=== PATIENT | female | born 1960 | race African-American/Black ===

== ENCOUNTER 2017-08-10 11:57 | Emergency (ER) | payer OTHER ==
[~2017-08-10] VITALS: Ht 154.9 cm; Wt 59.0 kg
[~2017-08-10 11:57] MED LIST: ADVAIR; ADVAIR 250-501 EACH INH; ADVAIR 500/501 EA INH; ALBUTEROL0.63 MG/3; AMBIEN10 MG PO; BACTRIM DS TAB1 EACH PO; DEXILANT60 MG PO; DOXYCYCLINE HY100 MG PO; Hydrocodone/Chlorpheniramine PO; LEVAQUIN500 MG PO; LORATADINE10 MG PO; NEXIUM40 MG PO; PREDNISONE10 MG PO; PREDNISONE20 MG PO; PROAIR HFA INH8.5 GM; PROTONIX40 MG/ML PO; TESSALON PERLE100 MG PO; TUSSIONEX PENN480 ML PO
[2017-08-10] MEDS ORDERED: IPRATROPIUM BROMIDE 0.02% 2.5 ML NEB NEB STA (12:06)
[2017-08-10 12:36] LABS: BASOPHILS # (AUTO) 0.1 (0.0-0.1); BASOPHILS % 1.6 % (0.0-1.0); EOSINOPHILS # (AUTO) 0.9 (0.0-0.4); EOSINOPHILS % 10.5 % (0.0-6.0); HEMATOCRIT 35.4 % (34.2-44.1); HEMOGLOBIN 11.5 g/dL (12.0-16.0); LYMPHOCYTES # (AUTO) 1.6 (1.0-3.2); LYMPHOCYTES % 19.1 % (18.0-39.1); MEAN CORPUSCULAR HGB CONC 32.5 g/dL (31-35); MEAN CORPUSCULAR VOLUME 86.3 fL (81-99); MONOCYTES # (AUTO) 0.7 (0.2-0.8); MONOCYTES % 8.4 % (4.4-11.3); NEUTROPHILS % 60.2 % (38.7-80.0); PLATELET COUNT 339 x10e3/uL (140-360); RED CELL DISTRIBUTION WIDTH 14.6 % (11.7-14.4)
--- NOTE | 2017-08-10 12:36 | Diagnostic Imaging Report ---
EXAMINATION: Chest, CHEST SINGLE (PORTABLE) INDICATION: Asthma. COMPARISON: Chest 2 views 07/03/2017 FINDINGS: LINES: None. Heart: Normal cardiac silhouette. Vascular: The pulmonary vasculature is within normal limits. Atherosclerotic calcifications of the aortic arch. Mediastinum: No mediastinal, hilar, or axillary mass or lymphadenopathy. Lungs: No parenchymal mass. No focal consolidation. Bibasilar atelectasis. Pleura: No pleural effusion. No pneumothorax. Bones: No acute osseous abnormality. Degenerative changes of the thoracic spine. Soft tissues: Gastric lap band. Impression: No acute radiographic abnormality. Signed by: Dr. Amor Sterling M.D. on 08/10/2017 12:33 PM
[2017-08-10] MEDS ORDERED: ALBUTEROL SULF 0.083% NEB SOLN 3 ML NEB NEB ONE (12:45)
[2017-08-10 12:56] LABS: ALANINE AMINOTRANSFERASE 21 IU/L (0-55); ALBUMIN 3.3 g/dL (3.5-5.0); ALKALINE PHOSPHATASE 89 IU/L (40-150); ANION GAP 12.5 mmol/L (8-16); BLOOD UREA NITROGEN 7 mg/dL (7-26); BUN/CREATININE RATIO 10 (6-25); CALCIUM 8.2 mg/dL (8.4-10.2); CARBON DIOXIDE 25 mmol/L (22-29); CHLORIDE 105 mmol/L (98-107); EST GLOMERULAR FILTRATION RATE > 60 ML/MIN (60-); GLUCOSE 85 mg/dL (74-118); POTASSIUM 3.5 mmol/L (3.5-5.1); SODIUM 139 mmol/L (136-145)
[2017-08-10 13:26] VITALS: BP 145/78
== END 2017-08-10 13:30 | disposition home or self-care (01) ==
LOC: ER 11:57
DX: R05 Cough (principal); J45.30 Mild persistent asthma, uncomplicated
CPT/HCPCS: 36415; 71010; 80053; 85025; 94640; 99284

== ENCOUNTER 2018-01-15 13:28 | Emergency (ER) | payer OTHER ==
[~2018-01-15] VITALS: Ht 154.9 cm; Wt 60.8 kg
--- OUTSIDE RECORDS SUMMARY | 2018-01-15 13:31 | XMS REPORT ---
Author Author [facility] [place] Address Unknown Phone Unavailable Care Team Providers Care Typing Bookkeeper Name Role Phone MILLICENT MORRISON Unavailable Unavailable MARE BAILEY Unavailable Unavailable Problems This patient has no known problems. Allergies, Adverse Reactions, Alerts This patient has no known allergies or adverse reactions. Medications This patient has no known medications. Results Test Description Test Time Test Comments Text Results Atomic Results Result Comments CHEST SINGLE (PORTABLE) [place] [address] Patient Name: MAVERICK ANN MR #: [id number] : 1960 Age/Sex: 57/F Req #: [id number] Adm Physician: Ordered by: MILLICENT MORRISON MD Report #: [id number] Location: ER Room/Bed: Procedure: [id number] DX/CHEST SINGLE (PORTABLE) Exam Date: 08/10/17 Exam Time: 1225 REPORT STATUS: Signed EXAMINATION: Chest, CHEST SINGLE (PORTABLE) INDICATION: Asthma. COMPARISON: Chest 2 views 07/03/2017 FINDINGS: LINES: None. Heart: Normal cardiac silhouette. Vascular: The pulmonary vasculature is within normal limits. Atherosclerotic calcifications of the aortic arch. Mediastinum: No mediastinal, hilar, or axillary mass or lymphadenopathy. Lungs: No parenchymal mass. No focal consolidation. Bibasilar atelectasis. Pleura: No pleural effusion. No pneumothorax. Bones: No acute osseous abnormality. Degenerative changes of the thoracic spine. Soft tissues: Gastric lap band. Impression: No acute radiographic abnormality. Signed by: Dr. Abdias Ross M.D. on 08/10/2017 12:33 PM Dictated By: ABDIAS ROSS MD 1233 Transcribed By: AMANDA on 08/10/17 1233 COPY TO: MILLICENT MORRISON MD CHEST 2 VIEWS [place] [address] Patient Name: MAVERICK ANN MR #: [id number] : 1960 Age/Sex: 57/F Req #: [id number] Adm Physician: Ordered by: MARE BAILEY MD Report #: [id number] Location: ER Room/Bed: Procedure: [id number] DX/CHEST 2 VIEWS Exam Date: 07/03/17 Exam Time: 1150 REPORT STATUS: Signed PROCEDURE: Frontal and lateral views of the chest. COMPARISON: Chest x-rays 01/06/17 and 11/18/15. INDICATIONS : PRODUCTIVE COUGH, CHEST PAIN WHEN COUGHING FINDINGS: Lines/tubes : A laparoscopic gastric band is in appropriate orientation. Lungs: There is increasing airspace opacity in the right middle lobe. Left lung is clear. No evidence of mass. Pleura: There is no pleural effusion or pneumothorax. Heart and mediastinum: The heart is mildly enlarged. The aorta is normal. No hilar lymphadenopathy. Bones: Unremarkable for age. IMPRESSION: 1. Right middle lobe airspace opacity is suggestive of atelectasis or infiltrate. Recommend followup x-ray in 10-12 weeks to assess interval change/resolution. 2. No new cardiopulmonary findings. Dictated by: Abdirahman Crews M.D. on 07/03/2017 at 12:35 Electronically approved by: Abdirahman Crews M.D. on 07/03/2017 at 12: 35 Dictated By: ABDIRAHMAN CREWS MD 1235 Transcribed By: KRISTA on 07/03/17 1235 COPY TO: MARE BAILEY MD
[2018-01-15] MEDS ORDERED: ALBUTEROL/IPRATROPIUM 3 ML NEB NEB ONE (14:00)
[2018-01-15] MEDS ORDERED: PREDNISONE 20 MG TAB PO ONE (14:00)
--- NOTE | 2018-01-15 14:41 | Diagnostic Imaging Report ---
PROCEDURE: Frontal and lateral views of the chest. COMPARISON: Patients [facility], DX, CHEST SINGLE (PORTABLE), 08/10/2017, 12:09. INDICATIONS: SHORTNESS OF BREATH, COUGH, ASTHMA FINDINGS: Lines/tubes: None. Lungs: The lungs are well inflated and grossly clear. There is no evidence of pneumonia or pulmonary edema. Pleura: There is no pleural effusion or pneumothorax. Heart and mediastinum: Cardiac silhouette is upper limit of normal to borderline enlarged. Pulmonary vasculature is normal. Bones: No acute bony abnormality. IMPRESSION: 1. cardiac silhouette and the upper limit of normal to borderline in size. No acute cardiopulmonary disease. Jared Hogan M.D. Dictated by: Jared Hogan M.D. on 01/15/2018 at 14:43 Electronically approved by: Jared Hogan M.D. on 01/15/2018 at 14:43
== END 2018-01-15 19:09 | disposition home or self-care (01) ==
LOC: ER 13:32
DX: R06.00 Dyspnea, unspecified (principal); J98.01 Acute bronchospasm; J45.909 Unspecified asthma, uncomplicated
CPT/HCPCS: 71046; 94640; 99283

== ENCOUNTER 2018-07-31 11:50 | Emergency (ER) | payer OTHER ==
[~2018-07-31] VITALS: Ht 157.5 cm; Wt 65.3 kg
[~2018-07-31 11:50] MED LIST changes: +Albuterol/Ipratropium Nebulize NEB; +MUCINEX DM ER1 EACH PO
--- OUTSIDE RECORDS SUMMARY | 2018-07-31 11:53 | XMS REPORT | Clinical Summary ---
Author Author [facility] Address Unknown Phone Unavailable Care Team Providers Care Dairy Products Maker Name Role Phone PCP Unavailable Allergies Not on File Medications Not on file Active Problems Not on file Social History Date Tobacco Use Types Packs/Day Years Used Never Assessed Sex Assigned at Date Recorded Not on file Industry Job Start Date Occupation Not on file Not on file Not on file Travel End Travel History Travel Start No recent travel history available. Last Filed Vital Signs Not on file Plan of Treatment Not on file Results Not on fileafter 07/30/2017
[2018-07-31] MEDS ORDERED: KETOROLAC TROMETHAMINE 60 MG/2 ML VIAL IM ONE (12:30)
[2018-07-31] MEDS ORDERED: DEXAMETHASONE SOD PHOS 10 MG/1 ML VIAL IV ONE (12:30)
[2018-07-31 12:59] LABS: BILIRUBIN,URINE NEGATIVE (NEGATIVE); CLARITY,URINE SL CLOUDY (CLEAR); COLOR,URINE YELLOW (YELLOW); KETONES,URINE NEGATIVE (NEGATIVE); LEUKOCYTE ESTERASE ,URINE NEGATIVE (NEGATIVE); NITRITE,URINE NEGATIVE (NEGATIVE); PROTEIN,URINE DIPSTICK NEGATIVE (NEGATIVE); URINE UROBILINOGEN 1 mg/dL (0.2 - 1)
[2018-07-31 13:21] LABS: BACTERIA,URINE RARE /HPF; EPITHELIAL CELLS,URINE MODERATE /LPF
[2018-07-31 13:49] VITALS: BP 125/73
== END 2018-07-31 13:52 | disposition home or self-care (01) ==
LOC: ER 11:50
DX: M54.42 Lumbago with sciatica, left side (principal); K21.9 Gastro-esophageal reflux disease without esophagitis
CPT/HCPCS: 81001; 99283; J1100; J1885

== ENCOUNTER 2019-01-01 21:08 | Emergency (ER) | payer OTHER ==
[~2019-01-01] VITALS: Ht 157.5 cm; Wt 56.7 kg
[2019-01-01] MEDS ORDERED: ALBUTEROL SULF 0.083% NEB SOLN 3 ML NEB NEB ONE (21:33)
--- OUTSIDE RECORDS SUMMARY | 2019-01-01 21:33 | XMS REPORT | Continuity of Care Document ---
Author Author [facility] Address Unknown Phone Unavailable Problems Problem Status Onset Date Classification Date Reported Comments Source Asthma exacerbation Active 11/18/2015 Problem 07/31/2018 [facility] Bronchitis Active 11/18/2015 Problem 07/31/2018 [facility] Chest pain Active Problem 07/31/2018 [facility] Pneumonia Active Problem 07/31/2018 [facility] Medications Medication Details Route Status Patient Instructions Ordering Provider Order Date Source Albuterol/Ipratropium Nebulize 3 Ml Inha Rt Q4h Active [place] 03/10/2018 [facility] Guaifenesin/Dextromethorphan (Mucinex Dm Er 600-30 Mg Tablet) 1 Each Tab.er.12h Every 12 Hours Active [facility] 03/10/2018 [facility] Levofloxacin (Levaquin) 500 Mg Tablet Daily Active [facility] 03/10/2018 [facility] Prednisone 10 Mg Tab Use As Directed Active TAKE 40MG PO BID X2 DAYS THEN TAKE 30MG PO BID X4 DAYS THEN TAKE 40MG PO DAILY X4 DAYS THEN TAKE 30MG PO DAILY X4 DAYS THEN TAKE 20MG PO DAILY X4 DAYS THEN TAKE 10MG PO DAILY X4 DAYS THEN STOP [place] 03/10/2018 [facility] Pantoprazole Sod (Protonix) 40 Mg/Ml Susp Daily Active [facility] 07/06/2017 [facility] Benzonatate (Tessalon Perle) 100 Mg Capsule, 100 Mg Oral Three Times A Day Active [facility] 07/06/2017 [facility] Hydrocodone/Chlorpheniramine 10 Ml Susp, 5 Ml Oral Every 12 Hours as needed for Cough Active [facility] 07/06/2017 [facility] Levofloxacin (Levaquin) 500 Mg Tablet, 750 Mg Oral Daily Active [facility] 07/06/2017 [facility] Loratadine 10 Mg Tablet, 10 Mg Oral Daily Active [facility] 07/06/2017 [facility] Prednisone 20 Mg Tab, 20 Mg Oral Daily Active [facility] 07/06/2017 [facility] Fluticasone/Salmeterol (Advair 250-50 Diskus) 1 Each Disk.w.dev, 1 Inh Inhalation Twice A Day Active 01/06/2017 [facility] Albuterol Sulfate (Proair Hfa Inhaler*) 8.5 Gm Inh, As Needed Active 09/04/2016 [facility] Dexlansoprazole (Dexilant) 60 Mg Cap., 60 Mg Oral Daily Active 09/04/2016 [facility] Doxycycline Hyclate 100 Mg Capsule, 100 Mg Oral Twice A Day Active 09/04/2016 [facility] Hydrocodone/Chlorphen Polis (Tussionex Pennkinetic Susp) 480 Ml Jolie.er.12h, 5 Ml Oral Every 12 Hours as needed for Cough Active 09/04/2016 [facility] Prednisone 10 Mg Tab, 10 Mg Oral Use As Directed Active 09/04/2016 [facility] Zolpidem Tartrate (Ambien) 10 Mg Tablet, 10 Mg Oral Bedtime as needed for Insomnia Active 09/04/2016 [facility] Esomeprazole Magnesium (Nexium) 40 Mg Capsule., 40 Mg Oral Daily Active 11/18/2015 [facility] Salmeterol Xinafoate/Fluticasone (Advair 500/50*) 1 Ea Aerp Every 12 Hours Active [facility] Allergies, Adverse Reactions, Alerts Substance Category Reaction Severity Reaction type Status Date Reported Comments Source Immunizations Immunization Date Given Site Status Last Updated Comments Source Results Order Name Results Value Reference Range Date Interpretation Comments Source Urine color determination YELLOW YELLOW 07/31/2018 [facility] Urine clarity SL CLOUDY CLEAR 07/31/2018 [facility] Specific gravity of Urine by Test strip 1.025 1.010 - 1.025 07/31/2018 [facility] Urine pH measurement by automated test strip 6 5 - 7 07/31/2018 [facility] Urine leukocyte esterase detection by dipstick NEGATIVE NEGATIVE 07/31/2018 [facility] Urine nitrite detection NEGATIVE NEGATIVE 07/31/2018 [facility] Urine protein measurement by test strip (mass/volume) NEGATIVE NEGATIVE 07/31/2018 [facility] Urine glucose detection NEGATIVE NEGATIVE 07/31/2018 [facility] Urine ketones detection by automated test strip NEGATIVE NEGATIVE 07/31/2018 [facility] Urine urobilinogen measurement by test strip (mass/volume) 1 0.2 - 1 07/31/2018 [facility] Urine total bilirubin measurement (mass/volume) NEGATIVE NEGATIVE 07/31/2018 [facility] Urine erythrocytes detection NEGATIVE NEGATIVE 07/31/2018 [facility] Automated urine sediment leukocyte count by microscopy (number/high power field) NONE 0 - 5 07/31/2018 [facility] Erythrocytes detection in urine sediment by light microscopy NONE 0 - 5 07/31/2018 [facility] Bacteria detection in urine sediment by light microscopy RARE NONE 07/31/2018 [facility] Epithelial cells detection in urine sediment by light microscopy MODERATE NONE 07/31/2018 [facility] Capillary blood glucose measurement by glucometer (mass/volume) 123 70 - 120 03/10/2018 [facility] Blood leukocytes automated count (number/volume) 10.05 4.8 - 10.8 03/10/2018 [facility] Blood erythrocytes automated count (number/volume) 4.54 3.6 - 5.1 03/10/2018 [facility] Blood hemoglobin measurement (moles/volume) 12.5 12.0 - 16.0 03/10/2018 [facility] Automated blood hematocrit (volume fraction) 38.0 34.2 - 44.1 03/10/2018 [facility] Automated erythrocyte mean corpuscular volume 83.7 81 - 99 03/10/2018 [facility] Automated erythrocyte mean corpuscular hemoglobin (mass per erythrocyte) 27.5 28 - 32 03/10/2018 [facility] Automated erythrocyte mean corpuscular hemoglobin concentration measurement (mass/volume) 32.9 31 - 35 03/10/2018 [facility] RDW BldCo-Rto 14.7 11.7 - 14.4 03/10/2018 [facility] Automated blood platelet count (count/volume) 361 140 - 360 03/10/2018 [facility] Automated blood segmented neutrophil count as percentage of total leukocytes 88.0 38.7 - 80.0 03/10/2018 [facility] Automated blood lymphocyte count as percentage ot total leukocytes 7.5 18.0 - 39.1 03/10/2018 [facility] Automated blood monocyte count as percentage of total leukocytes 3.8 4.4 - 11.3 03/10/2018 [facility] Automated blood eosinophil count as percentage of total leukocytes 0.0 0.0 - 6.0 03/10/2018 [facility] Automated blood basophil count as percentage of total leukocytes 0.1 0.0 - 1.0 03/10/2018 [facility] IM GRANULOCYTES % 0.6 0.0 - 1.0 03/10/2018 [facility] Automated blood neutrophil count 8.9 2.1 - 6.9 03/10/2018 [facility] Blood lymphocytes count (number/volume) 0.8 1.0 - 3.2 03/10/2018 [facility] Blood monocytes automated count (number/volume) 0.4 0.2 - 0.8 03/10/2018 [facility] Automated blood eosinophil count 0.0 0.0 - 0.4 03/10/2018 [facility] Automated blood basophil count (count/volume) 0.0 0.0 - 0.1 03/10/2018 [facility] Absolute Immature Granulocyte (auto 0.06 0 - 0.1 03/10/2018 [facility] Serum or plasma sodium measurement (moles/volume) 139 136 - 145 03/10/2018 [facility] Serum or plasma potassium measurement (moles/volume) 4.3 3.5 - 5.1 03/10/2018 [facility] Serum or plasma chloride measurement (moles/volume) 103 98 - 107 03/10/2018 [facility] Serum or plasma carbon dioxide, total measurement (moles/volume) 27 22 - 29 03/10/2018 [facility] Serum or plasma anion gap 13.3 8 - 16 03/10/2018 [facility] Serum or plasma urea nitrogen measurement (mass/volume) 11 7 - 26 03/10/2018 [facility] Serum or plasma creatinine measurement (mass/volume) 0.77 0.57 - 1.11 03/10/2018 [facility] Serum or plasma urea nitrogen/creatinine mass ratio 14 6 - 25 03/10/2018 [facility] Estimated glomerular filtration rate (GFR) determination > 60 60 03/10/2018 [facility] Glucose measurement 126 74 - 118 03/10/2018 [facility] Serum or plasma calcium measurement (mass/volume) 9.2 8.4 - 10.2 03/10/2018 [facility] Serum or plasma magnesium measurement (mass/volume) 2.0 1.3 - 2.1 03/10/2018 [facility] Serum or plasma thyroxine (T4) free measurement (mass/volume) 0.81 0.9 - 1.8 03/09/2018 [facility] Hemoglobin A1c Percent 5.3 4.0 - 7.0 03/08/2018 [facility] Serum or plasma total bilirubin measurement (mass/volume) 0.3 0.2 - 1.2 03/08/2018 [facility] Serum or plasma conjugated bilirubin measurement (mass/volume) 0.1 0.0 - 0.5 03/08/2018 [facility] Aspartate Amino Transf (AST/SGOT) 14 5 - 34 03/08/2018 [facility] Serum or plasma alanine aminotransferase measurement (enzymatic activity/volume) 10 0 - 55 03/08/2018 [facility] Serum or plasma protein measurement (mass/volume) 7.0 6.5 - 8.1 03/08/2018 [facility] Serum or plasma albumin measurement (mass/volume) 3.3 3.5 - 5.0 03/08/2018 [facility] Serum or plasma alkaline phosphatase measurement (enzymatic activity/volume) 74 40 - 150 03/08/2018 [facility] Serum or plasma thyrotropin measurement by detection limit <=0.005 miu/l (units/volume) 0.136 0.350 - 4.940 03/08/2018 [facility] Serum hepatitis C virus antibody detection 0.2 03/08/2018 [facility] Mucus detection in urine sediment by light microscopy MANY RARE 03/06/2018 [facility] Vital Signs Vital Sign Value Date Comments Source Encounters Location Location Details Encounter Type Encounter Number Reason For Visit Attending Provider ADM Date DC Date Status Source Departed Emergency Room [id number] ABDIAS LALA DO 01/15/2018 01/15/2018 [facility] Discharged Inpatient [id number] MAZIN TELLO MD 03/07/2018 03/10/2018 [facility] Departed Emergency Room [id number] LINDEN SANCHEZ MD 07/31/2018 07/31/2018 [facility] Procedures Procedure Code Date Perfomer Comments Source X-ray of chest, two views [id number] 03/06/2018 [facility] EMERGENCY DEPT VISIT [id number] 01/15/2018 [facility] X-ray of chest, two views [id number] 01/15/[address] [facility] [place], [place]
--- OUTSIDE RECORDS SUMMARY | 2019-01-01 21:33 | XMS REPORT | Clinical Summary ---
Author Author [facility] Address Unknown Phone Unavailable Care Team Providers Care Condenser Setter Name Role Phone PCP Unavailable Allergies Not [...] Not on file Results Not on fileafter 12/31/2017
[2019-01-01] MEDS ORDERED: ALBUTEROL/IPRATROPIUM 3 ML NEB ONE (21:36)
[2019-01-01] MEDS ORDERED: METHYLPREDNISOLONE SOD SUCC 125 MG/2ML VIAL IM ONE (21:45)
[2019-01-01] MEDS ORDERED: IPRATROPIUM BROMIDE 0.02% 2.5 ML NEB NEB ONE (21:45)
--- NOTE | 2019-01-01 22:22 | Diagnostic Imaging Report ---
EXAMINATION: PA and lateral views of the chest. COMPARISON: None CLINICAL HISTORY: Cough, shortness of breath DISCUSSION: Lines/tubes: None. Lungs: The lungs are well inflated and clear. No pneumonia or pulmonary edema. Pleura: No pleural effusion or pneumothorax. Heart and mediastinum: The cardiomediastinal silhouette is normal. Bones and soft tissues: No acute bony abnormalities. IMPRESSION: No acute cardiopulmonary abnormalities. Signed by: Dr. Avinash Moreno M.D. on 01/01/2019 10:19 PM
[2019-01-01 22:31] VITALS: BP 108/68
== END 2019-01-01 22:42 | disposition home or self-care (01) ==
LOC: ER 21:08
DX: R06.00 Dyspnea, unspecified (principal); R05 Cough; J45.31 Mild persistent asthma with (acute) exacerbation; K21.9 Gastro-esophageal reflux disease without esophagitis; Z87.891 Personal history of nicotine dependence
CPT/HCPCS: 71046; 96372; 99284; J2930

== ENCOUNTER 2019-11-05 03:30 | Inpatient (IN) | payer SELFPAY ==
[~2019-11-05] VITALS: Ht 157.5 cm; Wt 56.7 kg
[2019-11-05 03:59] LABS: BASOPHILS # (AUTO) 0.1 (0.0-0.1); BASOPHILS % 1.5 % (0.0-1.0); EOSINOPHILS # (AUTO) 1.4 (0.0-0.4); EOSINOPHILS % 15.4 % (0.0-6.0); HEMATOCRIT 37.9 % (34.2-44.1); HEMOGLOBIN 12.1 g/dL (12.0-16.0); LYMPHOCYTES # (AUTO) 2.4 (1.0-3.2); LYMPHOCYTES % 26.1 % (18.0-39.1); MEAN CORPUSCULAR HGB CONC 31.9 g/dL (31-35); MEAN CORPUSCULAR VOLUME 84.6 fL (81-99); MONOCYTES # (AUTO) 0.9 (0.2-0.8); MONOCYTES % 10.1 % (4.4-11.3); NEUTROPHILS # (AUTO) 4.3 (2.1-6.9); NEUTROPHILS % 46.7 % (38.7-80.0); PLATELET COUNT 519 x10e3/uL (140-360); RED BLOOD COUNT 4.48 x10e6/uL (3.6-5.1); RED CELL DISTRIBUTION WIDTH 14.7 % (11.7-14.4)
[2019-11-05] MEDS ORDERED: ALBUTEROL/IPRATROPIUM 3 ML NEB NEB ONE (04:00)
[2019-11-05] MEDS ORDERED: METHYLPREDNISOLONE SOD SUCC 125 MG/2ML VIAL IV ONE (04:00)
[2019-11-05 04:12] LABS: ALANINE AMINOTRANSFERASE 14 IU/L (0-55); ALBUMIN 3.6 g/dL (3.5-5.0); ALBUMIN/GLOBULIN RATIO 0.9 (0.8-2.0); ALKALINE PHOSPHATASE 95 IU/L (40-150); ANION GAP 14.5 mmol/L (8-16); BLOOD UREA NITROGEN 7 mg/dL (7-26); BUN/CREATININE RATIO 8 (6-25); CARBON DIOXIDE 26 mmol/L (22-29); CHLORIDE 108 mmol/L (98-107); CREATINE KINASE 365 IU/L (29-168); CREATININE, SERUM 0.84 mg/dL (0.57-1.11); EST GLOMERULAR FILTRATION RATE > 60 ML/MIN (60-); GLUCOSE 101 mg/dL (74-118); POTASSIUM 4.5 mmol/L (3.5-5.1); SODIUM 144 mmol/L (136-145)
--- NOTE | 2019-11-05 04:39 | NUR ---
PATIENT REFUSED MD ZAK NOTIFIED
[2019-11-05 04:43] LABS: INFLUENZAE A&B ANTIGEN (RAPID) NEGATIVE (NEGATIVE); STREPTOCOCCUS GRP A ANTIGEN NEGATIVE (NEGATIVE)
--- NOTE | 2019-11-05 04:51 | Diagnostic Imaging Report ---
EXAMINATION: CHEST SINGLE (PORTABLE) INDICATION: SOB. COMPARISON: Chest radiograph 01/01/2019. FINDINGS: TUBES and LINES: Overlying structures in the right upper hemithorax. LUNGS: Lungs are well inflated. There is no evidence of pneumonia or pulmonary edema. Mild bronchial wall thickening. PLEURA: No pleural effusion or pneumothorax. HEART AND MEDIASTINUM: The cardiomediastinal silhouette is unremarkable. There are atherosclerotic calcifications within the aorta. BONES AND SOFT TISSUES: No acute osseous lesion. Soft tissues are unremarkable. UPPER ABDOMEN: No free air under the diaphragm. There are cholecystectomy clips. IMPRESSION: No evidence of pneumonia. Mild bronchial wall thickening, which may represent bronchitis. Signed by: Dr. Shayna Tapia MD on 11/05/2019 4:47 AM
--- NOTE | 2019-11-05 05:52 | NUR ---
Pt states she would like to "take a break" from BIPAP at this time, Pt made aware of risks and benefits, ED MD informed, will continue to monitor Pt, call light in reach.
[2019-11-05] MEDS ORDERED: IOPAMIDOL 370 MG/ML 200 ML INFUS..BTL INJ ONE (05:56)
[2019-11-05] MEDS ORDERED: SODIUM CHLORIDE 0.9% 50ML 50 ML ONE (05:56)
--- NOTE | 2019-11-05 06:28 | Diagnostic Imaging Report ---
EXAM: CT Chest WITH contrast INDICATION: Asthma, shortness of breath. COMPARISON: None TECHNIQUE: Chest was scanned utilizing a multidetector helical scanner from the lung apex through the level of the adrenal glands without administration of IV contrast. Coronal and sagittal reformations were obtained. Routine protocol was performed. IV CONTRAST: 100 mL of Isovue-370 RADIATION DOSE: Total DLP: 458.6 mGy*cm Estimated effective dose: (DLP x 0.014 x size factor) mSv COMPLICATIONS: None FINDINGS: LINES/ TUBES: None. LUNGS AND AIRWAYS: Mild adherent mucous within the trachea. Mild biapical pleural-parenchymal opacity with cystic changes. Diffuse mild bronchial wall thickening. Scattered mucoid impaction within the bronchi, for example in the left upper lobe on series 5, image 35. There is a 3 mm subpleural solid nodule in the right upper lobe on series 5, image 27. Mild patchy groundglass opacity in the right upper and lower lobes and lingula. Clustered groundglass/tree-in-bud nodular opacities in the left upper and lower lobes. Linear subsegmental atelectasis in the right middle lobe. PLEURA: The pleural spaces are clear. HEART AND MEDIASTINUM: The thyroid gland is normal. No evidence of lymphadenopathy. Subcentimeter mediastinal lymph nodes, likely reactive. Mildly dilated main pulmonary artery, measuring up to 3 cm. No cardiomegaly or pericardial effusion. UPPER ABDOMEN: Limited contrast-enhanced views of the upper abdomen. Status post cholecystectomy. Status post gastric band. There is a small hiatal hernia with a dilated esophagus filled with fluid and debris. There is mild thickening within the esophagus and stomach as well as proximal small bowel. BONES: The visualized bony thorax is within normal limits. SOFT TISSUES: Unremarkable. IMPRESSION: Findings compatible with mild multifocal aspiration and bronchitis. Status post gastric band with small hiatal hernia and dilated esophagus filled with debris and fluid. Mucus is present within the trachea with scattered mucoid impaction, suggest clinical correlation given high aspiration risk. Mild wall thickening within the esophagus, stomach, and proximal small bowel, suggestive of gastroesophageal reflux and esophagitis/gastritis/enteritis. EGD may be considered if clinically indicated. An 8 mm indeterminant left lower lobe pulmonary nodule. This may be infectious/inflammatory or malignant. Recommend follow-up CT in 3 months. Borderline mildly dilated main pulmonary artery, suggest clinical correlation for possible arterial hypertension. Signed by: Dr. Shayna Tapia MD on 11/05/2019 6:26 AM
--- NOTE | 2019-11-05 06:58 | NUR ---
patient is on 2lpm nc. no resp distress noted. report given in full to joana cantrell
[2019-11-05] MEDS ORDERED: CEFTRIAXONE SOD 1 GM VIAL IV SCH (08:45)
[2019-11-05] MEDS: CEFTRIAXONE SOD 1 GM/NS 50 ML 50 ML IV SCH (09:16)
[2019-11-05] MEDS ORDERED: AZITHROMYCIN 500MG/NS 250 ML 250 ML IV ONE (09:30)
[2019-11-05 15:41] VITALS: BP 133/91
--- NOTE | 2019-11-05 16:20 | NUR ---
Recvd patient from ER, aaoX3, not in any distress, denies any pain, on droplet precaution, talked to Infectious disease nurse and ekg manager regarding flu test are negative, per them still keep it on droplet
[2019-11-05] MEDS ORDERED: PANTOPRAZOLE SOD 40 MG TABEC PO ONE (17:00)
[2019-11-05] MEDS: HYDROCODONE/CHLORPHENIRAMINE 5 ML LIQCR PO PRN (17:02)
[2019-11-05] MEDS: ALBUTEROL/IPRATROPIUM 3 ML NEB INH SCH ×3 (17:15→23:20)
[2019-11-05 17:22] VITALS: BP 133/91
[2019-11-05] MEDS: SALMETEROL/FLUTICASONE 500/50 INH SCH (17:40)
[2019-11-05] MEDS ORDERED: NON-FORMULARY MEDICATION ([Albuterol/Ipratropium Nebulize] 3 ML) NEB SCH (19:00)
--- NOTE | 2019-11-05 19:24 | Consultation ---
DATE OF CONSULTATION: 11/05/2019 Pulmonary Critical Care Consultation CHIEF COMPLAINT: Wheezing, cough with asthma exacerbation, history of asthma. HISTORY OF PRESENT ILLNESS: The patient is a 59-year-old woman. She has a history of gastroesophageal reflux that was not well controlled with Protonix. She recently switched to Nexium. She also has a history of asthma. She has Advair at home as well as a rescue inhaler and her nebulizer. The patient reports that her nebulizer broke. She has been unable to use the nebulizer at home. She started having more coughing and wheezing over the past several days. She also notes worsening acid reflux. She denies any fever. She is not having any chest pain. PAST MEDICAL HISTORY: 1. Asthma. 2. Gastroesophageal reflux. 3. No prior cardiac history. PAST SURGICAL HISTORY: Noncontributory. ALLERGIES: NO KNOWN DRUG ALLERGIES. SOCIAL HISTORY: The patient is a nonsmoker. She has no recent travel. REVIEW OF SYSTEMS: She denies any fever. She has no headache. She is not complaining of sore throat. She reports cough and congestion. She has wheezing and dyspnea. She has no chest pain. She does have gastroesophageal reflux, but no nausea or vomiting. She has no leg edema. PHYSICAL EXAMINATION: VITAL SIGNS: The patient is afebrile. The blood pressure is 133/91. The saturation is 93% to 100%. HEENT: Shows no facial swelling or erythema. Oropharynx is normal. LYMPHATIC: Shows no submandibular, cervical, or supraclavicular adenopathy. CARDIAC: Reveals regular rate and rhythm with normal S1 and S2. LUNGS: Auscultation of lungs reveals rhonchorous breath sounds bilaterally. There is some wheezing. There is a prolonged expiratory phase. ABDOMEN: Soft, nontender. There is no rebound or guarding. EXTREMITIES: Show no leg edema or calf tenderness. There is no cyanosis or clubbing. SKIN: Shows no rashes. NEUROLOGIC: Shows no focal abnormalities. RADIOGRAPHIC DATA: Chest CT shows diffuse mild bronchial wall thickening with scattered mucoid impaction within the bronchi. There is a mild ground glass opacity in the right upper lobe, right lower lobe and lingula. There is some thickening of the esophagus and stomach suggestive of gastroesophageal reflux. LABORATORY DATA: White blood cell count is 9.2 and hemoglobin is 12.1. The platelet count is 519. The BUN to creatinine ratio is normal. The other electrolytes are within normal limits. IMPRESSION: 1. Asthma with acute exacerbation. 2. Gastroesophageal reflux with active esophagitis. 3. Aspiration pneumonitis, possibly related to gastroesophageal reflux. RECOMMENDATIONS: 1. Solu-Medrol, Advair and bronchodilators to treat for asthma exacerbation. 2. Restart proton pump inhibitors as well as famotidine for acid reflux. 3. Continue current antibiotics. 4. Nebulizer medications. 5. Consider speech therapy evaluation for possible aspiration. 6. GI evaluation for reflux esophagitis. Gigi Dash MD [facility] /[id number]
[2019-11-05 20:00] VITALS: BP 114/55
[2019-11-05 21:30] VITALS: BP 114/55
[2019-11-05] MEDS: FAMOTIDINE 20 MG TAB PO SCH (22:13)
[2019-11-05] MEDS: GUAIFENESIN 600MG/DEXTROMETHORPHAN 30MG TABSR PO SCH (22:13)
[2019-11-05] MEDS: METHYLPREDNISOLONE SOD SUCC 125 MG/2ML VIAL IV SCH (22:13)
[2019-11-06] VITALS (7 sets, daily range): BP systolic 121–159; BP diastolic 58–71
[2019-11-06] MEDS: ALBUTEROL/IPRATROPIUM 3 ML NEB INH SCH ×6 (00:05→19:25)
[2019-11-06] MEDS: HYDROCODONE/CHLORPHENIRAMINE 5 ML LIQCR PO PRN ×3 (02:26→19:23)
[2019-11-06 05:39] LABS: BASOPHILS % 0.1 % (0.0-1.0); HEMATOCRIT 33.2 % (34.2-44.1); HEMOGLOBIN 10.3 g/dL (12.0-16.0); LYMPHOCYTES # (AUTO) 0.5 (1.0-3.2); LYMPHOCYTES % 4.6 % (18.0-39.1); MEAN CORPUSCULAR HEMOGLOBIN 26.5 pg (28-32); MEAN CORPUSCULAR VOLUME 85.3 fL (81-99); MONOCYTES # (AUTO) 0.1 (0.2-0.8); NEUTROPHILS # (AUTO) 10.5 (2.1-6.9); NEUTROPHILS % 93.6 % (38.7-80.0); PLATELET COUNT 463 x10e3/uL (140-360); RED BLOOD COUNT 3.89 x10e6/uL (3.6-5.1); RED CELL DISTRIBUTION WIDTH 14.3 % (11.7-14.4)
[2019-11-06 05:57] LABS: BLOOD UREA NITROGEN 13 mg/dL (7-26); BUN/CREATININE RATIO 18 (6-25); CALCIUM 8.9 mg/dL (8.4-10.2); CARBON DIOXIDE 28 mmol/L (22-29); CHLORIDE 107 mmol/L (98-107); CREATININE, SERUM 0.71 mg/dL (0.57-1.11); EST GLOMERULAR FILTRATION RATE > 60 ML/MIN (60-); GLUCOSE 172 mg/dL (74-118); MAGNESIUM 1.9 MG/DL (1.3-2.1); PHOSPHORUS 3.4 MG/DL (2.3-4.7); SODIUM 139 mmol/L (136-145)
[2019-11-06] MEDS: SALMETEROL/FLUTICASONE 500/50 INH SCH ×2 (06:48→19:25)
--- NOTE | 2019-11-06 07:19 | NUR ---
report given to day nurse. patient is resting comfortably in bed. bed is in lowest position and call light is within reach.
[2019-11-06] MEDS: GUAIFENESIN 600MG/DEXTROMETHORPHAN 30MG TABSR PO SCH ×2 (09:00→21:11)
[2019-11-06] MEDS ORDERED: SODIUM CHLORIDE 0.9% 250ML 250 ML ONE (09:12)
[2019-11-06] MEDS: CEFTRIAXONE SOD 1 GM/NS 50 ML 50 ML IV SCH (09:21)
[2019-11-06] MEDS: METHYLPREDNISOLONE SOD SUCC 125 MG/2ML VIAL IV SCH ×2 (09:21→21:11)
--- NOTE | 2019-11-06 13:15 | NUR ---
Dr. Dash is here making rounds, he said patient is OK/clear for patient to go for EGD today
--- NOTE | 2019-11-06 13:15 | NUR ---
Endo nurse notified that Dr. Dash cleared patient for EGD
--- NOTE | 2019-11-06 13:48 | NUR ---
PROVIDED SELF PAY PACKET TO FOLLOW UP ON [facility]
--- NOTE | 2019-11-06 19:30 | NUR ---
RECEIVED REPORT FROM DAY NURSE. PATIENT IS RESTING COMFORTABLY IN THE BED. BED IS IN THE LOWEST POSITION AND CALL LIGHT IS WITHIN REACH. WILL CONTINUE TO MONITOR PATIENT.
[2019-11-06] MEDS: FAMOTIDINE 20 MG TAB PO SCH (21:11)
[2019-11-07] VITALS (8 sets, daily range): BP systolic 93–173; BP diastolic 55–87
--- NOTE | 2019-11-07 01:38 | Consultation ---
DATE OF CONSULTATION: 11/06/2019 REASON FOR CONSULTATION: Acute exacerbation of asthma. HISTORY OF PRESENT ILLNESS: This patient is a 59-year-old female with history of asthma, comes in with cough and shortness of breath. The patient has been sick for a few days. She also has gastroesophageal reflux disease. The patient came here because she was not able to breathe. The patient was admitted. When she first came, white count 9.2, hemoglobin 12. Sodium 139, potassium 4. The patient was sent for influenza A and B, came back negative. Strep was negative. The patient was started on Rocephin and inhaler. She says she is feeling better. The patient was seen by Pulmonary. PHYSICAL EXAMINATION: GENERAL: Currently alert, oriented, does not seem to be in acute distress. VITAL SIGNS: Stable, currently afebrile. HEENT: She is not icteric. NECK: Supple. CHEST: Few wheezing bilaterally. HEART: S1 and S2. No murmurs. ABDOMEN: Soft. IMPRESSION: Asthma exacerbation, probably superimposed bacterial infection. Currently, doing better. We would recommend to give Rocephin and azithromycin for 5 days. Inhalers, perhaps a steroid per pulmonary to see if it is stable from Infectious Disease point of view. She is slowly improving. Possible discharge tomorrow with Augmentin and azithromycin. MD ALBERTO [facility] /[id number]
[2019-11-07] MEDS: ALBUTEROL/IPRATROPIUM 3 ML NEB INH SCH ×6 (04:15→23:07)
--- NOTE | 2019-11-07 06:59 | NUR ---
REPORT GIVEN TO DAY NURSE. PATIENT IS RESTING COMFORTABLY IN BED. BED IS IN LOWEST POSITION AND CALL LIGHT IS WITHIN REACH.
[2019-11-07] MEDS: SALMETEROL/FLUTICASONE 500/50 INH SCH ×2 (07:14→19:28)
--- NOTE | 2019-11-07 07:39 | Diagnostic Imaging Report ---
EXAMINATION: CHEST 2 VIEWS INDICATION: Shortness of breath, cough ^f/u on multifocal aspiration bronchitis ^[id number] ^[id number] ^Y COMPARISON: CT chest 11/05/2019, chest x-ray 11/05/2019 FINDINGS: PA and lateral views TUBES and LINES: Laparoscopic gastric band is redemonstrated. LUNGS: Lungs are well inflated. A patchy airspace opacity in the right middle lobe may be due to developing infiltrate. A nodule in the lingula identified on CT is not visible by x-ray. PLEURA: No pleural effusion or pneumothorax. HEART AND MEDIASTINUM: The cardiomediastinal silhouette is unremarkable. The esophagus remains dilated. BONES AND SOFT TISSUES: No focal osseous lesions. Soft tissues are unremarkable. UPPER ABDOMEN: Unremarkable. IMPRESSION: 1. Right middle lobe airspace opacity suggestive of developing infiltrate or atelectasis. 2. Stable dilatation of the esophagus. Gastric band readjustment is recommended. Signed by: Dr. Maddie Crews MD on 11/07/2019 7:36 AM
[2019-11-07] MEDS: GUAIFENESIN 600MG/DEXTROMETHORPHAN 30MG TABSR PO SCH ×2 (08:55→20:50)
[2019-11-07] MEDS: CEFTRIAXONE SOD 1 GM/NS 50 ML 50 ML IV SCH (08:55)
[2019-11-07] MEDS: METHYLPREDNISOLONE SOD SUCC 125 MG/2ML VIAL IV SCH (08:55)
[2019-11-07] MEDS: HYDROCODONE/CHLORPHENIRAMINE 5 ML LIQCR PO PRN ×2 (08:55→20:50)
[2019-11-07 11:39] LABS: BASOPHILS % 0.2 % (0.0-1.0); HEMATOCRIT 33.5 % (34.2-44.1); HEMOGLOBIN 10.7 g/dL (12.0-16.0); LYMPHOCYTES # (AUTO) 0.6 (1.0-3.2); LYMPHOCYTES % 5.5 % (18.0-39.1); MEAN CORPUSCULAR HEMOGLOBIN 26.8 pg (28-32); MEAN CORPUSCULAR HGB CONC 31.9 g/dL (31-35); MEAN CORPUSCULAR VOLUME 83.8 fL (81-99); MONOCYTES # (AUTO) 0.2 (0.2-0.8); MONOCYTES % 2.2 % (4.4-11.3); NEUTROPHILS # (AUTO) 9.6 (2.1-6.9); NEUTROPHILS % 91.5 % (38.7-80.0); PLATELET COUNT 483 x10e3/uL (140-360); RED CELL DISTRIBUTION WIDTH 14.3 % (11.7-14.4)
[2019-11-07 11:55] LABS: ANION GAP 11.1 mmol/L (8-16); BLOOD UREA NITROGEN 10 mg/dL (7-26); BUN/CREATININE RATIO 15 (6-25); CALCIUM 9.2 mg/dL (8.4-10.2); CARBON DIOXIDE 27 mmol/L (22-29); CHLORIDE 106 mmol/L (98-107); CREATININE, SERUM 0.67 mg/dL (0.57-1.11); EST GLOMERULAR FILTRATION RATE > 60 ML/MIN (60-); GLUCOSE 119 mg/dL (74-118); POTASSIUM 4.1 mmol/L (3.5-5.1); SODIUM 140 mmol/L (136-145)
--- NOTE | 2019-11-07 13:13 | NUR ---
Manual BP 150/78
[2019-11-07] MEDS ORDERED: AZITHROMYCIN 500MG/NS 250 ML 250 ML IV SCH (13:30)
[2019-11-07] MEDS ORDERED: ACETAMINOPHEN/CODEINE 300MG - 30MG TAB PO PRN (18:00)
[2019-11-07] MEDS ORDERED: ACETAMINOPHEN 325 MG TAB PO PRN (18:00)
[2019-11-07] MEDS ORDERED: ONDANSETRON HCL INJ 2MG/ML 2ML 2 MG/ML VIAL IV PRN (18:00)
[2019-11-07] MEDS ORDERED: FLUCONAZOLE 100 MG TAB PO ONE (18:00)
[2019-11-07] MEDS ORDERED: HYDRALAZINE HCL 20 MG/ML VIAL IV PRN (18:00)
[2019-11-07] MEDS: METHYLPREDNISOLONE SOD SUCC 40 MG/ML VIAL 1ML IV SCH (20:50)
[2019-11-07] MEDS: FAMOTIDINE 20 MG TAB PO SCH (20:50)
[2019-11-08] VITALS: BP 134/71
[2019-11-08] MEDS ORDERED: PANTOPRAZOLE 40 MG 10ML VIAL IV STA (03:11)
[2019-11-08] MEDS: ALBUTEROL/IPRATROPIUM 3 ML NEB INH SCH ×2 (03:12→07:30)
[2019-11-08] MEDS ORDERED: PANTOPRAZOLE 40 MG 10ML VIAL IV SCH (03:15)
[2019-11-08 04:00] VITALS: BP 143/69
[2019-11-08 04:04] LABS: BASOPHILS % 0.1 % (0.0-1.0); HEMATOCRIT 33.7 % (34.2-44.1); HEMOGLOBIN 10.8 g/dL (12.0-16.0); LYMPHOCYTES # (AUTO) 0.5 (1.0-3.2); LYMPHOCYTES % 5.3 % (18.0-39.1); MEAN CORPUSCULAR HEMOGLOBIN 26.9 pg (28-32); MEAN CORPUSCULAR VOLUME 83.8 fL (81-99); MONOCYTES # (AUTO) 0.3 (0.2-0.8); MONOCYTES % 2.9 % (4.4-11.3); NEUTROPHILS # (AUTO) 8.8 (2.1-6.9); PLATELET COUNT 497 x10e3/uL (140-360); RED BLOOD COUNT 4.02 x10e6/uL (3.6-5.1); RED CELL DISTRIBUTION WIDTH 14.3 % (11.7-14.4)
[2019-11-08 04:21] LABS: ANION GAP 10.1 mmol/L (8-16); BLOOD UREA NITROGEN 11 mg/dL (7-26); BUN/CREATININE RATIO 17 (6-25); CALCIUM 8.9 mg/dL (8.4-10.2); CARBON DIOXIDE 27 mmol/L (22-29); CHLORIDE 105 mmol/L (98-107); CREATININE, SERUM 0.66 mg/dL (0.57-1.11); EST GLOMERULAR FILTRATION RATE > 60 ML/MIN (60-); GLUCOSE 144 mg/dL (74-118); POTASSIUM 4.1 mmol/L (3.5-5.1); SODIUM 138 mmol/L (136-145)
[2019-11-08 05:27] LABS: FERRITIN 14.34 ng/mL (4.63-204.00)
[2019-11-08] MEDS ORDERED: METOCLOPRAMIDE HCL 10 MG/2ML VIAL IV SCH (06:00)
--- NOTE | 2019-11-08 06:26 | NUR ---
spoke with covering surgeon regarding consult for adjusting lap band. Consulted surgeon is currently out of town and will return tomorrow. Surgeon will see patient tomorrow when he returns.
--- NOTE | 2019-11-08 07:00 | NUR ---
RCD PT AT BED PT IS ALERT AND ORIENTED PT RESTING ON BED IV PATENT BY SALINE FLUSH BED LOW AND LOCKED CALL LIGHT IN REACH
--- NOTE | 2019-11-08 07:06 | NUR ---
report given to day nurse. patient is resting comfortably in bed. bed is in lowest position and call light is within reach.
[2019-11-08] MEDS: SALMETEROL/FLUTICASONE 500/50 INH SCH (07:30)
[2019-11-08 08:00] VITALS: BP 158/73
[2019-11-08] MEDS: HYDROCODONE/CHLORPHENIRAMINE 5 ML LIQCR PO PRN (08:37)
[2019-11-08 08:47] VITALS: BP 158/73
[2019-11-08] MEDS: GUAIFENESIN 600MG/DEXTROMETHORPHAN 30MG TABSR PO SCH (09:00)
[2019-11-08] MEDS: CEFTRIAXONE SOD 1 GM/NS 50 ML 50 ML IV SCH (09:00)
[2019-11-08] MEDS: METHYLPREDNISOLONE SOD SUCC 40 MG/ML VIAL 1ML IV SCH (09:00)
[2019-11-08 09:04] LABS: LYMPHOCYTES % (MANUAL) 4 % (19-48); MONOCYTES % (MANUAL) 2 % (3.4-9.0); NEUTROPHILS % (MANUAL) 94 % (40-74)
[2019-11-08] MEDS ORDERED: CEFTIN PO (09:48)
[2019-11-08] MEDS ORDERED: ZITHROMAX500 MG PO (09:48)
[2019-11-08] MEDS ORDERED: ADVAIR 500/501 EA INH (09:48)
[2019-11-08] MEDS ORDERED: PREDNISONE10 MG PO (09:48)
[2019-11-08] MEDS ORDERED: PROTONIX40 MG/ML PO (09:48)
--- NOTE | 2019-11-08 11:26 | NUR ---
PT WENT HOME IN SAFE CONDITION WITH TAXI
--- NOTE | 2019-11-08 22:52 | Discharge Summary ---
ADMISSION DIAGNOSES: Acute exacerbation of asthma with hypoxia requiring BiPAP, gastroesophageal reflux disease with esophagitis. DISCHARGE DIAGNOSES: Acute exacerbation of asthma with hypoxia requiring BiPAP, gastroesophageal reflux disease with esophagitis, dilated esophagus with gastric band. HISTORY: GERD, asthma. SURGICAL HISTORY: Cholecystectomy, lap-band, left hand surgery. FAMILY HISTORY: The patient's mother had sarcoidosis. The patient's father had cirrhosis of the liver. SOCIAL HISTORY: Occasional alcohol use. HOSPITAL COURSE: A 59-year-old female, who began having shortness of breath, cough with phlegm and sore throat about 1 week ago. She uses nebulizers at home. She did not see her PCP or go to the Urgent Care. As she became increasingly shortness of breath, she went to the ER. On admission, she was requiring BiPAP. She was started on IV antibiotics and steroids and Pulmonology was consulted. The patient's respiratory status improved. She was taken off BiPAP and was on room air at the time of discharge. Her steroids were weaned and she was given a prescription for Zithromax, Ceftin, prednisone taper dose, and Advair. Prior to discharge, an EGD was attempted with possible lap-band procedure per Surgery, but Anesthesiology did not clear the patient for the procedure. As the patient is tolerating diet and has had this problem for over 20 years, she will discharge home and follow up outpatient for an EGD and lap-band procedure. Respiratory completed a home O2 eval. The patient's oxygen dropped to 95% on room air with ambulation, so she does not qualify for home O2. She will discharge home with new prescriptions and follow up with primary care in 1 to 2 weeks. She was advised to follow up with repeat CAT scan of the chest due to the left lower lobe pulmonary nodule that was seen. The patient understands discharge instructions and agrees to plan. Vital signs stable, the patient afebrile. Dictated by Suzie Benavidez NP Noman Scott MD [facility] /[id number]
== END 2019-11-08 11:35 | disposition home or self-care (01) | DRG 202 ==
LOC: ER 08:11 → ERHOLD 08:42 → MED/SURG2 14:52
PROVIDERS: ADMIT Internal Medicine; ATTEND Internal Medicine
DX: J45.901 Unspecified asthma with (acute) exacerbation (principal); J69.0 Pneumonitis due to inhalation of food and vomit; J96.01 Acute respiratory failure with hypoxia; K21.9 Gastro-esophageal reflux disease without esophagitis; K20.9 Esophagitis, unspecified
CPT/HCPCS: 36415; 71045; 71046; 71260; 80048; 80053; 82550; 82553; 82607; 82728; 82746; 83518; 83540; 83605; 83735; 84100; 84466; 84484; 85025; 85045; 87040; 87070; 87400; 87633; 93005; 94640; 94660; 99284; J0456; J0696; J2765; J2920; J2930; J7050; Q9967

== ENCOUNTER 2020-01-15 08:08 | Emergency (ER) | payer SELFPAY ==
[~2020-01-15] VITALS: Ht 157.5 cm; Wt 56.7 kg
[~2020-01-15 08:08] MED LIST changes: +CEFTIN PO; +ZITHROMAX500 MG PO
[2020-01-15] MEDS ORDERED: SODIUM CHLORIDE 0.9% 1000ML 1,000 ML IV STA (08:10)
[2020-01-15] MEDS ORDERED: METHYLPREDNISOLONE SOD SUCC 125 MG/2ML VIAL IV STA (08:10)
--- OUTSIDE RECORDS SUMMARY | 2020-01-15 08:11 | XMS REPORT ---
Author Author [facility] t Organization [facility] t Address [address] [place] [address] Phone Unavailable Care Team Providers Care Boarder Machine Name Role Phone Bong DOMINGO III PCP MAZIN TELLO Attphys Unavailable ALEXIS BADILLO Attphys Unavailable Ayana MILLER Attphys Unavailable Abdulaziz LALA Attphys Unavailable Katarzyna MORRISON Attphys Unavailable MARE BAILEY Attphys Unavailable MAZIN TELLO Admphys Unavailable ALEXIS BADILLO Admphyjuani Unavailable Payers Payer Name Policy Type Policy Number Effective Date Expiration Date [facility] [id number] [facility] [id number] [facility] [id number] 2017 00:00: 00 [facility] [id number] 2017 00:00: 00 [facility] [id number] [facility] Problems Condition Name Condition Details Condition Category Status Onset Date Resolution Date Last Treatment Date Treating Clinician Comments Source Exacerbation of asthma Asthma exacerbation Problem Active 2015-10 00:00:00 [facility] Bronchitis Bronchitis Problem Active 2015-11-18 00:00:00 [facility] Chest pain Chest pain Problem Active [facility] Pneumonia Pneumonia Problem Active [facility] Acute respiratory failure Acute respiratory failure Problem Active [facility] Allergies, Adverse Reactions, Alerts Allergy Name Allergy Type Status Severity Reaction(s) Onset Date Inacti ve Date Treating Clinician Comments Source No Known Allergies DA Active U 2019-09-15 00:00:00 [facility] No Known Intolerances DA Active U 2010-05-15 00:00:00 [facility] Medications Ordered Medication Name Filled Medication Name Start Date Stop Da te Current Medication? Ordering Clinician Indication Dosage Frequency Signature (SIG) Comments Components Source Azithromycin (Zithromax) 500 Mg Tablet Azithromycin (Zithrom ax) 500 Mg Tablet 2019-11-08 00:00:00 Yes Suzie M Pramod Fish Processing Supervisor 500 Daily [facility] Ceftin Ceftin 2019-11-08 00:00:00 Yes Suzie M Pramod Fish Processing Supervisor 500 Every 12 Hours [facility] Pantoprazole Sod (Protonix) 40 Mg/Ml Susp Pantoprazole Sod (Protonix) 40 Mg/Ml Susp 2019-11-08 00:00:00 Yes Suzie M Pramod Fish Processing Supervisor 40 Before Breakfast [facility] Prednisone 10 Mg Tab Prednisone 10 Mg Tab 2019-11-08 00:00:00 Yes Suzie M Pramod Fish Processing Supervisor 10 Use As Directed [facility] Salmeterol Xinafoate/Fluticasone (Advair 500/50*) 1 Ea Aer Salmeterol Xinafoate/Fluticasone (Advair 500/50*) 1 Ea Aerp 2019-11-08 00:00:00 Yes Suzie Benavidez Fish Processing Supervisor 1 Every 12 Hours I [facility] Albuterol/Ipratropium Nebulize 3 Ml Inha Albuterol/Ipr atropium Nebulize 3 Ml Inha 2018-03-10 00:00:00 Yes Suzie Benavidez Fish Processing Supervisor 3 Rt Q4h [facility] Guaifenesin/Dextromethorphan (Mucinex Dm Er 600-30 Mg Tablet) 1 Each Tab.er.12h, 1 Each Oral Guaifenesin/Dextromethorphan (Mucinex Dm Er 600-30 Mg Tablet) 1 Each Tab.er.12h, 1 Each Oral 2018-03-10 00:00:00 2019-11-08 00:00:00 No Suzie Benavidez Fish Processing Supervisor 1 Every 12 Hours [facility] Levofloxacin (Levaquin) 500 Mg Tablet, 500 Mg Oral Lev ofloxacin (Levaquin) 500 Mg Tablet, 500 Mg Oral 2018-03-10 00:00:00 2019-11-08 00:00:00 No Jd Benavidez Fish Processing Supervisor 500 Daily [facility] Prednisone 10 Mg Tab, 10 Mg Oral Prednisone 10 Mg Tab, 10 Mg Oral 2018-03-10 00:00:00 2019-11-08 00:00:00 No Suzie Benavidez Np 10 Use A s Directed [facility] Pantoprazole Sod (Protonix) 40 Mg/Ml Susp, 40 Mg Oral Pantoprazole Sod (Protonix) 40 Mg/Ml Susp, 40 Mg Oral 2017-07-06 00:00:00 2019-11-08 00:00:00 No Vahe Chinchilla Md 40 Daily [facility] Benzonatate (Tessalon Perle) 100 Mg Capsule, 100 Mg Or al Benzonatate (Tessalon Perle) 100 Mg Capsule, 100 Mg Oral 2017-07-06 00:00:00 2018-01-15 00:00:00 No Vahe Chinchilla Md 100 Three Times A Day [facility] Hydrocodone/Chlorpheniramine 10 Ml Susp, 5 Ml Oral Hyd rocodone/Chlorpheniramine 10 Ml Susp, 5 Ml Oral 2017-07-06 00:00:00 2018-01-15 00:00:00 Angelica Chinchilla Md 5 Every 12 Hours as needed for Cough [facility] Levofloxacin (Levaquin) 500 Mg Tablet, 750 Mg Oral Lev ofloxacin (Levaquin) 500 Mg Tablet, 750 Mg Oral 2017-07-06 00:00:00 2018-01-15 00:00:00 Angelica Chinchilla Md 750 Daily [facility] Loratadine 10 Mg Tablet, 10 Mg Oral Loratadine 10 Mg Tablet, 10 Mg Oral 2017-07-06 00:00:00 2018-01-15 00:00:00 Angelica Chinchilla Md 10 Daily [facility] Prednisone 20 Mg Tab, 20 Mg Oral Prednisone 20 Mg Tab, 20 Mg Oral 2017-07-06 00:00:00 2018-01-15 00:00:00 Angelica Chinchilla Md 20 Daily [facility] Salmeterol Xinafoate/Fluticasone (Advair 500/50*) 1 Ea Aerp, 1 Inh Inhalation Salmeterol Xinafoate/Fluticasone (Advair 500/50*) 1 Ea Aerp, 1 Inh Inhalation 2019-11-08 00:00:00 No 1 Every 12 Hours [facility] Fluticasone/Salmeterol (Advair 250-50 Di skus) 1 Each Disk.w.dev, 1 Inh Inhalation Fluticasone/Salmeterol (Advair 250-50 Di skus) 1 Each Disk.w.dev, 1 Inh Inhalation 2017-01-06 00:00:00 No 1 Twice A D ay [facility] Albuterol Sulfate (Proair Hfa Inhaler*) 8.5 Gm Inh, Al buterol Sulfate (Proair Hfa Inhaler*) 8.5 Gm Inh, 2016-09-04 00:00:00 No As Needed [facility] Dexlansoprazole (Dexilant) 60 Mg Cap., 60 Mg Oral Dexlansoprazole (Dexilant) 60 Mg Cap., 60 Mg Oral 2016-09-04 00:00:00 No 60 Daily [facility] Doxycycline Hyclate 100 Mg Capsule, 100 Mg Oral Doxycy boyce Hyclate 100 Mg Capsule, 100 Mg Oral 2016-09-04 00:00:00 No 100 Twi ce A Day [facility] Hydrocodone/Chlorphen Polis (Tussionex P ennkinetic Susp) 480 Ml Jolie.er.12h, 5 Ml Oral Hydrocodone/Chlorphen Polis (Tussionex P ennkinetic Susp) 480 Ml Jolie.er.12h, 5 Ml Oral 2016-09-04 00:00:00 No 5 Every 12 Hours as needed for Cough [facility] Prednisone 10 Mg Tab, 10 Mg Oral Prednisone 10 Mg Tab, 10 Mg Ora l 2016-09-04 00:00:00 No 10 Use As Directed [facility] Zolpidem Tartrate (Ambien) 10 Mg Tablet, 10 Mg Oral Zo lpidem Tartrate (Ambien) 10 Mg Tablet, 10 Mg Oral 2016-09-04 00:00:00 No 10 Bedtime as needed for Insomnia [facility] Esomeprazole Magnesium (Nexium) 40 Mg Capsule., 40 M g Oral Esomeprazole Magnesium (Nexium) 40 Mg Capsule., 40 Mg Oral 2015-11-18 00:00:00 No 40 Daily [facility] Procedures Procedure Date / Time Performed Performing Clinician [facility] e X-ray of chest, two views 2019-11-07 00:00:00 LEO WEAVER CH I [facility] Computed tomography of chest with contrast 2019-11-05 00:00:00 NELIDA ASHLEY [facility] Encounters Start Date/Time End Date/Time Encounter Type Admission Type Attendi [facility] Care Department Encounter ID Source 2019-11-05 08:42:00 2019-11-08 11:35:00 Discharged Inpatient 1 MAZIN TELLO [facility] [id number] [facility] 2019-07-13 07:03:00 2019-07-13 09:30:00 Outpatient C ZAHRAA BADILLO [facility] [id number] [facility] 2019-01-01 21:08:00 2019-01-01 22:42:00 Departed Emergency Room 1 ISAAC MILLER [facility] [id number] [facility] 2018-07-31 11:50:00 2018-07-31 13:52:00 Departed Emergency Room [facility] [id number] [facility] 2018-03-07 11:45:00 2018-03-10 20:20:00 Discharged Inpatient 1 MAZIN TELLO [facility] [id number] [facility] 2018-01-15 13:32:00 2018-01-15 19:09:00 Departed Emergency Room 1 ABDIAS LALA [facility] [id number] [facility] 2017-08-10 11:57:00 2017-08-10 13:30:00 Departed Emergency Room ER MILLICENT MORRISON [facility] [id number] [facility] 2017-07-03 13:44:00 2017-07-07 14:36:00 Discharged Inpatient (obs) ER LYNNMARE [facility] [id number] [facility] Results Test Description Test Time Test Comments Results Result Comments Source Blood Culture 2019-11-08 09:20:00 Test Item Blood Culture (test code = 27421556) NO GROWTH AFTER 72 HOURS [facility]ial Total Cells Counted 2019-11-08 09:04:00* Test Item Value Reference Range Interpretation Comments Differential Total Cells Counted (test code = Differen tial Total Cells Counted) 100 [facility] TempleNeutrophils % (Manual)2019-11-08 09:04:00 * Test Item Value Reference Range Interpretation Comments Neutrophils % (Manual) (test code = 32244-2) 94 40-74 [facility] TempleLymphocytes % (Manual)2019-11-08 09:04:00 * Test Item Value Reference Range Interpretation Comments Lymphocytes % (Manual) (test code = 737-7) 4 19-48 [facility] Temple[facility]ocytes % (Manual)2019-11-08 09:04:00* Test Item Value Reference Range Interpretation Comments Monocytes % (Manual) (test code = 744-3) 2 3.4-9.0 [facility] TemplePercent Reticulocyte [id number] 06:14:00* Test Item Value Reference Range Interpretation Comments Percent Reticulocyte Count (test code = 22612-0) 1.1 0.8-2 .2 [facility] TempleVitamin B12 Zwcdc0763-60-62 05:41:00* Test Item Value Reference Range Interpretation Comments Vitamin B12 Level (test code = 78384-9) 583 213-816 [facility] TempleFerritin2020-03-16 05:29:00* Test Item Value Reference Range Interpretation Comments Ferritin (test code = 2276-4) 14.34 4.63-204.00 [facility] TempleIron Ffxdh5549-22-61 05:13:00* Test Item Value Reference Range Interpretation Comments Iron Level (test code = 2498-4) 14 50-170 [facility] TempleTotal Iron Binding Wfrzbuxy5775-45-67 05:13:00* Test Item Value Reference Range Interpretation Comments Total Iron Binding Capacity (test code = 2500-7) 423 261-4 78 [facility] TemplePercent Iron Fhdmotmglz6002-66-33 05:13:00* Test Item Value Reference Range Interpretation Comments Percent Iron Saturation (test code = 2502-3) 3 15-50 [facility] TempleTransferrin2020-03-16 05:13:00* Test Item Value Reference Range Interpretation Comments Transferrin (test code = 3034-6) 302 180-382 [facility] TempleWhite Blood Wfdds4372-24-65 04:27:00* Test Item Value Reference Range Interpretation Comments White Blood Count (test code = 6690-2) 9.71 4.8-10.8 [facility] TempleRed Blood Qxplq3885-82-21 04:27:00* Test Item Value Reference Range Interpretation Comments Red Blood Count (test code = 789-8) 4.02 3.6-5.1 [facility] TempleHemoglobin2020-03-16 04:27:00* Test Item Value Reference Range Interpretation Comments Hemoglobin (test code = 32521-0) 10.8 12.0-16.0 [facility] TempleHematocrit2020-03-16 04:27:00* Test Item Value Reference Range Interpretation Comments Hematocrit (test code = 4544-3) 33.7 34.2-44.1 [facility] TempleMean Corpuscular Cynxrr1326-54-93 04:27:00* Test Item Value Reference Range Interpretation Comments Mean Corpuscular Volume (test code = 787-2) 83.8 81-99 [facility] TempleMean Corpuscular Phvebpdjsl2153-28-08 04:27:00* Test Item Value Reference Range Interpretation Comments Mean Corpuscular Hemoglobin (test code = 785-6) 26.9 28-32 [facility] TempleMean Corpuscular Hemoglobin Concent 2019-11-08 04:27:00* Test Item Value Reference Range Interpretation Comments Mean Corpuscular Hemoglobin Concent (test code = 786-4) 32.0 31-35 [facility] TempleRed Cell Distribution Kcgkq5481-04-48 04:27:00* Test Item Value Reference Range Interpretation Comments Red Cell Distribution Width (test code = 39640-3) 14.3 11.7 -14.4 [facility] TemplePlatelet Cejdw4237-17-73 04:27:00* Test Item Value Reference Range Interpretation Comments Platelet Count (test code = 777-3) 497 140-360 [facility] TempleNeutrophils (%) (Auto)2019-11-08 04:27:00 * Test Item Value Reference Range Interpretation Comments Neutrophils (%) (Auto) (test code = 82717-3) 91.0 38.7-80.0 [facility] TempleLymphocytes (%) (Auto)2019-11-08 04:27:00 * Test Item Value Reference Range Interpretation Comments Lymphocytes (%) (Auto) (test code = 736-9) 5.3 18.0-39.1 [facility] TempleMonocytes (%) (Auto)2019-11-08 04:27:00* Test Item Value Reference Range Interpretation Comments Monocytes (%) (Auto) (test code = 5905-5) 2.9 4.4-11.3 [facility] TempleEosinophils (%) (Auto)2019-11-08 04:27:00 * Test Item Value Reference Range Interpretation Comments Eosinophils (%) (Auto) (test code = 713-8) 0.0 0.0-6.0 [facility] TempleBasophils (%) (Auto)2019-11-08 04:27:00* Test Item Value Reference Range Interpretation Comments Basophils (%) (Auto) (test code = 706-2) 0.1 0.0-1.0 [facility] TempleIM GRANULOCYTES %2019-11-08 04:27:00* Test Item Value Reference Range Interpretation Comments IM GRANULOCYTES % (test code = IM GRANULOCYTES %) 0.7 0.0- 1.0 [facility] TempleNeutrophils # (Auto)2019-11-08 04:27:00* Test Item Value Reference Range Interpretation Comments Neutrophils # (Auto) (test code = 751-8) 8.8 2.1-6.9 [facility] TempleLymphocytes # (Auto)2019-11-08 04:27:00* Test Item Value Reference Range Interpretation Comments Lymphocytes # (Auto) (test code = 05325-9) 0.5 1.0-3.2 [facility] TempleMonocytes # (Auto)2019-11-08 04:27:00* Test Item Value Reference Range Interpretation Comments Monocytes # (Auto) (test code = 742-7) 0.3 0.2-0.8 [facility] TempleEosinophils # (Auto)2019-11-08 04:27:00* Test Item Value Reference Range Interpretation Comments Eosinophils # (Auto) (test code = 711-2) 0.0 0.0-0.4 [facility] TempleBasophils # (Auto)2019-11-08 04:27:00* Test Item Value Reference Range Interpretation Comments Basophils # (Auto) (test code = 704-7) 0.0 0.0-0.1 [facility] TempleAbsolute Immature Granulocyte (auto 2019-11-08 04:27:00* Test Item Value Reference Range Interpretation Comments Absolute Immature Granulocyte (auto (laura t code = Absolute Immature Granulocyte (auto) 0.07 0-0.1 [facility] Omnmd6837-05-14 04:25:00* Test Item Value Reference Range Interpretation Comments Sodium Level (test code = 2951-2) 138 136-145 [facility] TemplePotassium Gxrsz9853-58-93 04:25:00* Test Item Value Reference Range Interpretation Comments Potassium Level (test code = 2823-3) 4.1 3.5-5.1 [facility] TempleChloride Bofkd4683-62-65 04:25:00* Test Item Value Reference Range Interpretation Comments Chloride Level (test code = 2075-0) 105 98-107 [facility] TempleCarbon Dioxide Sbhwx7470-47-54 04:25:00* Test Item Value Reference Range Interpretation Comments Carbon Dioxide Level (test code = 2028-9) 27 22-29 [facility] TempleAnion Wqw3992-36-55 04:25:00* Test Item Value Reference Range Interpretation Comments Anion Gap (test code = 50437-8) 10.1 8-16 [facility] TempleBlood Urea Pwkqajuw8182-84-73 04:25:00* Test Item Value Reference Range Interpretation Comments Blood Urea Nitrogen (test code = 3094-0) 11 7-26 [facility] TempleCreatinine2020-03-16 04:25:00* Test Item Value Reference Range Interpretation Comments Creatinine (test code = 2160-0) 0.66 0.57-1.11 [facility] TempleBUN/Creatinine Tahhe5786-98-47 04:25:00* Test Item Value Reference Range Interpretation Comments BUN/Creatinine Ratio (test code = 3097-3) 17 6-25 [facility] TempleEstimat Glomerular Filtration Rate 2019-11-08 04:25:00* Test Item Value Reference Range Interpretation Comments Estimat Glomerular Filtration Rate (test code = 417176351) > 60 >60 Ranges were taken from the National Kidney Disease Education Program and the [facility] [employer] literature.Reference ranges:60 or greater: Jcngra48-28 ( for 3 consecutive months): Chronic kidney disease 15 or less: Kidney failureCHI [facility] Medical CenterGlucose Vxleu7867-83-85 04:25:00* Test Item Value Reference Range Interpretation Comments Glucose Level (test code = HFZ1534) 144 74-118 [facility] TempleCalcium Gbwsq4650-51-40 04:25:00* Test Item Value Reference Range Interpretation Comments Calcium Level (test code = 91073-7) 8.9 8.4-10.2 [facility] TempleCHEST 2 DEBEL4158-03-57 07:30:00 [place] [address] Patient Name: MAVERICK ANN MR #: [id number] : 1960 Age/Sex: 59/F Req #: [id number] Adm Physician: MAZIN TELLO MD Ordered by: LEO WEAVER TECHNICAL ASSISTANT Report #: [id number] [facility] Room/Bed: [facility] Procedure: [id number] DX/CH EST 2 VIEWS Exam Date: 11/07/19 Exam Time: 0640 REPORT STATUS: Signed EXAMINATION: CHEST 2 VIEWS INDICATION: Shortness of breath, cough f/u on multifo kareen aspiration bronchitis [id number] Y COMPARISON: CT chest 11/05/2019, chest x-ray 11/05/2019 FINDINGS: PA and lateral views TUBES and LINES: Laparoscopic gastric band is redemonstrated. LUNGS: Antoine gs are well inflated. A patchy airspace opacity in the right middle lobe may b e due to developing infiltrate. A nodule in the lingula identified on CT is no t visible by x-ray. PLEURA: No pleural effusion or pneumothorax. HEAR T AND MEDIASTINUM: The cardiomediastinal silhouette is unremarkable. The esop hagus remains dilated. BONES AND SOFT TISSUES: No focal osseous lesions. Soft tissues are unremarkable. UPPER ABDOMEN: Unremarkable. IMPRES PAULINO: 1. Right middle lobe airspace opacity suggestive of developing infiltr ate or atelectasis. 2. Stable dilatation of the esophagus. Gastric band readjustment is recommended. Signed by: Dr. Maddie Anderson MD on 7:36 AM Dictated By: MADDIE ANDERSON MD 5 Transcribed By: AMANDA on 11/07/19735 COPY TO: LEO WEAVER TECHNICAL ASSISTANT Phosphorus [id number] 06:00:00* Test Item Value Reference Range Interpretation Comments Phosphorus Level (test code = GJF8615) 3.4 2.3-4.7 [facility] TempleMagnesium Suveb6341-65-31 06:00:00* Test Item Value Reference Range Interpretation Comments Magnesium Level (test code = 88587-2) 1.9 1.3-2.1 [facility] TempleLactic Acid Ttatc7991-47-31 09:49:00* Test Item Value Reference Range Interpretation Comments Lactic Acid Level (test code = Lactic Acid Level) 0.8 0.5- 2.0 [facility] TempleCT CHEST [id number] 06:06:00 [facility] [address] [place] [address] Patient Name: MAVERICK ANN MR #: [id number] : 1960 Age/Sex: 59/F Req #: [id number] Adm Physician: Ordered by: NELIDA FRANCOIS DO Report #: [id number] Location: ER Room/Bed: Procedure: [id number] CT/ CT CHEST W Exam Date: Exam Time: REPORT STATUS: Signed EXAM: CT Chest WITH contrast INDICATION: Asthma, shortness of breath. COMPARISON: None JESSICA HNIQUE: Chest was scanned utilizing a multidetector helical scanner from the l tirso apex through the level of the adrenal glands without administration of IV contrast. Coronal and sagittal reformations were obtained. Routine protocol wa s performed. IV CONTRAST: 100 mL of Isovue-370 RADIA TION DOSE: Total DLP: 458.6 mGy*cm Estimated effective dose: (DLP x 0.014 x size factor) mSv COMPLICATIONS: None FINDINGS: LINES/ TUBES: None. LUNGS AND AIRWAYS: Mild adherent mucous within the trac hea. Mild biapical pleural-parenchymal opacity with cystic changes. Diffuse mi ld bronchial wall thickening. Scattered mucoid impaction within the bronchi, f or example in the left upper lobe on series 5, image 35. There is a 3 mm subpl eural solid nodule in the right upper lobe on series 5, image 27. Mild patchy groundglass opacity in the right upper and lower lobes and lingula. Clustered groundglass/tree-in-bud nodular opacities in the left upper and lower lobes. Linear subsegmental atelectasis in the right middle lobe. PLEURA: The pleu ral spaces are clear. HEART AND MEDIASTINUM: The thyroid gland is normal. No evidence of lymphadenopathy. Subcentimeter mediastinal lymph nodes, likely reactive. Mildly dilated main pulmonary artery, measuring up to 3 cm. No cardi omegaly or pericardial effusion. UPPER ABDOMEN: Limited contrast-enhanced views of the upper abdomen. Status post cholecystectomy. Status post gastric band. There is a small hiatal hernia with a dilated esophagus filled with flui d and debris. There is mild thickening within the esophagus and stomach as wel l as proximal small bowel. BONES: The visualized bony thorax is within norm al limits. SOFT TISSUES: Unremarkable. IMPRESSION: Findings compati ble with mild multifocal aspiration and bronchitis. Status post gastric band w ith small hiatal hernia and dilated esophagus filled with debris and fluid. Mu cus is present within the trachea with scattered mucoid impaction, suggest cli nical correlation given high aspiration risk. Mild wall thickening within t he esophagus, stomach, and proximal small bowel, suggestive of gastroesophagea l reflux and esophagitis/gastritis/enteritis. EGD may be considered if clinica lly indicated. An 8 mm indeterminant left lower lobe pulmonary nodule. This may be infectious/inflammatory or malignant. Recommend follow-up CT in 3 kerri hs. Borderline mildly dilated main pulmonary artery, suggest clinical corre lation for possible arterial hypertension. Signed by: Dr. Sb No MD on 11/05/2019 6:26 AM Dictated By: SB NO MD 5 Transcribed By: AMANDA on 11/05/19625 COPY TO: NELIDA FRANCOIS DO Creatine Kinase [id number] 04:48:00* Test Item Value Reference Range Interpretation Comments Creatine Kinase MB (test code = 45256-5) 1.60 0-5.0 [facility] TempleTroponin [id number] 04:48:00* Test Item Value Reference Range Interpretation Comments Troponin I (test code = KXI3083) < 0.001 0-0.300 [facility] TempleCHEST SINGLE (PORTABLE)2019-11-05 04:45:00 [place] [address] Patient Name: MAVERICK ANN MR #: [id number] : 1960 Age/Sex: 59/F Req #: [id number] Adm Physician: Ordered by: NELIDA FRANCOIS DO Report #: [id number] Location: ER Room/Bed: Procedure: [id number] DX/ CHEST SINGLE (PORTABLE) Exam Date: 11/05/19 Exam Sanya e: 0410 REPORT STATUS: Signed EX AMINATION: CHEST SINGLE (PORTABLE) INDICATION: SOB. COMPARISON: Chest radiograph 01/01/2019. FINDINGS: TUBES and LINES: Overlying st ructures in the right upper hemithorax. LUNGS: Lungs are well inflated. T here is no evidence of pneumonia or pulmonary edema. Mild bronchial wall thick ening. PLEURA: No pleural effusion or pneumothorax. HEART AND MEDIAS TINUM: The cardiomediastinal silhouette is unremarkable. There are atheroscle rotic calcifications within the aorta. BONES AND SOFT TISSUES: No acute os seous lesion. Soft tissues are unremarkable. UPPER ABDOMEN: No free air under the diaphragm. There are cholecystectomy clips. IMPRESSION: No e vidence of pneumonia. Mild bronchial wall thickening, which may represent bron chitis. Signed by: Dr. Sb No MD on 11/05/2019 4:47 AM Dictated By: SB NO MD 6 Tra nscribed By: AMANDA on 11/05/19446 COPY TO: NELIDA FRANCOIS DO Influenza Virus Types A,B [id number] 04:43:00* Test Item Value Reference Range Interpretation Comments Influenza Virus Types A,B Antigen (test code = 35914-6) NEGATIVE [facility]GATIVE [facility] Streptococcus [id number] 04:43:00* Test Item Value Reference Range Interpretation Comments Group A Streptococcus Screen (test code = 23091-9) NEGATIVE NEG ATIVE [facility] [id number] 04:16:00* Test Item Value Reference Range Interpretation Comments Total Bilirubin (test code = 1975-2) 0.3 0.2-1.2 [facility] Amino Transf (AST/SGOT) 2019-11-05 04:16:00* Test Item Value Reference Range Interpretation Comments Aspartate Amino Transf (AST/SGOT) (test code = Aspartate Amino Transf (AST/SGOT)) 24 5-34 [facility] Aminotransferase (ALT/SGPT) 2019-11-05 04:16:00* Test Item Value Reference Range Interpretation Comments Alanine Aminotransferase (ALT/SGPT) (test code = 1742-6) 14 0-55 [facility] [id number] 04:16:00* Test Item Value Reference Range Interpretation Comments Total Protein (test code = 2885-2) 7.8 6.5-8.1 [facility]in2020-03-13 04:16:00* Test Item Value Reference Range Interpretation Comments Albumin (test code = 1751-7) 3.6 3.5-5.0 [facility]obulin2020-03-13 04:16:00* Test Item Value Reference Range Interpretation Comments Globulin (test code = 83921-2) 4.2 2.3-3.5 [facility]/Globulin [id number] 04:16:00 * Test Item Value Reference Range Interpretation Comments Albumin/Globulin Ratio (test code = 1759-0) 0.9 0.8-2.0 [facility] Temple[facility]kaline [id number] 04:16:00* Test Item Value Reference Range Interpretation Comments Alkaline Phosphatase (test code = 6768-6) 95 40-150 [facility] [id number] 04:16:00* Test Item Value Reference Range Interpretation Comments Creatine Kinase (test code = 2157-6) 365 29-168 [facility] Temple[facility] RFLX MICR CULT IF [id number] 14:46:00* Test Item Value Reference Range Interpretation Comments UA COLOR (test code = COLU) YELLOW YELLOW UA APPEARANCE (test code = APPU) CLOUDY CLEAR A UA GLUCOSE DIPSTICK (test code = DGLUU) NEGATIVE NEG UA BILIRUBIN DIPSTICK (test code = BILU) NEGATIVE NEG UA KETONE DIPSTICK (test code = KETU) NEGATIVE NEG UA SPECIFIC GRAVITY (test code = SGU) 1.018 1.001-1.035 N UA BLOOD DIPSTICK (test code = JESUS) 1+ NEG A UA PH DIPSTICK (test code = GLENDY) 6.0 5-9 UA PROTEIN DIPSTICK (test code = PROU) 1+ NEG A UA UROBILINIOGEN DIPSTICK (test code = URO) 4.0 mg/dL NEG A UA NITRITE DIPSTICK (test code = KRYS) POSITIVE NEG A UA LEUKOCYTE ESTERASE DIPSTICK (test code = LEUU) 3+ NEG A UA WBC (test code = WBCU) TOO NUMEROUS TO CNT #/hpf NONE SEEN A UA RBC (test code = RBCU) TOO NUMEROUS TO CNT #/hpf NONE SEEN A UA EPITHELIAL CELLS (test code = EPIU) RARE #/HPF RARE-FEW UA BACTERIA (test code = BACU) MODERATE /HPF RARE-FEW A UA MUCUS (test code = MUCU) RARE NONE SEEN Indication for culture: Dysuria/FrequencyUR HCG [id number] 14:46:00* Test Item Value Reference Range Interpretation Comments UR HCG QUAL (test code = HCGQLU) NEGATIVE 1. Very dilute urine specimens, as indicated by a lowspecific gravity, may not contain community engagement representative levels ofhCG. 2. False negative results may occur when the levels of hCGare below the sensitivity level of the test. If is still suspected, a first morningurine specimen should be collected 48 hours later andtested. Indication for culture: Dysuria/FrequencyUA RFLX MICR CULT IF INDICATED 2019-09-15 14:38:00* Test Item Value Reference Range Interpretation Comments UA COLOR (test code = COLU) YELLOW UA APPEARANCE (test code = APPU) CLEAR UA GLUCOSE DIPSTICK (test code = DGLUU) NEGATIVE UA BILIRUBIN DIPSTICK (test code = BILU) NEGATIVE UA KETONE DIPSTICK (test code = KETU) NEGATIVE UA SPECIFIC GRAVITY (test code = SGU) 1.001-1.035 UA BLOOD DIPSTICK (test code = JESUS) NEGATIVE UA PH DIPSTICK (test code = GLENDY) 5-9 UA PROTEIN DIPSTICK (test code = PROU) NEGATIVE UA UROBILINIOGEN DIPSTICK (test code = URO) mg/dL NEG UA NITRITE DIPSTICK (test code = KRYS) NEGATIVE UA LEUKOCYTE ESTERASE DIPSTICK (test code = LEUU) NEG UA WBC (test code = WBCU) #/hpf NONE SEEN UA EPITHELIAL CELLS (test code = EPIU) #/HPF RARE-FEW Indication for culture: Dysuria/FrequencyUR HCG [id number] 14:38:00* Test Item Value Reference Range Interpretation Comments UR HCG QUAL (test code = HCGQLU) NEGATIVE 1. Very dilute urine specimens, as indicated by a lowspecific gravity, may not contain community engagement representative levels ofhCG. 2. False negative results may occur when the levels of hCGare below the sensitivity level of the test. If is still suspected, a first morningurine specimen should be collected 48 hours later andtested. Indication for culture: Dysuria/FrequencyCHEST 2 [id number] 22:18:00 [place] [address] Patient Name: MAVERICK ANN MR #: [id number] : 1960 Age/Sex: 58/F Req #: [id number] Adm Physician: Ordered by: ISAAC MILLER MD Report #: [id number] Location: ER Room/Bed: Procedure: [id number] DX/CHEST 2 VIEWS Exam Date: 01/01/19 Exam Sanya e: 1292 REPORT STATUS: Signed EXAMINATION: PA and lateral views of the chest. COMPARISON: None CLIN ICAL HISTORY: Cough, shortness of breath DISCUSSION: Lines/tubes : None. Lungs: The lungs are well inflated and clear. No pneumonia or pul monary edema. Pleura: No pleural effusion or pneumothorax. Heart and mediastinum: The cardiomediastinal silhouette is normal. Bones and soft ti ssues: No acute bony abnormalities. IMPRESSION: No acute cardio pulmonary abnormalities. Signed by: Dr. Shefali Lagunas M.D. on 01/01/2019 10:19 PM Dictated By: SHEFALI LAGUNAS MD Electronically Sign ed By: SHEFALI LAGUNAS MD on 01/01/192218 Transcribed By: AMANDA on 01/01/192218 COPY TO: ISAAC MILLER MD CHEST SINGLE (PORTABLE) 2018-03-07 06:27:00 [place] [address] Patient Name: MAVERICK ANN MR #: [id number] : 1960 Age/Sex: 57/F Req #: [id number] Adm Physician: MAZIN TELLO MD Ordered by: ES RICHTER NP Report #: [id number] Location: [facility] Room/Bed: [place] [address] Procedure: [id number] DX/CH EST SINGLE (PORTABLE) Exam Date: Exam Time: REPORT STATUS: Signed CHEST SINGLE (PORTABLE), 03/07/2018 7:00 AM [employer]: CHEST SINGLE (PORTABLE) Comparison: Previous day Clinical history: Short ness of breath Findings: See Impression Impression: 1. Stable card iomediastinal silhouette. 2. Persistent mild perihilar/bibasilar opacity which may reflect atelectasis or infection. Signed by: Dr Latisha Zelaya MD on 03/07/2018 6:29 AM Dictated By: LATISHA ZELAYA MD 8 Transcribed By: AMANDA on 03/07/1802 20 COPY TO: ES RICHTER NP CHEST 2 [id number] 19:16:00 [facility] [address] [place] [address] Patient Name: MAVERICK ANN MR #: [id number] : Age/Sex: 57/F Req #: [id number] Adm Physician: Ordered by: ES RICHTER NP Report #: [id number] Location: ER Room/Bed: Procedure: [id number] DX/CHEST 2 VIEWS Exam Date: 02/22 11/09 Exam Time: 1856 REPORT STATUS: Signed E XAMINATION: CHEST 2 VIEWS INDICATION: Asthma COMPARISON: est x-ray 01/15/2018 FINDINGS: PA and lateral views TUBES and JOSHUA ES: Partially visualized lap band. LUNGS: Lungs are well inflated. Bilat eral peribronchial cuffing. There is no evidence of pneumonia or pulmonary ed urbano. PLEURA: No pleural effusion or pneumothorax. HEART AND MEDIASTIN UM: The cardiomediastinal silhouette is unremarkable. There are atherosclerot ic calcifications within the aorta. BONES AND SOFT TISSUES: No acute osseo us lesion. Soft tissues are unremarkable. UPPER ABDOMEN: No free air und er the diaphragm. IMPRESSION: Bilateral peribronchial cuffing, which could represent viral etiology or reactive airway disease. Signed by: Dr. Juan Lewis M.D. on 03/06/2018 7:17 PM Dictated By: JUAN Lopez [facility] Signed By: JUAN LEWIS MD on 03/06/181916 Transcribed By: AMANDA on 1916 COPY TO: ES RICHTER NP CHEST 2 VIEWS [place] [address] Patient Name: MAVERICK ANN MR #: [id number] : 1960 Age/Sex: 57/F Req #: [id number] [facility] Physician: Ordered by: ABDIAS LALA DO Report #: [id number] Location: ER Room/Bed: Procedure: [id number] DX/CHEST 2 VIEWS Exam Date: Exam Time: 1355 REPORT STATUS: Signed PROCEDURE: Frontal and lateral views of the chest. COMPARISON: [facility], DX, CHEST SINGLE (PORTABLE), 08/10/2017, 12:09. INDICAT IONS: SHORTNESS OF BREATH, COUGH, ASTHMA FINDINGS: Lines/tubes: N one. Lungs: The lungs are well inflated and grossly clear. There is no evidence of pneumonia or pulmonary edema. Pleura: There is no pleural ef fusion or pneumothorax. Heart and mediastinum: Cardiac silhouette is upper limit of normal to borderline enlarged. Pulmonary vasculature is normal. Bones: No acute bony abnormality. IMPRESSION: 1. cardiac silhou ette and the upper limit of normal to borderline in size. No acute cardiopulm onary disease. Jared Rios M.D. Dictated by: Jared holder M.D. on 01/15/2018 at 14:43 Electronically approved by: Jared frausto M.D. on 01/15/2018 at 14:43 Dictated By: JARED RIOS MD 144 Transcribed B y: INFCE on 01/15/181442 COPY TO: ABDIAS LALA DO CHEST SINGLE (PORTABLE) [place] [address] Patient Name: MAVERICK ANN MR #: [id number] : 1960 Age/Sex: 57/F Req #: [id number] Adm Physician: Ordered by: MILLICENT MORRISON MD Report #: [id number] Location: ER Room/Bed: Procedure: [id number] DX/CHEST SINGLE (PORTABLE) Exam D ate: 08/10/17 Exam Time: 1225 REPORT STATUS: Si gned EXAMINATION: Chest, CHEST SINGLE (PORTABLE) INDICATION: Asthma . COMPARISON: Chest 2 views 07/03/2017 FINDINGS: LINES: None. Heart: Normal cardiac silhouette. Vascular: The pulmonary vasc ulature is within normal limits. Atherosclerotic calcifications of the aortic arch. Mediastinum: No mediastinal, hilar, or axillary mass or lymphadenopa thy. Lungs: No parenchymal mass. No focal consolidation. Bibasilar atelect asis. Pleura: No pleural effusion. No pneumothorax. Bones: No acute osseous abnormality. Degenerative changes of the thoracic spine. Soft ti ssues: Gastric lap band. Impression: No acute radiographic abnormality. Signed by: Dr. Abdias Ross M.D. on 08/10/2017 12:33 PM Dictated By: ABDIAS ROSS MD 1233 Tra nscribed By: AMANDA on 08/10/17 1233 COPY TO: MILLICENT MORRISON MD CHEST 2 VIEWS [place] [address] Patient Name: MAVERICK ANN MR #: [id number] : 1960 Age/Sex: 57/F Req #: [id number] Adm Physician: Ordered by: MARE BAILEY MD Report #: [id number] Location: Room/Bed: Procedure: [id number] DX/CHEST 2 VIEWS Exam Date: Exam Time: 1150 REPORT STATUS: Signed PROCEDURE: Frontal and lateral views of the chest. COMPARISON: Chest x- rays 01/06/17 and 11/18/15. INDICATIONS: PRODUCTIVE COUGH, CHEST PAIN WHEN COUGHING FINDINGS: Lines/tubes: A laparoscopic gastric band is in a ppropriate orientation. Lungs: There is increasing airspace opacity in the right middle lobe. Left lung is clear. No evidence of mass. Pleura: T here is no pleural effusion or pneumothorax. Heart and mediastinum: The he art is mildly enlarged. The aorta is normal. No hilar lymphadenopathy. Bones: Unremarkable for age. IMPRESSION: 1. Right middle lobe airsp himanshu opacity is suggestive of atelectasis or infiltrate. Recommend followup x- ray in 10-12 weeks to assess interval change/resolution. 2. No new card iopulmonary findings. Dictated by: Maddie Anderson M.D. on 07/03/2017 a t 12:35 Electronically approved by: Maddie Anderson M.D. on 07/03/2017 at 12:35 Dictated By: MADDIE ANDERSON MD Electronically Sig zahra By: MADDIE ANDERSON MD on 07/03/17 1235 Transcribed By: KRISTA on 07/03/17 1235 COPY TO: MARE BAILEY MD
--- OUTSIDE RECORDS SUMMARY | 2020-01-15 08:11 | XMS REPORT | Clinical Summary ---
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
[2020-01-15] MEDS ORDERED: ALBUTEROL/IPRATROPIUM 3 ML NEB NEB ONE ×2 (08:15→09:45)
[2020-01-15 08:45] LABS: BASOPHILS # (AUTO) 0.1 (0.0-0.1); BASOPHILS % 1.3 % (0.0-1.0); EOSINOPHILS # (AUTO) 0.6 (0.0-0.4); EOSINOPHILS % 6.1 % (0.0-6.0); HEMATOCRIT 34.6 % (34.2-44.1); HEMOGLOBIN 10.9 g/dL (12.0-16.0); LYMPHOCYTES # (AUTO) 1.5 (1.0-3.2); LYMPHOCYTES % 16.7 % (18.0-39.1); MEAN CORPUSCULAR HEMOGLOBIN 26.1 pg (28-32); MEAN CORPUSCULAR HGB CONC 31.5 g/dL (31-35); MEAN CORPUSCULAR VOLUME 82.8 fL (81-99); MONOCYTES # (AUTO) 0.7 (0.2-0.8); MONOCYTES % 7.9 % (4.4-11.3); NEUTROPHILS # (AUTO) 6.2 (2.1-6.9); NEUTROPHILS % 67.3 % (38.7-80.0); PLATELET COUNT 422 x10e3/uL (140-360); RED BLOOD COUNT 4.18 x10e6/uL (3.6-5.1); RED CELL DISTRIBUTION WIDTH 16.6 % (11.7-14.4)
--- NOTE | 2020-01-15 09:08 | Emergency Department Note ---
History of Present Illnes History of Present Illness Chief Complaint: Respiratory History of Present Illness This is a 59 year old female c/o sob with cough and audible wheezing x 3 days progressively getting worse former smoker no drugs drinks wine denies cp states hx of asthma. 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 Any updates have been documented here. Past Medical History Recent Fever: No Clinical Suspicion of Infectio: No New/Unexplained Change in Ment: No Past Medical History: Asthma, GERD Other Medical History: Sciatic nerve pain Past Surgical History: Cholecysctectomy, Appendectomy Other Surgery: LEFT HAND FX/SX DECEMBER 2013 LAP BAND Social History Smoking Cessation: Former smoker Alcohol Use: Social Any Illegal Drug Use: No TB Exposure/Symptoms: No Physically hurt or threatened: No Other Last Tetanus: 2014 Any Pre-Existing Lines (PICC,: No Is patient up to date on immun: No Last Flu: unk Last Pneumovax: ood Review of Systems Review of Systems Constitutional: no symptoms EENTM: no symptoms Cardiovascular: no symptoms; chest pain Respiratory: cough, dyspnea, wheezing Gastrointestinal: no symptoms Genitourinary: no symptoms Musculoskeletal: no symptoms Neurological: no symptoms Psychological: no symptoms Endocrine: no symptoms Hematological/Lymphatic: no symptoms Review of other systems All other systems reviewed and negative. Physical Exam Related Data Allergies: Coded Allergies: No Known Allergies (Unverified , 03/06/18) Triage Vital Signs Vital Signs Date Time Temp Pulse Resp B/P (MAP) Pulse Ox O2 Delivery O2 Flow Rate FiO2 01/15/20 08:11 99.2 95 28 170/115 97 Vital signs reviewed: Yes Physical Exam CONSTITUTIONAL Constitutional: well-developed, well-nourished HENT HENT: normocephalic, atraumatic, oropharynx clear/moist, nose normal HENT L/R: left ext ear normal, right ext ear normal EYES Eyes: PERRL, conjunctivae normal NECK Neck: ROM normal PULMONARY Pulmonary: respiratory distress (mild distress with tachypnea), other (diffuse mod wheezes and decreased breath sounds throughout); chest tenderness CARDIOVASCULAR Cardiovascular: regular rhythm, heart sounds normal, capillary refill normal, normal rate GASTROINTESTINAL Abdominal: soft, nontender, bowel sounds normal GENITOURINARY Genitourinary: exam deferred SKIN Skin: warm, dry MUSCULOSKELETAL Musculoskeletal: ROM normal NEUROLOGICAL Neurological: alert, oriented x 3, no gross motor or sensory deficits PSYCHOLOGICAL Psychological: mood/affect normal, judgement normal Results Laboratory Result Diagram: 01/15/20 0819 Laboratory Laboratory Tests Test 01/15/20 08:19 White Blood Count 9.17 x10e3/uL (4.8-10.8) Red Blood Count 4.18 x10e6/uL (3.6-5.1) Hemoglobin 10.9 g/dL (12.0-16.0) Hematocrit 34.6 % (34.2-44.1) Mean Corpuscular Volume 82.8 fL (81-99) Mean Corpuscular Hemoglobin 26.1 pg (28-32) Mean Corpuscular Hemoglobin Concent 31.5 g/dL (31-35) Red Cell Distribution Width 16.6 % (11.7-14.4) Platelet Count 422 x10e3/uL (140-360) Neutrophils (%) (Auto) 67.3 % (38.7-80.0) Lymphocytes (%) (Auto) 16.7 % (18.0-39.1) Monocytes (%) (Auto) 7.9 % (4.4-11.3) Eosinophils (%) (Auto) 6.1 % (0.0-6.0) Basophils (%) (Auto) 1.3 % (0.0-1.0) Neutrophils # (Auto) 6.2 (2.1-6.9) Lymphocytes # (Auto) 1.5 (1.0-3.2) Monocytes # (Auto) 0.7 (0.2-0.8) Eosinophils # (Auto) 0.6 (0.0-0.4) Basophils # (Auto) 0.1 (0.0-0.1) Absolute Immature Granulocyte (auto 0.06 x10e3/uL (0-0.1) Prothrombin Time 13.0 seconds (11.9-14.5) Prothromb Time International Ratio 0.93 Activated Partial Thromboplast Time 29.1 seconds (23.8-35.5) Sodium Level 144 mmol/L (136-145) Potassium Level 3.8 mmol/L (3.5-5.1) Chloride Level 108 mmol/L (98-107) Carbon Dioxide Level 25 mmol/L (22-29) Anion Gap 14.8 mmol/L (8-16) Blood Urea Nitrogen 8 mg/dL (7-26) Creatinine 0.75 mg/dL (0.57-1.11) Estimat Glomerular Filtration Rate > 60 ML/MIN (60-) BUN/Creatinine Ratio 11 (6-25) Glucose Level 88 mg/dL (74-118) Calcium Level 9.2 mg/dL (8.4-10.2) Magnesium Level 1.8 MG/DL (1.3-2.1) Total Bilirubin 0.8 mg/dL (0.2-1.2) Aspartate Amino Transf (AST/SGOT) 16 IU/L (5-34) Alanine Aminotransferase (ALT/SGPT) 11 IU/L (0-55) Alkaline Phosphatase 75 IU/L (40-150) Creatine Kinase 192 IU/L (29-168) Creatine Kinase MB 0.90 ng/mL (0-5.0) Troponin I 0.004 ng/mL (0-0.300) Total Protein 7.3 g/dL (6.5-8.1) Albumin 3.5 g/dL (3.5-5.0) Globulin 3.8 g/dL (2.3-3.5) Albumin/Globulin Ratio 0.9 (0.8-2.0) Laboratory Tests Test 01/15/20 08:19 White Blood Count 9.17 x10e3/uL (4.8-10.8) Red Blood Count 4.18 x10e6/uL (3.6-5.1) Hemoglobin 10.9 g/dL (12.0-16.0) Hematocrit 34.6 % (34.2-44.1) Mean Corpuscular Volume 82.8 fL (81-99) Mean Corpuscular Hemoglobin 26.1 pg (28-32) Mean Corpuscular Hemoglobin Concent 31.5 g/dL (31-35) Red Cell Distribution Width 16.6 % (11.7-14.4) Platelet Count 422 x10e3/uL (140-360) Neutrophils (%) (Auto) 67.3 % (38.7-80.0) Lymphocytes (%) (Auto) 16.7 % (18.0-39.1) Monocytes (%) (Auto) 7.9 % (4.4-11.3) Eosinophils (%) (Auto) 6.1 % (0.0-6.0) Basophils (%) (Auto) 1.3 % (0.0-1.0) Neutrophils # (Auto) 6.2 (2.1-6.9) Lymphocytes # (Auto) 1.5 (1.0-3.2) Monocytes # (Auto) 0.7 (0.2-0.8) Eosinophils # (Auto) 0.6 (0.0-0.4) Basophils # (Auto) 0.1 (0.0-0.1) Absolute Immature Granulocyte (auto 0.06 x10e3/uL (0-0.1) Lab results reviewed: Yes Imaging Imaging results reviewed: Yes Impressions Examination: Single AP view of the chest. COMPARISON: Chest two views 11/07/2019, chest CT 11/05/2019 INDICATION: Aspect, shortness of breath IMPRESSION: 1. Lines and Tubes: None 2. Lungs are well-inflated. Bilateral perihilar peribronchial cuffing and mild perihilar interstitial opacities, which may reflect reactive airway disease versus viral infection. Stable 4-5 mm pulmonary nodule in the right upper lobe, projecting over the posterior aspect of the right fourth rib and 7 mm nodular density in the lingula. 3. Stable enlargement of the cardiac silhouette. Pulmonary vasculature is normal. 4. No acute bony abnormalities. Signed by: Dr. Jared Hogan M.D. on 01/15/2020 9:10 AM Diagnostics Tests Diagnostic test(s) reviewed: Yes Procedures 12 Lead ECG Interpretation Cable Mock Up Assembler: Interpreted by ED physician Date: January 15, 2020 Time: 08:23 Prior PROCESS IMPROVEMENT CONSULTANT tracings: not available for review Rhythm: sinus rhythm Rate: normal (90) QRS axis: normal ST segments normal: No (non-specific ST-TW changes) ST segment flattening: III, aVF, V1, V2, V3, V4, V5 T waves normal: No Clinical Impression: abnormal ECG Assessment & Plan Reassessment Reassessment time: 09:45 Reassessment On Arrival -pt had outpt Covd19 test about 1.5 wks ago which was negative. Check cbc, chem's, cardiac enzymes, ecg, cxr - r/o STEMI/NSTEMI, bronchitis, asthma exac, pneumonia. Low suspicion for Covid - afebrile, normal O2 sats. I ordered Solumedrol and Duonebs, IVF's - will re-evaluate Pt much improved, wants to go home, Lungs with much improved air movement and now only minimal end-exp wheezes at bases bilat. Will give 1 more Duoneb and DC home Assessment & Plan Final Impression: (1) Bronchitis (2) Asthma exacerbation Assessment & Plan DC with Z-pack, Medrol dose kaleb, pt has Albuterol MDI and nebs - she says the Duoneb worked much better here - will give Belén hooper for neb to combine with Alb Depart Disposition: HOME, SELF-CARE Last Vital Signs Date Time Temp Pulse Resp B/P (MAP) Pulse Ox O2 Delivery O2 Flow Rate FiO2 01/15/20 08:48 89 22 98 01/15/20 08:11 99.2 170/115 Home Meds Active Scripts Azithromycin (ZITHROMAX) 500 Mg Tablet, 500 MG PO DAILY for 5 Days Prov:KYLE PATTERSON DUAL HOSE CEMENTER 11/08/19 [Ceftin] No Conflict Check, 500 MG PO Q12H for 5 Days Prov:KYLE PATTERSON DUAL HOSE CEMENTER 11/08/19 Prednisone (PREDNISONE) 10 Mg Tab, 10 MG PO UD for 11 Days, TAB TAKE 40MG PO BID X2 DAYS THEN TAKE 40MG PO DAILY X3 DAYS THEN TAKE 20MG PO DAILY X3 DAYS THEN TAKE 10MG PO DAILY X3 DAYS THEN STOP Prov:KYLE PATTERSON DUAL HOSE CEMENTER 11/08/19 Pantoprazole Sod (PROTONIX) 40 Mg/Ml Susp, 40 MG PO ACB for 30 Days Prov:KYLE PATTERSON DUAL HOSE CEMENTER 11/08/19 Salmeterol Xinaf/Fluticasone* (ADVAIR 500/50*) 1 Ea Aerp, 1 INH INH Q12H, #1 INH Prov:KYLE PATTERSON DUAL HOSE CEMENTER 11/08/19 [Albuterol/Ipratropium Nebulize] 3 ML INHA No Conflict Check, 3 ML NEB RQ4H for 30 Days Prov:KYLE PATTERSON DUAL HOSE CEMENTER 03/10/18 Medications in the ED Methylprednisolone Sodium Succinate 125 mg ONCE STAT IV ; Start 01/15/20 at 08:10; Stop 01/15/20 at 08:19; Status DC Sodium Chloride 1,000 ml @ 0 mls/hr Q0M STAT IV ; Start 01/15/20 at 08:10; Stop 01/15/20 at 08:15; Status DC Albuterol/ Ipratropium 6 ml ONCE ONCE NEB Last administered on 01/15/20at 08:30; Admin Dose 6 ML; Start 01/15/20 at 08:15; Stop 01/15/20 at 08:19; Status DC CESAR RUIZ MD January 15, 2020 09:08
[2020-01-15 09:11] LABS: ALANINE AMINOTRANSFERASE 11 IU/L (0-55); ALBUMIN 3.5 g/dL (3.5-5.0); ALBUMIN/GLOBULIN RATIO 0.9 (0.8-2.0); ALKALINE PHOSPHATASE 75 IU/L (40-150); ANION GAP 14.8 mmol/L (8-16); BLOOD UREA NITROGEN 8 mg/dL (7-26); BUN/CREATININE RATIO 11 (6-25); CALCIUM 9.2 mg/dL (8.4-10.2); CARBON DIOXIDE 25 mmol/L (22-29); CHLORIDE 108 mmol/L (98-107); CREATINE KINASE 192 IU/L (29-168); CREATININE, SERUM 0.75 mg/dL (0.57-1.11); EST GLOMERULAR FILTRATION RATE > 60 ML/MIN (60-); GLUCOSE 88 mg/dL (74-118); MAGNESIUM 1.8 MG/DL (1.3-2.1); POTASSIUM 3.8 mmol/L (3.5-5.1); SODIUM 144 mmol/L (136-145)
--- NOTE | 2020-01-15 09:14 | Diagnostic Imaging Report ---
Examination: Single AP view of the chest. COMPARISON: Chest two views 11/07/2019, chest CT 11/05/2019 INDICATION: Aspect, shortness of breath IMPRESSION: 1. Lines and Tubes: None 2. Lungs are well-inflated. Bilateral perihilar peribronchial cuffing and mild perihilar interstitial opacities, which may reflect reactive airway disease versus viral infection. Stable 4-5 mm pulmonary nodule in the right upper lobe, projecting over the posterior aspect of the right fourth rib and 7 mm nodular density in the lingula. 3. Stable enlargement of the cardiac silhouette. Pulmonary vasculature is normal. 4. No acute bony abnormalities. Signed by: Dr. Jared Hogan M.D. on 01/15/2020 9:10 AM
[2020-01-15 09:18] LABS: INR 0.93; PARTIAL THROMBOPLASTIN TIME 29.1 seconds (23.8-35.5)
--- NOTE | 2020-01-15 09:47 | NUR ---
DR. RUIZ AT BEDSIDE RE EVALUATING PATIENT. HE IS ORDERING ADDITIONAL DUONEB. R.T. CALLED FOR BREATHING [place]
== END 2020-01-15 10:11 | disposition home or self-care (01) ==
LOC: ER 08:08
DX: R06.02 Shortness of breath (principal); R05 Cough; J45.901 Unspecified asthma with (acute) exacerbation
CPT/HCPCS: 36415; 71045; 80053; 82550; 82553; 83735; 84484; 85025; 85610; 85730; 99284; J2930; J7030; 93005

== ENCOUNTER 2020-03-25 11:41 | Emergency (ER) | payer SELFPAY ==
[~2020-03-25] VITALS: Ht 157.5 cm; Wt 56.7 kg
[2020-03-25] MEDS ORDERED: ALBUTEROL SULFATE HFA 8GM INHALATION AEROSOL INH STA (11:56)
[2020-03-25] MEDS ORDERED: DEXAMETHASONE SOD PHOS 10 MG/1 ML VIAL IM ONE (12:00)
--- OUTSIDE RECORDS SUMMARY | 2020-03-25 12:08 | XMS REPORT | Clinical Summary ---
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
--- OUTSIDE RECORDS SUMMARY | 2020-03-25 12:08 | XMS REPORT | Continuity of Care Document ---
Author Author [facility] t Organization [facility] Address 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 Name Role Phone Jin DOMINGO III PCP Tim RUIZ Attphys Unavailable MAZIN TELLO Attphys Unavailable ALEXIS BADILLO Attphys Unavailable Ayana MILLER Attphys Unavailable Abdulaziz LALA Attphys Unavailable Katarzyna MORRISON Attphys Unavailable MARE BAILEY Attphys Unavailable MAZIN TELLO Admphys Unavailable ALEXIS BADILLO Admphys Unavailable Payers Payer Name Policy Type Policy Number Effective Date Expiration Date [facility] zhang [facility] Problems Condition Name Condition Details Condition Category Status Onset Date Resolution Date Last Treatment Date Treating Clinician Comments Source Exacerbation of asthma Asthma exacerbation Problem Active 2015-10 00:00:00 [facility] Bronchitis Bronchitis Problem Active 2015-11-18 00:00:00 [facility] Chest pain Chest pain Problem Active C [facility] Pneumonia Pneumonia Problem Active [facility] Acute respiratory failure Acute respiratory failure Problem Active [facility] Allergies, Adverse Reactions, Alerts Allergy Name Allergy Type Status Severity Reaction(s) Onset Date Inacti ve Date Treating Clinician Comments Source No Known Allergies DA Active U 2019-09-15 00:00:00 [facility] No Known Intolerances DA Active U 2010-05-15 00:00:00 [facility] Social History Social Habit Start Date Stop Date Quantity Comments Source Sex Assigned At [facility] Medications Ordered Medication Name Filled Medication Name Start Date Stop Da te Current Medication? Ordering Clinician Indication Dosage Frequency Signature (SIG) Comments Components Source Azithromycin (Zithromax) 500 Mg TABLET Azithromycin (Zithrom ax) 500 Mg TABLET 2019-11-08 09:48:00 Yes 500 Daily [facility] Ceftin Ceftin 2019-11-08 09:48:00 Yes 500 Every 12 Ho urs [facility] Pantoprazole Sod (Protonix) 40 Mg/Ml SUSP Pantoprazole Sod (Protonix) 40 Mg/Ml SUSP 2019-11-08 09:48:00 Yes 40 Before Breakfast [facility] Prednisone Prednisone 2019-11-08 09:48:00 Yes 10 Use As Directed [facility] Salmeterol Xinafoate/Fluticasone (Advair 500/50*) 1 Ea AER Salmeterol Xinafoate/Fluticasone (Advair 500/50*) 1 Ea AERP 2019-11-08 09:48:00 Yes 1 Every 12 Hours [facility] Albuterol/Ipratropium Nebulize Albuterol/Ipratropium Nebuliz e 2018-03-10 08:48:00 Yes 3 Rt Q4h [facility] Guaifenesin/Dextromethorphan (Mucinex Dm Er 600-30 Mg Tablet) 1 Each TAB.ER.12H Guaifenesin/Dextromethorphan (Mucinex Dm Er 600-30 Mg Tablet) 1 Each TAB.ER.12H 2018-03-10 08:48:00 2019-11-08 00:00:00 No 1 Every 12 Hours [facility] Levofloxacin (Levaquin) 500 Mg TABLET Levofloxacin (Levaquin ) 500 Mg TABLET 2018-03-10 08:48:00 2019-11-08 00:00:00 No 500 Daily [facility] Prednisone Prednisone 2018-03-10 08:48:00 2019-11-08 00:00:00 No 10 Use As Directed [facility] Pantoprazole Sod (Protonix) 40 Mg/Ml SUSP Pantoprazole Sod (Protonix) 40 Mg/Ml SUSP 2017-07-06 05:13:00 2019-11-08 00:00:00 No 40 Crescencio y [facility] Benzonatate (Tessalon Perle) 100 Mg CAPSULE Benzonatat e (Tessalon Perle) 100 Mg CAPSULE 2017-07-06 05:13:00 2018-01-15 00:00:00 No 100 Three Times A Day [facility] Hydrocodone/Chlorpheniramine Hydrocodone/Chlorpheniramine 2016-08 05:13:00 2018-01-15 00:00:00 No 5 Every 12 Hours as ne eded for Cough [facility] Levofloxacin (Levaquin) 500 Mg TABLET Levofloxacin (Levaquin ) 500 Mg TABLET 2017-07-06 05:13:00 2018-01-15 00:00:00 No 750 Daily [facility] Loratadine Loratadine 2017-07-06 05:13:00 2018-01-15 00:00:00 No 10 Daily [facility] Prednisone Prednisone 2017-07-06 05:13:00 2018-01-15 00:00:00 No 20 Daily [facility] Salmeterol Xinafoate/Fluticasone (Advair 500/50*) 1 [facility] Salmeterol Xinafoate/Fluticasone (Advair 500/50*) 1 AER 2019-11-08 00:00:00 N o 1 Every 12 Hours [facility] Fluticasone/Salmeterol (Advair 250-50 Diskus) 1 Each D ISK.W.DEV Fluticasone/Salmeterol (Advair 250-50 Diskus) 1 Each DISK.W.DEV 2017-01-06 00:00:00 No 1 Twice A Day [facility] Albuterol Sulfate (Proair Hfa Inhaler*) 8.5 Gm INH Alb uterol Sulfate (Proair Hfa Inhaler*) 8.5 Gm INH 2016-09-04 00:00:00 No As Needed [facility] Dexlansoprazole (Dexilant) 60 Mg CAP. Dexlansopra zole (Dexilant) 60 Mg CAP. 2016-09-04 00:00:00 No 60 Daily [facility] Doxycycline Hyclate Doxycycline Hyclate 2016-09-04 00:00:00 No 100 Twice A Day [facility] Hydrocodone/Chlorphen Polis (Tussionex Pennkinetic Jolie p) 480 Ml JOLIE.ER.12H Hydrocodone/Chlorphen Polis (Tussionex Pennkinetic Susp) 480 Ml JOLIE.ER.12H 2016-09-04 00:00:00 No 5 Every 12 Hours as ne eded for Cough [facility] Prednisone Prednisone 2016-09-04 00:00:00 No 10 Use As Directed [facility] Zolpidem Tartrate (Ambien) 10 Mg TABLET Zolpidem Tartrate (A mbien) 10 Mg TABLET 2016-09-04 00:00:00 No 10 Bedtime as needed for Insomnia [facility] Esomeprazole Magnesium (Nexium) 40 Mg CAPSULE.DR Harley prazole Magnesium (Nexium) 40 Mg CAPSULE. 2015-11-18 00:00:00 No 40 Daily [facility] Vital Signs Vital Name Observation Time Observation Value Comments Source Weight 2020-01-15 08:11:00 125 [lb_av] [facility] BMI (Body Mass Index) 2020-01-15 08:11:00 22.9 kg/m2 [facility] Body Temperature 2019-11-08 08:47:00 97.2 [degF] [facility] Procedures Procedure Date / Time Performed Performing Clinician [facility] e X-ray of chest, two views 2019-11-07 00:00:00 LEO WEAVER CH I [facility] Computed tomography of chest with contrast 2019-11-05 00:00:00 NELIDA ASHLEY [facility] Plan of Care Planned Activity Planned Date Details Comments Source Instructions Asthma - Adult [facility] Instructions Bronchitis (Acute) - Adult C [facility] Encounters Start Date/Time End Date/Time En[facility] Ad[facility] ID Source 2020-01-15 08:08:00 2020-01-15 10:11:00 Departed Emergency Room 1 CESAR RUIZ [facility] [id number] [facility] 2019-11-05 08:42:00 2019-11-08 11:35:00 Discharged Inpatient 1 MAZIN TELLO [facility] [id number] [facility] 2019-07-13 07:03:00 2019-07-13 09:30:00 Outpatient C ABYZAHRAA JEFE [facility] [id number] [facility] 2019-01-01 21:08:00 2019-01-01 22:42:00 Departed Emergency Room 1 ISAAC MILLER [facility] [id number] [facility] 2018-07-31 11:50:00 2018-07-31 13:52:00 Departed Emergency Room [facility] [id number] [facility] 2018-03-07 11:45:00 2018-03-10 20:20:00 Discharged Inpatient 1 MAZIN TELLO [facility] [id number] [facility] 2018-01-15 13:32:00 2018-01-15 19:09:00 Departed Emergency Room 1 LENNIEABDIAS ALVARADO [facility] [id number] [facility] 2017-08-10 11:57:00 2017-08-10 13:30:00 Departed Emergency Room ER MILLICENT MORRISON [facility] [id number] [facility] 2017-07-03 13:44:00 2017-07-07 14:36:00 Discharged Inpatient (obs) ER MARE BAILEY [facility] [id number] [facility] Results Test Description Test Time Test Comments Results Result Comments Source CHEST SINGLE (PORTABLE) 2020-01-15 09:06:00 [facility] [address] [address] Patient Name: MAVERICK ANN MR #: [id number] : 1960 Age/Sex: 59/F Req #: [id number] Adm Physician: Ordered by: CESAR RUIZ MD Report #: [id number] Location: ER Room/Bed: Procedure: [id number] DX/CHEST SINGLE (PORTABLE) Exam Date: 01/15/20 Exam Time: 0850 REPORT STATUS: Signed Examination: Single AP view of the chest. COMPARISON: Chest two views 11/07/2019, chest CT 11/05/2019 INDICATION: Aspect, shortness of breath IMPRESSION: 1. Lines and Tubes: None 2. Lungs are well-inflated. Bilateral perihilar peribronchial cuffing and mild perihilar interstitial opacities, which may reflect reactive airway disease versus viral infection. Stable 4-5 mm pulmonary nodule in the right upper lobe, projecting over the posterior aspect of the right fourth rib and 7 mm nodular density in the lingula. 3. Stable enlargement of the cardiac silhouette. Pulmonary vasculature is normal. 4. No acute bony abnormalities. Signed by: Dr. Jared Rios M.D. on 01/15/2020 9:10 AM Dictated By: JARED RIOS MD 9 Transcribed By: AMANDA on 01/15/20909 COPY TO: CESAR RUIZ MD Blood leukocytes automated count (number/volume) 2020-01-15 08:19:00 Test Item White Blood Count (test code = 6690-2) 9.17 4.8-10.8 [facility] erythrocytes automated count (number/volume)2020-01-15 08:19:00* Test Item Value Reference Range Interpretation Comments Red Blood Count (test code = 789-8) 4.18 3.6-5.1 [facility] hemoglobin measurement (moles/volume)2020-01-15 08:19:00* Test Item Value Reference Range Interpretation Comments Hemoglobin (test code = 54920-9) 10.9 12.0-16.0 [facility] TexasAutomated blood hematocrit (volume fraction)2020-01-15 08:19:00* Test Item Value Reference Range Interpretation Comments Hematocrit (test code = 4544-3) 34.6 34.2-44.1 [facility] TexasAutomated erythrocyte mean corpuscular htlnip5853-07-95 08:19:00* Test Item Value Reference Range Interpretation Comments Mean Corpuscular Volume (test code = 787-2) 82.8 81-99 [facility] TexasAutomated erythrocyte mean corpuscular hemoglobin (mass per erythrocyte)2020-01-15 08:19:00* Test Item Value Reference Range Interpretation Comments Mean Corpuscular Hemoglobin (test code = 785-6) 26.1 28-32 [facility] TexasAutomated erythrocyte mean corpuscular hemoglobin concentration measurement (mass/volume)2020-01-15 08:19:00* Test Item Value Reference Range Interpretation Comments Mean Corpuscular Hemoglobin Concent (test code = 786-4) 31.5 31-35 [facility] TexasRDW KvaIs-Bix0711-71-23 08:19:00* Test Item Value Reference Range Interpretation Comments Red Cell Distribution Width (test code = 32022-8) 16.6 11.7 -14.4 [facility] TexasAutomated blood platelet count (count/volume)2020-01-15 08:19:00* Test Item Value Reference Range Interpretation Comments Platelet Count (test code = 777-3) 422 140-360 [facility] TexasAutomated blood segmented neutrophil count as percentage of total mbluzoauty2168-25-12 08:19:00* Test Item Value Reference Range Interpretation Comments Neutrophils (%) (Auto) (test code = 90966-4) 67.3 38.7-80.0 [facility] TexasAutomated blood lymphocyte count as percentage ot total arrismvqap3328-86-84 08:19:00* Test Item Value Reference Range Interpretation Comments Lymphocytes (%) (Auto) (test code = 736-9) 16.7 18.0-39.1 [facility] TexasAutomated blood monocyte count as percentage of total ecqfvxmmky0067-27-51 08:19:00* Test Item Value Reference Range Interpretation Comments Monocytes (%) (Auto) (test code = 5905-5) 7.9 4.4-11.3 [facility] TexasAutomated blood eosinophil count as percentage of total dljfpqurur0721-87-18 08:19:00* Test Item Value Reference Range Interpretation Comments Eosinophils (%) (Auto) (test code = 713-8) 6.1 0.0-6.0 [facility] TexasAutomated blood basophil count as percentage of total yigoqsiaqh8096-30-44 08:19:00* Test Item Value Reference Range Interpretation Comments Basophils (%) (Auto) (test code = 706-2) 1.3 0.0-1.0 [facility] TexasFluoroscopic procedure less than one hour zkkdwfvs7565-00-06 08:19:00* Test Item Value Reference Range Interpretation Comments IM GRANULOCYTES % (test code = IM GRANULOCYTES %) 0.7 0.0- 1.0 [facility] TexasAutomated blood neutrophil count 2020-01-15 08:19:00* Test Item Value Reference Range Interpretation Comments Neutrophils # (Auto) (test code = 751-8) 6.2 2.1-6.9 [facility] TexasBlood lymphocytes count (number/volume) 2020-01-15 08:19:00* Test Item Value Reference Range Interpretation Comments Lymphocytes # (Auto) (test code = 81580-8) 1.5 1.0-3.2 [facility] TexasBlood monocytes automated count (number/volume)2020-01-15 08:19:00* Test Item Value Reference Range Interpretation Comments Monocytes # (Auto) (test code = 742-7) 0.7 0.2-0.8 [facility] TexasAutomated blood eosinophil count 2020-01-15 08:19:00* Test Item Value Reference Range Interpretation Comments Eosinophils # (Auto) (test code = 711-2) 0.6 0.0-0.4 [facility] TexasAutomated blood basophil count (count/volume)2020-01-15 08:19:00* Test Item Value Reference Range Interpretation Comments Basophils # (Auto) (test code = 704-7) 0.1 0.0-0.1 [facility] TexasFluoroscopic procedure less than one hour lbuwvwss4856-33-05 08:19:00* Test Item Value Reference Range Interpretation Comments Absolute Immature Granulocyte (auto (laura t code = Absolute Immature Granulocyte (auto) 0.06 0-0.1 [facility] TexasProthrombin time (PT) in platelet poor plasma by coagulation cagbn9447-13-61 08:19:00* Test Item Value Reference Range Interpretation Comments Prothrombin Time (test code = 5902-2) 13.0 11.9-14.5 [facility] TexasINR in Platelet poor plasma by Coagulation ygofw2583-40-26 08:19:00* Test Item Value Reference Range Interpretation Comments Prothromb Time International Ratio (test code = 6301-6) 0.93 Oral Anticoagulant Therapy INR Values:1. Low Intensity Therapy 1.5 - 2.02 . Moderate Intensity Therapy 2.0 - 3.03. High Intensity Therapy(1) 2.5 - 3. 54. High Intensity Therapy(2) 3.0 - 4.05. Panic Value INR > 5.0 [facility] TexasActivated partial thromboplastin time (aPTT) in platelet poor plasma by coagulation bxhqy3890-09-01 08:19:00* Test Item Value Reference Range Interpretation Comments Activated Partial Thromboplast Time (test code = 91748-1) 29.1 23.8-35.5 [facility] plasma sodium measurement (moles/volume)2020-01-15 08:19:00* Test Item Value Reference Range Interpretation Comments Sodium Level (test code = 2951-2) 144 136-145 [facility]um or plasma potassium measurement (moles/volume)2020-01-15 08:19:00* Test Item Value Reference Range Interpretation Comments Potassium Level (test code = 2823-3) 3.8 3.5-5.1 [facility]um or plasma chloride measurement (moles/volume)2020-01-15 08:19:00* Test Item Value Reference Range Interpretation Comments Chloride Level (test code = 2075-0) 108 98-107 [facility]um or plasma carbon dioxide, total measurement (moles/volume)2020-01-15 08:19:00* Test Item Value Reference Range Interpretation Comments Carbon Dioxide Level (test code = 2028-9) 25 22-29 [facility]um or plasma anion azl7711-55-47 08:19:00* Test Item Value Reference Range Interpretation Comments Anion Gap (test code = 54096-5) 14.8 8-16 [facility]um or plasma urea nitrogen measurement (mass/volume)2020-01-15 08:19:00* Test Item Value Reference Range Interpretation Comments Blood Urea Nitrogen (test code = 3094-0) 8 7-26 [facility]um or plasma creatinine measurement (mass/volume)2020-01-15 08:19:00* Test Item Value Reference Range Interpretation Comments Creatinine (test code = 2160-0) 0.75 0.57-1.11 [facility]um or plasma urea nitrogen/creatinine mass apqzz4286-17-50 08:19:00* Test Item Value Reference Range Interpretation Comments BUN/Creatinine Ratio (test code = 3097-3) 11 6-25 [facility] TexasEstimated glomerular filtration rate (GFR) lvqacumrepqpi2037-62-73 08:19:00* Test Item Value Reference Range Interpretation Comments Estimat Glomerular Filtration Rate (test code = 589183921) > 60 >60 Ranges were taken from the National Kidney Disease Education Program and the Jocelynn ional [employer] Foundation literature.Reference ranges:60 or greater: Xgnjkq85-26 ( for 3 consecutive months): Chronic kidney disease 15 or less: Kidney failureWoman's Hospital of TexasGlucose rxnwemuldvo0686-94-09 08:19:00* Test Item Value Reference Range Interpretation Comments Glucose Level (test code = MKY0045) 88 74-118 [facility]inteerum or plasma calcium measurement (mass/volume)2020-01-15 08:19:00* Test Item Value Reference Range Interpretation Comments Calcium Level (test code = 15288-8) 9.2 8.4-10.2 [facility]inteerum or plasma magnesium measurement (mass/volume)2020-01-15 08:19:00* Test Item Value Reference Range Interpretation Comments Magnesium Level (test code = 84620-9) 1.8 1.3-2.1 [facility]erum or plasma total bilirubin measurement (mass/volume)2020-01-15 08:19:00* Test Item Value Reference Range Interpretation Comments Total Bilirubin (test code = 1975-2) 0.8 0.2-1.2 [facility] TexasFluoroscopic procedure less than one hour mtywlbqc9984-59-52 08:19:00* Test Item Value Reference Range Interpretation Comments Aspartate Amino Transf (AST/SGOT) (test code = Aspartate Amino Transf (AST/SGOT)) 16 5-34 [facility]inte[facility]um or plasma alanine aminotransferase measurement (enzymatic activity/volume)2020-01-15 08:19:00* Test Item Value Reference Range Interpretation Comments Alanine Aminotransferase (ALT/SGPT) (test code = 1742-6) 11 0-55 [facility]um or plasma protein measurement (mass/volume)2020-01-15 08:19:00* Test Item Value Reference Range Interpretation Comments Total Protein (test code = 2885-2) 7.3 6.5-8.1 [facility]um or plasma albumin measurement (mass/volume)2020-01-15 08:19:00* Test Item Value Reference Range Interpretation Comments Albumin (test code = 1751-7) 3.5 3.5-5.0 [facility] TexasPlasma globulin measurement (mass/volume) 2020-01-15 08:19:00* Test Item Value Reference Range Interpretation Comments Globulin (test code = 40538-1) 3.8 2.3-3.5 [facility]inteerum or plasma albumin/globulin mass mpvds3244-46-33 08:19:00* Test Item Value Reference Range Interpretation Comments Albumin/Globulin Ratio (test code = 1759-0) 0.9 0.8-2.0 [facility]um or plasma alkaline phosphatase measurement (enzymatic activity/volume)2020-01-15 08:19:00* Test Item Value Reference Range Interpretation Comments Alkaline Phosphatase (test code = 6768-6) 75 40-150 [facility]inteerum or plasma creatine kinase measurement (enzymatic activity/volume)2020-01-15 08:19:00* Test Item Value Reference Range Interpretation Comments Creatine Kinase (test code = 2157-6) 192 29-168 [facility]inteerum or plasma creatine kinase MB measurement (mass/volume)2020-01-15 08:19:00* Test Item Value Reference Range Interpretation Comments Creatine Kinase MB (test code = 74849-9) 0.90 0-5.0 [facility] TexasTroponin I measurement by highly sensitive enzyme ehvqiyjdogo9386-21-92 08:19:00* Test Item Value Reference Range Interpretation Comments Troponin I (test code = 96318-9) 0.004 0-0.300 [facility] TexasBlood Egieouh4694-72-20 09:20:00* Test Item Value Reference Range Interpretation Comments Blood Culture (test code = 75417577) NO GROWTH AFTER 72 HOURS [facility] TexasDifferential Total Cells Counted 2019-11-08 09:04:00* Test Item Value Reference Range Interpretation Comments Differential Total Cells Counted (test code = Differebenezer tial Total Cells Counted) 100 [facility] TexasNeutrophils % (Manual)2019-11-08 09:04:00 * Test Item Value Reference Range Interpretation Comments Neutrophils % (Manual) (test code = 65826-3) 94 40-74 H [facility] TexasLymphocytes % (Manual)2019-11-08 09:04:00 * Test Item Value Reference Range Interpretation Comments Lymphocytes % (Manual) (test code = 737-7) 4 19-48 L [facility] TexasMonocytes % (Manual)2019-11-08 09:04:00* Test Item Value Reference Range Interpretation Comments Monocytes % (Manual) (test code = 744-3) 2 3.4-9.0 L [facility] of TexasPercent Reticulocyte Vusxv4583-49-79 06:14:00* Test Item Value Reference Range Interpretation Comments Percent Reticulocyte Count (test code = 58765-1) 1.1 0.8-2 .2 [facility]um or plasma folate measurement (mass/volume)2019-11-08 06:00:00* Test Item Value Reference Range Interpretation Comments Folate (test code = 2284-8) 5.4 >3.0 A serum folate concentration of less than 3.1 ng/mL isconsidered to represent cl inical deficiency.Performed at: [facility] [id number] Director: Polo Martinez MD, Phone: [phone]'s Hospital of TexasVitamin B12 Apfqn5556-68-35 05:41:00* Test Item Value Reference Range Interpretation Comments Vitamin B12 Level (test code = 73379-5) 583 213-816 [facility] TexasFerritin2020-03-16 05:29:00* Test Item Value Reference Range Interpretation Comments Ferritin (test code = 2276-4) 14.34 4.63-204.00 [facility] TexasIron Kurqf4210-93-81 05:13:00* Test Item Value Reference Range Interpretation Comments Iron Level (test code = 2498-4) 14 50-170 L [facility] TexasTotal Iron Binding Cfykbmwe3202-34-52 05:13:00* Test Item Value Reference Range Interpretation Comments Total Iron Binding Capacity (test code = 2500-7) 423 261-4 78 [facility] TexasPercent Iron Xeqmnjujry0627-73-75 05:13:00* Test Item Value Reference Range Interpretation Comments Percent Iron Saturation (test code = 2502-3) 3 15-50 L [facility] TexasTransferrin2020-03-16 05:13:00* Test Item Value Reference Range Interpretation Comments Transferrin (test code = 3034-6) 302 180-382 [facility] TexasWhite Blood Speos7038-38-22 04:27:00* Test Item Value Reference Range Interpretation Comments White Blood Count (test code = 6690-2) 9.71 4.8-10.8 [facility] of TexasRed Blood Agqzo1852-19-96 04:27:00* Test Item Value Reference Range Interpretation Comments Red Blood Count (test code = 789-8) 4.02 3.6-5.1 [facility] TexasHemoglobin2020-03-16 04:27:00* Test Item Value Reference Range Interpretation Comments Hemoglobin (test code = 03053-0) 10.8 12.0-16.0 L [facility] TexasHematocrit2020-03-16 04:27:00* Test Item Value Reference Range Interpretation Comments Hematocrit (test code = 4544-3) 33.7 34.2-44.1 L [facility] of TexasMean Corpuscular Jvieud3701-20-21 04:27:00* Test Item Value Reference Range Interpretation Comments Mean Corpuscular Volume (test code = 787-2) 83.8 81-99 [facility] TexasMean Corpuscular Ggigsyorsm0937-42-05 04:27:00* Test Item Value Reference Range Interpretation Comments Mean Corpuscular Hemoglobin (test code = 785-6) 26.9 28-32 L [facility] of TexasMean Corpuscular Hemoglobin Concent 2019-11-08 04:27:00* Test Item Value Reference Range Interpretation Comments Mean Corpuscular Hemoglobin Concent (test code = 786-4) 32.0 31-35 [facility] TexasRed Cell Distribution Mmssl5007-76-48 04:27:00* Test Item Value Reference Range Interpretation Comments Red Cell Distribution Width (test code = 94563-9) 14.3 11.7 -14.4 [facility] of TexasPlatelet Uritu1526-10-42 04:27:00* Test Item Value Reference Range Interpretation Comments Platelet Count (test code = 777-3) 497 140-360 [facility] TexasNeutrophils (%) (Auto)2019-11-08 04:27:00 * Test Item Value Reference Range Interpretation Comments Neutrophils (%) (Auto) (test code = 10988-9) 91.0 38.7-80.0 H [facility] TexasLymphocytes (%) (Auto)2019-11-08 04:27:00 * Test Item Value Reference Range Interpretation Comments Lymphocytes (%) (Auto) (test code = 736-9) 5.3 18.0-39.1 L [facility] TexasMonocytes (%) (Auto)2019-11-08 04:27:00* Test Item Value Reference Range Interpretation Comments Monocytes (%) (Auto) (test code = 5905-5) 2.9 4.4-11.3 L [facility] TexasEosinophils (%) (Auto)2019-11-08 04:27:00 * Test Item Value Reference Range Interpretation Comments Eosinophils (%) (Auto) (test code = 713-8) 0.0 0.0-6.0 [facility] TexasBasophils (%) (Auto)2019-11-08 04:27:00* Test Item Value Reference Range Interpretation Comments Basophils (%) (Auto) (test code = 706-2) 0.1 0.0-1.0 [facility] TexasIM GRANULOCYTES %2019-11-08 04:27:00* Test Item Value Reference Range Interpretation Comments IM GRANULOCYTES % (test code = IM GRANULOCYTES %) 0.7 0.0- 1.0 [facility] TexasNeutrophils # (Auto)2019-11-08 04:27:00* Test Item Value Reference Range Interpretation Comments Neutrophils # (Auto) (test code = 751-8) 8.8 2.1-6.9 [facility] TexasLymphocytes # (Auto)2019-11-08 04:27:00* Test Item Value Reference Range Interpretation Comments Lymphocytes # (Auto) (test code = 04793-4) 0.5 1.0-3.2 L [facility] TexasMonocytes # (Auto)2019-11-08 04:27:00* Test Item Value Reference Range Interpretation Comments Monocytes # (Auto) (test code = 742-7) 0.3 0.2-0.8 [facility] TexasEosinophils # (Auto)2019-11-08 04:27:00* Test Item Value Reference Range Interpretation Comments Eosinophils # (Auto) (test code = 711-2) 0.0 0.0-0.4 [facility] TexasBasophils # (Auto)2019-11-08 04:27:00* Test Item Value Reference Range Interpretation Comments Basophils # (Auto) (test code = 704-7) 0.0 0.0-0.1 [facility] TexasAbsolute Immature Granulocyte (auto 2019-11-08 04:27:00* Test Item Value Reference Range Interpretation Comments Absolute Immature Granulocyte (auto (laura t code = Absolute Immature Granulocyte (auto) 0.07 0-0.1 [facility]inteodium Jucdu2688-73-98 04:25:00* Test Item Value Reference Range Interpretation Comments Sodium Level (test code = 2951-2) 138 136-145 [facility] TexasPotassium Nthlu9092-09-78 04:25:00* Test Item Value Reference Range Interpretation Comments Potassium Level (test code = 2823-3) 4.1 3.5-5.1 [facility] TexasChloride Bjtlg6733-41-51 04:25:00* Test Item Value Reference Range Interpretation Comments Chloride Level (test code = 2075-0) 105 98-107 [facility] TexasCarbon Dioxide Dqtzr7148-13-46 04:25:00* Test Item Value Reference Range Interpretation Comments Carbon Dioxide Level (test code = 2028-9) 27 22-29 [facility] TexasAnion Wuu1281-02-38 04:25:00* Test Item Value Reference Range Interpretation Comments Anion Gap (test code = 41948-9) 10.1 8-16 [facility] TexasBlood Urea Nlsyurzu0029-77-07 04:25:00* Test Item Value Reference Range Interpretation Comments Blood Urea Nitrogen (test code = 3094-0) 11 - [facility] TexasCreatinine2020-03-16 04:25:00* Test Item Value Reference Range Interpretation Comments Creatinine (test code = 2160-0) 0.66 0.57-1.11 [facility] TexasBUN/Creatinine Uznen2166-42-38 04:25:00* Test Item Value Reference Range Interpretation Comments BUN/Creatinine Ratio (test code = 3097-3) 17 6- [facility] of TexasEstimat Glomerular Filtration Rate 2019-11-08 04:25:00* Test Item Value Reference Range Interpretation Comments Estimat Glomerular Filtration Rate (test code = 362854571) > 60 >60 Ranges were taken from the National Kidney Disease Education Program and the [facility] Kid[facility] Foundation literature.Reference ranges:60 or greater: Ebqzcw77-26 ( for 3 consecutive months): Chronic kidney disease 15 or less: Kidney failureWoman's Hospital of TexasGlucose Okfmi7999-77-30 04:25:00* Test Item Value Reference Range Interpretation Comments Glucose Level (test code = WKE1306) 144 74-118 H [facility] TexasCalcium Ziyxi7994-89-67 04:25:00* Test Item Value Reference Range Interpretation Comments Calcium Level (test code = 55203-7) 8.9 8.4-10.2 [facility] TexasFluoroscopic procedure less than one hour kdkqrnpd7673-13-57 03:34:00* Test Item Value Reference Range Interpretation Comments Differential Total Cells Counted (test code = Differebenezer tial Total Cells Counted) 100 [facility] of TexasManual blood neutrophils/100 leukocytes 2019-11-08 03:34:00* Test Item Value Reference Range Interpretation Comments Neutrophils % (Manual) (test code = 09276-5) 94 40-74 [facility] TexasManual blood lymphocytes/100 leukocytes 2019-11-08 03:34:00* Test Item Value Reference Range Interpretation Comments Lymphocytes % (Manual) (test code = 737-7) 4 19-48 [facility] TexasManual blood monocytes/100 leukocytes 2019-11-08 03:34:00* Test Item Value Reference Range Interpretation Comments Monocytes % (Manual) (test code = 744-3) 2 3.4-9.0 [facility] of TexasAutomated reticulocyte count as percentage of total aqsvlaguawoq1756-60-06 03:34:00* Test Item Value Reference Range Interpretation Comments Percent Reticulocyte Count (test code = 05931-6) 1.1 0.8-2 .2 [facility] Pointeerum or plasma iron measurement (mass/volume)2019-11-08 03:34:00* Test Item Value Reference Range Interpretation Comments Iron Level (test code = 2498-4) 14 50-170 [facility] Pointeerum or plasma iron binding capacity measurement (mass/volume)2019-11-08 03:34:00* Test Item Value Reference Range Interpretation Comments Total Iron Binding Capacity (test code = 2500-7) 423 261-4 78 [facility] Pointeerum or plasma iron saturation measurement (mass fraction)2019-11-08 03:34:00* Test Item Value Reference Range Interpretation Comments Percent Iron Saturation (test code = 2502-3) 3 15-50 [facility] Pointeerum or plasma transferrin measurement (mass/volume)2019-11-08 03:34:00* Test Item Value Reference Range Interpretation Comments Transferrin (test code = 3034-6) 302 180-382 [facility] Pointeerum or plasma ferritin measurement (mass/volume)2019-11-08 03:34:00* Test Item Value Reference Range Interpretation Comments Ferritin (test code = 2276-4) 14.34 4.63-204.00 [facility] TexasBlood cobalamin (vitamin B12) measurement (mass/volume)2019-11-08 03:34:00* Test Item Value Reference Range Interpretation Comments Vitamin B12 Level (test code = 72060-3) 583 213-816 [facility] TexasCHEST 2 KZHXF5136-53-32 07:30:00 [place] [address] Patient Name: MAVERICK ANN MR #: [id number] : 1960 Age/Sex: 59/F Req #: [id number] Adm Physician: MAZIN TELLO MD Ordered by: LEO WEAVER NP Report #: [id number] Location: [facility] Room/Bed: [facility] Procedure: [id number] DX/CH EST 2 VIEWS Exam Date: 11/07/19 Exam Time: 40 REPORT STATUS: Signed EXAMINATION: CHEST 2 VIEWS INDICATION: Shortness of breath, cough f/u on multifo kareen aspiration bronchitis [id number] Y COMPARISON: CT chest 11/05/2019, chest x-ray [...] AMANDA on 11/07/19735 COPY TO: LEO WEAVER NP Phosphorus Srvmm1631-80-56 06:00:00* Test Item Value Reference Range Interpretation Comments Phosphorus Level (test code = QII7418) 3.4 2.3-4.7 [facility] TexasMagnesium Gpcpo5720-32-11 06:00:00* Test Item Value Reference Range Interpretation Comments Magnesium Level (test code = 86235-3) 1.9 1.3-2.1 [facility] TexasPhosphorus tmdbhjgbran7980-37-32 05:10:00 * Test Item Value Reference Range Interpretation Comments Phosphorus Level (test code = VEV6405) 3.4 2.3-4.7 [facility] TexasFluoroscopic procedure less than one hour euwshzsq3129-70-66 02:46:00* Test Item Value Reference Range Interpretation Comments Chlamydia pneumoniae DNA (PCR) (test code = Chlamydia pneumoniae DNA (PCR)) NEGATIVE NEGATIVE Test performed at [address] [address]RESULTS [facility]Respiratory virus jttcm1988-13-24 02:46:00* Test Item Value Reference Range Interpretation Comments Influenza Type A (RT-PCR) (test code = 382885076) NEGATIVE NEGA TIVE Test performed at [address] [address]RESULTS HAVE BEEN [facility]ED TO THE [facility] AzleFluoroscopic procedure less than one hour rucoleao3137-91-77 02:46:00* Test Item Value Reference Range Interpretation Comments Mycoplasma pneumoniae (PCR) (test code = Mycoplasma pneumoni ae (PCR)) NEGATIVE NEGATIVE [facility] TexasRespiratory virus zuyoz1526-95-93 02:46:00* Test Item Value Reference Range Interpretation Comments Influenza Type B (RT-PCR) (test code = 791074680) NEGATIVE NEGA TIVE Test performed at [address] [address]RESULTS HAVE BEEN [facility]leRespiratory virus nqflz4740-16-30 02:46:00* Test Item Value Reference Range Interpretation Comments Respiratory Syncytial Virus (PCR) (test code = 118988207) NEGATIVE NEGATIVE Test performed at [address] [address]RESULTS HAVE BEEN [facility]ED [facility]leRespiratory virus ohapy3718-27-55 02:46:00* Test Item Value Reference Range Interpretation Comments Bordetella pertussis DNA (PCR) (test code = 345194112) NEGATIVE NEGATIVE Test performed at [address] [address]RESULTS HAVE BEEN [facility]ED [facility] THE [facility]leRespiratory virus ozbdq6620-11-20 02:46:00* Test Item Value Reference Range Interpretation Comments Parainfluenza Type 1 (PCR) (test code = 831121376) NEGATIVE NEG ATIVE Test performed at [address] [address]RESULTS HAVE BEEN [facility]ED [facility] THE [facility]leRespiratory virus visvz3472-95-44 02:46:00* Test Item Value Reference Range Interpretation Comments Parainfluenza Type 2 (PCR) (test code = 116660415) NEGATIVE NEG ATIVE Test performed at [address] [address]RESULTS HAVE BEEN [facility]ED TO THE [facility]leRespiratory virus shdky9430-32-43 02:46:00* Test Item Value Reference Range Interpretation Comments Parainfluenza Type 3 (PCR) (test code = 437068768) NEGATIVE NEG ATIVE Test performed at [address] [address]RESULTS HAVE BEEN [facility]ED TO THE [facility] AzleFluoroscopic procedure less than one hour tppsdgxw9800-09-19 02:46:00* Test Item Value Reference Range Interpretation Comments Parainfluenza Type 4 (PCR) (test code = Parainfluenza Type 4 (PCR)) NEGATIVE NEGATIVE Test performed at [address] [address]RESULTS HAVE BEEN [facility]ED TO THE [facility]leRespiratory virus euigs4819-01-62 02:46:00* Test Item Value Reference Range Interpretation Comments Rhinovirus (PCR) (test code = 932804635) NEGATIVE NEGATIVE Test performed at [address] [address]RESULTS HAVE BEEN [facility]ED TO THE [facility]leRespiratory virus iueaj6059-08-57 02:46:00* Test Item Value Reference Range Interpretation Comments Human Metapneumovirus (PCR) (test code = 090946216) NEGATIVE NE GATIVE Test performed at [address] [address]RESULTS HAVE BEEN [facility]ED TO THE [facility]leRespiratory virus lgbdk8159-90-68 02:46:00* Test Item Value Reference Range Interpretation Comments Adenovirus (PCR) (test code = 666053855) NEGATIVE NEGATIVE Test performed at [address] [address]RESULTS HAVE BEEN [facility]ED TO THE [facility] AzleFluoroscopic procedure less than one hour oppnlycd1203-82-87 02:46:00* Test Item Value Reference Range Interpretation Comments Coronavirus Type 229E (PCR) (test code = Coronavirus Type 22 9E (PCR)) NEGATIVE NEGATIVE Test performed at [address] [address]RESULTS HAVE BEEN [facility]ED TO THE [facility] AzleFluoroscopic procedure less than one hour ugjigbpz7935-21-20 02:46:00* Test Item Value Reference Range Interpretation Comments Coronavirus Type HKU1 (PCR) (test code = Coronavirus Type HK U1 (PCR)) NEGATIVE NEGATIVE Test performed at [address] [address]RESULTS HAVE BEEN CALLED TO THE [facility] AzleFluoroscopic procedure less than one hour ahrkngdq4438-95-49 02:46:00* Test Item Value Reference Range Interpretation Comments Coronavirus Type NL63 (PCR) (test code = Coronavirus Type NL 63 (PCR)) NEGATIVE NEGATIVE Test performed at [address] [address]RESULTS HAVE BEEN CALLED TO THE [facility] AzleFluoroscopic procedure less than one hour qjicpbci1892-68-96 02:46:00* Test Item Value Reference Range Interpretation Comments Coronavirus Type OC43 (PCR) (test code = Coronavirus Type OC 43 (PCR)) NEGATIVE NEGATIVE Test performed at [facility] [place], [place] [address]RESULTS HAVE BEEN CALLED TO THE PHYSICIANWoman's Hospital of TexasLactic Acid Dxdee9548-94-65 09:49:00* Test Item Value Reference Range Interpretation Comments Lactic Acid Level (test code = Lactic Acid Level) 0.8 0.5- 2.0 [facility] TexasFluoroscopic procedure less than one hour tudlycdd6039-53-02 09:08:00* Test Item Value Reference Range Interpretation Comments Lactic Acid Level (test code = Lactic Acid Level) 0.8 0.5- 2.0 [facility] TexasBlood isroxxm9730-32-56 09:08:00* Test Item Value Reference Range Interpretation Comments Blood Culture (test code = 15818197) NO GROWTH AFTER 5 DAYS, FINAL REPORT [facility] TexasCT CHEST D6943-54-73 06:06:00 [facility] [address] [address] Patient Name: MAVERICK ANN MR #: [id number] : 1960 Age/Sex: 59/F Req #: [id number] Adm Physician: Ordered by: NELIDA FRANCOIS DO Report #: [id number] Location: ER Room/Bed: Procedure: [id number] CT/ CT CHEST W Exam Date: Exam Time: REPORT STATUS: Signed EXAM: CT Chest WITH contras t INDICATION: Asthma, shortness of breath. COMPARISON: None [...] COPY TO: NELIDA FRANCOIS DO Creatine Kinase OR3001-24-85 04:48:00* Test Item Value Reference Range Interpretation Comments Creatine Kinase MB (test code = 07479-6) 1.60 0-5.0 [facility] V0719-32-14 04:48:00* Test Item Value Reference Range Interpretation Comments Troponin I (test code = VZI2066) < 0.001 0-0.300 [facility] CenterCH[facility]INGLE ([facility])2019-11-05 04:45:00 [place] [address] Patient Name: MAVERICK ANN MR #: [id number] : 1960 Age/Sex: 59/F Req #: [id number] Adm Physician: Ordered by: NELIDA FRANCOIS DO Report #: [id number] Location: ER Room/Bed: Procedure: [id number] DX/ CHEST SINGLE (PORTABLE) Exam Date: 11/05/19 [...] NELIDA FRANCOIS DO Influenza Virus Types A,B Gvoqiwm9829-04-97 04:43:00* Test Item Value Reference Range Interpretation Comments Influenza Virus Types A,B Antigen (test code = 24189-5) NEGATIVE NEGATIVE [facility] TexasGroup A Streptococcus Alfvtu1634-93-69 04:43:00* Test Item Value Reference Range Interpretation Comments Group A Streptococcus Screen (test code = 93779-4) NEGATIVE NEG ATIVE [facility] TexasInfluenza virus A and B antigen identification by nabzvgtgifjnxndotk8541-47-19 04:25:00* Test Item Value Reference Range Interpretation Comments Influenza Virus Types A,B Antigen (test code = 43405-3) NEGATIVE NEGATIVE [facility] Pointetreptococcus pyogenes antigen detection in vnavav5510-26-00 04:25:00* Test Item Value Reference Range Interpretation Comments Group A Streptococcus Screen (test code = 31043-1) NEGATIVE NEG ATIVE [facility] TexasTotal Cuzhdhrzu8017-65-96 04:16:00* Test Item Value Reference Range Interpretation Comments Total Bilirubin (test code = 1975-2) 0.3 0.2-1.2 [facility] TexasAspartate Amino Transf (AST/SGOT) 2019-11-05 04:16:00* Test Item Value Reference Range Interpretation Comments Aspartate Amino Transf (AST/SGOT) (test code = Aspartate Amino Transf (AST/SGOT)) 24 5-34 [facility] TexasAlanine Aminotransferase (ALT/SGPT) 2019-11-05 04:16:00* Test Item Value Reference Range Interpretation Comments Alanine Aminotransferase (ALT/SGPT) (test code = 1742-6) 14 0-55 [facility] TexasTotal Ekeikxv7802-03-00 04:16:00* Test Item Value Reference Range Interpretation Comments Total Protein (test code = 2885-2) 7.8 6.5-8.1 [facility] TexasAlbumin2020-03-13 04:16:00* Test Item Value Reference Range Interpretation Comments Albumin (test code = 1751-7) 3.6 3.5-5.0 [facility] TexasGlobulin2020-03-13 04:16:00* Test Item Value Reference Range Interpretation Comments Globulin (test code = 62025-8) 4.2 2.3-3.5 H [facility] TexasAlbumin/Globulin Rgpzy4173-57-83 04:16:00 * Test Item Value Reference Range Interpretation Comments Albumin/Globulin Ratio (test code = 1759-0) 0.9 0.8-2.0 [facility] TexasAlkaline Jjsvabjoypb6682-03-14 04:16:00* Test Item Value Reference Range Interpretation Comments Alkaline Phosphatase (test code = 6768-6) 95 40-150 [facility] TexasCreatine Eaxkjv0492-31-99 04:16:00* Test Item Value Reference Range Interpretation Comments Creatine Kinase (test code = 2157-6) 365 29-168 H [facility] TexasUA RFLX MICR CULT IF BCGMRYXNJ4568-07-25 14:46:00* Test Item Value Reference Range Interpretation [...] NONE SEEN Indication for culture: Dysuria/FrequencyUR HCG ZPTO2346-49-32 14:46:00* Test Item Value Reference Range Interpretation Comments UR HCG QUAL (test code = HCGQLU) NEGATIVE 1. Very dilute urine specimens, as indicated by a lowspecific gravity, may not contain sales representative livestock levels ofhCG. 2. False negative results may [...] #/HPF RARE-FEW Indication for culture: Dysuria/FrequencyUR HCG DNAP0815-68-66 14:38:00* Test Item Value Reference Range Interpretation Comments UR HCG QUAL (test code = HCGQLU) NEGATIVE 1. Very dilute urine specimens, as indicated by a lowspecific gravity, may not contain sales representative livestock levels ofhCG. 2. False negative results may occur when the levels of hCGare below the sensitivity level of the test. If is still suspected, a first morningurine specimen should be collected 48 hours later andtested. Indication for culture: Dysuria/FrequencyCHEST 2 YXPRB4090-58-90 22:18:00 [place] [address] Patient Name: MAVERICK ANN MR #: [id number] : [birth year] Age/Sex: 58/F Req #: [id number] Adm Physician: Ordered by: ISAAC MILLER MD Report #: [id number] Location: ER Room/Bed: Procedure: [id number] DX/CHEST 2 VIEWS Exam Date: 01/01/19 Exam Sanya e: 2150 REPORT STATUS: Signed EXAMINATION: PA and lateral [...] on 01/01/192218 COPY TO: ISAAC MILLER MD Urine QQO1541-55-92 13:22:00* Test Item Value Reference Range Interpretation Comments Urine WBC (test code = 5821-4) NONE 0-5 [facility] TexasU[facility] FLP7380-58-75 13:22:00* Test Item Value Reference Range Interpretation Comments Urine RBC (test code = 08862-4) NONE 0-5 [facility] TexasUrine Bywamawj9248-60-75 13:22:00* Test Item Value Reference Range Interpretation Comments Urine Bacteria (test code = 47154-0) RARE NONE [facility] TexasU[facility] Epithelial Lsjxd1726-09-30 13:22:00 * Test Item Value Reference Range Interpretation Comments Urine Epithelial Cells (test code = 59702-4) MODERATE NONE [facility] TexasUrine ZJY6924-03-17 13:22:00* Test Item Value Reference Range Interpretation Comments Urine WBC (test code = 5821-4) NONE 0-5 [facility] TexasU[facility] NRH1258-00-73 13:22:00* Test Item Value Reference Range Interpretation Comments Urine RBC (test code = 16384-3) NONE 0-5 [facility] TexasU[facility] Xdtbtfcc3126-67-58 13:22:00* Test Item Value Reference Range Interpretation Comments Urine Bacteria (test code = 91777-5) RARE NONE [facility] TexasU[facility] Epithelial Rnubp3892-37-22 13:22:00 * Test Item Value Reference Range Interpretation Comments Urine Epithelial Cells (test code = 24913-4) MODERATE NONE [facility] TexasU[facility] Yzidj6511-34-24 12:59:00* Test Item Value Reference Range Interpretation Comments Urine Color (test code = 5778-6) YELLOW YELLOW [facility] TexasUrine Jnxwvuk4184-24-23 12:59:00* Test Item Value Reference Range Interpretation Comments Urine Clarity (test code = 80211-5) SL CLOUDY CLEAR [facility] TexasUrine Specific Jzzuvda6377-28-38 12:59:00 * Test Item Value Reference Range Interpretation Comments Urine Specific [place] (test code = 5811-5) 1.025 1.010-1.02 5 [facility] TexasUrine cT6099-69-41 12:59:00* Test Item Value Reference Range Interpretation Comments Urine pH (test code = 85490-5) 6 5-7 [facility] TexasU[facility] Leukocyte Luaggplv4936-00-39 12:59:00* Test Item Value Reference Range Interpretation Comments Urine Leukocyte Esterase (test code = 5799-2) NEGATIVE NEGATIVE [facility] TexasU[facility] Xgvwnpj0563-65-71 12:59:00* Test Item Value Reference Range Interpretation Comments Urine Nitrite (test code = 07990-1) NEGATIVE NEGATIVE [facility] TexasU[facility] Lkpsfey9725-36-31 12:59:00* Test Item Value Reference Range Interpretation Comments Urine Protein (test code = 5804-0) NEGATIVE NEGATIVE [facility] Glucose (UA)2018-07-31 12:59:00* Test Item Value Reference Range Interpretation Comments Urine Glucose (UA) (test code = 2349-9) NEGATIVE NEGATIVE [facility] Xrpwavy7067-56-11 12:59:00* Test Item Value Reference Range Interpretation Comments Urine Ketones (test code = 24700-1) NEGATIVE NEGATIVE [facility] Vbkfhcfqmwjz3807-56-55 12:59:00* Test Item Value Reference Range Interpretation Comments Urine Urobilinogen (test code = 10242-8) 1 0.2-1 [facility] Ooyqkieel9351-86-42 12:59:00* Test Item Value Reference Range Interpretation Comments Urine Bilirubin (test code = 1978-6) NEGATIVE NEGATIVE [facility] TexasU[facility] Kwqgd4735-30-07 12:59:00* Test Item Value Reference Range Interpretation Comments Urine Blood (test code = 29836-3) NEGATIVE NEGATIVE [facility] TexasU[facility] Dbbtg8934-96-13 12:59:00* Test Item Value Reference Range Interpretation Comments Urine Color (test code = 5778-6) YELLOW YELLOW [facility] TexasU[facility] Tgcvvpg5831-33-17 12:59:00* Test Item Value Reference Range Interpretation Comments Urine Clarity (test code = 93428-6) SL CLOUDY CLEAR [facility] TexasU[facility] Specific Wtplusa9693-63-42 12:59:00 * Test Item Value Reference Range Interpretation Comments Urine Specific [place] (test code = 5811-5) 1.025 1.010-1.02 5 [facility] TexasUrine pH4046-58-26 12:59:00* Test Item Value Reference Range Interpretation Comments Urine pH (test code = 61656-7) 6 5-7 [facility] TexasU[facility] Leukocyte Uvcuhqwd0800-21-62 12:59:00* Test Item Value Reference Range Interpretation Comments Urine Leukocyte Esterase (test code = 5799-2) NEGATIVE NEGATIVE [facility] Thadgxh9110-20-77 12:59:00* Test Item Value Reference Range Interpretation Comments Urine Nitrite (test code = 74756-8) NEGATIVE NEGATIVE [facility] Ekiamah7859-40-94 12:59:00* Test Item Value Reference Range Interpretation Comments Urine Protein (test code = 5804-0) NEGATIVE NEGATIVE [facility] Glucose (UA)2018-07-31 12:59:00* Test Item Value Reference Range Interpretation Comments Urine Glucose (UA) (test code = 2349-9) NEGATIVE NEGATIVE [facility] Cwxcjly7657-58-69 12:59:00* Test Item Value Reference Range Interpretation Comments Urine Ketones (test code = 01920-4) NEGATIVE NEGATIVE [facility] Sqcskhuccptu7061-52-02 12:59:00* Test Item Value Reference Range Interpretation Comments Urine Urobilinogen (test code = 87073-7) 1 0.2-1 [facility] TexasU[facility] Fzwfubsvy0685-07-43 12:59:00* Test Item Value Reference Range Interpretation Comments Urine Bilirubin (test code = 1978-6) NEGATIVE NEGATIVE [facility] Yqlog3037-41-02 12:59:00* Test Item Value Reference Range Interpretation Comments Urine Blood (test code = 00427-8) NEGATIVE NEGATIVE [facility] TexasHepatitis C Cwrjuywj1999-18-36 12:29:00* Test Item Value Reference Range Interpretation Comments Hepatitis C Antibody (test code = 31519-2) 0.2 Reference Range: 0.0 - 0.9 s/co ratioNegative: < 0.8Indeterminate: 0.8 - 0.9Positive: > 0.9The CDC recommends that a positive HCV antibody resultbe followed up with a HCV Nucleic Acid Amplificationtest (531407).[address] [address]Ahv: Polo Martinez MDFor inquiries, the physician may contact Branch: [phone] Lab: [phone] [place], [place] [address]Hepatitis C Gfdiutoq1530-56-93 12:29:00* Test Item Value Reference Range Interpretation Comments Hepatitis C Antibody (test code = 97067-3) 0.2 Reference Range: 0.0 - 0.9 s/co ratioNegative: < 0.8Indeterminate: 0.8 - 0.9Positive: > 0.9The CDC recommends that a positive HCV antibody resultbe followed up with a HCV Nucleic Acid Amplificationtest (904362).Lab[address] [address]Bkx: Polo Martinez MDFor inquiries, the physician may contact Branch: [address] [place] [address] Lab: [phone] [place] [address] Dxahtjx7767-28-46 15:57:00* Test Item Value Reference Range Interpretation Comments Bedside Glucose (test code = 88609-2) 123 70-120 H Meter ID: [id number] 2018-03-10 15:57:00* Test Item Value Reference Range Interpretation Comments Bedside Glucose (test code = 64602-6) 123 70-120 H Meter ID: [id number] [facility] Glucose 2018-03-10 15:57:00* Test Item Value Reference Range Interpretation Comments Bedside Glucose (test code = 43521-5) 123 70-120 H Meter ID: [id number] [facility] Glucose 2018-03-10 15:57:00* Test Item Value Reference Range Interpretation Comments Bedside Glucose (test code = 19054-7) 123 70-120 H Meter ID: [id number] Health [facility]odium Level 2018-03-10 04:50:00* Test Item Value Reference Range Interpretation Comments Sodium Level (test code = 2951-2) 139 136-145 [facility] TexasPotassium Ncjvm0966-17-42 04:50:00* Test Item Value Reference Range Interpretation Comments Potassium Level (test code = 2823-3) 4.3 3.5-5.1 [facility] TexasChloride Mcyxq1597-25-16 04:50:00* Test Item Value Reference Range Interpretation Comments Chloride Level (test code = 2075-0) 103 98-107 [facility] TexasCarbon Dioxide Kcctw4356-24-21 04:50:00* Test Item Value Reference Range Interpretation Comments Carbon Dioxide Level (test code = 2028-9) 27 22-29 [facility] TexasAnion Vav2482-55-65 04:50:00* Test Item Value Reference Range Interpretation Comments Anion Gap (test code = 77335-2) 13.3 8-16 [facility] TexasBlood Urea Kidtdvdi2322-81-02 04:50:00* Test Item Value Reference Range Interpretation Comments Blood Urea Nitrogen (test code = 3094-0) 11 7-26 [facility] TexasCreatinine2018-07-17 04:50:00* Test Item Value Reference Range Interpretation Comments Creatinine (test code = 2160-0) 0.77 0.57-1.11 [facility] TexasBUN/Creatinine Ecepi1079-08-86 04:50:00* Test Item Value Reference Range Interpretation Comments BUN/Creatinine Ratio (test code = 3097-3) 14 6-25 [facility] TexasEstimat Glomerular Filtration Rate 2018-03-10 04:50:00* Test Item Value Reference Range Interpretation Comments Estimat Glomerular Filtration Rate (test code = 40171-1) 60- >60 Ranges were taken from the National Kidney Disease Education Program and the [facility] literature.Reference ranges:60 or greater: Omdsbn80-84 ( for 3 consecutive months): Chronic kidney disease 15 or less: Kidney failureWoman's Hospital of TexasGlucose Jnzna0572-70-36 04:50:00* Test Item Value Reference Range Interpretation Comments Glucose Level (test code = PQL2196) 126 74-118 H [facility] TexasCalcium Zscaw0851-06-94 04:50:00* Test Item Value Reference Range Interpretation Comments Calcium Level (test code = 42411-9) 9.2 8.4-10.2 [facility] TexasMagnesium Nbdlm6436-15-11 04:50:00* Test Item Value Reference Range Interpretation Comments Magnesium Level (test code = 30233-7) 2.0 1.3-2.1 [facility] Tpszd3214-60-00 04:50:00* Test Item Value Reference Range Interpretation Comments Sodium Level (test code = 2951-2) 139 136-145 [facility] TexasPotassium Yhpxk6387-21-83 04:50:00* Test Item Value Reference Range Interpretation Comments Potassium Level (test code = 2823-3) 4.3 3.5-5.1 [facility] TexasChloride Ojrld3554-79-18 04:50:00* Test Item Value Reference Range Interpretation Comments Chloride Level (test code = 2075-0) 103 98-107 [facility] TexasCarbon Dioxide Ncqbo7561-22-10 04:50:00* Test Item Value Reference Range Interpretation Comments Carbon Dioxide Level (test code = 2028-9) 27 22-29 [facility] TexasAnion Gyv4302-33-66 04:50:00* Test Item Value Reference Range Interpretation Comments Anion Gap (test code = 17665-4) 13.3 8-16 [facility] TexasBlood Urea Fomzvjqj7030-46-93 04:50:00* Test Item Value Reference Range Interpretation Comments Blood Urea Nitrogen (test code = 3094-0) 11 7-26 [facility] TexasCreatinine2018-07-17 04:50:00* Test Item Value Reference Range Interpretation Comments Creatinine (test code = 2160-0) 0.77 0.57-1.11 [facility] TexasBUN/Creatinine Amhln5805-32-55 04:50:00* Test Item Value Reference Range Interpretation Comments BUN/Creatinine Ratio (test code = 3097-3) 14 6-25 [facility] TexasEstimat Glomerular Filtration Rate 2018-03-10 04:50:00* Test Item Value Reference Range Interpretation Comments Estimat Glomerular Filtration Rate (test code = 59518-2) 60- >60 Ranges were taken from the National Kidney Disease Education Program and the [facility] Kidney Foundation literature.Reference ranges:60 or greater: Hjnmhn21-87 ( for 3 consecutive months): Chronic kidney disease 15 or less: Kidney failureWoman's Hospital of TexasGlucose Xdkyc9672-41-80 04:50:00* Test Item Value Reference Range Interpretation Comments Glucose Level (test code = TVN4245) 126 74-118 H [facility] TexasCalcium Ntnjd5688-71-36 04:50:00* Test Item Value Reference Range Interpretation Comments Calcium Level (test code = 92594-1) 9.2 8.4-10.2 [facility] TexasMagnesium Jtyqm6074-24-45 04:50:00* Test Item Value Reference Range Interpretation Comments Magnesium Level (test code = 97314-0) 2.0 1.3-2.1 [facility]inteodium Rddqi5162-05-38 04:50:00* Test Item Value Reference Range Interpretation Comments Sodium Level (test code = 2951-2) 139 136-145 [facility] TexasPotassium Xhgog2748-67-77 04:50:00* Test Item Value Reference Range Interpretation Comments Potassium Level (test code = 2823-3) 4.3 3.5-5.1 [facility] TexasChloride Diadg5900-53-70 04:50:00* Test Item Value Reference Range Interpretation Comments Chloride Level (test code = 2075-0) 103 98-107 [facility] TexasCarbon Dioxide Gubje0819-00-11 04:50:00* Test Item Value Reference Range Interpretation Comments Carbon Dioxide Level (test code = 2028-9) 27 22-29 [facility] TexasAnion Hwr3635-81-28 04:50:00* Test Item Value Reference Range Interpretation Comments Anion Gap (test code = 20209-5) 13.3 8-16 [facility] TexasBlood Urea Bdthvaam7716-73-08 04:50:00* Test Item Value Reference Range Interpretation Comments Blood Urea Nitrogen (test code = 3094-0) 11 7-26 [facility] TexasCreatinine2018-07-17 04:50:00* Test Item Value Reference Range Interpretation Comments Creatinine (test code = 2160-0) 0.77 0.57-1.11 [facility] TexasBUN/Creatinine Gcvxy3072-06-52 04:50:00* Test Item Value Reference Range Interpretation Comments BUN/Creatinine Ratio (test code = 3097-3) 14 - [facility] TexasEstimat Glomerular Filtration Rate 2018-03-10 04:50:00* Test Item Value Reference Range Interpretation Comments Estimat Glomerular Filtration Rate (test code = 704375677) > 60 >60 Ranges were taken from the National Kidney Disease Education Program and the [facility] Kidney Foundation literature.Reference ranges:60 or greater: Baitol46-37 ( for 3 consecutive months): Chronic kidney disease 15 or less: Kidney failureWoman's Hospital of TexasGlucose Ihcga2150-50-95 04:50:00* Test Item Value Reference Range Interpretation Comments Glucose Level (test code = JTG9370) 126 74-118 H [facility] TexasCalcium Rvnme1416-46-10 04:50:00* Test Item Value Reference Range Interpretation Comments Calcium Level (test code = 55543-4) 9.2 8.4-10.2 [facility] TexasMagnesium Qodct7004-65-06 04:50:00* Test Item Value Reference Range Interpretation Comments Magnesium Level (test code = 25593-8) 2.0 1.3-2.1 [facility]inteodium Bffuy9663-85-77 04:50:00* Test Item Value Reference Range Interpretation Comments Sodium Level (test code = 2951-2) 139 136-145 [facility] TexasPotassium Jiinu5548-63-12 04:50:00* Test Item Value Reference Range Interpretation Comments Potassium Level (test code = 2823-3) 4.3 3.5-5.1 [facility] TexasChloride Ihlkt8382-79-55 04:50:00* Test Item Value Reference Range Interpretation Comments Chloride Level (test code = 2075-0) 103 98-107 [facility] TexasCarbon Dioxide Ozhnf0939-51-13 04:50:00* Test Item Value Reference Range Interpretation Comments Carbon Dioxide Level (test code = 2028-9) 27 22-29 [facility] TexasAnion Ish4116-52-98 04:50:00* Test Item Value Reference Range Interpretation Comments Anion Gap (test code = 89688-0) 13.3 8-16 [facility] TexasBlood Urea Cpxppwom2829-09-59 04:50:00* Test Item Value Reference Range Interpretation Comments Blood Urea Nitrogen (test code = 3094-0) 11 7-26 [facility] TexasCreatinine2018-07-17 04:50:00* Test Item Value Reference Range Interpretation Comments Creatinine (test code = 2160-0) 0.77 0.57-1.11 [facility] TexasBUN/Creatinine Ezrpc0528-61-40 04:50:00* Test Item Value Reference Range Interpretation Comments BUN/Creatinine Ratio (test code = 3097-3) 14 6-25 [facility] TexasEstimat Glomerular Filtration Rate 2018-03-10 04:50:00* Test Item Value Reference Range Interpretation Comments Estimat Glomerular Filtration Rate (test code = 748633612) > 60 >60 Ranges were taken from the National Kidney Disease Education Program and the [facility] Foundation literature.Reference ranges:60 or greater: Dpvirt01-10 ( for 3 consecutive months): Chronic kidney disease 15 or less: Kidney failureWoman's Hospital of TexasGlucose Moyrx0003-25-25 04:50:00* Test Item Value Reference Range Interpretation Comments Glucose Level (test code = RQT2967) 126 74-118 H [facility] TexasCalcium Zkagg4151-43-29 04:50:00* Test Item Value Reference Range Interpretation Comments Calcium Level (test code = 57625-4) 9.2 8.4-10.2 [facility] TexasMagnesium Dvdtw0416-23-08 04:50:00* Test Item Value Reference Range Interpretation Comments Magnesium Level (test code = 01971-5) 2.0 1.3-2.1 [facility] TexasWhite Blood Tuntp5617-78-68 04:39:00* Test Item Value Reference Range Interpretation Comments White Blood Count (test code = 6690-2) 10.05 4.8-10.8 [facility] TexasRed Blood Llmok1034-78-91 04:39:00* Test Item Value Reference Range Interpretation Comments Red Blood Count (test code = 789-8) 4.54 3.6-5.1 [facility] TexasHemoglobin2018-07-17 04:39:00* Test Item Value Reference Range Interpretation Comments Hemoglobin (test code = 68511-2) 12.5 12.0-16.0 [facility] TexasHematocrit2018-07-17 04:39:00* Test Item Value Reference Range Interpretation Comments Hematocrit (test code = 4544-3) 38.0 34.2-44.1 [facility] TexasMean Corpuscular Vrlrmk5918-12-13 04:39:00* Test Item Value Reference Range Interpretation Comments Mean Corpuscular Volume (test code = 787-2) 83.7 81-99 [facility] TexasMean Corpuscular Cajqaciyco4307-09-16 04:39:00* Test Item Value Reference Range Interpretation Comments Mean Corpuscular Hemoglobin (test code = 785-6) 27.5 28-32 L [facility] TexasMean Corpuscular Hemoglobin Concent 2018-03-10 04:39:00* Test Item Value Reference Range Interpretation Comments Mean Corpuscular Hemoglobin Concent (test code = 786-4) 32.9 31-35 [facility] TexasRed Cell Distribution Lmsbo4747-66-81 04:39:00* Test Item Value Reference Range Interpretation Comments Red Cell Distribution Width (test code = 18991-4) 14.7 11.7 -14.4 H [facility] TexasPlatelet Kcvvu4999-93-81 04:39:00* Test Item Value Reference Range Interpretation Comments Platelet Count (test code = 777-3) 361 140-360 H [facility] TexasNeutrophils (%) (Auto)2018-03-10 04:39:00 * Test Item Value Reference Range Interpretation Comments Neutrophils (%) (Auto) (test code = 14776-7) 88.0 38.7-80.0 H [facility] TexasLymphocytes (%) (Auto)2018-03-10 04:39:00 * Test Item Value Reference Range Interpretation Comments Lymphocytes (%) (Auto) (test code = 736-9) 7.5 18.0-39.1 L [facility] TexasMonocytes (%) (Auto)2018-03-10 04:39:00* Test Item Value Reference Range Interpretation Comments Monocytes (%) (Auto) (test code = 5905-5) 3.8 4.4-11.3 L [facility] TexasEosinophils (%) (Auto)2018-03-10 04:39:00 * Test Item Value Reference Range Interpretation Comments Eosinophils (%) (Auto) (test code = 713-8) 0.0 0.0-6.0 [facility] TexasBasophils (%) (Auto)2018-03-10 04:39:00* Test Item Value Reference Range Interpretation Comments Basophils (%) (Auto) (test code = 706-2) 0.1 0.0-1.0 [facility] TexasIM GRANULOCYTES %2018-03-10 04:39:00* Test Item Value Reference Range Interpretation Comments IM GRANULOCYTES % (test code = IM GRANULOCYTES %) 0.6 0.0- 1.0 [facility] TexasNeutrophils # (Auto)2018-03-10 04:39:00* Test Item Value Reference Range Interpretation Comments Neutrophils # (Auto) (test code = 751-8) 8.9 2.1-6.9 H [facility] TexasLymphocytes # (Auto)2018-03-10 04:39:00* Test Item Value Reference Range Interpretation Comments Lymphocytes # (Auto) (test code = 53423-5) 0.8 1.0-3.2 L [facility] TexasMonocytes # (Auto)2018-03-10 04:39:00* Test Item Value Reference Range Interpretation Comments Monocytes # (Auto) (test code = 742-7) 0.4 0.2-0.8 [facility] TexasEosinophils # (Auto)2018-03-10 04:39:00* Test Item Value Reference Range Interpretation Comments Eosinophils # (Auto) (test code = 711-2) 0.0 0.0-0.4 [facility] TexasBasophils # (Auto)2018-03-10 04:39:00* Test Item Value Reference Range Interpretation Comments Basophils # (Auto) (test code = 704-7) 0.0 0.0-0.1 [facility] TexasAbsolute Immature Granulocyte (auto 2018-03-10 04:39:00* Test Item Value Reference Range Interpretation Comments Absolute Immature Granulocyte (auto (laura t code = Absolute Immature Granulocyte (auto) 0.06 0-0.1 [facility] TexasWhite Blood Yifmo1984-33-66 04:39:00* Test Item Value Reference Range Interpretation Comments White Blood Count (test code = 6690-2) 10.05 4.8-10.8 [facility] TexasRed Blood Jbnwj3494-88-81 04:39:00* Test Item Value Reference Range Interpretation Comments Red Blood Count (test code = 789-8) 4.54 3.6-5.1 [facility] TexasHemoglobin2018-07-17 04:39:00* Test Item Value Reference Range Interpretation Comments Hemoglobin (test code = 09118-9) 12.5 12.0-16.0 [facility] TexasHematocrit2018-07-17 04:39:00* Test Item Value Reference Range Interpretation Comments Hematocrit (test code = 4544-3) 38.0 34.2-44.1 [facility] TexasMean Corpuscular Vwvtgh7950-78-85 04:39:00* Test Item Value Reference Range Interpretation Comments Mean Corpuscular Volume (test code = 787-2) 83.7 81-99 [facility] TexasMean Corpuscular Yokunxnjiq2954-75-76 04:39:00* Test Item Value Reference Range Interpretation Comments Mean Corpuscular Hemoglobin (test code = 785-6) 27.5 28-32 L [facility] TexasMean Corpuscular Hemoglobin Concent 2018-03-10 04:39:00* Test Item Value Reference Range Interpretation Comments Mean Corpuscular Hemoglobin Concent (test code = 786-4) 32.9 31-35 [facility] TexasRed Cell Distribution Jmkaz7754-87-82 04:39:00* Test Item Value Reference Range Interpretation Comments Red Cell Distribution Width (test code = 16622-9) 14.7 11.7 -14.4 H [facility] TexasPlatelet Lhslu8256-39-93 04:39:00* Test Item Value Reference Range Interpretation Comments Platelet Count (test code = 777-3) 361 140-360 H [facility] TexasNeutrophils (%) (Auto)2018-03-10 04:39:00 * Test Item Value Reference Range Interpretation Comments Neutrophils (%) (Auto) (test code = 00039-4) 88.0 38.7-80.0 H [facility] TexasLymphocytes (%) (Auto)2018-03-10 04:39:00 * Test Item Value Reference Range Interpretation Comments Lymphocytes (%) (Auto) (test code = 736-9) 7.5 18.0-39.1 L [facility] TexasMonocytes (%) (Auto)2018-03-10 04:39:00* Test Item Value Reference Range Interpretation Comments Monocytes (%) (Auto) (test code = 5905-5) 3.8 4.4-11.3 L [facility] TexasEosinophils (%) (Auto)2018-03-10 04:39:00 * Test Item Value Reference Range Interpretation Comments Eosinophils (%) (Auto) (test code = 713-8) 0.0 0.0-6.0 [facility] TexasBasophils (%) (Auto)2018-03-10 04:39:00* Test Item Value Reference Range Interpretation Comments Basophils (%) (Auto) (test code = 706-2) 0.1 0.0-1.0 [facility] TexasIM GRANULOCYTES %2018-03-10 04:39:00* Test Item Value Reference Range Interpretation Comments IM GRANULOCYTES % (test code = IM GRANULOCYTES %) 0.6 0.0- 1.0 [facility] TexasNeutrophils # (Auto)2018-03-10 04:39:00* Test Item Value Reference Range Interpretation Comments Neutrophils # (Auto) (test code = 751-8) 8.9 2.1-6.9 H [facility] TexasLymphocytes # (Auto)2018-03-10 04:39:00* Test Item Value Reference Range Interpretation Comments Lymphocytes # (Auto) (test code = 00146-0) 0.8 1.0-3.2 L [facility] TexasMonocytes # (Auto)2018-03-10 04:39:00* Test Item Value Reference Range Interpretation Comments Monocytes # (Auto) (test code = 742-7) 0.4 0.2-0.8 [facility] TexasEosinophils # (Auto)2018-03-10 04:39:00* Test Item Value Reference Range Interpretation Comments Eosinophils # (Auto) (test code = 711-2) 0.0 0.0-0.4 [facility] TexasBasophils # (Auto)2018-03-10 04:39:00* Test Item Value Reference Range Interpretation Comments Basophils # (Auto) (test code = 704-7) 0.0 0.0-0.1 [facility] TexasAbsolute Immature Granulocyte (auto 2018-03-10 04:39:00* Test Item Value Reference Range Interpretation Comments Absolute Immature Granulocyte (auto (laura t code = Absolute Immature Granulocyte (auto) 0.06 0-0.1 [facility] TexasWhite Blood Ghdzm4628-99-01 04:39:00* Test Item Value Reference Range Interpretation Comments White Blood Count (test code = 6690-2) 10.05 4.8-10.8 [facility] TexasRed Blood Fwaea1182-19-46 04:39:00* Test Item Value Reference Range Interpretation Comments Red Blood Count (test code = 789-8) 4.54 3.6-5.1 [facility] TexasHemoglobin2018-07-17 04:39:00* Test Item Value Reference Range Interpretation Comments Hemoglobin (test code = 32838-6) 12.5 12.0-16.0 [facility] TexasHematocrit2018-07-17 04:39:00* Test Item Value Reference Range Interpretation Comments Hematocrit (test code = 4544-3) 38.0 34.2-44.1 [facility] TexasMean Corpuscular Dlvezk7245-56-12 04:39:00* Test Item Value Reference Range Interpretation Comments Mean Corpuscular Volume (test code = 787-2) 83.7 81-99 [facility] TexasMean Corpuscular Akekwgpwqz1574-23-89 04:39:00* Test Item Value Reference Range Interpretation Comments Mean Corpuscular Hemoglobin (test code = 785-6) 27.5 28-32 [facility] Concent 2018-03-10 04:39:00* Test Item Value Reference Range Interpretation Comments Mean Corpuscular Hemoglobin Concent (test code = 786-4) 32.9 31-35 [facility] TexasRed Cell Distribution Gqsvs2859-17-79 04:39:00* Test Item Value Reference Range Interpretation Comments Red Cell Distribution Width (test code = 35338-5) 14.7 11.7 -14.4 H [facility] TexasPlatelet Nyjzo1601-83-86 04:39:00* Test Item Value Reference Range Interpretation Comments Platelet Count (test code = 777-3) 361 140-360 H [facility] TexasNeutrophils (%) (Auto)2018-03-10 04:39:00 * Test Item Value Reference Range Interpretation Comments Neutrophils (%) (Auto) (test code = 25384-6) 88.0 38.7-80.0 H [facility] TexasLymphocytes (%) (Auto)2018-03-10 04:39:00 * Test Item Value Reference Range Interpretation Comments Lymphocytes (%) (Auto) (test code = 736-9) 7.5 18.0-39.1 L [facility] TexasMonocytes (%) (Auto)2018-03-10 04:39:00* Test Item Value Reference Range Interpretation Comments Monocytes (%) (Auto) (test code = 5905-5) 3.8 4.4-11.3 L [facility] TexasEosinophils (%) (Auto)2018-03-10 04:39:00 * Test Item Value Reference Range Interpretation Comments Eosinophils (%) (Auto) (test code = 713-8) 0.0 0.0-6.0 [facility] TexasBasophils (%) (Auto)2018-03-10 04:39:00* Test Item Value Reference Range Interpretation Comments Basophils (%) (Auto) (test code = 706-2) 0.1 0.0-1.0 [facility] TexasIM GRANULOCYTES %2018-03-10 04:39:00* Test Item Value Reference Range Interpretation Comments IM GRANULOCYTES % (test code = IM GRANULOCYTES %) 0.6 0.0- 1.0 [facility] TexasNeutrophils # (Auto)2018-03-10 04:39:00* Test Item Value Reference Range Interpretation Comments Neutrophils # (Auto) (test code = 751-8) 8.9 2.1-6.9 H [facility] TexasLymphocytes # (Auto)2018-03-10 04:39:00* Test Item Value Reference Range Interpretation Comments Lymphocytes # (Auto) (test code = 46436-7) 0.8 1.0-3.2 L [facility] TexasMonocytes # (Auto)2018-03-10 04:39:00* Test Item Value Reference Range Interpretation Comments Monocytes # (Auto) (test code = 742-7) 0.4 0.2-0.8 [facility] TexasEosinophils # (Auto)2018-03-10 04:39:00* Test Item Value Reference Range Interpretation Comments Eosinophils # (Auto) (test code = 711-2) 0.0 0.0-0.4 [facility] TexasBasophils # (Auto)2018-03-10 04:39:00* Test Item Value Reference Range Interpretation Comments Basophils # (Auto) (test code = 704-7) 0.0 0.0-0.1 [facility] TexasAbsolute Immature Granulocyte (auto 2018-03-10 04:39:00* Test Item Value Reference Range Interpretation Comments Absolute Immature Granulocyte (auto (laura t code = Absolute Immature Granulocyte (auto) 0.06 0-0.1 [facility] TexasWhite Blood Tiffl8605-59-30 04:39:00* Test Item Value Reference Range Interpretation Comments White Blood Count (test code = 6690-2) 10.05 4.8-10.8 [facility] TexasRed Blood Zrpqv0894-35-08 04:39:00* Test Item Value Reference Range Interpretation Comments Red Blood Count (test code = 789-8) 4.54 3.6-5.1 [facility] TexasHemoglobin2018-07-17 04:39:00* Test Item Value Reference Range Interpretation Comments Hemoglobin (test code = 46117-9) 12.5 12.0-16.0 [facility] TexasHematocrit2018-07-17 04:39:00* Test Item Value Reference Range Interpretation Comments Hematocrit (test code = 4544-3) 38.0 34.2-44.1 [facility] TexasMean Corpuscular Xomfem0109-75-43 04:39:00* Test Item Value Reference Range Interpretation Comments Mean Corpuscular Volume (test code = 787-2) 83.7 81-99 [facility] TexasMean Corpuscular Njfrkbpssi9759-45-54 04:39:00* Test Item Value Reference Range Interpretation Comments Mean Corpuscular Hemoglobin (test code = 785-6) 27.5 28-32 L [facility] TexasMean Corpuscular Hemoglobin Concent 2018-03-10 04:39:00* Test Item Value Reference Range Interpretation Comments Mean Corpuscular Hemoglobin Concent (test code = 786-4) 32.9 31-35 [facility] TexasRed Cell Distribution Uojsp7247-31-07 04:39:00* Test Item Value Reference Range Interpretation Comments Red Cell Distribution Width (test code = 68323-0) 14.7 11.7 -14.4 H [facility] TexasPlatelet Krvqt8457-88-27 04:39:00* Test Item Value Reference Range Interpretation Comments Platelet Count (test code = 777-3) 361 140-360 [facility] TexasNeutrophils (%) (Auto)2018-03-10 04:39:00 * Test Item Value Reference Range Interpretation Comments Neutrophils (%) (Auto) (test code = 43103-5) 88.0 38.7-80.0 H [facility] TexasLymphocytes (%) (Auto)2018-03-10 04:39:00 * Test Item Value Reference Range Interpretation Comments Lymphocytes (%) (Auto) (test code = 736-9) 7.5 18.0-39.1 L [facility] TexasMonocytes (%) (Auto)2018-03-10 04:39:00* Test Item Value Reference Range Interpretation Comments Monocytes (%) (Auto) (test code = 5905-5) 3.8 4.4-11.3 L [facility] TexasEosinophils (%) (Auto)2018-03-10 04:39:00 * Test Item Value Reference Range Interpretation Comments Eosinophils (%) (Auto) (test code = 713-8) 0.0 0.0-6.0 [facility] TexasBasophils (%) (Auto)2018-03-10 04:39:00* Test Item Value Reference Range Interpretation Comments Basophils (%) (Auto) (test code = 706-2) 0.1 0.0-1.0 [facility] TexasIM GRANULOCYTES %2018-03-10 04:39:00* Test Item Value Reference Range Interpretation Comments IM GRANULOCYTES % (test code = IM GRANULOCYTES %) 0.6 0.0- 1.0 [facility] TexasNeutrophils # (Auto)2018-03-10 04:39:00* Test Item Value Reference Range Interpretation Comments Neutrophils # (Auto) (test code = 751-8) 8.9 2.1-6.9 H [facility] TexasLymphocytes # (Auto)2018-03-10 04:39:00* Test Item Value Reference Range Interpretation Comments Lymphocytes # (Auto) (test code = 08259-4) 0.8 1.0-3.2 L [facility] TexasMonocytes # (Auto)2018-03-10 04:39:00* Test Item Value Reference Range Interpretation Comments Monocytes # (Auto) (test code = 742-7) 0.4 0.2-0.8 [facility] TexasEosinophils # (Auto)2018-03-10 04:39:00* Test Item Value Reference Range Interpretation Comments Eosinophils # (Auto) (test code = 711-2) 0.0 0.0-0.4 [facility] TexasBasophils # (Auto)2018-03-10 04:39:00* Test Item Value Reference Range Interpretation Comments Basophils # (Auto) (test code = 704-7) 0.0 0.0-0.1 [facility] TexasAbsolute Immature Granulocyte (auto 2018-03-10 04:39:00* Test Item Value Reference Range Interpretation Comments Absolute Immature Granulocyte (auto (laura t code = Absolute Immature Granulocyte (auto) 0.06 0-0.1 [facility] Xqvduahmz4781-29-13 05:58:00* Test Item Value Reference Range Interpretation Comments Free Thyroxine (test code = 3024-7) 0.81 0.9-1.8 L [facility] Lecuvmkhc6707-60-67 05:58:00* Test Item Value Reference Range Interpretation Comments Free Thyroxine (test code = 3024-7) 0.81 0.9-1.8 L [facility] Vqsfdmdud8526-64-19 05:58:00* Test Item Value Reference Range Interpretation Comments Free Thyroxine (test code = 3024-7) 0.81 0.9-1.8 L [facility] TexasFree Blrsmmayq1277-70-97 05:58:00* Test Item Value Reference Range Interpretation Comments Free Thyroxine (test code = 3024-7) 0.81 0.9-1.8 L [facility] TexasTotal Mkbfewnwg0780-58-24 04:28:00* Test Item Value Reference Range Interpretation Comments Total Bilirubin (test code = 1975-2) 0.3 0.2-1.2 [facility] TexasDirect Egwnicjjc8986-98-17 04:28:00* Test Item Value Reference Range Interpretation Comments Direct Bilirubin (test code = 56673-8) 0.1 0.0-0.5 [facility] TexasAspartate Amino Transf (AST/SGOT) 2018-03-08 04:28:00* Test Item Value Reference Range Interpretation Comments Aspartate Amino Transf (AST/SGOT) (test code = Aspartate Amino Transf (AST/SGOT)) 14 5-34 [facility] TexasAlanine Aminotransferase (ALT/SGPT) 2018-03-08 04:28:00* Test Item Value Reference Range Interpretation Comments Alanine Aminotransferase (ALT/SGPT) (test code = 1742-6) 10 0-55 [facility] TexasTotal Vdapggh2589-71-01 04:28:00* Test Item Value Reference Range Interpretation Comments Total Protein (test code = 2885-2) 7.0 6.5-8.1 [facility] TexasAlbumin2018-07-15 04:28:00* Test Item Value Reference Range Interpretation Comments Albumin (test code = 1751-7) 3.3 3.5-5.0 L [facility] TexasAlkaline Swuusmoobou2061-68-79 04:28:00* Test Item Value Reference Range Interpretation Comments Alkaline Phosphatase (test code = 6768-6) 74 40-150 [facility] TexasThyroid Stimulating Hormone (TSH) 2018-03-08 04:28:00* Test Item Value Reference Range Interpretation Comments Thyroid Stimulating Hormone (TSH) (test code = 36230-3) 0.136 0.350-4.940 L [facility] TexasTotal Rogmvxucb7965-61-95 04:28:00* Test Item Value Reference Range Interpretation Comments Total Bilirubin (test code = 1975-2) 0.3 0.2-1.2 [facility] TexasDirect Jmootcvjn6339-09-19 04:28:00* Test Item Value Reference Range Interpretation Comments Direct Bilirubin (test code = 18370-0) 0.1 0.0-0.5 [facility] TexasAspartate Amino Transf (AST/SGOT) 2018-03-08 04:28:00* Test Item Value Reference Range Interpretation Comments Aspartate Amino Transf (AST/SGOT) (test code = Aspartate Amino Transf (AST/SGOT)) 14 5-34 [facility] TexasAlanine Aminotransferase (ALT/SGPT) 2018-03-08 04:28:00* Test Item Value Reference Range Interpretation Comments Alanine Aminotransferase (ALT/SGPT) (test code = 1742-6) 10 0-55 [facility] TexasTotal Lnozavh5478-68-72 04:28:00* Test Item Value Reference Range Interpretation Comments Total Protein (test code = 2885-2) 7.0 6.5-8.1 [facility] TexasAlbumin2018-07-15 04:28:00* Test Item Value Reference Range Interpretation Comments Albumin (test code = 1751-7) 3.3 3.5-5.0 L [facility] TexasAlkaline Tsnoyxmrrcw5876-99-69 04:28:00* Test Item Value Reference Range Interpretation Comments Alkaline Phosphatase (test code = 6768-6) 74 40-150 [facility] TexasThyroid Stimulating Hormone (TSH) 2018-03-08 04:28:00* Test Item Value Reference Range Interpretation Comments Thyroid Stimulating Hormone (TSH) (test code = 30005-4) 0.136 0.350-4.940 L [facility] Qnrzmujvy7475-66-83 04:28:00* Test Item Value Reference Range Interpretation Comments Total Bilirubin (test code = 1975-2) 0.3 0.2-1.2 [facility] Qulwmryrm2990-69-53 04:28:00* Test Item Value Reference Range Interpretation Comments Direct Bilirubin (test code = 51560-9) 0.1 0.0-0.5 [facility] TexasAspartate Amino Transf (AST/SGOT) 2018-03-08 04:28:00* Test Item Value Reference Range Interpretation Comments Aspartate Amino Transf (AST/SGOT) (test code = Aspartate Amino Transf (AST/SGOT)) 14 5-34 [facility] TexasAlanine Aminotransferase (ALT/SGPT) 2018-03-08 04:28:00* Test Item Value Reference Range Interpretation Comments Alanine Aminotransferase (ALT/SGPT) (test code = 1742-6) 10 0-55 [facility] Mdurdhp5166-88-65 04:28:00* Test Item Value Reference Range Interpretation Comments Total Protein (test code = 2885-2) 7.0 6.5-8.1 [facility] TexasAlbumin2018-07-15 04:28:00* Test Item Value Reference Range Interpretation Comments Albumin (test code = 1751-7) 3.3 3.5-5.0 L [facility] TexasAlkaline Cjcrtzlhfap7455-43-84 04:28:00* Test Item Value Reference Range Interpretation Comments Alkaline Phosphatase (test code = 6768-6) 74 40-150 [facility] TexasThyroid Stimulating Hormone (TSH) 2018-03-08 04:28:00* Test Item Value Reference Range Interpretation Comments Thyroid Stimulating Hormone (TSH) (test code = 03213-6) 0.136 0.350-4.940 L [facility] Pxmhsmdyw8980-39-26 04:28:00* Test Item Value Reference Range Interpretation Comments Total Bilirubin (test code = 1975-2) 0.3 0.2-1.2 [facility] Xlgmquakr7754-06-43 04:28:00* Test Item Value Reference Range Interpretation Comments Direct Bilirubin (test code = 48495-6) 0.1 0.0-0.5 [facility] TexasAspartate Amino Transf (AST/SGOT) 2018-03-08 04:28:00* Test Item Value Reference Range Interpretation Comments Aspartate Amino Transf (AST/SGOT) (test code = Aspartate Amino Transf (AST/SGOT)) 14 5-34 [facility] TexasAlanine Aminotransferase (ALT/SGPT) 2018-03-08 04:28:00* Test Item Value Reference Range Interpretation Comments Alanine Aminotransferase (ALT/SGPT) (test code = 1742-6) 10 0-55 [facility] TexasTotal Vpetfnw2385-56-03 04:28:00* Test Item Value Reference Range Interpretation Comments Total Protein (test code = 2885-2) 7.0 6.5-8.1 [facility] TexasAlbumin2018-07-15 04:28:00* Test Item Value Reference Range Interpretation Comments Albumin (test code = 1751-7) 3.3 3.5-5.0 L [facility] TexasAlkaline Nsigvvnqail2087-25-24 04:28:00* Test Item Value Reference Range Interpretation Comments Alkaline Phosphatase (test code = 6768-6) 74 40-150 [facility] TexasThyroid Stimulating Hormone (TSH) 2018-03-08 04:28:00* Test Item Value Reference Range Interpretation Comments Thyroid Stimulating Hormone (TSH) (test code = 02156-6) 0.136 0.350-4.940 L [facility] TexasHemoglobin A1c Pqmfzqd0583-87-18 03:46:00 * Test Item Value Reference Range Interpretation Comments Hemoglobin A1c Percent (test code = Hemoglobin A1c Percent) 5.3 4.0-7.0 [facility] TexasHemoglobin A1c Zakuziq5060-34-53 03:46:00 * Test Item Value Reference Range Interpretation Comments Hemoglobin A1c Percent (test code = Hemoglobin A1c Percent) 5.3 4.0-7.0 [facility] TexasHemoglobin A1c Mlfjcqn7854-48-68 03:46:00 * Test Item Value Reference Range Interpretation Comments Hemoglobin A1c Percent (test code = Hemoglobin A1c Percent) 5.3 4.0-7.0 [facility] TexasHemoglobin A1c Hmcqyfl6063-88-50 03:46:00 * Test Item Value Reference Range Interpretation Comments Hemoglobin A1c Percent (test code = Hemoglobin A1c Percent) 5.3 4.0-7.0 [facility] 06:27:00 [place] [address] Patient Name: MAVERICK ANN MR #: [id number] : 1960 Age/Sex: 57/F Req #: [id number] Adm Physician: MAZIN TELLO MD Ordered by: ES RICHTER NP Report #: [id number] Location: [facility] Room/Bed: [place] [address] Procedure: [id number] DX/CH EST SINGLE (PORTABLE) Exam Date: Exam [...] COPY TO: ES RICHTER NP CHEST 2 TUGBP1193-12-19 19:16:00 [place] [address] Patient Name: MAVERICK ANN MR #: [id number] : Age/Sex: 57/F Req #: [id number] Adm Physician: Ordered by: ES RICHTER NP Report #: [id number] Location: ER Room/Bed: Procedure: [id number] DX/CHEST 2 VIEWS Exam Date: 02/22 11/09 [...] on 03/06/2018 7:17 PM Dictated By: JUAN LEWIS MD Electron ically Signed By: JUAN LEWIS MD on 03/06/181916 Transcribed By: AMANDA on 1916 COPY TO: ES RICHTER GRANULAR OPERATOR Urine [id number] 18:57:00* Test Item Value Reference Range Interpretation Comments Urine WBC (test code = 5821-4) 0-5 0-5 [facility] BZG4521-33-58 18:57:00* Test Item Value Reference Range Interpretation Comments Urine RBC (test code = 63017-1) 0-5 0-5 [facility] Gngresjx9113-90-16 18:57:00* Test Item Value Reference Range Interpretation Comments Urine Bacteria (test code = 69613-3) NONE NONE [facility] Epithelial Qymli9930-09-41 18:57:00 * Test Item Value Reference Range Interpretation Comments Urine Epithelial Cells (test code = 07783-5) MODERATE NONE [facility] Lbbaj1619-85-74 18:57:00* Test Item Value Reference Range Interpretation Comments Urine Mucus (test code = 8247-9) MANY RARE H [facility] QBZ6326-03-51 18:57:00* Test Item Value Reference Range Interpretation Comments Urine WBC (test code = 5821-4) 0-5 0-5 [facility] ADY7840-81-96 18:57:00* Test Item Value Reference Range Interpretation Comments Urine RBC (test code = 79803-4) 0-5 0-5 [facility] Hxoopxja0375-27-43 18:57:00* Test Item Value Reference Range Interpretation Comments Urine Bacteria (test code = 53862-8) NONE NONE [facility] Epithelial Heaoq0068-92-92 18:57:00 * Test Item Value Reference Range Interpretation Comments Urine Epithelial Cells (test code = 38126-5) MODERATE NONE [facility] Sjipt1840-20-20 18:57:00* Test Item Value Reference Range Interpretation Comments Urine Mucus (test code = 8247-9) MANY RARE H [facility] Wkike1150-09-62 18:57:00* Test Item Value Reference Range Interpretation Comments Urine Mucus (test code = 8247-9) MANY RARE H [facility] Bvgsh2160-91-73 18:57:00* Test Item Value Reference Range Interpretation Comments Urine Mucus (test code = 8247-9) MANY RARE H [facility] Ryjiq5271-95-08 18:55:00* Test Item Value Reference Range Interpretation Comments Urine Color (test code = 5778-6) YELLOW YELLOW [facility] Trcrbdo9973-16-81 18:55:00* Test Item Value Reference Range Interpretation Comments Urine Clarity (test code = 72568-9) CLEAR CLEAR [facility] Specific Aowafyl8273-66-06 18:55:00 * Test Item Value Reference Range Interpretation Comments Urine Specific [place] (test code = 5811-5) 1.020 1.010-1.02 5 [facility] TexasU[facility] tN4017-67-63 18:55:00* Test Item Value Reference Range Interpretation Comments Urine pH (test code = 58982-8) 7 5-7 [facility] Leukocyte Cwbtegnm9408-23-49 18:55:00* Test Item Value Reference Range Interpretation Comments Urine Leukocyte Esterase (test code = 5799-2) NEGATIVE NEGATIVE [facility] Bqovpnc1930-43-80 18:55:00* Test Item Value Reference Range Interpretation Comments Urine Nitrite (test code = 03282-0) NEGATIVE NEGATIVE [facility] Wwgqlpc9426-53-81 18:55:00* Test Item Value Reference Range Interpretation Comments Urine Protein (test code = 5804-0) TRACE NEGATIVE H [facility] TexasU[facility] Glucose (UA)2018-03-06 18:55:00* Test Item Value Reference Range Interpretation Comments Urine Glucose (UA) (test code = 2349-9) NEGATIVE NEGATIVE [facility] TexasU[facility] Ourhcga1039-33-54 18:55:00* Test Item Value Reference Range Interpretation Comments Urine Ketones (test code = 98773-2) NEGATIVE NEGATIVE [facility] Jotvswgbuwje7058-69-83 18:55:00* Test Item Value Reference Range Interpretation Comments Urine Urobilinogen (test code = 68049-5) 1 0.2-1 [facility] TexasU[facility] Ifbwzhmkg0987-46-11 18:55:00* Test Item Value Reference Range Interpretation Comments Urine Bilirubin (test code = 1978-6) NEGATIVE NEGATIVE [facility] Yvafh5278-94-66 18:55:00* Test Item Value Reference Range Interpretation Comments Urine Blood (test code = 36615-2) NEGATIVE NEGATIVE [facility] Rkfry7496-44-74 18:55:00* Test Item Value Reference Range Interpretation Comments Urine Color (test code = 5778-6) YELLOW YELLOW [facility] TexasU[facility] Pclyqgw2324-01-53 18:55:00* Test Item Value Reference Range Interpretation Comments Urine Clarity (test code = 06672-1) CLEAR CLEAR [facility] Specific Xxvdohp2925-06-04 18:55:00 * Test Item Value Reference Range Interpretation Comments Urine Specific [place] (test code = 5811-5) 1.020 1.010-1.02 5 [facility] TexasU[facility] sT6728-39-03 18:55:00* Test Item Value Reference Range Interpretation Comments Urine pH (test code = 39729-0) 7 5-7 [facility] Leukocyte Bpvqecyl4842-90-49 18:55:00* Test Item Value Reference Range Interpretation Comments Urine Leukocyte Esterase (test code = 5799-2) NEGATIVE NEGATIVE [facility] TexasU[facility] Hzcirvt9084-80-46 18:55:00* Test Item Value Reference Range Interpretation Comments Urine Nitrite (test code = 57366-5) NEGATIVE NEGATIVE [facility] TexasU[facility] Ptjxhpz5373-62-05 18:55:00* Test Item Value Reference Range Interpretation Comments Urine Protein (test code = 5804-0) TRACE NEGATIVE H [facility] TexasU[facility] Glucose (UA)2018-03-06 18:55:00* Test Item Value Reference Range Interpretation Comments Urine Glucose (UA) (test code = 2349-9) NEGATIVE NEGATIVE [facility] TexasU[facility] Jfhdkfk0259-42-37 18:55:00* Test Item Value Reference Range Interpretation Comments Urine Ketones (test code = 13289-5) NEGATIVE NEGATIVE [facility] TexasU[facility] Zchbwquwbnke7527-04-56 18:55:00* Test Item Value Reference Range Interpretation Comments Urine Urobilinogen (test code = 59882-2) 1 0.2-1 [facility] TexasU[facility] Nznncisjp7738-31-58 18:55:00* Test Item Value Reference Range Interpretation Comments Urine Bilirubin (test code = 1978-6) NEGATIVE NEGATIVE [facility] TexasU[facility] Hevyp1764-54-39 18:55:00* Test Item Value Reference Range Interpretation Comments Urine Blood (test code = 40085-4) NEGATIVE NEGATIVE [facility] Hpawj7470-62-57 13:00:00* Test Item Value Reference Range Interpretation Comments Sodium Level (test code = 2951-2) 139 136-145 [facility] TexasPotassium Rvfwz1337-23-14 13:00:00* Test Item Value Reference Range Interpretation Comments Potassium Level (test code = 2823-3) 3.5 3.5-5.1 [facility] TexasChloride Onero6272-81-85 13:00:00* Test Item Value Reference Range Interpretation Comments Chloride Level (test code = 2075-0) 105 98-107 [facility] TexasCarbon Dioxide Gqupi6597-36-47 13:00:00* Test Item Value Reference Range Interpretation Comments Carbon Dioxide Level (test code = 2028-9) 25 22-29 [facility] TexasAnion Otd3302-43-03 13:00:00* Test Item Value Reference Range Interpretation Comments Anion Gap (test code = 02131-3) 12.5 8-16 [facility] TexasBlood Urea Jcghiblt4857-13-10 13:00:00* Test Item Value Reference Range Interpretation Comments Blood Urea Nitrogen (test code = 3094-0) 7 7-26 [facility] TexasCreatinine2017-12-17 13:00:00* Test Item Value Reference Range Interpretation Comments Creatinine (test code = 2160-0) 0.70 0.57-1.11 [facility] TexasBUN/Creatinine Mrtog7074-82-63 13:00:00* Test Item Value Reference Range Interpretation Comments BUN/Creatinine Ratio (test code = 3097-3) 10 6-25 [facility] TexasEstimat Glomerular Filtration Rate 2017-08-10 13:00:00* Test Item Value Reference Range Interpretation Comments Estimat Glomerular Filtration Rate (test code = 39525-3) 60- >60 Ranges were taken from the National Kidney Disease Education Program and the [facility] Foundation literature.Reference ranges:60 or greater: Vsjysv27-02 ( for 3 consecutive months): Chronic kidney disease 15 or less: Kidney failureWoman's Hospital of TexasGlucose Synbl0390-59-69 13:00:00* Test Item Value Reference Range Interpretation Comments Glucose Level (test code = NOP6427) 85 74-118 [facility] TexasCalcium Fqdek8094-29-59 13:00:00* Test Item Value Reference Range Interpretation Comments Calcium Level (test code = 84767-2) 8.2 8.4-10.2 L [facility] TexasTotal Sbyhpouew1393-23-58 13:00:00* Test Item Value Reference Range Interpretation Comments Total Bilirubin (test code = 1975-2) 0.3 0.2-1.2 [facility] TexasAspartate Amino Transf (AST/SGOT) 2017-08-10 13:00:00* Test Item Value Reference Range Interpretation Comments Aspartate Amino Transf (AST/SGOT) (test code = Aspartate Amino Transf (AST/SGOT)) 26 5-34 [facility] TexasAlanine Aminotransferase (ALT/SGPT) 2017-08-10 13:00:00* Test Item Value Reference Range Interpretation Comments Alanine Aminotransferase (ALT/SGPT) (test code = 1742-6) 21 0-55 [facility] TexasTotal Rftbfdq6708-77-19 13:00:00* Test Item Value Reference Range Interpretation Comments Total Protein (test code = 2885-2) 6.7 6.5-8.1 [facility] TexasAlbumin2017-12-17 13:00:00* Test Item Value Reference Range Interpretation Comments Albumin (test code = 1751-7) 3.3 3.5-5.0 L [facility] TexasGlobulin2017-12-17 13:00:00* Test Item Value Reference Range Interpretation Comments Globulin (test code = 40744-2) 3.4 2.3-3.5 [facility] TexasAlbumin/Globulin Vmhfv8949-05-03 13:00:00 * Test Item Value Reference Range Interpretation Comments Albumin/Globulin Ratio (test code = 1759-0) 1.0 0.8-2.0 [facility] TexasAlkaline Axsrlfkaodh0444-68-14 13:00:00* Test Item Value Reference Range Interpretation Comments Alkaline Phosphatase (test code = 6768-6) 89 40-150 [facility] TexasGlobulin2017-12-17 13:00:00* Test Item Value Reference Range Interpretation Comments Globulin (test code = 89550-1) 3.4 2.3-3.5 [facility] TexasAlbumin/Globulin Tmzaz4051-99-84 13:00:00 * Test Item Value Reference Range Interpretation Comments Albumin/Globulin Ratio (test code = 1759-0) 1.0 0.8-2.0 [facility] TexasGlobulin2017-12-17 13:00:00* Test Item Value Reference Range Interpretation Comments Globulin (test code = 34467-3) 3.4 2.3-3.5 [facility] TexasAlbumin/Globulin Reuwn5172-13-94 13:00:00 * Test Item Value Reference Range Interpretation Comments Albumin/Globulin Ratio (test code = 1759-0) 1.0 0.8-2.0 [facility] TexasWhite Blood Ncutc4852-87-14 12:37:00* Test Item Value Reference Range Interpretation Comments White Blood Count (test code = 6690-2) 8.37 4.8-10.8 [facility] TexasRed Blood Etrtr0827-27-87 12:37:00* Test Item Value Reference Range Interpretation Comments Red Blood Count (test code = 789-8) 4.10 3.6-5.1 [facility] TexasHemoglobin2017-12-17 12:37:00* Test Item Value Reference Range Interpretation Comments Hemoglobin (test code = 15529-3) 11.5 12.0-16.0 L [facility] TexasHematocrit2017-12-17 12:37:00* Test Item Value Reference Range Interpretation Comments Hematocrit (test code = 4544-3) 35.4 34.2-44.1 [facility] TexasMean Corpuscular Luygbq9505-13-57 12:37:00* Test Item Value Reference Range Interpretation Comments Mean Corpuscular Volume (test code = 787-2) 86.3 81-99 [facility] TexasMean Corpuscular Szldtbmbnx3766-97-48 12:37:00* Test Item Value Reference Range Interpretation Comments Mean Corpuscular Hemoglobin (test code = 785-6) 28.0 28-32 [facility] TexasMean Corpuscular Hemoglobin Concent 2017-08-10 12:37:00* Test Item Value Reference Range Interpretation Comments Mean Corpuscular Hemoglobin Concent (test code = 786-4) 32.5 31-35 [facility] TexasRed Cell Distribution Tbmue5554-85-18 12:37:00* Test Item Value Reference Range Interpretation Comments Red Cell Distribution Width (test code = 22135-4) 14.6 11.7 -14.4 H [facility] TexasPlatelet Dgmwk5931-06-99 12:37:00* Test Item Value Reference Range Interpretation Comments Platelet Count (test code = 777-3) 339 140-360 [facility] TexasNeutrophils (%) (Auto)2017-08-10 12:37:00 * Test Item Value Reference Range Interpretation Comments Neutrophils (%) (Auto) (test code = 86942-5) 60.2 38.7-80.0 [facility] TexasLymphocytes (%) (Auto)2017-08-10 12:37:00 * Test Item Value Reference Range Interpretation Comments Lymphocytes (%) (Auto) (test code = 736-9) 19.1 18.0-39.1 [facility] TexasMonocytes (%) (Auto)2017-08-10 12:37:00* Test Item Value Reference Range Interpretation Comments Monocytes (%) (Auto) (test code = 5905-5) 8.4 4.4-11.3 [facility] TexasEosinophils (%) (Auto)2017-08-10 12:37:00 * Test Item Value Reference Range Interpretation Comments Eosinophils (%) (Auto) (test code = 713-8) 10.5 0.0-6.0 H [facility] TexasBasophils (%) (Auto)2017-08-10 12:37:00* Test Item Value Reference Range Interpretation Comments Basophils (%) (Auto) (test code = 706-2) 1.6 0.0-1.0 H [facility] TexasIM GRANULOCYTES %2017-08-10 12:37:00* Test Item Value Reference Range Interpretation Comments IM GRANULOCYTES % (test code = IM GRANULOCYTES %) 0.2 0.0- 1.0 [facility] TexasNeutrophils # (Auto)2017-08-10 12:37:00* Test Item Value Reference Range Interpretation Comments Neutrophils # (Auto) (test code = 751-8) 5.0 2.1-6.9 [facility] TexasLymphocytes # (Auto)2017-08-10 12:37:00* Test Item Value Reference Range Interpretation Comments Lymphocytes # (Auto) (test code = 95038-2) 1.6 1.0-3.2 [facility] TexasMonocytes # (Auto)2017-08-10 12:37:00* Test Item Value Reference Range Interpretation Comments Monocytes # (Auto) (test code = 742-7) 0.7 0.2-0.8 [facility]Auto)2017-08-10 12:37:00* Test Item Value Reference Range Interpretation Comments Eosinophils # (Auto) (test code = 711-2) 0.9 0.0-0.4 H [facility]ophils # (Auto)2017-08-10 12:37:00* Test Item Value Reference Range Interpretation Comments Basophils # (Auto) (test code = 704-7) 0.1 0.0-0.1 [facility] TexasAbsolute Immature Granulocyte (auto 2017-08-10 12:37:00* Test Item Value Reference Range Interpretation Comments Absolute Immature Granulocyte (auto (laura t code = Absolute Immature Granulocyte (auto) 0.02 0-0.1 [facility] TexasBlood Ysifjvs8320-41-85 19:32:00* Test Item Value Reference Range Interpretation Comments Blood Culture (test code = 82318914) NO GROWTH AFTER 5 DAYS, FINAL REPORT [facility]2017-11-14 19:32:00* Test Item Value Reference Range Interpretation Comments Blood Culture (test code = 60543127) NO GROWTH AFTER 5 DAYS, FINAL REPORT [facility]2017-11-14 19:32:00* Test Item Value Reference Range Interpretation Comments Blood Culture (test code = 63473561) NO GROWTH AFTER 5 DAYS, FINAL REPORT [facility] Kinase [id number] 16:39:00* Test Item Value Reference Range Interpretation Comments Creatine Kinase MB (test code = 28563-8) 0.70 0.00-5.00 [place] [id number] 16:39:00* Test Item Value Reference Range Interpretation Comments Troponin I (test code = DXQ4104) -0.001 0-0.300 [facility]Creat[facility] Kinase [id number] 16:39:00* Test Item Value Reference Range Interpretation Comments Creatine Kinase MB (test code = 78498-7) 0.70 0.00-5.00 [place] [id number] 16:39:00* Test Item Value Reference Range Interpretation Comments Troponin I (test code = ZIG8299) -0.001 0-0.300 [facility]Creat[facility] Kinase [id number] 16:39:00* Test Item Value Reference Range Interpretation Comments Creatine Kinase MB (test code = 05295-9) 0.70 0.00-5.00 [place] [id number] 16:39:00* Test Item Value Reference Range Interpretation Comments Troponin I (test code = VHY9582) -0.001 0-0.300 [facility]Creat[facility] Phsgol1740-74-83 16:29:00* Test Item Value Reference Range Interpretation Comments Creatine Kinase (test code = 2157-6) 107 29-168 [facility] Dtpagv4584-02-62 16:29:00* Test Item Value Reference Range Interpretation Comments Creatine Kinase (test code = 2157-6) 107 29-168 [facility] Esynve5829-98-49 16:29:00* Test Item Value Reference Range Interpretation Comments Creatine Kinase (test code = 2157-6) 107 29-168 [facility] TexasTriglycerides Htxav2146-85-10 08:27:00* Test Item Value Reference Range Interpretation Comments Triglycerides Level (test code = 2571-8) 47 0-149 [facility] TexasCh[facility] Ukdnc5736-04-18 08:27:00* Test Item Value Reference Range Interpretation Comments Cholesterol Level (test code = 2093-3) 175 0-199 Less than 200 mg/dL Low Hbqf152 - 239 mg/dL Borderline Mlyi349 m g/dl and greater High Risk [facility] TexasLDL Yzhxfyqizri2937-90-30 08:27:00* Test Item Value Reference Range Interpretation Comments LDL Cholesterol (test code = 79644-3) 112 60-130 [facility] TexasHDL Vderzedeyjh9497-20-93 08:27:00* Test Item Value Reference Range Interpretation Comments HDL Cholesterol (test code = 2085-9) 54 40-60 [facility]Ch[facility]/HDL Lzwnq9961-99-36 08:27:00 * Test Item Value Reference Range Interpretation Comments Cholesterol/HDL Ratio (test code = 9830-1) 3.2 3.0-3.6 [facility] TexasTriglycer[facility] Akckd4517-54-28 08:27:00* Test Item Value Reference Range Interpretation Comments Triglycerides Level (test code = 2571-8) 47 0-149 [facility]Ch[facility] Yruzm0906-35-23 08:27:00* Test Item Value Reference Range Interpretation Comments Cholesterol Level (test code = 2093-3) 175 0-199 Less than 200 mg/dL Low Fmnw636 - 239 mg/dL Borderline Toyq203 m g/dl and greater High Risk [facility] TexasLDL Vesycfnjwnd5693-82-32 08:27:00* Test Item Value Reference Range Interpretation Comments LDL Cholesterol (test code = 24952-4) 112 60-130 [facility] Qbbiumxuced6739-41-40 08:27:00* Test Item Value Reference Range Interpretation Comments HDL Cholesterol (test code = 2085-9) 54 40-60 [facility]/HDL Wwgkh1396-99-10 08:27:00 * Test Item Value Reference Range Interpretation Comments Cholesterol/HDL Ratio (test code = 9830-1) 3.2 3.0-3.6 [facility] TexasTriglycer[facility] Ndjap3129-41-61 08:27:00* Test Item Value Reference Range Interpretation Comments Triglycerides Level (test code = 2571-8) 47 0-149 [facility]Ch[facility] Ohhft7603-16-58 08:27:00* Test Item Value Reference Range Interpretation Comments Cholesterol Level (test code = 2093-3) 175 0-199 Less than 200 mg/dL Low Tdal974 - 239 mg/dL Borderline Jmkl033 m g/dl and greater High Risk [facility] TexasLDL Ukouxxgqbjm9043-43-75 08:27:00* Test Item Value Reference Range Interpretation Comments LDL Cholesterol (test code = 57758-4) 112 60-130 [facility] Beiibllildf3812-66-44 08:27:00* Test Item Value Reference Range Interpretation Comments HDL Cholesterol (test code = 2085-9) 54 40-60 [facility]/HDL Wmyrq6076-08-27 08:27:00 * Test Item Value Reference Range Interpretation Comments Cholesterol/HDL Ratio (test code = 9830-1) 3.2 3.0-3.6 [facility] TexasInfluenza Virus Types A,B Antigen 2017-07-03 17:47:00* Test Item Value Reference Range Interpretation Comments Influenza Virus Types A,B Antigen (test code = 01206-5) NEGATIVE NEGATIVE [facility] TexasInfluenza Virus Types A,B Antigen 2017-07-03 17:47:00* Test Item Value Reference Range Interpretation Comments Influenza Virus Types A,B Antigen (test code = 84733-9) NEGATIVE NEGATIVE [facility] TexasInfluenza Virus Types A,B Antigen 2017-07-03 17:47:00* Test Item Value Reference Range Interpretation Comments Influenza Virus Types A,B Antigen (test code = 57977-9) NEGATIVE NEGATIVE [facility] [address] [place] [address] Patient Name: MAVERICK ANN MR #: [id number] : 1960 Age/Sex: 57/F Req #: [id number] Adm Physician: Ordered by: ABDIAS LALA DO Report #: [id number] Location: ER Room/Bed: Procedure: [id number] DX/CHEST 2 VIEWS Exam Date: Exam Time: 1355 REPORT STATUS: Signed PROCEDURE: Frontal and lateral views of the chest. COMPARISON: [facility], DX, CHEST SINGLE (PORTABLE), 08/10/2017, 12:09. INDICAT [...] disease. Jared Rios M.D. Dictated by: Jared hodler M.D. on 01/15/2018 at 14:43 Electronically approved by: Jared frausto M.D. on 01/15/2018 at 14:43 Dictated By: JARED RIOS MD 1443 Transcribed B y: INFANGEL on 01/15/18 144 COPY TO: ABDIAS LALA DO CHEST SINGLE (PORTABLE) [place] [address] Patient Name: MAVERICK ANN MR #: [id number] : 1960 Age/Sex: 57/F Req #: [id number] Adm Physician: Ordered by: MILLICENT MORRISON MD Report #: [id number] Location: ER Room/Bed: Procedure: [id number] DX/CHEST SINGLE (PORTABLE) Exam D ate: 08/10/17 [...] Ross M.D. on 08/10/2017 12:33 PM Dictated By : ABDIAS ROSS MD 1233 Tra nscribed By: AMANDA on 08/10/17 1233 COPY TO: MILLICENT MORRISON MD CHEST 2 VIEWS [facility] [address] [place] [address] Patient Name: MAVERICK ANN MR #: [id number] : 1960 Age/Sex: 57/F Req #: [id number] Adm Physician: Ordered by: MARE BAILEY MD Report #: [id number] Location: ER Room/Bed: Procedure: [id number] DX/CHEST 2 VIEWS Exam Date: Exam Time: [...]
[2020-03-25] MEDS ORDERED: DEXAMETHASONE SOD PHOS INJ 4 MG/ML VIAL ONE (12:19)
--- NOTE | 2020-03-25 12:19 | NUR ---
X-RAY COMPLETE. R.T. AT BEDSIDE ADMINISTERING BREATHING [place]
[2020-03-25] MEDS ORDERED: ALBUTEROL/IPRATROPIUM 3 ML NEB ONE (12:20)
--- NOTE | 2020-03-25 12:46 | Diagnostic Imaging Report ---
EXAMINATION: CHEST SINGLE (PORTABLE) INDICATION: Cough and shortness of breath. COMPARISON: None FINDINGS: TUBES and LINES: None. LUNGS: Normal lung volumes. There is bilateral perihilar haziness and patchy opacification of the right lung base. PLEURA: No pleural effusion or pneumothorax. HEART AND MEDIASTINUM: The cardiomediastinal silhouette is unremarkable. BONES AND SOFT TISSUES: No acute osseous lesion. Soft tissues are unremarkable. UPPER ABDOMEN: No free air under the diaphragm. IMPRESSION: Bilateral perihilar haziness and patchy opacification of the right lung base. These findings may represent developing infection or chronic inflammatory airway disease such as bronchitis. Signed by: Tiana Vitale MD on 03/25/2020 12:42 PM
[2020-03-25] MEDS ORDERED: ALBUTEROL SULFATE HFA 8GM INHALATION AEROSOL INH ONE (13:00)
--- NOTE | 2020-03-25 13:00 | Emergency Department Note ---
History of Present Illnes History of Present Illness Chief Complaint: COVID PUI History of Present Illness This is a 59 year old female 2 WKS FEVER, CHILLS, COUGH, SOB. STATES CLEAR PHLEGM WITH COUGH. PT STATES HX OF ASTHMA. NON SMOKER. STATES WKS OF COUGHING AND SOB. SATS 100% ROOM AIR. PT AAOX4. AMBULATORY. Historian: Patient Arrival Mode: Car [employer] Required: No Onset (how long ago): week(s) (2) Location: lungs Quality: cough, sob Radiation: Reports non-radiation Severity: moderate Timing of current episode: intermittent Progression: waxing and waning Chronicity: new Context: Denies recent illness Relieving factors: none Exacerbating factors: none Associated symptoms: Reports cough, Reports fever/chills, Reports shortness of breath Treatments prior to arrival: none Past Medical/Family History Physician Review I have reviewed the patient's past medical and family history. Any updates have been documented here. Past Medical History Recent Fever: Yes Clinical Suspicion of Infectio: Yes New/Unexplained Change in Ment: No Past Medical History: Asthma (has albuterol MDI and nebs, ran out of Advair diskus 250/50 mcg), GERD, Chronic Back Pain Other Medical History: Sciatic nerve pain Past Surgical History: Cholecysctectomy, Appendectomy, Bariatric Surgery Other Surgery: LEFT HAND FX/SX DECEMBER 2013 LAP BAND Social History Smoking Cessation: Never Smoker Counseling Performed: No Alcohol Use: None Any Illegal Drug Use: No TB Exposure/Symptoms: No Physically hurt or threatened: No Family History Family history of heart diseas: No Other Last Tetanus: 2014 Any Pre-Existing Lines (PICC,: No Review of Systems Review of Systems Constitutional: Reports as per HPI EENTM: Reports no symptoms Cardiovascular: Reports no symptoms Respiratory: Reports as per HPI Gastrointestinal: Reports no symptoms Genitourinary: Reports no symptoms Musculoskeletal: Reports no symptoms Integumentary: Reports no symptoms Neurological: Reports no symptoms Psychological: Reports no symptoms Endocrine: Reports no symptoms Hematological/Lymphatic: Reports no symptoms Physical Exam Related Data Allergies: Coded Allergies: No Known Allergies (Unverified , 03/06/18) Triage Vital Signs Vital Signs Date Time Temp Pulse Resp B/P (MAP) Pulse Ox O2 Delivery O2 Flow Rate FiO2 03/25/20 11:46 98.3 84 18 146/79 100 Room Air Vital signs reviewed: Yes Physical Exam CONSTITUTIONAL Constitutional: Present well-developed, Present well-nourished HENT HENT: Present normocephalic, Present atraumatic, Present oropharynx clear/moist, Present nose normal HENT L/R: Present left ext ear normal, Present right ext ear normal EYES Eyes: Reports PERRL, Reports conjunctivae normal NECK Neck: Present ROM normal PULMONARY Pulmonary: Present effort normal, Present other (mildly decreased BS's throughout, mild diffuse exp wheezes); Absent respiratory distress CARDIOVASCULAR Cardiovascular: Present regular rhythm, Present heart sounds normal, Present capillary refill normal, Present normal rate GASTROINTESTINAL Abdominal: Present soft, Present nontender, Present bowel sounds normal GENITOURINARY Genitourinary: Present exam deferred SKIN Skin: Present warm, Present dry MUSCULOSKELETAL Musculoskeletal: Present ROM normal NEUROLOGICAL Neurological: Present alert, Present oriented x 3, Present no gross motor or sensory deficits PSYCHOLOGICAL Psychological: Present mood/affect normal, Present judgement normal Results Laboratory Laboratory Laboratory Tests Test 03/25/20 11:50 Imaging Imaging results reviewed: Yes Impressions EXAMINATION: CHEST SINGLE (PORTABLE) INDICATION: Cough and shortness of breath. COMPARISON: None FINDINGS: TUBES and LINES: None. LUNGS: Normal lung volumes. There is bilateral perihilar haziness and patchy opacification of the right lung base. PLEURA: No pleural effusion or pneumothorax. HEART AND MEDIASTINUM: The cardiomediastinal silhouette is unremarkable. BONES AND SOFT TISSUES: No acute osseous lesion. Soft tissues are unremarkable. UPPER ABDOMEN: No free air under the diaphragm. IMPRESSION: Bilateral perihilar haziness and patchy opacification of the right lung base. These findings may represent developing infection or chronic inflammatory airway disease such as bronchitis. 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 [facility] pt has Albuterol MDI & nebs, refill Advair. Self-quarantine, proning, F/U PCP Assessment & Plan Final Impression: (1) Bronchitis (2) Asthma exacerbation Depart Disposition: HOME, SELF-CARE Last Vital Signs Date Time Temp Pulse Resp B/P (MAP) Pulse Ox O2 Delivery O2 Flow Rate FiO2 03/25/20 11:46 98.3 84 18 146/79 100 Room Air Home Meds Active Scripts Azithromycin (ZITHROMAX) 500 Mg Tablet, 500 MG PO DAILY for 5 Days Prov:KYLE PATTERSON STUDY ABROAD COORDINATOR 11/08/19 [Ceftin] No Conflict Check, 500 MG PO Q12H for 5 Days Prov:KYLE PATTERSON STUDY ABROAD COORDINATOR 11/08/19 Prednisone (PREDNISONE) 10 Mg Tab, 10 MG PO UD for 11 Days, TAB TAKE 40MG PO BID X2 DAYS THEN TAKE 40MG PO DAILY X3 DAYS THEN TAKE 20MG PO DAILY X3 DAYS THEN TAKE 10MG PO DAILY X3 DAYS THEN STOP Prov:KYLE PATTERSON STUDY ABROAD COORDINATOR 11/08/19 Pantoprazole Sod (PROTONIX) 40 Mg/Ml Susp, 40 MG PO ACB for 30 Days Prov:KYLE PATTERSON STUDY ABROAD COORDINATOR 11/08/19 Salmeterol Xinaf/Fluticasone* (ADVAIR 500/50*) 1 Ea Aerp, 1 INH INH Q12H, #1 INH Prov:KYLE PATTERSON STUDY ABROAD COORDINATOR 11/08/19 [Albuterol/Ipratropium Nebulize] 3 ML INHA No Conflict Check, 3 ML NEB RQ4H for 30 Days Prov:KYLE PATTERSON STUDY ABROAD COORDINATOR 03/10/18 Medications in the ED Albuterol 2 gm NOW STAT INH ; Start 03/25/20 at 11:56; Stop 03/25/20 at 11:57; Status Cancel Dexamethasone Sodium Phosphate 10 mg ONCE ONCE IM Last administered on 03/25/20at 12:19; Admin Dose 10 MG; Start 03/25/20 at 12:00; Stop 03/25/20 at 12:06; Status DC Dexamethasone Sodium Phosphate 12 mg STK-MED ONCE .ROUTE ; Start 03/25/20 at 12:19; Stop 03/25/20 at 12:13; Status DC Albuterol/ Ipratropium 3 ml STK-MED ONCE .ROUTE ; Start 03/25/20 at 12:20; Stop 03/25/20 at 12:15; Status DC Albuterol 2 gm NOW ONCE INH ; Start 03/25/20 at 13:00; Stop 03/25/20 at 13:01 CESAR RUIZ MD Mar 25, 2020 13:00
[2020-03-25 14:09] VITALS: BP 128/74
== END 2020-03-25 14:41 | disposition home or self-care (01) ==
LOC: ER 11:57
DX: J45.901 Unspecified asthma with (acute) exacerbation (principal); R05 Cough; R06.02 Shortness of breath
CPT/HCPCS: 71045; 93005; 99284; J1100; U0002

== ENCOUNTER 2020-05-27 20:34 | Emergency (ER) | payer SELFPAY ==
[~2020-05-27] VITALS: Ht 157.5 cm; Wt 56.7 kg
[2020-05-27] MEDS ORDERED: ALBUTEROL/IPRATROPIUM 3 ML NEB NEB STA (20:36)
[2020-05-27] MEDS ORDERED: SODIUM CHLORIDE 0.9% 1000ML 1,000 ML IV STA (20:36)
[2020-05-27] MEDS ORDERED: METHYLPREDNISOLONE SOD SUCC 125 MG/2ML VIAL IV STA (20:36)
[2020-05-27] MEDS ORDERED: MAGNESIUM SULF 1GRAM/DEXTROSE 100 ML IV STA (20:41)
[2020-05-27] MEDS: EPINEPHRINE HCL 1:1000 1ML 1 MG/ML AMP INJ STA ×2 (20:42→20:58)
[2020-05-27 20:46] LABS: BASOPHILS # (AUTO) 0.2 (0.0-0.1); BASOPHILS % 0.8 % (0.0-1.0); EOSINOPHILS # (AUTO) 0.5 (0.0-0.4); EOSINOPHILS % 2.8 % (0.0-6.0); HEMATOCRIT 38.4 % (34.2-44.1); HEMOGLOBIN 12.1 g/dL (12.0-16.0); LYMPHOCYTES # (AUTO) 2.2 (1.0-3.2); LYMPHOCYTES % 12.4 % (18.0-39.1); MEAN CORPUSCULAR HEMOGLOBIN 26.2 pg (28-32); MEAN CORPUSCULAR HGB CONC 31.5 g/dL (31-35); MEAN CORPUSCULAR VOLUME 83.3 fL (81-99); MONOCYTES # (AUTO) 1.5 (0.2-0.8); MONOCYTES % 8.2 % (4.4-11.3); NEUTROPHILS # (AUTO) 13.6 (2.1-6.9); NEUTROPHILS % 75.5 % (38.7-80.0); PLATELET COUNT 387 x10e3/uL (140-360); RED BLOOD COUNT 4.61 x10e6/uL (3.6-5.1); RED CELL DISTRIBUTION WIDTH 15.4 % (11.7-14.4)
[2020-05-27 21:06] LABS: ALANINE AMINOTRANSFERASE 13 IU/L (0-55); ALBUMIN 3.9 g/dL (3.5-5.0); ALBUMIN/GLOBULIN RATIO 1.1 (0.8-2.0); ALKALINE PHOSPHATASE 74 IU/L (40-150); ANION GAP 15.7 mmol/L (8-16); BLOOD UREA NITROGEN 5 mg/dL (7-26); BUN/CREATININE RATIO 6 (6-25); CARBON DIOXIDE 23 mmol/L (22-29); CHLORIDE 108 mmol/L (98-107); CREATININE, SERUM 0.77 mg/dL (0.57-1.11); EST GLOMERULAR FILTRATION RATE > 60 ML/MIN (60-); GLUCOSE 96 mg/dL (74-118); POTASSIUM 3.7 mmol/L (3.5-5.1); SODIUM 143 mmol/L (136-145)
[2020-05-27 21:44] LABS: CREATINE KINASE MB 1.7 ng/mL (0-5.0)
[2020-05-27 23:53] VITALS: BP 128/67
== END 2020-05-27 23:54 | disposition home or self-care (01) ==
LOC: ER 20:38
DX: J45.901 Unspecified asthma with (acute) exacerbation (principal); R06.02 Shortness of breath; K21.9 Gastro-esophageal reflux disease without esophagitis; M54.9 Dorsalgia, unspecified; G89.29 Other chronic pain; Z98.84 Bariatric surgery status; Z11.59 Encounter for screening for other viral diseases
CPT/HCPCS: 36415; 71045; 80053; 82550; 82553; 83880; 84484; 85025; 93005; 94640; 99284; J3475; J7030; U0002

== ENCOUNTER 2020-06-22 17:26 | Emergency (ER) | payer SELFPAY ==
[~2020-06-22] VITALS: Ht 157.5 cm; Wt 56.7 kg
[2020-06-22] MEDS ORDERED: METHYLPREDNISOLONE SOD SUCC 125 MG/2ML VIAL IV ONE (17:30)
[2020-06-22] MEDS ORDERED: ALBUTEROL/IPRATROPIUM 3 ML NEB NEB ONE (17:30)
--- NOTE | 2020-06-22 17:30 | Emergency Department Note ---
History of Present Illnes History of Present Illness History of Present Illness This is a 59 year old female with PMH of asthma exacerbation presents to the ED for dyspnea Historian: Patient Arrival Mode: Car Onset (how long ago): day(s) Severity: moderate Onset quality: gradual Duration (how long): day(s) Timing of current episode: constant Progression: worsening Chronicity: recurrent Context: Denies recent illness, Denies recent surgery, Denies recent immobilization, Denies recent travel, Denies trauma/injury, Denies new medications, Denies hx of DVT/PE, Denies non-compliance w/ medications, Denies other Relieving factors: medication Exacerbating factors: other (breathing) Associated symptoms: Reports shortness of breath Treatments prior to arrival: none (AIXA GUZMAN DO) Past Medical/Family History Physician Review I have reviewed the patient's past medical and family history. Any updates have been documented here. (AIXA GUZMAN DO) Past Medical History Recent Fever: No Clinical Suspicion of Infectio: No New/Unexplained Change in Ment: No Past Medical History: Asthma, GERD, Chronic Back Pain Other Medical History: Sciatic nerve pain Past Surgical History: Cholecysctectomy, Appendectomy, Bariatric Surgery Other Surgery: LEFT HAND FX/SX DECEMBER 2013 LAP BAND (AIXA GUZMAN DO) Social History Smoking Cessation: Never Smoker Alcohol Use: None Any Illegal Drug Use: No (AIXA GUZMAN DO) Other Last Tetanus: 2013 (AIXA GUZMAN DO) Review of Systems Review of Systems Constitutional: Reports no symptoms EENTM: Reports no symptoms Cardiovascular: Reports no symptoms Respiratory: Reports dyspnea Gastrointestinal: Reports no symptoms Genitourinary: Reports no symptoms Musculoskeletal: Reports no symptoms Integumentary: Reports no symptoms Neurological: Reports no symptoms Psychological: Reports no symptoms Endocrine: Reports no symptoms Hematological/Lymphatic: Reports no symptoms (AIXA GUZMAN DO) Physical Exam Related Data Allergies: Coded Allergies: No Known Allergies (Unverified , 03/06/18) Triage Vital Signs Vital Signs Date Time Temp Pulse Resp B/P (MAP) Pulse Ox O2 Delivery O2 Flow Rate FiO2 06/22/20 17:30 96 22 180/110 100 Room Air Vital signs reviewed: Yes (AIXA GUZMAN DO) Physical Exam CONSTITUTIONAL Constitutional: Present well-developed, Present well-nourished, Present distressed HENT HENT: Present normocephalic, Present atraumatic, Present oropharynx clear/moist, Present nose normal HENT L/R: Present left ext ear normal, Present right ext ear normal EYES Eyes: Reports PERRL, Reports conjunctivae normal NECK Neck: Present ROM normal PULMONARY Pulmonary: Present respiratory distress, Present other (b/l wheezing) CARDIOVASCULAR Cardiovascular: Present regular rhythm, Present heart sounds normal, Present capillary refill normal, Present normal rate GASTROINTESTINAL Abdominal: Present soft, Present nontender, Present bowel sounds normal GENITOURINARY Genitourinary: Present exam deferred SKIN Skin: Present warm, Present dry MUSCULOSKELETAL Musculoskeletal: Present ROM normal NEUROLOGICAL Neurological: Present alert, Present oriented x 3, Present no gross motor or sensory deficits PSYCHOLOGICAL Psychological: Present mood/affect normal, Present judgement normal (AIXA GUZMAN DO) Results Laboratory Lab results reviewed: Yes (ISAAC MILLER MD) Imaging Imaging results reviewed: Yes Impressions Procedure: [id number] DX/CHEST SINGLE (PORTABLE) Exam Date: 06/22/20 Exam Time: 1819 REPORT STATUS: Signed EXAMINATION: CHEST SINGLE (PORTABLE) INDICATION: ^asthma ^[id number] ^1819 COMPARISON: Chest radiograph 05/27/2020 and 03/25/2020 FINDINGS: TUBES and LINES: Partially visualized gastric band device. LUNGS: Normal lung volumes. Redemonstrated bilateral perihilar peribronchial cuffing, may be chronic reactive airway disease. No focal opacity or consolidation. PLEURA: No pleural effusion or pneumothorax. HEART AND MEDIASTINUM: The cardiomediastinal silhouette is unremarkable. BONES AND SOFT TISSUES: No acute osseous lesion. Soft tissues are unremarkable. UPPER ABDOMEN: No free air under the diaphragm. IMPRESSION: 1. Redemonstrated bilateral perihilar peribronchial cuffing, may be related to chronic reactive airway disease. 2. No new focal opacity or consolidation. Signed by: Dr. Juan Murray M.D. on 06/22/2020 7:07 PM Dictated By: JUAN MURRAY MD 06 Transcribed By: AMANDA on 06/22/201906 COPY TO: AIXA GUZMAN DO~ (ISAAC MILLER MD) Assessment & Plan Medical Decision Making MDM Diff Dx : URI, Asthma exacerbation, ACS (AIXA GUZMAN DO) Reassessment Reassessment time: 19:18 Reassessment PT FEELS MUCH BETTER LUNGS CTA AT THIS TIME, NO WHEEZING, PT STATES SHE IS READY TO GO HOME, PT SAFE TO D/C PRESCRIBED PREDNISONE (ISAAC MILLER MD) Assessment & Plan Final Impression: (1) Asthma exacerbation (ISAAC MILLER MD) Depart Disposition: HOME, SELF-MCC Meds Active Scripts Azithromycin (ZITHROMAX) 500 Mg Tablet, 500 MG PO DAILY for 5 Days Prov:LEONARDOMARKYKYLE M DIALYSIS TECH 11/08/19 [Ceftin] No Conflict Check, 500 MG PO Q12H for 5 Days Prov:KYLE PATTERSON DIALYSIS TECH 11/08/19 Prednisone (PREDNISONE) 10 Mg Tab, 10 MG PO UD for 11 Days, TAB TAKE 40MG PO BID X2 DAYS THEN TAKE 40MG PO DAILY X3 DAYS THEN TAKE 20MG PO DAILY X3 DAYS THEN TAKE 10MG PO DAILY X3 DAYS THEN STOP Prov:KYLE PATTERSON DIALYSIS TECH 11/08/19 Pantoprazole Sod (PROTONIX) 40 Mg/Ml Susp, 40 MG PO ACB for 30 Days Prov:LEONARDOKYLE Javier DIALYSIS TECH 11/08/19 Salmeterol Xinaf/Fluticasone* (ADVAIR 500/50*) 1 Ea Aerp, 1 INH INH Q12H, #1 INH Prov:LEONARDO,KYLE M DIALYSIS TECH 11/08/19 [Albuterol/Ipratropium Nebulize] 3 ML INHA No Conflict Check, 3 ML NEB RQ4H for 30 Days Prov:LEONARDOKYLE Javier DIALYSIS TECH 03/10/18 AIXA GUZMAN DO Jun 22, 2020 17:30 ISAAC MILLER MD Jun 22, 2020 19:20
[2020-06-22 17:55] LABS: BASOPHILS # (AUTO) 0.1 (0.0-0.1); BASOPHILS % 1.3 % (0.0-1.0); EOSINOPHILS # (AUTO) 0.8 (0.0-0.4); HEMOGLOBIN 11.5 g/dL (12.0-16.0); LYMPHOCYTES # (AUTO) 1.9 (1.0-3.2); LYMPHOCYTES % 18.7 % (18.0-39.1); MEAN CORPUSCULAR HEMOGLOBIN 26.1 pg (28-32); MEAN CORPUSCULAR HGB CONC 31.9 g/dL (31-35); MEAN CORPUSCULAR VOLUME 81.6 fL (81-99); MONOCYTES # (AUTO) 0.7 (0.2-0.8); MONOCYTES % 6.9 % (4.4-11.3); NEUTROPHILS # (AUTO) 6.4 (2.1-6.9); NEUTROPHILS % 64.2 % (38.7-80.0); PLATELET COUNT 453 x10e3/uL (140-360); RED BLOOD COUNT 4.41 x10e6/uL (3.6-5.1); RED CELL DISTRIBUTION WIDTH 14.5 % (11.7-14.4)
[2020-06-22 18:09] LABS: ALANINE AMINOTRANSFERASE 11 IU/L (0-55); ALBUMIN 3.8 g/dL (3.5-5.0); ALBUMIN/GLOBULIN RATIO 1.1 (0.8-2.0); ALKALINE PHOSPHATASE 81 IU/L (40-150); ANION GAP 12.9 mmol/L (8-16); BLOOD UREA NITROGEN 6 mg/dL (7-26); BUN/CREATININE RATIO 8 (6-25); CALCIUM 9.2 mg/dL (8.4-10.2); CARBON DIOXIDE 26 mmol/L (22-29); CHLORIDE 108 mmol/L (98-107); CREATININE, SERUM 0.71 mg/dL (0.57-1.11); EST GLOMERULAR FILTRATION RATE > 60 ML/MIN (60-); GLUCOSE 96 mg/dL (74-118); POTASSIUM 3.9 mmol/L (3.5-5.1); SODIUM 143 mmol/L (136-145)
[2020-06-22] MEDS ORDERED: FAMOTIDINE 20 MG/2 ML VIAL IV ONE (19:04)
--- NOTE | 2020-06-22 19:10 | Diagnostic Imaging Report ---
EXAMINATION: CHEST SINGLE (PORTABLE) INDICATION: ^asthma ^[id number] ^1820 COMPARISON: Chest radiograph 05/27/2020 and 03/25/2020 FINDINGS: TUBES and LINES: Partially visualized gastric band device. LUNGS: Normal lung volumes. Redemonstrated bilateral perihilar peribronchial cuffing, may be chronic reactive airway disease. No focal opacity or consolidation. PLEURA: No pleural effusion or pneumothorax. HEART AND MEDIASTINUM: The cardiomediastinal silhouette is unremarkable. BONES AND SOFT TISSUES: No acute osseous lesion. Soft tissues are unremarkable. UPPER ABDOMEN: No free air under the diaphragm. IMPRESSION: 1. Redemonstrated bilateral perihilar peribronchial cuffing, may be related to chronic reactive airway disease. 2. No new focal opacity or consolidation. Signed by: Dr. Vladimir Murray M.D. on 06/22/2020 7:07 PM
[2020-06-22 19:23] VITALS: BP 150/74
== END 2020-06-22 19:30 | disposition home or self-care (01) ==
LOC: ER 17:56
DX: J45.901 Unspecified asthma with (acute) exacerbation (principal); R06.00 Dyspnea, unspecified; K21.9 Gastro-esophageal reflux disease without esophagitis; M54.9 Dorsalgia, unspecified; G89.29 Other chronic pain; Z98.84 Bariatric surgery status
CPT/HCPCS: 36415; 71045; 80053; 85025; 94640; 99284; J2930

== ENCOUNTER 2020-07-18 20:20 | Emergency (ER) | payer SELFPAY ==
[~2020-07-18] VITALS: Ht 157.5 cm; Wt 56.7 kg
[2020-07-18] MEDS ORDERED: ALBUTEROL SULF 0.083% NEB SOLN 3 ML NEB NEB STA (20:23)
[2020-07-18] MEDS ORDERED: METHYLPREDNISOLONE SOD SUCC 125 MG/2ML VIAL IV ONE (20:30)
[2020-07-18] MEDS ORDERED: IPRATROPIUM BROMIDE 0.02% 2.5 ML NEB NEB ONE (20:30)
[2020-07-18] MEDS ORDERED: METHYLPREDNISOLONE SOD SUCC 125 MG/2ML VIAL ONE (20:34)
--- OUTSIDE RECORDS SUMMARY | 2020-07-18 20:44 | XMS REPORT | Clinical Summary ---
Author Author [facility] Address Unknown Phone Unavailable Care Team Providers Care Hot Shot Name Role Phone PCP Unavailable Allergies Not on File Medications Not on file Active Problems Not on file Social History Date Tobacco Use Types Packs/Day Years Used Never Assessed Sex Assigned at Date Recorded Not on file Last Filed Vital Signs Not on file Plan of Treatment Not on file Results Not on fileafter 07/18/2019
--- OUTSIDE RECORDS SUMMARY | 2020-07-18 20:45 | XMS REPORT | Continuity of Care Document ---
Author Author [facility] t Organization [facility] Address [address] [place] [address] Phone Unavailable Care Team Providers Care Street Light Repairer Name Role Phone Jin DOMINGO III PCP AIXA GUZMAN Attphys Unavailable Tim RUIZ Attphys Unavailable MAZIN TELLO Attphys Unavailable ALEXIS BADILLO Attphys Unavailable Ayana MILLER Attphys Unavailable Abdulaziz LALA Attphys Unavailable Katarzyna MORRISON Attphys Unavailable MARE BAILEY Attphys Unavailable MAZIN TELLO Admphys Unavailable ALEXIS BADILLO Admphys Unavailable Payers Payer Name Policy Type Policy Number Effective Date Expiration Date Weston zhang Covid19 Hrsa Uninsured PENDING CH I [facility] [id number] [facility] Problems Condition Name Condition Details Condition Category Status Onset Date Resolution Date Last Treatment Date Treating Clinician Comments Source Exacerbation of asthma Asthma exacerbation Problem Active 2015-10 00:00:[address] [facility] Bronchitis Bronchitis Problem Active 2015-11-18 00:00:00 [facility] Chest pain Chest pain Problem Active C [facility] Pneumonia Pneumonia Problem Active [facility] Acute respiratory failure Acute respiratory failure Problem Active [facility] Allergies, Adverse Reactions, Alerts Allergy Name Allergy Type Status Severity Reaction(s) Onset Date Inacti ve Date Treating Clinician Comments Source No Known Allergies DA Active U 2019-09-15 00:00:00 [facility] No Known Intolerances DA Active U 2010-05-15 00:00:00 [facility] Social History Social Habit Start Date Stop Date Quantity Comments Source Sex Assigned At 1960 00:00:00 1960 00:00:00 Female [facility] Medications Ordered Medication Name Filled Medication Name Start Date Stop Da te Current Medication? Ordering Clinician Indication Dosage Frequency Signature (SIG) Comments Components Source Azithromycin (Zithromax) 500 Mg TABLET Azithromycin (Zithrom ax) 500 Mg TABLET 2019-11-08 10:48:00 Yes 500 Daily [facility] Ceftin Ceftin 2019-11-08 10:48:00 Yes 500 Every 12 Ho urs [facility] Pantoprazole Sod (Protonix) 40 Mg/Ml SUSP Pantoprazole Sod (Protonix) 40 Mg/Ml SUSP 2019-11-08 10:48:00 Yes 40 Before Breakfast [facility] Prednisone Prednisone 2019-11-08 10:48:00 Yes 10 Use As Directed [facility] Salmeterol Xinafoate/Fluticasone (Advair 500/50*) 1 Ea AER Salmeterol Xinafoate/Fluticasone (Advair 500/50*) 1 Ea AERP 2019-11-08 10:48:00 Yes 1 Every 12 Hours [facility] Albuterol/Ipratropium Nebulize Albuterol/Ipratropium Nebuliz e 2018-03-10 09:48:00 Yes 3 Rt Q4h [facility] Guaifenesin/Dextromethorphan (Mucinex Dm Er 600-30 Mg Tablet) 1 Each TAB.ER.12H Guaifenesin/Dextromethorphan (Mucinex Dm Er 600-30 Mg Tablet) 1 Each TAB.ER.12H 2018-03-10 09:48:00 2019-11-08 00:00:00 No 1 Every 12 Hours [facility] Levofloxacin (Levaquin) 500 Mg TABLET Levofloxacin (Levaquin ) 500 Mg TABLET 2018-03-10 09:48:00 2019-11-08 00:00:00 No 500 Daily [facility] Prednisone Prednisone 2018-03-10 09:48:00 2019-11-08 00:00:00 No [address] Use As Directed [facility] Pantoprazole Sod (Protonix) 40 Mg/Ml SUSP Pantoprazole Sod (Protonix) 40 Mg/Ml SUSP 2017-07-06 06:13:00 2019-11-08 00:00:00 No 40 Crescencio y [facility] Benzonatate (Tessalon Perle) 100 Mg CAPSULE Benzonatat e (Tessalon Perle) 100 Mg CAPSULE 2017-07-06 06:13:00 2018-01-15 00:00:00 No 100 Three Times A Day [facility] Hydrocodone/Chlorpheniramine Hydrocodone/Chlorpheniramine 2016-09-05 06:13:00 2018-01-15 00:00:00 No 5 Every 12 Hours as ne eded for Cough [facility] Levofloxacin (Levaquin) 500 Mg TABLET Levofloxacin (Levaquin ) 500 Mg TABLET 2017-07-06 06:13:00 2018-01-15 00:00:00 No 750 Daily [facility] Loratadine Loratadine 2017-07-06 06:13:00 2018-01-15 00:00:00 No 10 Daily [facility] Prednisone Prednisone 2017-07-06 06:13:00 2018-01-15 00:00:00 No 20 Daily [facility] Salmeterol Xinafoate/Fluticasone (Advair 500/50*) 1 [facility] Salmeterol Xinafoate/Fluticasone (Advair 500/50*) 1 [facility] 2019-11-08 00:00:00 N o 1 Every 12 Hours [facility] Fluticasone/Salmeterol (Advair 250-50 Diskus) 1 Each D ISK.W.DEV Fluticasone/Salmeterol (Advair 250-50 Diskus) 1 Each DISK.W.DEV 2017-01-06 00:00:00 No 1 Twice A Day [facility] Albuterol Sulfate (Proair Hfa Inhaler*) 8.5 Gm INH Alb uterol Sulfate (Proair Hfa Inhaler*) 8.5 Gm INH 2016-09-04 00:00:00 No As Needed [facility] Dexlansoprazole (Dexilant) 60 Mg CAP. Dexlansopra zole (Dexilant) 60 Mg CAP. 2016-09-04 00:00:00 No 60 Daily [facility] Doxycycline Hyclate Doxycycline Hyclate 2016-09-04 00:00:00 No [address] [facility] Hydrocodone/Chlorphen Polis (Tussionex Pennkinetic Jolie p) 480 Ml JOLIE.ER.12H Hydrocodone/Chlorphen Polis (Tussionex Pennkinetic Susp) 480 Ml JOLIE.ER.12H 2016-09-04 00:00:00 No 5 Every 12 Hours as ne eded for Cough [facility] Prednisone Prednisone 2016-09-04 00:00:00 No 10 Use As Directed [facility] Zolpidem Tartrate (Ambien) 10 Mg TABLET Zolpidem Tartrate (A mbien) 10 Mg TABLET 2016-09-04 00:00:00 No 10 Bedtime as needed for Insomnia [facility] Esomeprazole Magnesium (Nexium) 40 Mg CAPSULE.DR Harley prazole Magnesium (Nexium) 40 Mg CAPSULE. 2015-11-18 00:00:00 No 40 Daily [facility] Vital Signs Vital Name Observation Time Observation Value Comments Source Heart Rate 2020-06-22 20:23:00 65 /min [facility] Respiratory rate 2020-06-22 20:23:00 16 /min [facility] BP Systolic 2020-06-22 20:23:00 150 mm[Hg] [facility] BP Diastolic 2020-06-22 20:23:00 74 mm[Hg] [facility] Oxygen saturation by Pulse oximetry 2020-06-22 20:23:00 100 /min [facility] Weight 2020-06-22 18:30:00 125 [lb_av] [facility] BMI (Body Mass Index) 2020-06-22 18:30:00 22.9 kg/m2 [facility] Weight 2020-05-27 20:46:00 125 [lb_av] [facility] BMI (Body Mass Index) 2020-05-27 20:46:00 22.9 kg/m2 [facility] Body Temperature 2020-03-25 15:09:00 98.2 [degF] [facility] Body Temperature 2020-03-25 14:09:00 98.2 [degF] [facility] Weight 2020-03-25 11:46:00 125 [lb_av] [facility] BMI (Body Mass Index) 2020-03-25 11:46:00 22.9 kg/m2 [facility] Weight 2020-01-15 08:11:00 125 [lb_av] [facility] BMI (Body Mass Index) 2020-01-15 08:11:00 22.9 kg/m2 [facility] Body Temperature 2019-11-08 08:47:00 97.2 [degF] [facility] Procedures Procedure Date / Time Performed Performing Clinician [facility] e EMERGENCY DEPT VISIT 2020-06-22 00:00:00 [facility] X-ray of chest, two views 2019-11-07 00:00:00 LEO WEAVER CH, I [facility] Computed tomography of chest with contrast 2019-11-05 00:00:00 NELIDA ASHLEY [facility] Plan of Care Planned Activity Planned Date Details Comments Source Instructions Asthma - Adult [facility] Encounters Start Date/Time End Date/Time Encounter Type Admission Type Attendi ng Clinicians Care Facility Care Department Encounter ID Source 2020-06-22 18:56:00 2020-06-22 20:30:00 Departed Emergency Room 1 [facility] [id number] [facility] 2020-05-27 21:38:00 2020-05-28 00:54:00 Departed Emergency Room 1 AIXA GUZMAN [facility] [id number] [facility]ga [facility]less [facility] 2020-04-24 18:23:00 2020-04-24 18:23:00 Emergency E [id number] 2020-03-25 12:57:00 2020-03-25 15:41:00 Departed Emergency Room 1 MANOR [facility] [id number] [facility] 2020-01-15 09:08:00 2020-01-15 11:11:00 Departed Emergency Room 1 CESAR RUIZ [facility] [id number] [facility] 2019-11-05 09:42:00 2019-11-08 12:35:00 Discharged Inpatient 1 MAZIN TELLO [facility] [id number] [facility] 2019-07-13 07:03:00 2019-07-13 09:30:00 Outpatient ZAHRAA MONK [facility] [id number] [facility] 2019-01-01 21:08:00 2019-01-01 22:42:00 Departed Emergency Room 1 ISAAC MILLER [facility] [id number] [facility] 2018-07-31 11:50:00 2018-07-31 13:52:00 Departed Emergency Room [facility] [id number] [facility] 2018-03-07 11:45:00 2018-03-10 20:20:00 Discharged Inpatient 1 MAZIN TELLO [facility] [id number] [facility] 2018-01-15 13:32:00 2018-01-15 19:09:00 Departed Emergency Room 1 ABDIAS LALA [facility] [id number] [facility] 2017-08-10 11:57:00 2017-08-10 13:30:00 Departed Emergency Room ER MILLICENT MORRISON [facility] [id number] [facility] 2017-07-03 13:44:00 2017-07-07 14:36:00 Discharged Inpatient (obs) ER MARE BAILEY [facility] [id number] [facility] Results Test Description Test Time Test Comments Results Result Comments Source CHEST SINGLE (PORTABLE) 2020-06-22 19:03:00 [facility] 1960 Sex: [place] [address] Patient Name: MAVERICK ANN MR #: [id number] : 1960 Age/Sex: 59/F Req #: [id number] Adm Physician: Ordered by: AIXA GUZMAN DO Report #: [id number] Location: ER Room/Bed: Procedure: [id number] DX/CHEST SINGLE (PORTABLE) Exam Date: 06/22/20 Exam Time: 1819 REPORT STATUS: Signed EXAMINATION: CHEST SINGLE (PORTABLE) INDICATION: asthma 20200622 COMPARISON: Chest radiograph 05/27/2020 and 03/25/2020 FINDINGS: TUBES and LINES: Partially visualized gastric band device. LUNGS: Normal lung volumes. Redemonstrated bilateral perihilar peribronchial cuffing, may be chronic reactive airway disease. No focal opacity or consolidation. PLEURA: No pleural effusion or pneumothorax. HEART AND MEDIASTINUM: The cardiomediastinal silhouette is unremarkable. BONES AND SOFT TISSUES: No acute osseous lesion. Soft tissues are unremarkable. UPPER ABDOMEN: No free air under the diaphragm. IMPRESSION: 1. Redemonstrated bilateral perihilar peribronchial cuffing, may be related to chronic reactive airway disease. 2. No new focal opacity or consolidation. Signed by: Dr. Juan Murray M.D. on 06/22/2020 7:07 PM Dictated By: JUAN MURRAY MD 06 Transcribed By: AMANDA on 06/22/201906 COPY TO: AIXA GUZMAN DO Blood leukocytes automated count (number/volume) 2020-06-22 18:36:00 Test Item White Blood Count (test code = 6690-2) 9.97 10*3/uL 4.8-10.8 [facility] erythrocytes automated count (number/volume)2020-06-22 18:36:00* Test Item Value Reference Range Interpretation Comments Red Blood Count (test code = 789-8) 4.41 10*6/mL 3.6-5.1 [facility] measurement (moles/volume)2020-06-22 18:36:00* Test Item Value Reference Range Interpretation Comments Hemoglobin (test code = 08460-0) 11.5 g/dL 12.0-16.0 [facility] blood hematocrit (volume fraction)2020-06-22 18:36:00* Test Item Value Reference Range Interpretation Comments Hematocrit (test code = 4544-3) 36.0 % 34.2-44.1 [facility] erythrocyte mean corpuscular [id number] 18:36:00* Test Item Value Reference Range Interpretation Comments Mean Corpuscular Volume (test code = 787-2) 81.6 81-99 [facility] erythrocyte mean corpuscular hemoglobin (mass per erythrocyte)2020-06-22 18:36:00* Test Item Value Reference Range Interpretation Comments Mean Corpuscular Hemoglobin (test code = 785-6) 26.1 pg 28-32 [facility] erythrocyte mean corpuscular hemoglobin concentration measurement (mass/volume)2020-06-22 18:36:00* Test Item Value Reference Range Interpretation Comments Mean Corpuscular Hemoglobin Concent (test code = 786-4) 31.9 g/dL 31-35 [facility] AllenRDW QtyRg-[id number] 18:36:00* Test Item Value Reference Range Interpretation Comments Red Cell Distribution Width (test code = 49304-8) 14.5 % 11.7 -14.4 [facility] blood platelet count (count/volume)2020-06-22 18:36:00* Test Item Value Reference Range Interpretation Comments Platelet Count (test code = 777-3) 453 10*3/uL 140-360 [facility]Autom[facility] blood segmented neutrophil count as percentage of total izbzwedkoy5610-40-78 18:36:00* Test Item Value Reference Range Interpretation Comments Neutrophils (%) (Auto) (test code = 35646-8) 64.2 % 38.7-80.0 [facility] blood lymphocyte count as percentage ot total xfslmlkjwz0278-35-01 18:36:00* Test Item Value Reference Range Interpretation Comments Lymphocytes (%) (Auto) (test code = 736-9) 18.7 % 18.0-39.1 [facility] blood monocyte count as percentage of total ukzmajippu7712-50-47 18:36:00* Test Item Value Reference Range Interpretation Comments Monocytes (%) (Auto) (test code = 5905-5) 6.9 % 4.4-11.3 [facility] blood eosinophil count as percentage of total tblwlmbbmg0095-27-01 18:36:00* Test Item Value Reference Range Interpretation Comments Eosinophils (%) (Auto) (test code = 713-8) 8.0 % 0.0-6.0 [facility]Autom[facility] blood basophil count as percentage of total tyzyorhcsh6067-65-37 18:36:00* Test Item Value Reference Range Interpretation Comments Basophils (%) (Auto) (test code = 706-2) 1.3 % 0.0-1.0 [facility] AllenFluoroscopic procedure less than one hour psfflqjc4389-38-31 18:36:00* Test Item Value Reference Range Interpretation Comments IM GRANULOCYTES % (test code = IM GRANULOCYTES %) 0.9 % 0.0- 1.0 [facility]Autom[facility] blood neutrophil count 2020-06-22 18:36:00* Test Item Value Reference Range Interpretation Comments Neutrophils # (Auto) (test code = 751-8) 6.4 2.1-6.9 [facility] lymphocytes count (number/volume) 2020-06-22 18:36:00* Test Item Value Reference Range Interpretation Comments Lymphocytes # (Auto) (test code = 74955-6) 1.9 1.0-3.2 [facility]Blood monocytes automated count (number/volume)2020-06-22 18:36:00* Test Item Value Reference Range Interpretation Comments Monocytes # (Auto) (test code = 742-7) 0.7 0.2-0.8 [facility] AllenAutom[facility] blood eosinophil count 2020-06-22 18:36:00* Test Item Value Reference Range Interpretation Comments Eosinophils # (Auto) (test code = 711-2) 0.8 0.0-0.4 [facility] AllenAutomated blood basophil count (count/volume)2020-06-22 18:36:00* Test Item Value Reference Range Interpretation Comments Basophils # (Auto) (test code = 704-7) 0.1 0.0-0.1 [facility] AllenFluoroscopic procedure less than one hour [id number] 18:36:00* Test Item Value Reference Range Interpretation Comments Absolute Immature Granulocyte (auto (laura t code = Absolute Immature Granulocyte (auto) 0.09 10*3/uL 0-0.1 [facility] sodium measurement (moles/volume)2020-06-22 18:36:00* Test Item Value Reference Range Interpretation Comments Sodium Level (test code = 2951-2) 143 mmol/L 136-145 [facility] plasma potassium measurement (moles/volume)2020-06-22 18:36:00* Test Item Value Reference Range Interpretation Comments Potassium Level (test code = 2823-3) 3.9 mmol/L 3.5-5.1 [facility] or plasma chloride measurement (moles/volume)2020-06-22 18:36:00* Test Item Value Reference Range Interpretation Comments Chloride Level (test code = 2075-0) 108 mmol/L 98-107 [facility] or plasma carbon dioxide, total measurement (moles/volume)2020-06-22 18:36:00* Test Item Value Reference Range Interpretation Comments Carbon Dioxide Level (test code = 2028-9) 26 mmol/L - [facility] or plasma anion [id number] 18:36:00* Test Item Value Reference Range Interpretation Comments Anion Gap (test code = 95169-5) 12.9 mmol/L 8-16 [facility] or plasma urea nitrogen measurement (mass/volume)2020-06-22 18:36:00* Test Item Value Reference Range Interpretation Comments Blood Urea Nitrogen (test code = 3094-0) 6 mg/dL 7- [facility] or plasma creatinine measurement (mass/volume)2020-06-22 18:36:00* Test Item Value Reference Range Interpretation Comments Creatinine (test code = 2160-0) 0.71 mg/dL 0.57-1.11 [facility] or plasma urea nitrogen/creatinine mass [id number] 18:36:00* Test Item Value Reference Range Interpretation Comments BUN/Creatinine Ratio (test code = 3097-3) 8 6-25 [facility] AllenEstimated glomerular filtration rate (GFR) mijsynsvazdau6296-23-65 18:36:00* Test Item Value Reference Range Interpretation Comments Estimat Glomerular Filtration Rate (test code = 667411711) > 60 mL/ min >60 Ranges were taken from the National Kidney Disease Education Program and the [facility] [employer] literature.Reference ranges:60 or greater: Upferg34-53 ( for 3 consecutive months): Chronic kidney disease 15 or less: Kidney failureTexas Health AllenGlucose ryldxqdnexf2167-11-68 18:36:00* Test Item Value Reference Range Interpretation Comments Glucose Level (test code = VGQ5084) 96 mg/dL 74-118 [facility] plasma calcium measurement (mass/volume)2020-06-22 18:36:00* Test Item Value Reference Range Interpretation Comments Calcium Level (test code = 02962-7) 9.2 mg/dL 8.4-10.2 [facility] or plasma total bilirubin measurement (mass/volume)2020-06-22 18:36:00* Test Item Value Reference Range Interpretation Comments Total Bilirubin (test code = 1975-2) 0.4 mg/dL 0.2-1.2 [facility] AllenFluoroscopic procedure less than one hour qbzyouun3644-78-11 18:36:00* Test Item Value Reference Range Interpretation Comments Aspartate Amino Transf (AST/SGOT) (test code = Aspartate Amino Transf (AST/SGOT)) 18 [IU]/L 5-34 [facility] or plasma alanine aminotransferase measurement (enzymatic activity/volume)2020-06-22 18:36:00* Test Item Value Reference Range Interpretation Comments Alanine Aminotransferase (ALT/SGPT) (test code = 1742-6) 11 [IU]/L 0-55 [facility] or plasma protein measurement (mass/volume)2020-06-22 18:36:00* Test Item Value Reference Range Interpretation Comments Total Protein (test code = 2885-2) 7.4 g/dL 6.5-8.1 [facility] or plasma albumin measurement (mass/volume)2020-06-22 18:36:00* Test Item Value Reference Range Interpretation Comments Albumin (test code = 1751-7) 3.8 g/dL 3.5-5.0 [facility] AllenPlasma globulin measurement (mass/volume) 2020-06-22 18:36:00* Test Item Value Reference Range Interpretation Comments Globulin (test code = 88774-5) 3.6 g/dL 2.3-3.5 [facility] or plasma albumin/globulin mass kfbpj0152-85-59 18:36:00* Test Item Value Reference Range Interpretation Comments Albumin/Globulin Ratio (test code = 1759-0) 1.1 0.8-2.0 [facility] or plasma alkaline phosphatase measurement (enzymatic activity/volume)2020-06-22 18:36:00* Test Item Value Reference Range Interpretation Comments Alkaline Phosphatase (test code = 6768-6) 81 [IU]/L 40-150 [facility]CH[facility] SINGLE ([facility]ABLE)2020-05-27 22:59:00 [facility] [address] [place] [address] Patient Name: MAVERICK ANN MR #: [id number] : 1960 Age/Sex: 59/F Req #: [id number] Adm Physician: Ordered by: AIXA GUZMAN DO Report #: [id number] Location: ER Room/Bed: Procedure: [id number] DX/CHEST SINGLE (P ORTABLE) Exam Date: 05/27/20 Exam Time: 2129 REPORT STATUS: Signed EXAMINATION: [facility] SINGLE (PORTABLE) INDICATION: Wheezing COMPARISON: Chest x-ray 03/25/2020; chest CT 11/05/2019 FINDINGS: TUBES and LINES: Partially visualized gastric band. LUNGS: Hyper expanded lungs. Lungs are clear. Prominent central pulmonary vasculature. PLEURA: No pleural eff usion or pneumothorax. HEART AND MEDIASTINUM: The cardiomediastinal silhou ette is unremarkable. Aortic calcifications. BONES AND SOFT TISSUES: No acute osseous lesion. Soft tissues are unremarkable. Rightward convex curvatu re of the thoracic spine. UPPER ABDOMEN: No free air under the diaphragm. IMPRESSION: Cardiomegaly and pulmonary vascular congestion. Hype rexpanded lungs can be seen with obstructive pulmonary disease. Signed by: Orion Michael DO on 05/27/2020 11:01 PM Dictated By: ORION MICHAEL DO 00 Transcribed By : AMANDA on 05/27/202300 COPY TO: AIXA GUZMAN DO Fluoroscopic procedure less than one hour tovnngyb3925-08-81 21:58:00* Test Item Value Reference Range Interpretation Comments Coronavirus (PCR) (test code = Coronavirus (PCR)) NOT DETECTED NOTD ETECTED SARS-CoV-2 PCRHologic Aptima SARS-CoV-2 assay is a nucleic amplification test in tended for the qualitative detection of RNA from SARS-CoV-2 from nasopharyngeal (REGULATORY AFFAIRS PORTFOLIO LEADER) specimens. It is used under Emergency Use Authorization (EUA) by FDA.A posi tive result is indicative of the presence of SARS-CoV-2 RNA. Clinical correlatio n with patient history and other diagnostic information is necessary to determin e patient infection status.A negative (Not Detected) result does not preclude SA RS-CoV-2 infection. Clinical Correlation with patient history and other diagnost ic information should be used in patient management decisions.Invalid: Unable to generate a valid result on this specimen. Please submit a new specimen for repr at testing oc clinically indicated.Tesing performed by:[facility] Laboratory Services3 [facility] [id number] [id number], Isaac damico MD, PhDTexas Health Presbyterian Hospital PlanoP Bgs-eKuq0145-18-03 21:40:00* Test Item Value Reference Range Interpretation Comments B-Type Natriuretic Peptide (test code = 02398-7) 40.7 pg/mL 0-100 [facility] or plasma creatine kinase measurement (enzymatic activity/volume)2020-05-27 21:40:00* Test Item Value Reference Range Interpretation Comments Creatine Kinase (test code = 2157-6) 242 [IU]/L 29-168 [facility] or plasma creatine kinase MB measurement (mass/volume)2020-05-27 21:40:00* Test Item Value Reference Range Interpretation Comments Creatine Kinase MB (test code = 59466-5) 1.70 ng/mL 0-5.0 [facility] AllenTroponin I measurement by highly sensitive enzyme fgpjywacgcf0522-43-81 21:40:00* Test Item Value Reference Range Interpretation Comments Troponin I (test code = 28289-1) 0.048 ng/mL 0-0.300 [facility] leukocytes automated count (number/volume)2020-05-27 20:40:00* Test Item Value Reference Range Interpretation Comments White Blood Count (test code = 6690-2) 18.02 4.8-10.8 [facility] erythrocytes automated count (number/volume)2020-05-27 20:40:00* Test Item Value Reference Range Interpretation Comments Red Blood Count (test code = 789-8) 4.61 3.6-5.1 [facility] AllenBlood hemoglobin measurement (moles/volume)2020-05-27 20:40:00* Test Item Value Reference Range Interpretation Comments Hemoglobin (test code = 94568-1) 12.1 12.0-16.0 [facility] AllenAutomated blood hematocrit (volume fraction)2020-05-27 20:40:00* Test Item Value Reference Range Interpretation Comments Hematocrit (test code = 4544-3) 38.4 34.2-44.1 [facility] AllenAutomated erythrocyte mean corpuscular fkgeha0788-87-85 20:40:00* Test Item Value Reference Range Interpretation Comments Mean Corpuscular Volume (test code = 787-2) 83.3 81-99 [facility] AllenAutomated erythrocyte mean corpuscular hemoglobin (mass per erythrocyte)2020-05-27 20:40:00* Test Item Value Reference Range Interpretation Comments Mean Corpuscular Hemoglobin (test code = 785-6) 26.2 28-32 [facility] AllenAutomated erythrocyte mean corpuscular hemoglobin concentration measurement (mass/volume)2020-05-27 20:40:00* Test Item Value Reference Range Interpretation Comments Mean Corpuscular Hemoglobin Concent (test code = 786-4) 31.5 31-35 [facility] AllenRDW TemQp-Mug1291-37-03 20:40:00* Test Item Value Reference Range Interpretation Comments Red Cell Distribution Width (test code = 16399-4) 15.4 11.7 -14.4 [facility] AllenAutomated blood platelet count (count/volume)2020-05-27 20:40:00* Test Item Value Reference Range Interpretation Comments Platelet Count (test code = 777-3) 387 140-360 [facility] AllenAutomated blood segmented neutrophil count as percentage of total cmmmnhcbyb8008-33-72 20:40:00* Test Item Value Reference Range Interpretation Comments Neutrophils (%) (Auto) (test code = 80052-9) 75.5 38.7-80.0 [facility] AllenAutomated blood lymphocyte count as percentage ot total fdaamqivlp9982-52-13 20:40:00* Test Item Value Reference Range Interpretation Comments Lymphocytes (%) (Auto) (test code = 736-9) 12.4 18.0-39.1 [facility] AllenAutomated blood monocyte count as percentage of total mhazavqwvy3232-43-48 20:40:00* Test Item Value Reference Range Interpretation Comments Monocytes (%) (Auto) (test code = 5905-5) 8.2 4.4-11.3 [facility] AllenAutomated blood eosinophil count as percentage of total kzkpqwhwbq4883-75-20 20:40:00* Test Item Value Reference Range Interpretation Comments Eosinophils (%) (Auto) (test code = 713-8) 2.8 0.0-6.0 [facility] AllenAutomated blood basophil count as percentage of total waqswisjih2924-80-42 20:40:00* Test Item Value Reference Range Interpretation Comments Basophils (%) (Auto) (test code = 706-2) 0.8 0.0-1.0 [facility] AllenFluoroscopic procedure less than one hour secvjnpb3429-68-86 20:40:00* Test Item Value Reference Range Interpretation Comments IM GRANULOCYTES % (test code = IM GRANULOCYTES %) 0.3 0.0- 1.0 [facility] AllenAutomated blood neutrophil count 2020-05-27 20:40:00* Test Item Value Reference Range Interpretation Comments Neutrophils # (Auto) (test code = 751-8) 13.6 2.1-6.9 [facility] lymphocytes count (number/volume) 2020-05-27 20:40:00* Test Item Value Reference Range Interpretation Comments Lymphocytes # (Auto) (test code = 25174-1) 2.2 1.0-3.2 [facility] AllenBlood monocytes automated count (number/volume)2020-05-27 20:40:00* Test Item Value Reference Range Interpretation Comments Monocytes # (Auto) (test code = 742-7) 1.5 0.2-0.8 [facility] AllenAutomated blood eosinophil count 2020-05-27 20:40:00* Test Item Value Reference Range Interpretation Comments Eosinophils # (Auto) (test code = 711-2) 0.5 0.0-0.4 [facility] AllenAutomated blood basophil count (count/volume)2020-05-27 20:40:00* Test Item Value Reference Range Interpretation Comments Basophils # (Auto) (test code = 704-7) 0.2 0.0-0.1 [facility] AllenFluoroscopic procedure less than one hour xdsroyci1519-87-63 20:40:00* Test Item Value Reference Range Interpretation Comments Absolute Immature Granulocyte (auto (laura t code = Absolute Immature Granulocyte (auto) 0.06 0-0.1 [facility] or plasma sodium measurement (moles/volume)2020-05-27 20:40:00* Test Item Value Reference Range Interpretation Comments Sodium Level (test code = 2951-2) 143 136-145 [facility] Hospitalerum or plasma potassium measurement (moles/volume)2020-05-27 20:40:00* Test Item Value Reference Range Interpretation Comments Potassium Level (test code = 2823-3) 3.7 3.5-5.1 [facility] Hospitalerum or plasma chloride measurement (moles/volume)2020-05-27 20:40:00* Test Item Value Reference Range Interpretation Comments Chloride Level (test code = 2075-0) 108 98-107 [facility] Hospitalerum or plasma carbon dioxide, total measurement (moles/volume)2020-05-27 20:40:00* Test Item Value Reference Range Interpretation Comments Carbon Dioxide Level (test code = 2028-9) 23 22-29 [facility] Hospitalerum or plasma anion tsc8217-52-98 20:40:00* Test Item Value Reference Range Interpretation Comments Anion Gap (test code = 38775-4) 15.7 8-16 [facility] Hospitalerum or plasma urea nitrogen measurement (mass/volume)2020-05-27 20:40:00* Test Item Value Reference Range Interpretation Comments Blood Urea Nitrogen (test code = 3094-0) 5 7-26 [facility] Hospitalerum or plasma creatinine measurement (mass/volume)2020-05-27 20:40:00* Test Item Value Reference Range Interpretation Comments Creatinine (test code = 2160-0) 0.77 0.57-1.11 [facility] Hospitalerum or plasma urea nitrogen/creatinine mass nrtfo6336-00-57 20:40:00* Test Item Value Reference Range Interpretation Comments BUN/Creatinine Ratio (test code = 3097-3) 6 6-25 [facility] AllenEstimated glomerular filtration rate (GFR) hsrwlupgfekho7150-28-27 20:40:00* Test Item Value Reference Range Interpretation Comments Estimat Glomerular Filtration Rate (test code = 362172873) > 60 >60 Ranges were taken from the National Kidney Disease Education Program and the [facility] literature.Reference ranges:60 or greater: Aypfsc83-59 ( for 3 consecutive months): Chronic kidney disease 15 or less: Kidney failureTexas Health AllenGlucose dpavtmbrovs9694-76-74 20:40:00* Test Item Value Reference Range Interpretation Comments Glucose Level (test code = LYS1497) 96 74-118 [facility]er[facility] or plasma calcium measurement (mass/volume)2020-05-27 20:40:00* Test Item Value Reference Range Interpretation Comments Calcium Level (test code = 04578-9) 9.0 8.4-10.2 [facility] Hospitalerum or plasma total bilirubin measurement (mass/volume)2020-05-27 20:40:00* Test Item Value Reference Range Interpretation Comments Total Bilirubin (test code = 1975-2) 0.9 0.2-1.2 [facility] AllenFluoroscopic procedure less than one hour vzqawnij3056-50-67 20:40:00* Test Item Value Reference Range Interpretation Comments Aspartate Amino Transf (AST/SGOT) (test code = Aspartate Amino Transf (AST/SGOT)) 22 5-34 [facility] Hospitalerum or plasma alanine aminotransferase measurement (enzymatic activity/volume)2020-05-27 20:40:00* Test Item Value Reference Range Interpretation Comments Alanine Aminotransferase (ALT/SGPT) (test code = 1742-6) 13 0-55 [facility] Hospitalerum or plasma protein measurement (mass/volume)2020-05-27 20:40:00* Test Item Value Reference Range Interpretation Comments Total Protein (test code = 2885-2) 7.6 6.5-8.1 [facility] Hospitalerum or plasma albumin measurement (mass/volume)2020-05-27 20:40:00* Test Item Value Reference Range Interpretation Comments Albumin (test code = 1751-7) 3.9 3.5-5.0 [facility] AllenPlasma globulin measurement (mass/volume) 2020-05-27 20:40:00* Test Item Value Reference Range Interpretation Comments Globulin (test code = 48935-7) 3.7 2.3-3.5 [facility] Hospitalerum or plasma albumin/globulin mass umaca0867-13-71 20:40:00* Test Item Value Reference Range Interpretation Comments Albumin/Globulin Ratio (test code = 1759-0) 1.1 0.8-2.0 [facility] Hospitalerum or plasma alkaline phosphatase measurement (enzymatic activity/volume)2020-05-27 20:40:00* Test Item Value Reference Range Interpretation Comments Alkaline Phosphatase (test code = 6768-6) 74 40-150 [facility] AllenBNP Xod-bAxe1660-74-03 20:40:00* Test Item Value Reference Range Interpretation Comments B-Type Natriuretic Peptide (test code = 66803-7) 40.7 0-100 [facility] Hospitalerum or plasma creatine kinase measurement (enzymatic activity/volume)2020-05-27 20:40:00* Test Item Value Reference Range Interpretation Comments Creatine Kinase (test code = 2157-6) 242 29-168 [facility] Hospitalerum or plasma creatine kinase MB measurement (mass/volume)2020-05-27 20:40:00* Test Item Value Reference Range Interpretation Comments Creatine Kinase MB (test code = 13615-2) 1.70 0-5.0 [facility] AllenTroponin I measurement by highly sensitive enzyme btdmxgrfoto7008-47-20 20:40:00* Test Item Value Reference Range Interpretation Comments Troponin I (test code = 52414-9) 0.048 0-0.300 [facility] AllenCHEST SINGLE ([facility]ABLE)2020-03-25 12:40:00 [place] [address] Patient Name: MAVERICK ANN MR #: [id number] : 1960 Age/Sex: 59/F Req #: [id number] Adm Physician: Ordered by: CESAR RUIZ MD Report #: [id number] Location: Room/Bed: Procedure: [id number] DX/CHEST SINGLE ( PORTABLE) Exam Date: 03/25/20 Exam Time: 1215 REPORT STATUS: Signed EXAMINATION: CH EST SINGLE (PORTABLE) INDICATION: Cough and shortness of breath. COMPARISON: None FINDINGS: TUBES and LINES: None. LUNG S: Normal lung volumes. There is bilateral perihilar haziness and patchy opac ification of the right lung base. PLEURA: No pleural effusion or pneumotho rax. HEART AND MEDIASTINUM: The cardiomediastinal silhouette is unremarkab le. BONES AND SOFT TISSUES: No acute osseous lesion. Soft tissues are unremarkable. UPPER ABDOMEN: No free air under the diaphragm. IMPRE SSION: Bilateral perihilar haziness and patchy opacification of the right lung base. These findings may represent developing infection or chronic inflam matory airway disease such as bronchitis. Signed by: Mikie Kim MD on 03/25/2020 12:42 PM Dictated By: MIKIE KIM MD Electronically Elvira d By: MIKIE KIM MD on 03/25/20 1242 Transcribed By: AMANDA on 03/25/20 12 42 COPY TO: CESAR RUIZ MD Fluoroscopic procedure less than one hour huswjryx2138-12-83 11:50:00* Test Item Value Reference Range Interpretation Comments Coronavirus (PCR) (test code = Coronavirus (PCR)) NOT DETECTED NOTD ETECTED SARS-COV2/RT-PCRNegative results do not preclude SARS-CoV-2 infection and should not be used as the sole basis for patient management decisions. Negative result s must be combined with clinical observations, patient history, and epidemiologi kareen information. A false negative result may occur if a specimen is improperly c ollected, transported or handled.The limit of detection for this assay is 250 co pies/mLThe SARS-CoV-2 test is a rapid, real-time RT-PCR test intended for the qu alitative detection of nucleic acid from SARS-CoV-2 in nasopharyngeal swab speci men collected from individuals suspected of COVID-19 by their healthcare provide r. This test has not been Food and Drug Administration (FDA) cleared or approved and has been authorized by FDA under an Emergency Use Authorization (EUA). This EUA will be effective until the declaration that circumstances exist justifying the authorization of the emergency use of in vitro diagnostic test for detectio n and or diagnosis of COVID-19 is terminated under section 564(b) of the Act, or the the EUA is revoked under 564(g) of the ACT.Testing performed by [facility] [place], [place] [address]HFOTexas Health AllenProthrombin time (PT) in platelet poor plasma by coagulation tsigl4148-76-69 09:19:00* Test Item Value Reference Range Interpretation Comments Prothrombin Time (test code = 5902-2) 13.0 s 11.9-14.5 [facility] AllenINR in Platelet poor plasma by Coagulation teekn2275-12-02 09:19:00* Test Item Value Reference Range Interpretation Comments Prothromb Time International Ratio (test code = 6301-6) 0.93 Oral Anticoagulant Therapy INR Values:1. Low Intensity Therapy 1.5 - 2.02 . Moderate Intensity Therapy 2.0 - 3.03. High Intensity Therapy(1) 2.5 - 3. 54. High Intensity Therapy(2) 3.0 - 4.05. Panic Value INR > 5.0 [facility] AllenActivated partial thromboplastin time (aPTT) in platelet poor plasma by coagulation fpskg1654-32-74 09:19:00* Test Item Value Reference Range Interpretation Comments Activated Partial Thromboplast Time (test code = 49499-2) 29.1 s 23.8-35.5 [facility]er[facility] or plasma magnesium measurement (mass/volume)2020-01-15 09:19:00* Test Item Value Reference Range Interpretation Comments Magnesium Level (test code = 10688-0) 1.8 mg/dL 1.3-2.1 [facility]CHE[facility]LE [facility])2020-01-15 09:06:00 [facility] [address] [place] [address] Patient Name: MAVERICK ANN MR #: [id number] : 1960 Age/Sex: 59/F Req #: [id number] Adm Physician: Ordered by: CESAR RUIZ MD Report #: [id number] Location: ER Room/Bed: Procedure: [id number] DX/CHEST SINGLE ( PORTABLE) Exam Date: 01/15/20 Exam Time: 0850 REPORT STATUS: Signed Examination: Sin gle AP view of the chest. COMPARISON: Chest two views 11/07/2019, chest CT INDICATION: Aspect, shortness of breath IMPRESSION: 1. Lines and Tubes: None 2. Lungs are well-inflated. Bilateral perihilar p eribronchial cuffing and mild perihilar interstitial opacities, which may refl ect reactive airway disease versus viral infection. Stable 4-5 mm pulmonary no dule in the right upper lobe, projecting over the posterior aspect of the righ t fourth rib and 7 mm nodular density in the lingula. 3. Stable enlargement of the cardiac silhouette. Pulmonary vasculature is normal. 4. No acute bony abnormalities. Signed by: Dr. Jared Rios M.D. on 01/15/2020 9:1 0 AM Dictated By: JARED RIOS MD 9 Transcribed By: AMANDA on 01/15/20909 COPY TO : CESAR RUIZ MD Blood leukocytes automated count (number/volume) 2020-01-15 08:19:00* Test Item Value Reference Range Interpretation Comments White Blood Count (test code = 6690-2) 9.17 4.8-10.8 [facility] AllenBlood erythrocytes automated count (number/volume)2020-01-15 08:19:00* Test Item Value Reference Range Interpretation Comments Red Blood Count (test code = 789-8) 4.18 3.6-5.1 [facility] AllenBlood hemoglobin measurement (moles/volume)2020-01-15 08:19:00* Test Item Value Reference Range Interpretation Comments Hemoglobin (test code = 09995-3) 10.9 12.0-16.0 [facility] AllenAutomated blood hematocrit (volume fraction)2020-01-15 08:19:00* Test Item Value Reference Range Interpretation Comments Hematocrit (test code = 4544-3) 34.6 34.2-44.1 [facility] AllenAutomated erythrocyte mean corpuscular dyxiiz9475-49-18 08:19:00* Test Item Value Reference Range Interpretation Comments Mean Corpuscular Volume (test code = 787-2) 82.8 81-99 [facility] AllenAutomated erythrocyte mean corpuscular hemoglobin (mass per erythrocyte)2020-01-15 08:19:00* Test Item Value Reference Range Interpretation Comments Mean Corpuscular Hemoglobin (test code = 785-6) 26.1 28-32 [facility] AllenAutomated erythrocyte mean corpuscular hemoglobin concentration measurement (mass/volume)2020-01-15 08:19:00* Test Item Value Reference Range Interpretation Comments Mean Corpuscular Hemoglobin Concent (test code = 786-4) 31.5 31-35 [facility] AllenRDW GhdWt-Zhg5939-23-23 08:19:00* Test Item Value Reference Range Interpretation Comments Red Cell Distribution Width (test code = 72526-1) 16.6 11.7 -14.4 [facility] AllenAutomated blood platelet count (count/volume)2020-01-15 08:19:00* Test Item Value Reference Range Interpretation Comments Platelet Count (test code = 777-3) 422 140-360 [facility]Authighsmith-rainey [facility] hospitaled blood segmented neutrophil count as percentage of total irqsqghxqv0967-79-74 08:19:00* Test Item Value Reference Range Interpretation Comments Neutrophils (%) (Auto) (test code = 64552-6) 67.3 38.7-80.0 [facility] AllenAutomated blood lymphocyte count as percentage ot total fqgdjjtfoa6384-06-98 08:19:00* Test Item Value Reference Range Interpretation Comments Lymphocytes (%) (Auto) (test code = 736-9) 16.7 18.0-39.1 [facility] AllenAutomated blood monocyte count as percentage of total cdmqtvitln5084-65-96 08:19:00* Test Item Value Reference Range Interpretation Comments Monocytes (%) (Auto) (test code = 5905-5) 7.9 4.4-11.3 [facility] AllenAutomated blood eosinophil count as percentage of total dunsrymzel5601-30-63 08:19:00* Test Item Value Reference Range Interpretation Comments Eosinophils (%) (Auto) (test code = 713-8) 6.1 0.0-6.0 [facility] AllenAutomated blood basophil count as percentage of total hsqnduruee2869-44-20 08:19:00* Test Item Value Reference Range Interpretation Comments Basophils (%) (Auto) (test code = 706-2) 1.3 0.0-1.0 [facility] AllenFluoroscopic procedure less than one hour gscfupjf6088-00-15 08:19:00* Test Item Value Reference Range Interpretation Comments IM GRANULOCYTES % (test code = IM GRANULOCYTES %) 0.7 0.0- 1.0 [facility]Automated blood neutrophil count 2020-01-15 08:19:00* Test Item Value Reference Range Interpretation Comments Neutrophils # (Auto) (test code = 751-8) 6.2 2.1-6.9 [facility] AllenBlood lymphocytes count (number/volume) 2020-01-15 08:19:00* Test Item Value Reference Range Interpretation Comments Lymphocytes # (Auto) (test code = 15464-2) 1.5 1.0-3.2 [facility] AllenBlood monocytes automated count (number/volume)2020-01-15 08:19:00* Test Item Value Reference Range Interpretation Comments Monocytes # (Auto) (test code = 742-7) 0.7 0.2-0.8 [facility] blood eosinophil count 2020-01-15 08:19:00* Test Item Value Reference Range Interpretation Comments Eosinophils # (Auto) (test code = 711-2) 0.6 0.0-0.4 [facility]Automated blood basophil count (count/volume)2020-01-15 08:19:00* Test Item Value Reference Range Interpretation Comments Basophils # (Auto) (test code = 704-7) 0.1 0.0-0.1 [facility] AllenFluoroscopic procedure less than one hour qhnkrpoj6187-97-96 08:19:00* Test Item Value Reference Range Interpretation Comments Absolute Immature Granulocyte (auto (laura t code = Absolute Immature Granulocyte (auto) 0.06 0-0.1 [facility] AllenProthrombin time (PT) in platelet poor plasma by coagulation qsfyc3142-51-85 08:19:00* Test Item Value Reference Range Interpretation Comments Prothrombin Time (test code = 5902-2) 13.0 11.9-14.5 [facility] AllenINR in Platelet poor plasma by Coagulation jklgm8255-46-91 08:19:00* Test Item Value Reference Range Interpretation Comments Prothromb Time International Ratio (test code = 6301-6) 0.93 Oral Anticoagulant Therapy INR Values:1. Low Intensity Therapy 1.5 - 2.02 . Moderate Intensity Therapy 2.0 - 3.03. High Intensity Therapy(1) 2.5 - 3. 54. High Intensity Therapy(2) 3.0 - 4.05. Panic Value INR > 5.0 [facility] AllenActivated partial thromboplastin time (aPTT) in platelet poor plasma by coagulation kgxop8703-95-69 08:19:00* Test Item Value Reference Range Interpretation Comments Activated Partial Thromboplast Time (test code = 12205-2) 29.1 23.8-35.5 [facility]er[facility] or plasma sodium measurement (moles/volume)2020-01-15 08:19:00* Test Item Value Reference Range Interpretation Comments Sodium Level (test code = 2951-2) 144 136-145 [facility] Hospitalerum or plasma potassium measurement (moles/volume)2020-01-15 08:19:00* Test Item Value Reference Range Interpretation Comments Potassium Level (test code = 2823-3) 3.8 3.5-5.1 [facility] Hospitalerum or plasma chloride measurement (moles/volume)2020-01-15 08:19:00* Test Item Value Reference Range Interpretation Comments Chloride Level (test code = 2075-0) 108 98-107 [facility] Hospitalerum or plasma carbon dioxide, total measurement (moles/volume)2020-01-15 08:19:00* Test Item Value Reference Range Interpretation Comments Carbon Dioxide Level (test code = 2028-9) 25 22-29 [facility] Hospitalerum or plasma anion dih5706-46-07 08:19:00* Test Item Value Reference Range Interpretation Comments Anion Gap (test code = 45625-0) 14.8 8-16 [facility] Hospitalerum or plasma urea nitrogen measurement (mass/volume)2020-01-15 08:19:00* Test Item Value Reference Range Interpretation Comments Blood Urea Nitrogen (test code = 3094-0) 8 7-26 [facility] Hospitalerum or plasma creatinine measurement (mass/volume)2020-01-15 08:19:00* Test Item Value Reference Range Interpretation Comments Creatinine (test code = 2160-0) 0.75 0.57-1.11 [facility] Hospitalerum or plasma urea nitrogen/creatinine mass ivtdd8856-04-20 08:19:00* Test Item Value Reference Range Interpretation Comments BUN/Creatinine Ratio (test code = 3097-3) 11 6-25 [facility] AllenEstimated glomerular filtration rate (GFR) ryygpqdxtsthl7115-99-98 08:19:00* Test Item Value Reference Range Interpretation Comments Estimat Glomerular Filtration Rate (test code = 322242679) > 60 >60 Ranges were taken from the National Kidney Disease Education Program and the [facility] literature.Reference ranges:60 or greater: Nrjgak07-72 ( for 3 consecutive months): Chronic kidney disease 15 or less: Kidney failureTexas Health AllenGlucose jeyjcdinksu5254-40-50 08:19:00* Test Item Value Reference Range Interpretation Comments Glucose Level (test code = OPG4474) 88 74-118 [facility]er[facility] or plasma calcium measurement (mass/volume)2020-01-15 08:19:00* Test Item Value Reference Range Interpretation Comments Calcium Level (test code = 04026-8) 9.2 8.4-10.2 [facility] Hospitalerum or plasma magnesium measurement (mass/volume)2020-01-15 08:19:00* Test Item Value Reference Range Interpretation Comments Magnesium Level (test code = 66541-3) 1.8 1.3-2.1 [facility] Hospitalerum or plasma total bilirubin measurement (mass/volume)2020-01-15 08:19:00* Test Item Value Reference Range Interpretation Comments Total Bilirubin (test code = 1975-2) 0.8 0.2-1.2 [facility] AllenFluoroscopic procedure less than one hour qldapwcs2320-69-42 08:19:00* Test Item Value Reference Range Interpretation Comments Aspartate Amino Transf (AST/SGOT) (test code = Aspartate Amino Transf (AST/SGOT)) 16 5-34 [facility] Hospitalerum or plasma alanine aminotransferase measurement (enzymatic activity/volume)2020-01-15 08:19:00* Test Item Value Reference Range Interpretation Comments Alanine Aminotransferase (ALT/SGPT) (test code = 1742-6) 11 0-55 [facility] Hospitalerum or plasma protein measurement (mass/volume)2020-01-15 08:19:00* Test Item Value Reference Range Interpretation Comments Total Protein (test code = 2885-2) 7.3 6.5-8.1 [facility] Hospitalerum or plasma albumin measurement (mass/volume)2020-01-15 08:19:00* Test Item Value Reference Range Interpretation Comments Albumin (test code = 1751-7) 3.5 3.5-5.0 [facility] AllenPlasma globulin measurement (mass/volume) 2020-01-15 08:19:00* Test Item Value Reference Range Interpretation Comments Globulin (test code = 84999-3) 3.8 2.3-3.5 [facility]er[facility] or plasma albumin/globulin mass vrruz5382-34-93 08:19:00* Test Item Value Reference Range Interpretation Comments Albumin/Globulin Ratio (test code = 1759-0) 0.9 0.8-2.0 [facility] Hospitalerum or plasma alkaline phosphatase measurement (enzymatic activity/volume)2020-01-15 08:19:00* Test Item Value Reference Range Interpretation Comments Alkaline Phosphatase (test code = 6768-6) 75 40-150 [facility]erum or plasma creatine kinase measurement (enzymatic activity/volume)2020-01-15 08:19:00* Test Item Value Reference Range Interpretation Comments Creatine Kinase (test code = 2157-6) 192 29-168 [facility] Hospitalerum or plasma creatine kinase MB measurement (mass/volume)2020-01-15 08:19:00* Test Item Value Reference Range Interpretation Comments Creatine Kinase MB (test code = 17224-5) 0.90 0-5.0 [facility] AllenTroponin I measurement by highly sensitive enzyme ryftveilboz5144-55-45 08:19:00* Test Item Value Reference Range Interpretation Comments Troponin I (test code = 40441-7) 0.004 0-0.300 [facility] AllenBlood leukocytes automated count (number/volume)2020-01-15 08:19:00* Test Item Value Reference Range Interpretation Comments White Blood Count (test code = 6690-2) 9.17 4.8-10.8 [facility] automated count (number/volume)2020-01-15 08:19:00* Test Item Value Reference Range Interpretation Comments Red Blood Count (test code = 789-8) 4.18 3.6-5.1 [facility]Blood hemoglobin measurement (moles/volume)2020-01-15 08:19:00* Test Item Value Reference Range Interpretation Comments Hemoglobin (test code = 66239-4) 10.9 12.0-16.0 [facility] AllenAutomated blood hematocrit (volume fraction)2020-01-15 08:19:00* Test Item Value Reference Range Interpretation Comments Hematocrit (test code = 4544-3) 34.6 34.2-44.1 [facility] AllenAutomated erythrocyte mean corpuscular kbvprx4208-11-90 08:19:00* Test Item Value Reference Range Interpretation Comments Mean Corpuscular Volume (test code = 787-2) 82.8 81-99 [facility] AllenAutomated erythrocyte mean corpuscular hemoglobin (mass per erythrocyte)2020-01-15 08:19:00* Test Item Value Reference Range Interpretation Comments Mean Corpuscular Hemoglobin (test code = 785-6) 26.1 28-32 [facility] AllenAutomated erythrocyte mean corpuscular hemoglobin concentration measurement (mass/volume)2020-01-15 08:19:00* Test Item Value Reference Range Interpretation Comments Mean Corpuscular Hemoglobin Concent (test code = 786-4) 31.5 31-35 [facility] AllenRDW XtaKj-Ger9299-47-23 08:19:00* Test Item Value Reference Range Interpretation Comments Red Cell Distribution Width (test code = 94209-7) 16.6 11.7 -14.4 [facility] AllenAutomated blood platelet count (count/volume)2020-01-15 08:19:00* Test Item Value Reference Range Interpretation Comments Platelet Count (test code = 777-3) 422 140-360 [facility] blood segmented neutrophil count as percentage of total hhfmzehzym0443-78-59 08:19:00* Test Item Value Reference Range Interpretation Comments Neutrophils (%) (Auto) (test code = 43792-2) 67.3 38.7-80.0 [facility] AllenAutomated blood lymphocyte count as percentage ot total cdjubrzkul0981-47-72 08:19:00* Test Item Value Reference Range Interpretation Comments Lymphocytes (%) (Auto) (test code = 736-9) 16.7 18.0-39.1 [facility]Auth[facility]ed [facility] monocyte count as percentage of total jxynutfaaw6450-77-50 08:19:00* Test Item Value Reference Range Interpretation Comments Monocytes (%) (Auto) (test code = 5905-5) 7.9 4.4-11.3 [facility] AllenAutomated blood eosinophil count as percentage of total jcgvtcyfqa9197-64-06 08:19:00* Test Item Value Reference Range Interpretation Comments Eosinophils (%) (Auto) (test code = 713-8) 6.1 0.0-6.0 [facility]Authigh[facility]ed blood basophil count as percentage of total uvdxmhwxqv5169-25-90 08:19:00* Test Item Value Reference Range Interpretation Comments Basophils (%) (Auto) (test code = 706-2) 1.3 0.0-1.0 [facility] AllenFluoroscopic procedure less than one hour nwlkjfds8066-67-38 08:19:00* Test Item Value Reference Range Interpretation Comments IM GRANULOCYTES % (test code = IM GRANULOCYTES %) 0.7 0.0- 1.0 [facility]Authigh[facility]ed blood neutrophil count 2020-01-15 08:19:00* Test Item Value Reference Range Interpretation Comments Neutrophils # (Auto) (test code = 751-8) 6.2 2.1-6.9 [facility] AllenBlood lymphocytes count (number/volume) 2020-01-15 08:19:00* Test Item Value Reference Range Interpretation Comments Lymphocytes # (Auto) (test code = 87819-6) 1.5 1.0-3.2 [facility] monocytes automated count (number/volume)2020-01-15 08:19:00* Test Item Value Reference Range Interpretation Comments Monocytes # (Auto) (test code = 742-7) 0.7 0.2-0.8 [facility]Automated blood eosinophil count 2020-01-15 08:19:00* Test Item Value Reference Range Interpretation Comments Eosinophils # (Auto) (test code = 711-2) 0.6 0.0-0.4 [facility] AllenAutomated blood basophil count (count/volume)2020-01-15 08:19:00* Test Item Value Reference Range Interpretation Comments Basophils # (Auto) (test code = 704-7) 0.1 0.0-0.1 [facility] AllenFluoroscopic procedure less than one hour hovjlksl0007-11-67 08:19:00* Test Item Value Reference Range Interpretation Comments Absolute Immature Granulocyte (auto (laura t code = Absolute Immature Granulocyte (auto) 0.06 0-0.1 [facility] AllenProthrombin time (PT) in platelet poor plasma by coagulation cfhjn4239-72-65 08:19:00* Test Item Value Reference Range Interpretation Comments Prothrombin Time (test code = 5902-2) 13.0 11.9-14.5 [facility] AllenINR in Platelet poor plasma by Coagulation ucywu3940-29-17 08:19:00* Test Item Value Reference Range Interpretation Comments Prothromb Time International Ratio (test code = 6301-6) 0.93 Oral Anticoagulant Therapy INR Values:1. Low Intensity Therapy 1.5 - 2.02 . Moderate Intensity Therapy 2.0 - 3.03. High Intensity Therapy(1) 2.5 - 3. 54. High Intensity Therapy(2) 3.0 - 4.05. Panic Value INR > 5.0 [facility] AllenActivated partial thromboplastin time (aPTT) in platelet poor plasma by coagulation lugsa2760-04-31 08:19:00* Test Item Value Reference Range Interpretation Comments Activated Partial Thromboplast Time (test code = 02815-0) 29.1 23.8-35.5 [facility] plasma sodium measurement (moles/volume)2020-01-15 08:19:00* Test Item Value Reference Range Interpretation Comments Sodium Level (test code = 2951-2) 144 136-145 [facility] Hospitaler[facility] or plasma potassium measurement (moles/volume)2020-01-15 08:19:00* Test Item Value Reference Range Interpretation Comments Potassium Level (test code = 2823-3) 3.8 3.5-5.1 [facility] Hospitalerum or plasma chloride measurement (moles/volume)2020-01-15 08:19:00* Test Item Value Reference Range Interpretation Comments Chloride Level (test code = 2075-0) 108 98-107 [facility] Hospitalerum or plasma carbon dioxide, total measurement (moles/volume)2020-01-15 08:19:00* Test Item Value Reference Range Interpretation Comments Carbon Dioxide Level (test code = 2028-9) 25 22-29 [facility] Hospitalerum or plasma anion dqh8173-11-68 08:19:00* Test Item Value Reference Range Interpretation Comments Anion Gap (test code = 50673-3) 14.8 8-16 [facility] Hospitalerum or plasma urea nitrogen measurement (mass/volume)2020-01-15 08:19:00* Test Item Value Reference Range Interpretation Comments Blood Urea Nitrogen (test code = 3094-0) 8 7-26 [facility] Hospitaler[facility] or plasma creatinine measurement (mass/volume)2020-01-15 08:19:00* Test Item Value Reference Range Interpretation Comments Creatinine (test code = 2160-0) 0.75 0.57-1.11 [facility] Hospitaler[facility] or plasma urea nitrogen/creatinine mass twohi1027-07-38 08:19:00* Test Item Value Reference Range Interpretation Comments BUN/Creatinine Ratio (test code = 3097-3) 11 6-25 [facility] AllenEstimated glomerular filtration rate (GFR) acfzvsdxxcaqn8971-70-44 08:19:00* Test Item Value Reference Range Interpretation Comments Estimat Glomerular Filtration Rate (test code = 279776315) > 60 >60 Ranges were taken from the National Kidney Disease Education Program and the [facility] literature.Reference ranges:60 or greater: Hkadwq53-28 ( for 3 consecutive months): Chronic kidney disease 15 or less: Kidney failureTexas Health AllenGlucose idlzepxjtkv6791-23-78 08:19:00* Test Item Value Reference Range Interpretation Comments Glucose Level (test code = QOA5524) 88 74-118 [facility] Hospitaler[facility] or plasma calcium measurement (mass/volume)2020-01-15 08:19:00* Test Item Value Reference Range Interpretation Comments Calcium Level (test code = 81804-1) 9.2 8.4-10.2 [facility] Hospitaler[facility] or plasma magnesium measurement (mass/volume)2020-01-15 08:19:00* Test Item Value Reference Range Interpretation Comments Magnesium Level (test code = 68530-2) 1.8 1.3-2.1 [facility] Hospitalerum or plasma total bilirubin measurement (mass/volume)2020-01-15 08:19:00* Test Item Value Reference Range Interpretation Comments Total Bilirubin (test code = 1975-2) 0.8 0.2-1.2 [facility] AllenFluoroscopic procedure less than one hour eoobfyem3190-20-16 08:19:00* Test Item Value Reference Range Interpretation Comments Aspartate Amino Transf (AST/SGOT) (test code = Aspartate Amino Transf (AST/SGOT)) 16 5-34 [facility]er[facility] or plasma alanine aminotransferase measurement (enzymatic activity/volume)2020-01-15 08:19:00* Test Item Value Reference Range Interpretation Comments Alanine Aminotransferase (ALT/SGPT) (test code = 1742-6) 11 0-55 [facility]er[facility] or plasma protein measurement (mass/volume)2020-01-15 08:19:00* Test Item Value Reference Range Interpretation Comments Total Protein (test code = 2885-2) 7.3 6.5-8.1 [facility]er[facility] or plasma albumin measurement (mass/volume)2020-01-15 08:19:00* Test Item Value Reference Range Interpretation Comments Albumin (test code = 1751-7) 3.5 3.5-5.0 [facility] AllenPlasma globulin measurement (mass/volume) 2020-01-15 08:19:00* Test Item Value Reference Range Interpretation Comments Globulin (test code = 00849-0) 3.8 2.3-3.5 [facility]er[facility] or plasma albumin/globulin mass lcfrk8356-89-12 08:19:00* Test Item Value Reference Range Interpretation Comments Albumin/Globulin Ratio (test code = 1759-0) 0.9 0.8-2.0 [facility]er[facility] or plasma alkaline phosphatase measurement (enzymatic activity/volume)2020-01-15 08:19:00* Test Item Value Reference Range Interpretation Comments Alkaline Phosphatase (test code = 6768-6) 75 40-150 [facility] Hospitaler[facility] or plasma creatine kinase measurement (enzymatic activity/volume)2020-01-15 08:19:00* Test Item Value Reference Range Interpretation Comments Creatine Kinase (test code = 2157-6) 192 29-168 [facility] Hospitaler[facility] or plasma creatine kinase MB measurement (mass/volume)2020-01-15 08:19:00* Test Item Value Reference Range Interpretation Comments Creatine Kinase MB (test code = 76364-3) 0.90 0-5.0 [facility] AllenTroponin I measurement by highly sensitive enzyme ulpyrfsnhlh2167-70-93 08:19:00* Test Item Value Reference Range Interpretation Comments Troponin I (test code = 94559-4) 0.004 0-0.300 [facility] AllenProthrombin time (PT) in platelet poor plasma by coagulation okmjq6810-55-40 08:19:00* Test Item Value Reference Range Interpretation Comments Prothrombin Time (test code = 5902-2) 13.0 11.9-14.5 [facility] AllenINR in Platelet poor plasma by Coagulation eqemn8541-34-42 08:19:00* Test Item Value Reference Range Interpretation Comments Prothromb Time International Ratio (test code = 6301-6) 0.93 Oral Anticoagulant Therapy INR Values:1. Low Intensity Therapy 1.5 - 2.02 . Moderate Intensity Therapy 2.0 - 3.03. High Intensity Therapy(1) 2.5 - 3. 54. High Intensity Therapy(2) 3.0 - 4.05. Panic Value INR > 5.0 [facility] AllenActivated partial thromboplastin time (aPTT) in platelet poor plasma by coagulation fokwy1986-53-77 08:19:00* Test Item Value Reference Range Interpretation Comments Activated Partial Thromboplast Time (test code = 18026-3) 29.1 23.8-35.5 [facility]er[facility] or plasma magnesium measurement (mass/volume)2020-01-15 08:19:00* Test Item Value Reference Range Interpretation Comments Magnesium Level (test code = 74669-1) 1.8 1.3-2.1 [facility] AllenBlood Rfgsqxh3464-16-73 09:20:00* Test Item Value Reference Range Interpretation Comments Blood Culture (test code = 52801731) NO GROWTH AFTER 72 HOURS [facility] AllenDifferential Total Cells Counted 2019-11-08 09:04:00* Test Item Value Reference Range Interpretation Comments Differential Total Cells Counted (test code = Differen tial Total Cells Counted) 100 [facility] AllenNeutrophils % (Manual)2019-11-08 09:04:00 * Test Item Value Reference Range Interpretation Comments Neutrophils % (Manual) (test code = 30556-4) 94 40-74 H [facility] AllenLymphocytes % (Manual)2019-11-08 09:04:00 * Test Item Value Reference Range Interpretation Comments Lymphocytes % (Manual) (test code = 737-7) 4 19-48 L [facility] AllenMonocytes % (Manual)2019-11-08 09:04:00* Test Item Value Reference Range Interpretation Comments Monocytes % (Manual) (test code = 744-3) 2 3.4-9.0 L [facility] or plasma folate measurement (mass/volume)2019-11-08 07:00:00* Test Item Value Reference Range Interpretation Comments Folate (test code = 2284-8) 5.4 ng/mL >3.0 A serum folate concentration of less than 3.1 ng/mL isconsidered to represent cl inical deficiency.Performed at: [facility] [id number] Director: Polo Martinez MD, Phone: [phone] Health AllenPercent Reticulocyte Lcafo1762-47-78 06:14:00* Test Item Value Reference Range Interpretation Comments Percent Reticulocyte Count (test code = 11683-4) 1.1 0.8-2 .2 [facility] or plasma folate measurement (mass/volume)2019-11-08 06:00:00* Test Item Value Reference Range Interpretation Comments Folate (test code = 2284-8) 5.4 >3.0 A serum folate concentration of less than 3.1 ng/mL isconsidered to represent cl inical deficiency.Performed at: [facility] [id number] Director: Polo Martinez MD, Phone: [phone] Health [facility] Hospitalerum or plasma folate measurement (mass/volume) 2019-11-08 06:00:00* Test Item Value Reference Range Interpretation Comments Folate (test code = 2284-8) 5.4 >3.0 A serum folate concentration of less than 3.1 ng/mL isconsidered to represent cl inical deficiency.Performed at: - [facility] [id number] Director: Polo Martinez MD, Phone: [phone] [facility] Hospitalerum or plasma folate measurement (mass/volume) 2019-11-08 06:00:00* Test Item Value Reference Range Interpretation Comments Folate (test code = 2284-8) 5.4 >3.0 A serum folate concentration of less than 3.1 ng/mL isconsidered to represent cl inical deficiency.Performed at: - [facility] [id number] Director: Polo Martinez MD, Phone: [phone] Health AllenVitamin B12 Mrhnl6413-71-39 05:41:00* Test Item Value Reference Range Interpretation Comments Vitamin B12 Level (test code = 95037-4) 583 213-816 [facility] AllenFerritin2020-03-16 05:29:00* Test Item Value Reference Range Interpretation Comments Ferritin (test code = 2276-4) 14.34 4.63-204.00 [facility] AllenIron Uluuc5979-70-31 05:13:00* Test Item Value Reference Range Interpretation Comments Iron Level (test code = 2498-4) 14 50-170 L [facility] AllenTotal Iron Binding Obeumapt7248-05-40 05:13:00* Test Item Value Reference Range Interpretation Comments Total Iron Binding Capacity (test code = 2500-7) 423 261-4 78 [facility] AllenPercent Iron Tbpencbfme7924-27-44 05:13:00* Test Item Value Reference Range Interpretation Comments Percent Iron Saturation (test code = 2502-3) 3 15-50 L [facility] AllenTransferrin2020-03-16 05:13:00* Test Item Value Reference Range Interpretation Comments Transferrin (test code = 3034-6) 302 180-382 [facility] AllenFluoroscopic procedure less than one hour ropjdfyi9534-30-42 04:34:00* Test Item Value Reference Range Interpretation Comments Differential Total Cells Counted (test code = Gorge herrl Total Cells Counted) 100 [facility] AllenManual blood neutrophils/100 leukocytes 2019-11-08 04:34:00* Test Item Value Reference Range Interpretation Comments Neutrophils % (Manual) (test code = 31762-8) 94 % 40-74 [facility] blood lymphocytes/100 leukocytes 2019-11-08 04:34:00* Test Item Value Reference Range Interpretation Comments Lymphocytes % (Manual) (test code = 737-7) 4 % 19-48 [facility] blood monocytes/100 leukocytes 2019-11-08 04:34:00* Test Item Value Reference Range Interpretation Comments Monocytes % (Manual) (test code = 744-3) 2 % 3.4-9.0 [facility] AllenAutomated reticulocyte count as percentage of total znmyuiowgrmw9960-43-30 04:34:00* Test Item Value Reference Range Interpretation Comments Percent Reticulocyte Count (test code = 93486-5) 1.1 % 0.8-2 .2 [facility]er[facility] or plasma iron measurement (mass/volume)2019-11-08 04:34:00* Test Item Value Reference Range Interpretation Comments Iron Level (test code = 2498-4) 14 ug/dL 50-170 [facility]er[facility] or plasma iron binding capacity measurement (mass/volume)2019-11-08 04:34:00* Test Item Value Reference Range Interpretation Comments Total Iron Binding Capacity (test code = 2500-7) 423 ug/dL 261-4 78 [facility] Hospitalerum or plasma iron saturation measurement (mass fraction)2019-11-08 04:34:00* Test Item Value Reference Range Interpretation Comments Percent Iron Saturation (test code = 2502-3) 3 % 15-50 [facility] Hospitalerum or plasma transferrin measurement (mass/volume)2019-11-08 04:34:00* Test Item Value Reference Range Interpretation Comments Transferrin (test code = 3034-6) 302 mg/dL 180-382 [facility]er[facility] or plasma ferritin measurement (mass/volume)2019-11-08 04:34:00* Test Item Value Reference Range Interpretation Comments Ferritin (test code = 2276-4) 14.34 ng/mL 4.63-204.00 [facility] AllenBlood cobalamin (vitamin B12) measurement (mass/volume)2019-11-08 04:34:00* Test Item Value Reference Range Interpretation Comments Vitamin B12 Level (test code = 31220-8) 583 pg/mL 213-816 [facility] AllenWhite Blood Zgxmw6426-34-44 04:27:00* Test Item Value Reference Range Interpretation Comments White Blood Count (test code = 6690-2) 9.71 4.8-10.8 [facility] AllenRed Blood Piaxq0777-99-51 04:27:00* Test Item Value Reference Range Interpretation Comments Red Blood Count (test code = 789-8) 4.02 3.6-5.1 [facility] AllenHemoglobin2020-03-16 04:27:00* Test Item Value Reference Range Interpretation Comments Hemoglobin (test code = 55166-1) 10.8 12.0-16.0 L [facility] AllenHematocrit2020-03-16 04:27:00* Test Item Value Reference Range Interpretation Comments Hematocrit (test code = 4544-3) 33.7 34.2-44.1 L [facility] AllenMean Corpuscular Yonbpb7213-24-58 04:27:00* Test Item Value Reference Range Interpretation Comments Mean Corpuscular Volume (test code = 787-2) 83.8 81-99 [facility] AllenMean Corpuscular Brqyyyzuvh9882-69-00 04:27:00* Test Item Value Reference Range Interpretation Comments Mean Corpuscular Hemoglobin (test code = 785-6) 26.9 28-32 L [facility] AllenMean Corpuscular Hemoglobin Concent 2019-11-08 04:27:00* Test Item Value Reference Range Interpretation Comments Mean Corpuscular Hemoglobin Concent (test code = 786-4) 32.0 31-35 [facility] AllenRed Cell Distribution Tczfl8494-39-34 04:27:00* Test Item Value Reference Range Interpretation Comments Red Cell Distribution Width (test code = 64206-8) 14.3 11.7 -14.4 [facility] AllenPlatelet Dcwjv4204-14-58 04:27:00* Test Item Value Reference Range Interpretation Comments Platelet Count (test code = 777-3) 497 140-360 H [facility] AllenNeutrophils (%) (Auto)2019-11-08 04:27:00 * Test Item Value Reference Range Interpretation Comments Neutrophils (%) (Auto) (test code = 73069-1) 91.0 38.7-80.0 H [facility] AllenLymphocytes (%) (Auto)2019-11-08 04:27:00 * Test Item Value Reference Range Interpretation Comments Lymphocytes (%) (Auto) (test code = 736-9) 5.3 18.0-39.1 L [facility] AllenMonocytes (%) (Auto)2019-11-08 04:27:00* Test Item Value Reference Range Interpretation Comments Monocytes (%) (Auto) (test code = 5905-5) 2.9 4.4-11.3 L [facility] AllenEosinophils (%) (Auto)2019-11-08 04:27:00 * Test Item Value Reference Range Interpretation Comments Eosinophils (%) (Auto) (test code = 713-8) 0.0 0.0-6.0 [facility] AllenBasophils (%) (Auto)2019-11-08 04:27:00* Test Item Value Reference Range Interpretation Comments Basophils (%) (Auto) (test code = 706-2) 0.1 0.0-1.0 [facility] AllenIM GRANULOCYTES %2019-11-08 04:27:00* Test Item Value Reference Range Interpretation Comments IM GRANULOCYTES % (test code = IM GRANULOCYTES %) 0.7 0.0- 1.0 [facility] AllenNeutrophils # (Auto)2019-11-08 04:27:00* Test Item Value Reference Range Interpretation Comments Neutrophils # (Auto) (test code = 751-8) 8.8 2.1-6.9 H [facility] AllenLymphocytes # (Auto)2019-11-08 04:27:00* Test Item Value Reference Range Interpretation Comments Lymphocytes # (Auto) (test code = 59671-6) 0.5 1.0-3.2 L [facility] AllenMonocytes # (Auto)2019-11-08 04:27:00* Test Item Value Reference Range Interpretation Comments Monocytes # (Auto) (test code = 742-7) 0.3 0.2-0.8 [facility] AllenEosinophils # (Auto)2019-11-08 04:27:00* Test Item Value Reference Range Interpretation Comments Eosinophils # (Auto) (test code = 711-2) 0.0 0.0-0.4 [facility] AllenBasophils # (Auto)2019-11-08 04:27:00* Test Item Value Reference Range Interpretation Comments Basophils # (Auto) (test code = 704-7) 0.0 0.0-0.1 [facility] AllenAbsolute Immature Granulocyte (auto 2019-11-08 04:27:00* Test Item Value Reference Range Interpretation Comments Absolute Immature Granulocyte (auto (laura t code = Absolute Immature Granulocyte (auto) 0.07 0-0.1 [facility] Hospitalodium Fumuz6332-75-11 04:25:00* Test Item Value Reference Range Interpretation Comments Sodium Level (test code = 2951-2) 138 136-145 [facility] AllenPotassium Tjeyt2660-81-34 04:25:00* Test Item Value Reference Range Interpretation Comments Potassium Level (test code = 2823-3) 4.1 3.5-5.1 [facility] AllenChloride Sjuhj2591-89-42 04:25:00* Test Item Value Reference Range Interpretation Comments Chloride Level (test code = 2075-0) 105 98-107 [facility] AllenCarbon Dioxide Pimiv8167-35-55 04:25:00* Test Item Value Reference Range Interpretation Comments Carbon Dioxide Level (test code = 2028-9) 27 22- [facility] AllenAnion Ybx4770-24-91 04:25:00* Test Item Value Reference Range Interpretation Comments Anion Gap (test code = 84343-8) 10.1 8-16 [facility] AllenBlood Urea Vkavoton3848-33-02 04:25:00* Test Item Value Reference Range Interpretation Comments Blood Urea Nitrogen (test code = 3094-0) 11 7-26 [facility] AllenCreatinine2020-03-16 04:25:00* Test Item Value Reference Range Interpretation Comments Creatinine (test code = 2160-0) 0.66 0.57-1.11 [facility] AllenBUN/Creatinine Fozan3181-19-32 04:25:00* Test Item Value Reference Range Interpretation Comments BUN/Creatinine Ratio (test code = 3097-3) 17 6- [facility] AllenEstimat Glomerular Filtration Rate 2019-11-08 04:25:00* Test Item Value Reference Range Interpretation Comments Estimat Glomerular Filtration Rate (test code = 459531465) > 60 >60 Ranges were taken from the National Kidney Disease Education Program and the [facility] literature.Reference ranges:60 or greater: Hdrcrx77-26 ( for 3 consecutive months): Chronic kidney disease 15 or less: Kidney failureTexas Health AllenGlucose Nsoof9277-36-83 04:25:00* Test Item Value Reference Range Interpretation Comments Glucose Level (test code = PWF7754) 144 74-118 H [facility] AllenCalcium Zozak6043-98-34 04:25:00* Test Item Value Reference Range Interpretation Comments Calcium Level (test code = 03701-4) 8.9 8.4-10.2 [facility] AllenFluoroscopic procedure less than one hour eccgxzsp0744-65-82 03:34:00* Test Item Value Reference Range Interpretation Comments Differential Total Cells Counted (test code = Differebenezer tial Total Cells Counted) 100 [facility] AllenManual blood neutrophils/100 leukocytes 2019-11-08 03:34:00* Test Item Value Reference Range Interpretation Comments Neutrophils % (Manual) (test code = 88485-0) 94 40-74 [facility] AllenManual blood lymphocytes/100 leukocytes 2019-11-08 03:34:00* Test Item Value Reference Range Interpretation Comments Lymphocytes % (Manual) (test code = 737-7) 4 19-48 [facility] AllenManual blood monocytes/100 leukocytes 2019-11-08 03:34:00* Test Item Value Reference Range Interpretation Comments Monocytes % (Manual) (test code = 744-3) 2 3.4-9.0 [facility] AllenAutomated reticulocyte count as percentage of total tmvzykxjtqym1763-24-31 03:34:00* Test Item Value Reference Range Interpretation Comments Percent Reticulocyte Count (test code = 04132-0) 1.1 0.8-2 .2 [facility] iron measurement (mass/volume)2019-11-08 03:34:00* Test Item Value Reference Range Interpretation Comments Iron Level (test code = 2498-4) 14 50-170 [facility] iron binding capacity measurement (mass/volume)2019-11-08 03:34:00* Test Item Value Reference Range Interpretation Comments Total Iron Binding Capacity (test code = 2500-7) 423 261-4 78 [facility] iron saturation measurement (mass fraction)2019-11-08 03:34:00* Test Item Value Reference Range Interpretation Comments Percent Iron Saturation (test code = 2502-3) 3 15-50 [facility] transferrin measurement (mass/volume)2019-11-08 03:34:00* Test Item Value Reference Range Interpretation Comments Transferrin (test code = 3034-6) 302 180-382 [facility] ferritin measurement (mass/volume)2019-11-08 03:34:00* Test Item Value Reference Range Interpretation Comments Ferritin (test code = 2276-4) 14.34 4.63-204.00 [facility] (mass/volume)2019-11-08 03:34:00* Test Item Value Reference Range Interpretation Comments Vitamin B12 Level (test code = 32837-2) 583 483-022 [facility] less than one hour eztmdtpm6697-45-69 03:34:00* Test Item Value Reference Range Interpretation Comments Differential Total Cells Counted (test code = Gorge tial Total Cells Counted) 100 [facility] neutrophils/100 leukocytes 2019-11-08 03:34:00* Test Item Value Reference Range Interpretation Comments Neutrophils % (Manual) (test code = 49861-3) 94 40-74 [facility] leukocytes 2019-11-08 03:34:00* Test Item Value Reference Range Interpretation Comments Lymphocytes % (Manual) (test code = 737-7) 4 19-48 [facility] blood monocytes/100 leukocytes 2019-11-08 03:34:00* Test Item Value Reference Range Interpretation Comments Monocytes % (Manual) (test code = 744-3) 2 3.4-9.0 [facility] reticulocyte count as percentage of total tkfumsdkuxpe4846-47-62 03:34:00* Test Item Value Reference Range Interpretation Comments Percent Reticulocyte Count (test code = 33459-3) 1.1 0.8-2 .2 [facility] iron measurement (mass/volume)2019-11-08 03:34:00* Test Item Value Reference Range Interpretation Comments Iron Level (test code = 2498-4) 14 50-170 [facility] iron binding capacity measurement (mass/volume)2019-11-08 03:34:00* Test Item Value Reference Range Interpretation Comments Total Iron Binding Capacity (test code = 2500-7) 423 261-4 78 [facility] iron saturation measurement (mass fraction)2019-11-08 03:34:00* Test Item Value Reference Range Interpretation Comments Percent Iron Saturation (test code = 2502-3) 3 15-50 [facility] plasma transferrin measurement (mass/volume)2019-11-08 03:34:00* Test Item Value Reference Range Interpretation Comments Transferrin (test code = 3034-6) 302 180-382 [facility] ferritin measurement (mass/volume)2019-11-08 03:34:00* Test Item Value Reference Range Interpretation Comments Ferritin (test code = 2276-4) 14.34 4.63-204.00 [facility] (vitamin B12) measurement (mass/volume)2019-11-08 03:34:00* Test Item Value Reference Range Interpretation Comments Vitamin B12 Level (test code = 78751-5) 583 213-816 [facility] less than one hour keutprys3199-40-65 03:34:00* Test Item Value Reference Range Interpretation Comments Differential Total Cells Counted (test code = Differebenezer tial Total Cells Counted) 100 [facility] blood neutrophils/100 leukocytes 2019-11-08 03:34:00* Test Item Value Reference Range Interpretation Comments Neutrophils % (Manual) (test code = 90893-4) 94 40-74 [facility] blood lymphocytes/100 leukocytes 2019-11-08 03:34:00* Test Item Value Reference Range Interpretation Comments Lymphocytes % (Manual) (test code = 737-7) 4 19-48 [facility] blood monocytes/100 leukocytes 2019-11-08 03:34:00* Test Item Value Reference Range Interpretation Comments Monocytes % (Manual) (test code = 744-3) 2 3.4-9.0 [facility] reticulocyte count as percentage of total inhvkiionlpl3985-53-41 03:34:00* Test Item Value Reference Range Interpretation Comments Percent Reticulocyte Count (test code = 28534-4) 1.1 0.8-2 .2 [facility] iron measurement (mass/volume)2019-11-08 03:34:00* Test Item Value Reference Range Interpretation Comments Iron Level (test code = 2498-4) 14 50-170 [facility] iron binding capacity measurement (mass/volume)2019-11-08 03:34:00* Test Item Value Reference Range Interpretation Comments Total Iron Binding Capacity (test code = 2500-7) 423 261-4 78 [facility] iron saturation measurement (mass fraction)2019-11-08 03:34:00* Test Item Value Reference Range Interpretation Comments Percent Iron Saturation (test code = 2502-3) 3 15-50 [facility] plasma transferrin measurement (mass/volume)2019-11-08 03:34:00* Test Item Value Reference Range Interpretation Comments Transferrin (test code = 3034-6) 302 180-382 [facility] plasma ferritin measurement (mass/volume)2019-11-08 03:34:00* Test Item Value Reference Range Interpretation Comments Ferritin (test code = 2276-4) 14.34 4.63-204.00 [facility] (vitamin B12) measurement (mass/volume)2019-11-08 03:34:00* Test Item Value Reference Range Interpretation Comments Vitamin B12 Level (test code = 75794-8) 583 213816 [facility] LAIIN0857-65-78 07:30:00 [place] [address] Patient Name: MAVERICK ANN MR #: [id number] : 1960 Age/Sex: 59/F Req #: [id number] Adm Physician: MAZIN TELLO MD Ordered by: LEO WEAVER [facility] [employer] Report #: [id number] Location: MED/SURG Room/Bed: [facility] Procedure: [id number] DX/CH EST 2 VIEWS Exam Date: 11/07/19 Exam Time: 0640 REPORT STATUS: Signed EXAMINATION: CHEST 2 VIEWS INDICATION: Shortness of breath, cough f/u on multifo kareen aspiration bronchitis [id number] Y COMPARISON: CT chest 11/05/2019, chest x-ray [...] MD on 7:36 AM Dictated By: MADDIE ANDEROSN MD 5 Transcribed By: AMANDA on 11/07/19735 COPY TO: LEO WEAVER NP Phosphorus vwliecyzptk5145-45-43 06:10:00* Test Item Value Reference Range Interpretation Comments Phosphorus Level (test code = QND7752) 3.4 mg/dL 2.3-4.7 [facility] Hlflt6035-04-00 06:00:00* Test Item Value Reference Range Interpretation Comments Phosphorus Level (test code = FTM2686) 3.4 2.3-4.7 [facility] Ybrll0509-38-68 06:00:00* Test Item Value Reference Range Interpretation Comments Magnesium Level (test code = 09546-1) 1.9 1.3-2.1 [facility] rinrfqpcpvk3798-58-26 05:10:00 * Test Item Value Reference Range Interpretation Comments Phosphorus Level (test code = BFU7277) 3.4 2.3-4.7 [facility] muurrlrgbbi6342-14-46 05:10:00 * Test Item Value Reference Range Interpretation Comments Phosphorus Level (test code = SDL3501) 3.4 2.3-4.7 [facility] hqyppusuqyo1241-33-75 05:10:00 * Test Item Value Reference Range Interpretation Comments Phosphorus Level (test code = IGM4175) 3.4 2.3-4.7 [facility] procedure less than one hour bwmenham5714-73-96 03:46:00* Test Item Value Reference Range Interpretation Comments Chlamydia pneumoniae DNA (PCR) (test code = Chlamydia pneumoniae DNA (PCR)) NEGATIVE NEGATIVE Test performed at [address] [address] xvjur4221-39-32 03:46:00* Test Item Value Reference Range Interpretation Comments Influenza Type A (RT-PCR) (test code = 455879425) NEGATIVE NEGA TIVE Test performed at [address] [address]RESULTS [facility] procedure less than one hour oigqbyxm1768-78-88 03:46:00* Test Item Value Reference Range Interpretation Comments Mycoplasma pneumoniae (PCR) (test code = Mycoplasma pneumoni ae (PCR)) NEGATIVE NEGATIVE [facility] gnkwl5831-41-27 03:46:00* Test Item Value Reference Range Interpretation Comments Influenza Type B (RT-PCR) (test code = 120443020) NEGATIVE NEGA TIVE Test performed at [address] [address]RESULTS [facility] xkwlt6563-97-54 03:46:00* Test Item Value Reference Range Interpretation Comments Respiratory Syncytial Virus (PCR) (test code = 460408150) NEGATIVE NEGATIVE Test performed at [address] [address]RESULTS [facility] tfbqp7509-48-58 03:46:00* Test Item Value Reference Range Interpretation Comments Bordetella pertussis DNA (PCR) (test code = 954724356) NEGATIVE NEGATIVE Test performed at [address] [address]RESULTS [facility] clsjw0405-06-32 03:46:00* Test Item Value Reference Range Interpretation Comments Parainfluenza Type 1 (PCR) (test code = 979672815) NEGATIVE NEG ATIVE Test performed at [address] [address]RESULTS [facility] uszaw2768-62-21 03:46:00* Test Item Value Reference Range Interpretation Comments Parainfluenza Type 2 (PCR) (test code = 312495654) NEGATIVE NEG ATIVE Test performed at [address] [address]RESULTS [facility] hsiai5180-50-69 03:46:00* Test Item Value Reference Range Interpretation Comments Parainfluenza Type 3 (PCR) (test code = 217039043) NEGATIVE NEG ATIVE Test performed at [address] [address]RESULTS [facility] procedure less than one hour xoklzkej2066-72-69 03:46:00* Test Item Value Reference Range Interpretation Comments Parainfluenza Type 4 (PCR) (test code = Parainfluenza Type 4 (PCR)) NEGATIVE NEGATIVE Test performed at [address] [address]RESULTS [facility] clhio1135-17-14 03:46:00* Test Item Value Reference Range Interpretation Comments Rhinovirus (PCR) (test code = 452155569) NEGATIVE NEGATIVE Test performed at [address] [address]RESULTS [facility] jbawc9499-97-10 03:46:00* Test Item Value Reference Range Interpretation Comments Human Metapneumovirus (PCR) (test code = 531952314) NEGATIVE NE GATIVE Test performed at [address] [address]RESULTS [facility] BE[facility] oqfzk3012-92-15 03:46:00* Test Item Value Reference Range Interpretation Comments Adenovirus (PCR) (test code = 058591434) NEGATIVE NEGATIVE Test performed at [address] [address]RESULTS [facility] procedure less than one hour wxrzwqmu0576-34-14 03:46:00* Test Item Value Reference Range Interpretation Comments Coronavirus Type 229E (PCR) (test code = Coronavirus Type 22 9E (PCR)) NEGATIVE NEGATIVE Test performed at [address] [address]RESULTS [facility] BEEN [facility] procedure less than one hour jhxsgryc0051-74-48 03:46:00* Test Item Value Reference Range Interpretation Comments Coronavirus Type HKU1 (PCR) (test code = Coronavirus Type HK U1 (PCR)) NEGATIVE NEGATIVE Test performed at [address] [address]RESULTS [facility] BEEN [facility] procedure less than one hour wzcudjjf7871-46-95 03:46:00* Test Item Value Reference Range Interpretation Comments Coronavirus Type NL63 (PCR) (test code = Coronavirus Type NL 63 (PCR)) NEGATIVE NEGATIVE Test performed at [address] [address]RESULTS [facility] BEEN [facility] procedure less than one hour ekvjkegs8696-33-65 03:46:00* Test Item Value Reference Range Interpretation Comments Coronavirus Type OC43 (PCR) (test code = Coronavirus Type OC 43 (PCR)) NEGATIVE NEGATIVE Test performed at [address] [address]RESULTS [facility] BEEN [facility] procedure less than one hour xbykhsom9273-89-50 02:46:00* Test Item Value Reference Range Interpretation Comments Chlamydia pneumoniae DNA (PCR) (test code = Chlamydia pneumoniae DNA (PCR)) NEGATIVE NEGATIVE Test performed at [address] [address]RESULTS [facility] cqcox8506-19-28 02:46:00* Test Item Value Reference Range Interpretation Comments Influenza Type A (RT-PCR) (test code = 893606456) NEGATIVE NEGA TIVE Test performed at [address] [address]RESULTS [facility] BEEN [facility]Flu[facility] procedure less than one hour qtnooxee1383-29-41 02:46:00* Test Item Value Reference Range Interpretation Comments Mycoplasma pneumoniae (PCR) (test code = Mycoplasma pneumoni ae (PCR)) NEGATIVE NEGATIVE [facility] nhbxz4758-75-62 02:46:00* Test Item Value Reference Range Interpretation Comments Influenza Type B (RT-PCR) (test code = 059488270) NEGATIVE NEGA TIVE Test performed at [address] [address]RESULTS [facility] BE[facility] fxthu3722-42-22 02:46:00* Test Item Value Reference Range Interpretation Comments Respiratory Syncytial Virus (PCR) (test code = 583495593) NEGATIVE NEGATIVE Test performed at [address] [address]RESULTS [facility] BE[facility] qyuub3160-86-22 02:46:00* Test Item Value Reference Range Interpretation Comments Bordetella pertussis DNA (PCR) (test code = 640873308) NEGATIVE NEGATIVE Test performed at [address] [address]RESULTS [facility] BE[facility] wfdne2113-11-60 02:46:00* Test Item Value Reference Range Interpretation Comments Parainfluenza Type 1 (PCR) (test code = 233103372) NEGATIVE NEG ATIVE Test performed at [address] [address]RESULTS [facility] BEEN [facility] yohmh1714-65-93 02:46:00* Test Item Value Reference Range Interpretation Comments Parainfluenza Type 2 (PCR) (test code = 442053819) NEGATIVE NEG ATIVE Test performed at [address] [address]RESULTS [facility] BEEN [facility] huaaf0608-53-99 02:46:00* Test Item Value Reference Range Interpretation Comments Parainfluenza Type 3 (PCR) (test code = 455153198) NEGATIVE NEG ATIVE Test performed at [address] [address]RESULTS [facility] BEEN [facility]Flu[facility] procedure less than one hour ifutagws7192-18-68 02:46:00* Test Item Value Reference Range Interpretation Comments Parainfluenza Type 4 (PCR) (test code = Parainfluenza Type 4 (PCR)) NEGATIVE NEGATIVE Test performed at [address] [address]RESULTS [facility] BEEN [facility] slnkv8193-36-16 02:46:00* Test Item Value Reference Range Interpretation Comments Rhinovirus (PCR) (test code = 406455199) NEGATIVE NEGATIVE Test performed at [address] [address]RESULTS [facility] BEEN [facility] gqpok1876-75-03 02:46:00* Test Item Value Reference Range Interpretation Comments Human Metapneumovirus (PCR) (test code = 992711709) NEGATIVE NE GATIVE Test performed at [address] [address]RESULTS [facility] BEEN [facility] mdezi9438-79-11 02:46:00* Test Item Value Reference Range Interpretation Comments Adenovirus (PCR) (test code = 940800160) NEGATIVE NEGATIVE Test performed at [address] [address]RESULTS HAVE BEEN [facility] procedure less than one hour ihymwpid5418-22-93 02:46:00* Test Item Value Reference Range Interpretation Comments Coronavirus Type 229E (PCR) (test code = Coronavirus Type 22 9E (PCR)) NEGATIVE NEGATIVE Test performed at [address] [address]RESULTS HAVE BEEN [facility] procedure less than one hour cfvzozpn9052-92-96 02:46:00* Test Item Value Reference Range Interpretation Comments Coronavirus Type HKU1 (PCR) (test code = Coronavirus Type HK U1 (PCR)) NEGATIVE NEGATIVE Test performed at [address] [address]RESULTS HAVE BEEN [facility]Flu[facility] procedure less than one hour krjwpxys1822-46-24 02:46:00* Test Item Value Reference Range Interpretation Comments Coronavirus Type NL63 (PCR) (test code = Coronavirus Type NL 63 (PCR)) NEGATIVE NEGATIVE Test performed at [address] [address]RESULTS HAVE BEEN [facility]Flu[facility] procedure less than one hour lctevyvi0869-41-47 02:46:00* Test Item Value Reference Range Interpretation Comments Coronavirus Type OC43 (PCR) (test code = Coronavirus Type OC 43 (PCR)) NEGATIVE NEGATIVE Test performed at [address] [address]RESULTS HAVE BEEN [facility] procedure less than one hour dthxijpa2537-73-96 02:46:00* Test Item Value Reference Range Interpretation Comments Chlamydia pneumoniae DNA (PCR) (test code = Chlamydia pneumoniae DNA (PCR)) NEGATIVE NEGATIVE Test performed at [address] [address]RESULTS [facility] BEEN [facility] oyyjq8681-85-19 02:46:00* Test Item Value Reference Range Interpretation Comments Influenza Type A (RT-PCR) (test code = 213671903) NEGATIVE NEGA TIVE Test performed at [address] [address]RESULTS HAVE BEEN [facility]Flu[facility] procedure less than one hour fdlmfspz4863-02-10 02:46:00* Test Item Value Reference Range Interpretation Comments Mycoplasma pneumoniae (PCR) (test code = Mycoplasma pneumoni ae (PCR)) NEGATIVE NEGATIVE [facility] dosjw6729-73-48 02:46:00* Test Item Value Reference Range Interpretation Comments Influenza Type B (RT-PCR) (test code = 745612876) NEGATIVE NEGA TIVE Test performed at [address] [address]RESULTS HAVE BEEN [facility] jjutq4649-55-00 02:46:00* Test Item Value Reference Range Interpretation Comments Respiratory Syncytial Virus (PCR) (test code = 337635035) NEGATIVE NEGATIVE Test performed at [address] [address]RESULTS [facility] BEEN [facility] niiyv7751-78-57 02:46:00* Test Item Value Reference Range Interpretation Comments Bordetella pertussis DNA (PCR) (test code = 697616434) NEGATIVE NEGATIVE Test performed at [address] [address]RESULTS HAVE BEEN [facility] bpnlh2524-88-66 02:46:00* Test Item Value Reference Range Interpretation Comments Parainfluenza Type 1 (PCR) (test code = 613430736) NEGATIVE NEG ATIVE Test performed at [address] [address]RESULTS [facility] BEEN [facility] mwtbv6422-17-92 02:46:00* Test Item Value Reference Range Interpretation Comments Parainfluenza Type 2 (PCR) (test code = 894638967) NEGATIVE NEG ATIVE Test performed at [address] [address]RESULTS [facility] BEEN [facility] nvxrl2610-19-19 02:46:00* Test Item Value Reference Range Interpretation Comments Parainfluenza Type 3 (PCR) (test code = 799114246) NEGATIVE NEG ATIVE Test performed at [address] [address]RESULTS HAVE BEEN [facility] procedure less than one hour clezjcgz8781-10-79 02:46:00* Test Item Value Reference Range Interpretation Comments Parainfluenza Type 4 (PCR) (test code = Parainfluenza Type 4 (PCR)) NEGATIVE NEGATIVE Test performed at [address] [address]RESULTS [facility] BE[facility] octlj7406-37-64 02:46:00* Test Item Value Reference Range Interpretation Comments Rhinovirus (PCR) (test code = 341807002) NEGATIVE NEGATIVE Test performed at [address] [address]RESULTS [facility] BE[facility] umtjb6884-01-05 02:46:00* Test Item Value Reference Range Interpretation Comments Human Metapneumovirus (PCR) (test code = 532815970) NEGATIVE NE GATIVE Test performed at [address] [address]RESULTS [facility] BE[facility] isusq1756-62-63 02:46:00* Test Item Value Reference Range Interpretation Comments Adenovirus (PCR) (test code = 916538693) NEGATIVE NEGATIVE Test performed at [address] [address]RESULTS HAVE BEEN [facility] procedure less than one hour metpijnp6269-91-32 02:46:00* Test Item Value Reference Range Interpretation Comments Coronavirus Type 229E (PCR) (test code = Coronavirus Type 22 9E (PCR)) NEGATIVE NEGATIVE Test performed at [address] [address]RESULTS HAVE BEEN [facility] procedure less than one hour hpoatpga4166-78-34 02:46:00* Test Item Value Reference Range Interpretation Comments Coronavirus Type HKU1 (PCR) (test code = Coronavirus Type HK U1 (PCR)) NEGATIVE NEGATIVE Test performed at [address] [address]RESULTS HAVE BEEN [facility]Flu[facility] procedure less than one hour wognzlqv2073-68-24 02:46:00* Test Item Value Reference Range Interpretation Comments Coronavirus Type NL63 (PCR) (test code = Coronavirus Type NL 63 (PCR)) NEGATIVE NEGATIVE Test performed at [address] [address]RESULTS HAVE BEEN [facility] procedure less than one hour ddwekibg8707-79-82 02:46:00* Test Item Value Reference Range Interpretation Comments Coronavirus Type OC43 (PCR) (test code = Coronavirus Type OC 43 (PCR)) NEGATIVE NEGATIVE Test performed at [address] [address]RESULTS HAVE BEEN [facility] procedure less than one hour spobgetv3935-77-10 02:46:00* Test Item Value Reference Range Interpretation Comments Chlamydia pneumoniae DNA (PCR) (test code = Chlamydia pneumoniae DNA (PCR)) NEGATIVE NEGATIVE Test performed at [address] [address]RESULTS [facility] puiih9907-04-07 02:46:00* Test Item Value Reference Range Interpretation Comments Influenza Type A (RT-PCR) (test code = 455968800) NEGATIVE NEGA TIVE Test performed at [address] [address]RESULTS [facility] BE[facility] procedure less than one hour glbqwubg0685-63-21 02:46:00* Test Item Value Reference Range Interpretation Comments Mycoplasma pneumoniae (PCR) (test code = Mycoplasma pneumoni ae (PCR)) NEGATIVE NEGATIVE [facility] vawir6514-54-44 02:46:00* Test Item Value Reference Range Interpretation Comments Influenza Type B (RT-PCR) (test code = 543739457) NEGATIVE NEGA TIVE Test performed at [address] [address]RESULTS [facility] pejnk1286-80-67 02:46:00* Test Item Value Reference Range Interpretation Comments Respiratory Syncytial Virus (PCR) (test code = 423920820) NEGATIVE NEGATIVE Test performed at [address] [address]RESULTS [facility] BEEN [facility] oicmi9035-22-60 02:46:00* Test Item Value Reference Range Interpretation Comments Bordetella pertussis DNA (PCR) (test code = 285391146) NEGATIVE NEGATIVE Test performed at [address] [address]RESULTS [facility] BEEN [facility] ypyfh0284-31-88 02:46:00* Test Item Value Reference Range Interpretation Comments Parainfluenza Type 1 (PCR) (test code = 829050792) NEGATIVE NEG ATIVE Test performed at [address] [address]RESULTS [facility] BEEN [facility] virus cjzzw1960-17-08 02:46:00* Test Item Value Reference Range Interpretation Comments Parainfluenza Type 2 (PCR) (test code = 673329869) NEGATIVE NEG ATIVE Test performed at [address] [address]RESULTS [facility] BEEN [facility] pqmca1104-19-19 02:46:00* Test Item Value Reference Range Interpretation Comments Parainfluenza Type 3 (PCR) (test code = 730568573) NEGATIVE NEG ATIVE Test performed at [address] [address]RESULTS HAVE BEEN [facility]ED [facility] HospitalFluoroscopic procedure less than one hour pfcgsqcr9194-61-69 02:46:00* Test Item Value Reference Range Interpretation Comments Parainfluenza Type 4 (PCR) (test code = Parainfluenza Type 4 (PCR)) NEGATIVE NEGATIVE Test performed at [address] [address]RESULTS HAVE BEEN [facility]ED [facility] virus rbcai1149-50-48 02:46:00* Test Item Value Reference Range Interpretation Comments Rhinovirus (PCR) (test code = 439893907) NEGATIVE NEGATIVE Test performed at [address] [address]RESULTS HAVE BEEN [facility] virus rpenw2028-18-48 02:46:00* Test Item Value Reference Range Interpretation Comments Human Metapneumovirus (PCR) (test code = 238053103) NEGATIVE NE GATIVE Test performed at [address] [address]RESULTS HAVE BEEN [facility]ED [facility] virus ivmvd8000-24-03 02:46:00* Test Item Value Reference Range Interpretation Comments Adenovirus (PCR) (test code = 991623074) NEGATIVE NEGATIVE Test performed at [address] [address]RESULTS HAVE BEEN [facility]ED [facility] HospitalFluoroscopic procedure less than one hour lxewwvgx5325-93-12 02:46:00* Test Item Value Reference Range Interpretation Comments Coronavirus Type 229E (PCR) (test code = Coronavirus Type 22 9E (PCR)) NEGATIVE NEGATIVE Test performed at [address] [address]RESULTS HAVE BEEN CALLED TO [facility] HospitalFluoroscopic procedure less than one hour lhxufyyu1758-54-33 02:46:00* Test Item Value Reference Range Interpretation Comments Coronavirus Type HKU1 (PCR) (test code = Coronavirus Type HK U1 (PCR)) NEGATIVE NEGATIVE Test performed at [address] [address]RESULTS HAVE BEEN CALLED TO [facility]Fluoroscopic procedure less than one hour wmpewgaa4147-76-28 02:46:00* Test Item Value Reference Range Interpretation Comments Coronavirus Type NL63 (PCR) (test code = Coronavirus Type NL 63 (PCR)) NEGATIVE NEGATIVE Test performed at [address] [address]RESULTS HAVE BEEN CALLED TO [facility]Fluoroscopic procedure less than one hour ranqelyu1637-88-90 02:46:00* Test Item Value Reference Range Interpretation Comments Coronavirus Type OC43 (PCR) (test code = Coronavirus Type OC 43 (PCR)) NEGATIVE NEGATIVE Test performed at [address] [address]RESULTS HAVE BEEN CALLED TO [facility] HospitalFluoroscopic procedure less than one hour kuovjylo7143-70-75 10:08:00* Test Item Value Reference Range Interpretation Comments Lactic Acid Level (test code = Lactic Acid Level) 0.8 mmol/L 0.5- 2.0 [facility] nssbukp5572-95-13 10:08:00* Test Item Value Reference Range Interpretation Comments Blood Culture (test code = 71359720) NO GROWTH AFTER 5 DAYS, FINAL REPORT [facility] Acid Chveg5353-06-27 09:49:00* Test Item Value Reference Range Interpretation Comments Lactic Acid Level (test code = Lactic Acid Level) 0.8 0.5- 2.0 [facility] AllenFluoroscopic procedure less than one hour ctqhebtf2618-23-63 09:08:00* Test Item Value Reference Range Interpretation Comments Lactic Acid Level (test code = Lactic Acid Level) 0.8 0.5- 2.0 [facility] AllenBlood veiodca0559-97-58 09:08:00* Test Item Value Reference Range Interpretation Comments Blood Culture (test code = 23354555) NO GROWTH AFTER 5 DAYS, FINAL REPORT [facility] AllenFluoroscopic procedure less than one hour ooypodjq8371-61-92 09:08:00* Test Item Value Reference Range Interpretation Comments Lactic Acid Level (test code = Lactic Acid Level) 0.8 0.5- 2.0 [facility] AllenBlood ekvxmlb5532-25-32 09:08:00* Test Item Value Reference Range Interpretation Comments Blood Culture (test code = 12824142) NO GROWTH AFTER 5 DAYS, FINAL REPORT [facility] AllenFluoroscopic procedure less than one hour bedawhhk5662-43-27 09:08:00* Test Item Value Reference Range Interpretation Comments Lactic Acid Level (test code = Lactic Acid Level) 0.8 0.5- 2.0 [facility] elyquji3951-30-73 09:08:00* Test Item Value Reference Range Interpretation Comments Blood Culture (test code = 04819907) NO GROWTH AFTER 5 DAYS, FINAL REPORT [facility] AllenCT CHEST Y4296-57-78 06:06:00 [place] [address] Patient Name: MAVERICK ANN MR #: [id number] : 1960 Age/Sex: 59/F Req #: [id number] Adm Physician: Ordered by: NELIDA FRANCOIS DO Report #: [id number] Location: ER Room/Bed: Procedure: [id number] CT/ CT CHEST W Exam Date: Exam [...] on 11/05/19625 COPY TO: NELIDA FRANCOIS DO Influenza virus A and B antigen identification by dqrfrfoauebwsaplud6688-30-46 05:25:00* Test Item Value Reference Range Interpretation Comments Influenza Virus Types A,B Antigen (test code = 93607-2) NEGATIVE NEGATIVE [facility] pyogenes antigen detection in gsfsjl6037-86-80 05:25:00* Test Item Value Reference Range Interpretation Comments Group A Streptococcus Screen (test code = 03685-5) NEGATIVE NEG ATIVE [facility] AllenCreatine Kinase DM8321-51-51 04:48:00* Test Item Value Reference Range Interpretation Comments Creatine Kinase MB (test code = 92071-1) 1.60 0-5.0 [facility] AllenTroponin M2119-48-27 04:48:00* Test Item Value Reference Range Interpretation Comments Troponin I (test code = LLN6205) < 0.001 0-0.300 [facility] AllenCHEST SINGLE (PORTABLE)2019-11-05 04:45:00 [facility] [address] [place] [address] Patient Name: MAVERICK ANN MR #: [id number] : 1960 Age/Sex: 59/F Req #: [id number] Adm Physician: Ordered by: NELIDA FRANCOIS DO Report #: [id number] Location: ER Room/Bed: Procedure: [id number] DX/ CHEST SINGLE (PORTABLE) Exam Date: 11/05/19 [...] NELIDA FRANCOIS DO Influenza Virus Types A,B Ijrzsqk4085-42-74 04:43:00* Test Item Value Reference Range Interpretation Comments Influenza Virus Types A,B Antigen (test code = 98349-2) NEGATIVE NEGATIVE [facility] AllenGroup A Streptococcus Mylucv9924-27-02 04:43:00* Test Item Value Reference Range Interpretation Comments Group A Streptococcus Screen (test code = 95292-3) NEGATIVE NEG ATIVE [facility] AllenInfluenza virus A and B antigen identification by tfipnmjdgvrzuwugal9489-25-23 04:25:00* Test Item Value Reference Range Interpretation Comments Influenza Virus Types A,B Antigen (test code = 95147-9) NEGATIVE NEGATIVE [facility] Hospitaltreptococcus pyogenes antigen detection in vsodtp0583-64-09 04:25:00* Test Item Value Reference Range Interpretation Comments Group A Streptococcus Screen (test code = 16564-6) NEGATIVE NEG ATIVE [facility] AllenInfluenza virus A and B antigen identification by timwuezdtjynlfyfrq8616-00-36 04:25:00* Test Item Value Reference Range Interpretation Comments Influenza Virus Types A,B Antigen (test code = 55411-2) NEGATIVE NEGATIVE [facility] Hospitaltreptococcus pyogenes antigen detection in wruxhe4663-69-82 04:25:00* Test Item Value Reference Range Interpretation Comments Group A Streptococcus Screen (test code = 41894-0) NEGATIVE NEG ATIVE [facility] AllenInfluenza virus A and B antigen identification by sghgxetowsbbbpfbml5977-96-38 04:25:00* Test Item Value Reference Range Interpretation Comments Influenza Virus Types A,B Antigen (test code = 97111-3) NEGATIVE NEGATIVE [facility] Hospitaltreptococcus pyogenes antigen detection in uvjcvq1631-20-75 04:25:00* Test Item Value Reference Range Interpretation Comments Group A Streptococcus Screen (test code = 63768-5) NEGATIVE NEG ATIVE [facility] AllenTotal Cqasmnwlr8348-14-55 04:16:00* Test Item Value Reference Range Interpretation Comments Total Bilirubin (test code = 1975-2) 0.3 0.2-1.2 [facility] AllenAspartate Amino Transf (AST/SGOT) 2019-11-05 04:16:00* Test Item Value Reference Range Interpretation Comments Aspartate Amino Transf (AST/SGOT) (test code = Aspartate Amino Transf (AST/SGOT)) 24 5-34 [facility] AllenAlanine Aminotransferase (ALT/SGPT) 2019-11-05 04:16:00* Test Item Value Reference Range Interpretation Comments Alanine Aminotransferase (ALT/SGPT) (test code = 1742-6) 14 0-55 [facility] AllenTotal Taepvtd6938-33-39 04:16:00* Test Item Value Reference Range Interpretation Comments Total Protein (test code = 2885-2) 7.8 6.5-8.1 [facility] AllenAlbumin2020-03-13 04:16:00* Test Item Value Reference Range Interpretation Comments Albumin (test code = 1751-7) 3.6 3.5-5.0 [facility] AllenGlobulin2020-03-13 04:16:00* Test Item Value Reference Range Interpretation Comments Globulin (test code = 68757-3) 4.2 2.3-3.5 H [facility] AllenAlbumin/Globulin Vhwqq9310-38-58 04:16:00 * Test Item Value Reference Range Interpretation Comments Albumin/Globulin Ratio (test code = 1759-0) 0.9 0.8-2.0 [facility] AllenAlkaline Hfaqozdqpgt6208-74-55 04:16:00* Test Item Value Reference Range Interpretation Comments Alkaline Phosphatase (test code = 6768-6) 95 40-150 [facility] AllenCreatine Pjrhro5859-36-96 04:16:00* Test Item Value Reference Range Interpretation Comments Creatine Kinase (test code = 2157-6) 365 29-168 H [facility] AllenUA RFLX MICR CULT IF DGROGGYQJ4037-46-37 14:46:00* Test Item Value Reference Range Interpretation [...] NONE SEEN Indication for culture: Dysuria/FrequencyUR HCG QFHB6732-25-49 14:46:00* Test Item Value Reference Range Interpretation Comments UR HCG QUAL (test code = HCGQLU) NEGATIVE 1. Very dilute urine specimens, as indicated by a lowspecific gravity, may not contain charter representative levels ofhCG. 2. False negative results [...] #/HPF RARE-FEW Indication for culture: Dysuria/FrequencyUR HCG ADSV0126-85-25 14:38:00* Test Item Value Reference Range Interpretation Comments UR HCG QUAL (test code = HCGQLU) NEGATIVE 1. Very dilute urine specimens, as indicated by a lowspecific gravity, may not contain charter representative levels ofhCG. 2. False negative results may occur when the levels of hCGare below the sensitivity level of the test. If is still suspected, a first morningurine specimen should be collected 48 hours later andtested. Indication for culture: Dysuria/FrequencyCHEST 2 QSSRT6667-70-05 22:18:00 [place] [address] Patient Name: MAVERICK ANN MR #: [id number] : [birth year] Age/Sex: 58/F Req #: [id number] Adm Physician: Ordered by: ISAAC MILLER MD Report #: [id number] Location: ER Room/Bed: Procedure: [id number] DX/CHEST 2 VIEWS Exam Date: 01/01/19 Exam Sanya e: 215 REPORT STATUS: Signed EXAMINATION: PA and lateral [...] 01/01/192218 COPY TO: ISAAC MILLER MD Urine SHK4234-72-79 13:22:00* Test Item Value Reference Range Interpretation Comments Urine WBC (test code = 5821-4) NONE 0-5 [facility] Allen[facility] BIX1856-58-00 13:22:00* Test Item Value Reference Range Interpretation Comments Urine RBC (test code = 20440-2) NONE 0-5 [facility] AllenU[facility] Adztaxpg2103-15-45 13:22:00* Test Item Value Reference Range Interpretation Comments Urine Bacteria (test code = 39290-8) RARE NONE [facility] Epithelial Dihsc0060-12-19 13:22:00 * Test Item Value Reference Range Interpretation Comments Urine Epithelial Cells (test code = 45548-8) MODERATE NONE [facility] AllenU[facility] PMW7757-93-90 13:22:00* Test Item Value Reference Range Interpretation Comments Urine WBC (test code = 5821-4) NONE 0-5 [facility] AllenU[facility] IGD1747-82-45 13:22:00* Test Item Value Reference Range Interpretation Comments Urine RBC (test code = 04975-5) NONE 0-5 [facility] AllenU[facility] Gjvhzsdj3460-26-65 13:22:00* Test Item Value Reference Range Interpretation Comments Urine Bacteria (test code = 66401-5) RARE NONE [facility] Epithelial Igtca9130-75-26 13:22:00 * Test Item Value Reference Range Interpretation Comments Urine Epithelial Cells (test code = 57670-6) MODERATE NONE [facility] Nppvb5971-58-41 12:59:00* Test Item Value Reference Range Interpretation Comments Urine Color (test code = 5778-6) YELLOW YELLOW [facility] Rzakfav6701-04-26 12:59:00* Test Item Value Reference Range Interpretation Comments Urine Clarity (test code = 52073-1) SL CLOUDY CLEAR [facility] AllenU[facility] Specific Ggzbsjc6173-60-00 12:59:00 * Test Item Value Reference Range Interpretation Comments Urine Specific [place] (test code = 5811-5) 1.025 1.010-1.02 5 [facility] AllenU[facility] uG8573-50-46 12:59:00* Test Item Value Reference Range Interpretation Comments Urine pH (test code = 80874-2) 6 5-7 [facility] Leukocyte Vxwdahsk4723-54-05 12:59:00* Test Item Value Reference Range Interpretation Comments Urine Leukocyte Esterase (test code = 5799-2) NEGATIVE NEGATIVE [facility] AllenU[facility] Feqgnje6062-20-76 12:59:00* Test Item Value Reference Range Interpretation Comments Urine Nitrite (test code = 47410-4) NEGATIVE NEGATIVE [facility] Bgyzdoy2525-81-96 12:59:00* Test Item Value Reference Range Interpretation Comments Urine Protein (test code = 5804-0) NEGATIVE NEGATIVE [facility] AllenU[facility] Glucose (UA)2018-07-31 12:59:00* Test Item Value Reference Range Interpretation Comments Urine Glucose (UA) (test code = 2349-9) NEGATIVE NEGATIVE [facility] AllenU[facility] Ojdfaii4070-81-79 12:59:00* Test Item Value Reference Range Interpretation Comments Urine Ketones (test code = 01675-7) NEGATIVE NEGATIVE [facility] Frvndmrdnzuh6280-21-04 12:59:00* Test Item Value Reference Range Interpretation Comments Urine Urobilinogen (test code = 53315-7) 1 0.2-1 [facility] Nxsxtogfl8758-43-49 12:59:00* Test Item Value Reference Range Interpretation Comments Urine Bilirubin (test code = 1978-6) NEGATIVE NEGATIVE [facility] Grapb1984-80-56 12:59:00* Test Item Value Reference Range Interpretation Comments Urine Blood (test code = 02618-4) NEGATIVE NEGATIVE [facility] Mvput6250-27-75 12:59:00* Test Item Value Reference Range Interpretation Comments Urine Color (test code = 5778-6) YELLOW YELLOW [facility] Bdktwmp9866-73-87 12:59:00* Test Item Value Reference Range Interpretation Comments Urine Clarity (test code = 30260-8) SL CLOUDY CLEAR [facility] AllenU[facility] Specific Umwyzky5628-11-83 12:59:00 * Test Item Value Reference Range Interpretation Comments Urine Specific [place] (test code = 5811-5) 1.025 1.010-1.02 5 [facility] AllenU[facility] nD9057-65-20 12:59:00* Test Item Value Reference Range Interpretation Comments Urine pH (test code = 38145-8) 6 5-7 [facility] Leukocyte Xnaprhyy1951-75-12 12:59:00* Test Item Value Reference Range Interpretation Comments Urine Leukocyte Esterase (test code = 5799-2) NEGATIVE NEGATIVE [facility] AllenU[facility] Zillgso8598-66-48 12:59:00* Test Item Value Reference Range Interpretation Comments Urine Nitrite (test code = 09425-3) NEGATIVE NEGATIVE [facility] AllenU[facility] Ddlycif3406-31-30 12:59:00* Test Item Value Reference Range Interpretation Comments Urine Protein (test code = 5804-0) NEGATIVE NEGATIVE [facility] Glucose (UA)2018-07-31 12:59:00* Test Item Value Reference Range Interpretation Comments Urine Glucose (UA) (test code = 2349-9) NEGATIVE NEGATIVE [facility] Allen[facility] Xtvhbpc8468-28-19 12:59:00* Test Item Value Reference Range Interpretation Comments Urine Ketones (test code = 04177-8) NEGATIVE NEGATIVE [facility] Eyowhghylqie1381-52-44 12:59:00* Test Item Value Reference Range Interpretation Comments Urine Urobilinogen (test code = 28483-4) 1 0.2-1 [facility] Twcrxsobb7184-68-42 12:59:00* Test Item Value Reference Range Interpretation Comments Urine Bilirubin (test code = 1978-6) NEGATIVE NEGATIVE [facility] AllenU[facility] Uruay7498-03-41 12:59:00* Test Item Value Reference Range Interpretation Comments Urine Blood (test code = 23543-0) NEGATIVE NEGATIVE [facility] AllenHepatitis C Saktjzxf1288-64-28 12:29:00* Test Item Value Reference Range Interpretation Comments Hepatitis C Antibody (test code = 27045-1) 0.2 Reference Range: 0.0 - 0.9 s/co ratioNegative: < 0.8Indeterminate: 0.8 - 0.9Positive: > 0.9The CDC recommends that a positive HCV antibody resultbe followed up with a HCV Nucleic Acid Amplificationtest (652120).[facility] [address] [address]Fva: Polo Martinez MDFor inquiries, the physician may contact Branch: [phone] Lab: [phone] Health AllenHepatibaptist restor[facility] C Aythaaba7306-30-97 12:29:00* Test Item Value Reference Range Interpretation Comments Hepatitis C Antibody (test code = 55970-6) 0.2 Reference Range: 0.0 - 0.9 s/co ratioNegative: < 0.8Indeterminate: 0.8 - 0.9Positive: > 0.9The CDC recommends that a positive HCV antibody resultbe followed up with a HCV Nucleic Acid Amplificationtest (427949).[facility] [address] [place] [address]Vnt: Polo Martinez MDFor inquiries, the physician may contact Branch: [phone] Lab: [phone] [facility] Gjokzfw9994-48-71 15:57:00* Test Item Value Reference Range Interpretation Comments Bedside Glucose (test code = 19516-3) 123 70-120 H Meter ID: [id number] Health [facility] Glucose 2018-03-10 15:57:00* Test Item Value Reference Range Interpretation Comments Bedside Glucose (test code = 53900-9) 123 70-120 H Meter ID: [id number] Health [facility] Glucose 2018-03-10 15:57:00* Test Item Value Reference Range Interpretation Comments Bedside Glucose (test code = 97675-1) 123 70-120 H Meter ID: [id number] Health [facility] Glucose 2018-03-10 15:57:00* Test Item Value Reference Range Interpretation Comments Bedside Glucose (test code = 27835-9) 123 70-120 H Meter ID: [id number] Scott & White [facility] Center – [facility] Rockodium Level 2018-03-10 04:50:00* Test Item Value Reference Range Interpretation Comments Sodium Level (test code = 2951-2) 139 136-145 [facility] AllenPotassium Yqmvz6739-52-51 04:50:00* Test Item Value Reference Range Interpretation Comments Potassium Level (test code = 2823-3) 4.3 3.5-5.1 [facility] AllenChloride Lkbmp5364-19-74 04:50:00* Test Item Value Reference Range Interpretation Comments Chloride Level (test code = 2075-0) 103 98-107 [facility] AllenCarbon Dioxide Kunwq6454-30-64 04:50:00* Test Item Value Reference Range Interpretation Comments Carbon Dioxide Level (test code = 2028-9) 27 22-29 [facility] AllenAnion Vob3044-46-60 04:50:00* Test Item Value Reference Range Interpretation Comments Anion Gap (test code = 57688-8) 13.3 8-16 [facility] AllenBlood Urea Djtogrml2549-44-46 04:50:00* Test Item Value Reference Range Interpretation Comments Blood Urea Nitrogen (test code = 3094-0) 11 7-26 [facility] AllenCreatinine2018-07-17 04:50:00* Test Item Value Reference Range Interpretation Comments Creatinine (test code = 2160-0) 0.77 0.57-1.11 [facility] AllenBUN/Creatinine Syfgt1032-40-54 04:50:00* Test Item Value Reference Range Interpretation Comments BUN/Creatinine Ratio (test code = 3097-3) 14 6-25 [facility] AllenEstimat Glomerular Filtration Rate 2018-03-10 04:50:00* Test Item Value Reference Range Interpretation Comments Estimat Glomerular Filtration Rate (test code = 32533-5) 60- >60 Ranges were taken from the National Kidney Disease Education Program and the [facility] literature.Reference ranges:60 or greater: Txibpd56-04 ( for 3 consecutive months): Chronic kidney disease 15 or less: Kidney failureTexas Health AllenGlucose Fqtbf2684-05-26 04:50:00* Test Item Value Reference Range Interpretation Comments Glucose Level (test code = KBZ0029) 126 74-118 H [facility] AllenCalcium Yfxtw8749-27-81 04:50:00* Test Item Value Reference Range Interpretation Comments Calcium Level (test code = 96833-6) 9.2 8.4-10.2 [facility] AllenMagnesium Gfxzl9924-22-64 04:50:00* Test Item Value Reference Range Interpretation Comments Magnesium Level (test code = 34233-7) 2.0 1.3-2.1 [facility] Hospitalodium Kutdi1739-80-48 04:50:00* Test Item Value Reference Range Interpretation Comments Sodium Level (test code = 2951-2) 139 136-145 [facility] AllenPotassium Eccna9348-33-74 04:50:00* Test Item Value Reference Range Interpretation Comments Potassium Level (test code = 2823-3) 4.3 3.5-5.1 [facility] AllenChloride Yfpwz9358-75-49 04:50:00* Test Item Value Reference Range Interpretation Comments Chloride Level (test code = 2075-0) 103 98-107 [facility] AllenCarbon Dioxide Hakfy7480-41-29 04:50:00* Test Item Value Reference Range Interpretation Comments Carbon Dioxide Level (test code = 2028-9) 27 22-29 [facility] AllenAnion Usf9754-76-03 04:50:00* Test Item Value Reference Range Interpretation Comments Anion Gap (test code = 86594-5) 13.3 8-16 [facility] AllenBlood Urea Omrdmamg1149-30-86 04:50:00* Test Item Value Reference Range Interpretation Comments Blood Urea Nitrogen (test code = 3094-0) 11 7-26 [facility] AllenCreatinine2018-07-17 04:50:00* Test Item Value Reference Range Interpretation Comments Creatinine (test code = 2160-0) 0.77 0.57-1.11 [facility] AllenBUN/Creatinine Hscne1211-41-64 04:50:00* Test Item Value Reference Range Interpretation Comments BUN/Creatinine Ratio (test code = 3097-3) 14 6-25 [facility] AllenEstimat Glomerular Filtration Rate 2018-03-10 04:50:00* Test Item Value Reference Range Interpretation Comments Estimat Glomerular Filtration Rate (test code = 09896-6) 60- >60 Ranges were taken from the National Kidney Disease Education Program and the [facility] literature.Reference ranges:60 or greater: Micbnu88-56 ( for 3 consecutive months): Chronic kidney disease 15 or less: Kidney failureTexas Health AllenGlucose Rcbud9361-61-00 04:50:00* Test Item Value Reference Range Interpretation Comments Glucose Level (test code = HPS2278) 126 74-118 H [facility] AllenCalcium Fdqkh2614-36-73 04:50:00* Test Item Value Reference Range Interpretation Comments Calcium Level (test code = 71183-1) 9.2 8.4-10.2 [facility] AllenMagnesium Hesbs5851-48-05 04:50:00* Test Item Value Reference Range Interpretation Comments Magnesium Level (test code = 54749-7) 2.0 1.3-2.1 [facility] Hospitalodium Kghmq0196-71-15 04:50:00* Test Item Value Reference Range Interpretation Comments Sodium Level (test code = 2951-2) 139 136-145 [facility] AllenPotassium Arflj0189-75-87 04:50:00* Test Item Value Reference Range Interpretation Comments Potassium Level (test code = 2823-3) 4.3 3.5-5.1 [facility] AllenChloride Ugbyq1223-72-84 04:50:00* Test Item Value Reference Range Interpretation Comments Chloride Level (test code = 2075-0) 103 98-107 [facility] AllenCarbon Dioxide Xsnia5073-76-50 04:50:00* Test Item Value Reference Range Interpretation Comments Carbon Dioxide Level (test code = 2028-9) 27 22-29 [facility] AllenAnion Ejh2980-34-85 04:50:00* Test Item Value Reference Range Interpretation Comments Anion Gap (test code = 37200-6) 13.3 8-16 [facility] AllenBlood Urea Zlvnffsb7653-35-16 04:50:00* Test Item Value Reference Range Interpretation Comments Blood Urea Nitrogen (test code = 3094-0) 11 7-26 [facility] AllenCreatinine2018-07-17 04:50:00* Test Item Value Reference Range Interpretation Comments Creatinine (test code = 2160-0) 0.77 0.57-1.11 [facility] AllenBUN/Creatinine Rdnub1381-88-44 04:50:00* Test Item Value Reference Range Interpretation Comments BUN/Creatinine Ratio (test code = 3097-3) 14 6-25 [facility] AllenEstimat Glomerular Filtration Rate 2018-03-10 04:50:00* Test Item Value Reference Range Interpretation Comments Estimat Glomerular Filtration Rate (test code = 249057042) > 60 >60 Ranges were taken from the National Kidney Disease Education Program and the [facility] Foundation literature.Reference ranges:60 or greater: Aadjnd71-08 ( for 3 consecutive months): Chronic kidney disease 15 or less: Kidney failureTexas Health AllenGlucose Qryxa5791-68-22 04:50:00* Test Item Value Reference Range Interpretation Comments Glucose Level (test code = LJL5514) 126 74-118 H [facility] AllenCalcium Sared9305-61-95 04:50:00* Test Item Value Reference Range Interpretation Comments Calcium Level (test code = 65129-7) 9.2 8.4-10.2 [facility] AllenMagnesium Fwyvl1550-11-15 04:50:00* Test Item Value Reference Range Interpretation Comments Magnesium Level (test code = 69180-6) 2.0 1.3-2.1 [facility] Ljusx1178-08-75 04:50:00* Test Item Value Reference Range Interpretation Comments Sodium Level (test code = 2951-2) 139 136-145 [facility] AllenPotassium Eiinc8747-01-87 04:50:00* Test Item Value Reference Range Interpretation Comments Potassium Level (test code = 2823-3) 4.3 3.5-5.1 [facility] AllenChloride Fxvsb1351-17-68 04:50:00* Test Item Value Reference Range Interpretation Comments Chloride Level (test code = 2075-0) 103 98-107 [facility] AllenCarbon Dioxide Kkrsn2150-69-94 04:50:00* Test Item Value Reference Range Interpretation Comments Carbon Dioxide Level (test code = 2028-9) 27 22-29 [facility] AllenAnion Bei6569-64-35 04:50:00* Test Item Value Reference Range Interpretation Comments Anion Gap (test code = 41164-5) 13.3 8-16 [facility] AllenBlood Urea Xgwzxnan9030-01-91 04:50:00* Test Item Value Reference Range Interpretation Comments Blood Urea Nitrogen (test code = 3094-0) 11 7-26 [facility] AllenCreatinine2018-07-17 04:50:00* Test Item Value Reference Range Interpretation Comments Creatinine (test code = 2160-0) 0.77 0.57-1.11 [facility] AllenBUN/Creatinine Qbolm5345-40-38 04:50:00* Test Item Value Reference Range Interpretation Comments BUN/Creatinine Ratio (test code = 3097-3) 14 - [facility] AllenEstimat Glomerular Filtration Rate 2018-03-10 04:50:00* Test Item Value Reference Range Interpretation Comments Estimat Glomerular Filtration Rate (test code = 563928876) > 60 >60 Ranges were taken from the National Kidney Disease Education Program and the [facility] literature.Reference ranges:60 or greater: Albqki94-47 ( for 3 consecutive months): Chronic kidney disease 15 or less: Kidney failureTexas Health AllenGlucose Nqmsa7211-31-05 04:50:00* Test Item Value Reference Range Interpretation Comments Glucose Level (test code = ZHL3218) 126 74-118 [facility] AllenCalcium Yenco8427-67-32 04:50:00* Test Item Value Reference Range Interpretation Comments Calcium Level (test code = 77900-4) 9.2 8.4-10.2 [facility] AllenMagnesium Yzkex3924-10-40 04:50:00* Test Item Value Reference Range Interpretation Comments Magnesium Level (test code = 33570-3) 2.0 1.3-2.1 [facility] AllenWhite Blood Texqp1679-38-00 04:39:00* Test Item Value Reference Range Interpretation Comments White Blood Count (test code = 6690-2) 10.05 4.8-10.8 [facility] AllenRed Blood Bzjlf4270-78-00 04:39:00* Test Item Value Reference Range Interpretation Comments Red Blood Count (test code = 789-8) 4.54 3.6-5.1 [facility] AllenHemoglobin2018-07-17 04:39:00* Test Item Value Reference Range Interpretation Comments Hemoglobin (test code = 78837-1) 12.5 12.0-16.0 [facility] AllenHematocrit2018-07-17 04:39:00* Test Item Value Reference Range Interpretation Comments Hematocrit (test code = 4544-3) 38.0 34.2-44.1 [facility] AllenMean Corpuscular Hwkucy0350-01-27 04:39:00* Test Item Value Reference Range Interpretation Comments Mean Corpuscular Volume (test code = 787-2) 83.7 81-99 [facility] AllenMean Corpuscular Hvrwkwbcxp8187-20-13 04:39:00* Test Item Value Reference Range Interpretation Comments Mean Corpuscular Hemoglobin (test code = 785-6) 27.5 28-32 L [facility] AllenMean Corpuscular Hemoglobin Concent 2018-03-10 04:39:00* Test Item Value Reference Range Interpretation Comments Mean Corpuscular Hemoglobin Concent (test code = 786-4) 32.9 31-35 [facility] AllenRed Cell Distribution Yncac4098-37-95 04:39:00* Test Item Value Reference Range Interpretation Comments Red Cell Distribution Width (test code = 10448-8) 14.7 11.7 -14.4 H [facility] AllenPlatelet Xihzu6833-67-40 04:39:00* Test Item Value Reference Range Interpretation Comments Platelet Count (test code = 777-3) 361 140-360 [facility] AllenNeutrophils (%) (Auto)2018-03-10 04:39:00 * Test Item Value Reference Range Interpretation Comments Neutrophils (%) (Auto) (test code = 97871-1) 88.0 38.7-80.0 [facility] AllenLymphocytes (%) (Auto)2018-03-10 04:39:00 * Test Item Value Reference Range Interpretation Comments Lymphocytes (%) (Auto) (test code = 736-9) 7.5 18.0-39.1 L [facility] AllenMonocytes (%) (Auto)2018-03-10 04:39:00* Test Item Value Reference Range Interpretation Comments Monocytes (%) (Auto) (test code = 5905-5) 3.8 4.4-11.3 L [facility] AllenEosinophils (%) (Auto)2018-03-10 04:39:00 * Test Item Value Reference Range Interpretation Comments Eosinophils (%) (Auto) (test code = 713-8) 0.0 0.0-6.0 [facility] AllenBasophils (%) (Auto)2018-03-10 04:39:00* Test Item Value Reference Range Interpretation Comments Basophils (%) (Auto) (test code = 706-2) 0.1 0.0-1.0 [facility] AllenIM GRANULOCYTES %2018-03-10 04:39:00* Test Item Value Reference Range Interpretation Comments IM GRANULOCYTES % (test code = IM GRANULOCYTES %) 0.6 0.0- 1.0 [facility] AllenNeutrophils # (Auto)2018-03-10 04:39:00* Test Item Value Reference Range Interpretation Comments Neutrophils # (Auto) (test code = 751-8) 8.9 2.1-6.9 H [facility] AllenLymphocytes # (Auto)2018-03-10 04:39:00* Test Item Value Reference Range Interpretation Comments Lymphocytes # (Auto) (test code = 10104-8) 0.8 1.0-3.2 L [facility] AllenMonocytes # (Auto)2018-03-10 04:39:00* Test Item Value Reference Range Interpretation Comments Monocytes # (Auto) (test code = 742-7) 0.4 0.2-0.8 [facility] AllenEosinophils # (Auto)2018-03-10 04:39:00* Test Item Value Reference Range Interpretation Comments Eosinophils # (Auto) (test code = 711-2) 0.0 0.0-0.4 [facility] AllenBasophils # (Auto)2018-03-10 04:39:00* Test Item Value Reference Range Interpretation Comments Basophils # (Auto) (test code = 704-7) 0.0 0.0-0.1 [facility] AllenAbsolute Immature Granulocyte (auto 2018-03-10 04:39:00* Test Item Value Reference Range Interpretation Comments Absolute Immature Granulocyte (auto (laura t code = Absolute Immature Granulocyte (auto) 0.06 0-0.1 [facility] AllenWhite Blood Lfncf9776-09-73 04:39:00* Test Item Value Reference Range Interpretation Comments White Blood Count (test code = 6690-2) 10.05 4.8-10.8 [facility] AllenRed Blood Cyewb4590-30-30 04:39:00* Test Item Value Reference Range Interpretation Comments Red Blood Count (test code = 789-8) 4.54 3.6-5.1 [facility] AllenHemoglobin2018-07-17 04:39:00* Test Item Value Reference Range Interpretation Comments Hemoglobin (test code = 13856-7) 12.5 12.0-16.0 [facility] AllenHematocrit2018-07-17 04:39:00* Test Item Value Reference Range Interpretation Comments Hematocrit (test code = 4544-3) 38.0 34.2-44.1 [facility] AllenMean Corpuscular Scpxfa4472-01-83 04:39:00* Test Item Value Reference Range Interpretation Comments Mean Corpuscular Volume (test code = 787-2) 83.7 81-99 [facility] AllenMean Corpuscular Ogqioghsmt6832-32-54 04:39:00* Test Item Value Reference Range Interpretation Comments Mean Corpuscular Hemoglobin (test code = 785-6) 27.5 28-32 [facility] Concent 2018-03-10 04:39:00* Test Item Value Reference Range Interpretation Comments Mean Corpuscular Hemoglobin Concent (test code = 786-4) 32.9 31-35 [facility] AllenRed Cell Distribution Yhkan8765-38-01 04:39:00* Test Item Value Reference Range Interpretation Comments Red Cell Distribution Width (test code = 25819-3) 14.7 11.7 -14.4 H [facility] AllenPlatelet Cvgix7551-92-72 04:39:00* Test Item Value Reference Range Interpretation Comments Platelet Count (test code = 777-3) 361 140-360 [facility] AllenNeutrophils (%) (Auto)2018-03-10 04:39:00 * Test Item Value Reference Range Interpretation Comments Neutrophils (%) (Auto) (test code = 88406-6) 88.0 38.7-80.0 H [facility] AllenLymphocytes (%) (Auto)2018-03-10 04:39:00 * Test Item Value Reference Range Interpretation Comments Lymphocytes (%) (Auto) (test code = 736-9) 7.5 18.0-39.1 L [facility] AllenMonocytes (%) (Auto)2018-03-10 04:39:00* Test Item Value Reference Range Interpretation Comments Monocytes (%) (Auto) (test code = 5905-5) 3.8 4.4-11.3 L [facility] AllenEosinophils (%) (Auto)2018-03-10 04:39:00 * Test Item Value Reference Range Interpretation Comments Eosinophils (%) (Auto) (test code = 713-8) 0.0 0.0-6.0 [facility] AllenBasophils (%) (Auto)2018-03-10 04:39:00* Test Item Value Reference Range Interpretation Comments Basophils (%) (Auto) (test code = 706-2) 0.1 0.0-1.0 [facility] AllenIM GRANULOCYTES %2018-03-10 04:39:00* Test Item Value Reference Range Interpretation Comments IM GRANULOCYTES % (test code = IM GRANULOCYTES %) 0.6 0.0- 1.0 [facility] AllenNeutrophils # (Auto)2018-03-10 04:39:00* Test Item Value Reference Range Interpretation Comments Neutrophils # (Auto) (test code = 751-8) 8.9 2.1-6.9 H [facility] AllenLymphocytes # (Auto)2018-03-10 04:39:00* Test Item Value Reference Range Interpretation Comments Lymphocytes # (Auto) (test code = 41077-2) 0.8 1.0-3.2 L [facility] AllenMonocytes # (Auto)2018-03-10 04:39:00* Test Item Value Reference Range Interpretation Comments Monocytes # (Auto) (test code = 742-7) 0.4 0.2-0.8 [facility] AllenEosinophils # (Auto)2018-03-10 04:39:00* Test Item Value Reference Range Interpretation Comments Eosinophils # (Auto) (test code = 711-2) 0.0 0.0-0.4 [facility] AllenBasophils # (Auto)2018-03-10 04:39:00* Test Item Value Reference Range Interpretation Comments Basophils # (Auto) (test code = 704-7) 0.0 0.0-0.1 [facility] AllenAbsolute Immature Granulocyte (auto 2018-03-10 04:39:00* Test Item Value Reference Range Interpretation Comments Absolute Immature Granulocyte (auto (laura t code = Absolute Immature Granulocyte (auto) 0.06 0-0.1 [facility] AllenWhite Blood Caakz0567-12-47 04:39:00* Test Item Value Reference Range Interpretation Comments White Blood Count (test code = 6690-2) 10.05 4.8-10.8 [facility] AllenRed Blood Qtoxs0543-07-84 04:39:00* Test Item Value Reference Range Interpretation Comments Red Blood Count (test code = 789-8) 4.54 3.6-5.1 [facility] AllenHemoglobin2018-07-17 04:39:00* Test Item Value Reference Range Interpretation Comments Hemoglobin (test code = 10183-9) 12.5 12.0-16.0 [facility] AllenHematocrit2018-07-17 04:39:00* Test Item Value Reference Range Interpretation Comments Hematocrit (test code = 4544-3) 38.0 34.2-44.1 [facility] AllenMean Corpuscular Xdohur7540-99-36 04:39:00* Test Item Value Reference Range Interpretation Comments Mean Corpuscular Volume (test code = 787-2) 83.7 81-99 [facility] AllenMean Corpuscular Ncpubtepsw7290-60-16 04:39:00* Test Item Value Reference Range Interpretation Comments Mean Corpuscular Hemoglobin (test code = 785-6) 27.5 28-32 L [facility] AllenMean Corpuscular Hemoglobin Concent 2018-03-10 04:39:00* Test Item Value Reference Range Interpretation Comments Mean Corpuscular Hemoglobin Concent (test code = 786-4) 32.9 31-35 [facility] AllenRed Cell Distribution Ufhlw3120-21-36 04:39:00* Test Item Value Reference Range Interpretation Comments Red Cell Distribution Width (test code = 65298-5) 14.7 11.7 -14.4 H [facility] AllenPlatelet Rohak8289-08-37 04:39:00* Test Item Value Reference Range Interpretation Comments Platelet Count (test code = 777-3) 361 140-360 [facility] AllenNeutrophils (%) (Auto)2018-03-10 04:39:00 * Test Item Value Reference Range Interpretation Comments Neutrophils (%) (Auto) (test code = 64316-4) 88.0 38.7-80.0 H [facility] AllenLymphocytes (%) (Auto)2018-03-10 04:39:00 * Test Item Value Reference Range Interpretation Comments Lymphocytes (%) (Auto) (test code = 736-9) 7.5 18.0-39.1 L [facility] AllenMonocytes (%) (Auto)2018-03-10 04:39:00* Test Item Value Reference Range Interpretation Comments Monocytes (%) (Auto) (test code = 5905-5) 3.8 4.4-11.3 L [facility] AllenEosinophils (%) (Auto)2018-03-10 04:39:00 * Test Item Value Reference Range Interpretation Comments Eosinophils (%) (Auto) (test code = 713-8) 0.0 0.0-6.0 [facility] AllenBasophils (%) (Auto)2018-03-10 04:39:00* Test Item Value Reference Range Interpretation Comments Basophils (%) (Auto) (test code = 706-2) 0.1 0.0-1.0 [facility] AllenIM GRANULOCYTES %2018-03-10 04:39:00* Test Item Value Reference Range Interpretation Comments IM GRANULOCYTES % (test code = IM GRANULOCYTES %) 0.6 0.0- 1.0 [facility] AllenNeutrophils # (Auto)2018-03-10 04:39:00* Test Item Value Reference Range Interpretation Comments Neutrophils # (Auto) (test code = 751-8) 8.9 2.1-6.9 H [facility] AllenLymphocytes # (Auto)2018-03-10 04:39:00* Test Item Value Reference Range Interpretation Comments Lymphocytes # (Auto) (test code = 24098-6) 0.8 1.0-3.2 L [facility] AllenMonocytes # (Auto)2018-03-10 04:39:00* Test Item Value Reference Range Interpretation Comments Monocytes # (Auto) (test code = 742-7) 0.4 0.2-0.8 [facility] AllenEosinophils # (Auto)2018-03-10 04:39:00* Test Item Value Reference Range Interpretation Comments Eosinophils # (Auto) (test code = 711-2) 0.0 0.0-0.4 [facility] AllenBasophils # (Auto)2018-03-10 04:39:00* Test Item Value Reference Range Interpretation Comments Basophils # (Auto) (test code = 704-7) 0.0 0.0-0.1 [facility] AllenAbsolute Immature Granulocyte (auto 2018-03-10 04:39:00* Test Item Value Reference Range Interpretation Comments Absolute Immature Granulocyte (auto (laura t code = Absolute Immature Granulocyte (auto) 0.06 0-0.1 [facility] AllenWhite Blood Pkpxh2627-34-76 04:39:00* Test Item Value Reference Range Interpretation Comments White Blood Count (test code = 6690-2) 10.05 4.8-10.8 [facility] AllenRed Blood Jjwov0471-93-86 04:39:00* Test Item Value Reference Range Interpretation Comments Red Blood Count (test code = 789-8) 4.54 3.6-5.1 [facility] AllenHemoglobin2018-07-17 04:39:00* Test Item Value Reference Range Interpretation Comments Hemoglobin (test code = 51185-0) 12.5 12.0-16.0 [facility] AllenHematocrit2018-07-17 04:39:00* Test Item Value Reference Range Interpretation Comments Hematocrit (test code = 4544-3) 38.0 34.2-44.1 [facility] AllenMean Corpuscular Vikzwb2461-28-77 04:39:00* Test Item Value Reference Range Interpretation Comments Mean Corpuscular Volume (test code = 787-2) 83.7 81-99 [facility] AllenMean Corpuscular Jmfhyobttm2696-03-51 04:39:00* Test Item Value Reference Range Interpretation Comments Mean Corpuscular Hemoglobin (test code = 785-6) 27.5 28-32 L [facility] AllenMean Corpuscular Hemoglobin Concent 2018-03-10 04:39:00* Test Item Value Reference Range Interpretation Comments Mean Corpuscular Hemoglobin Concent (test code = 786-4) 32.9 31-35 [facility] AllenRed Cell Distribution Xkbfk2395-80-16 04:39:00* Test Item Value Reference Range Interpretation Comments Red Cell Distribution Width (test code = 46950-7) 14.7 11.7 -14.4 H [facility] AllenPlatelet Flghv6766-23-01 04:39:00* Test Item Value Reference Range Interpretation Comments Platelet Count (test code = 777-3) 361 140-360 H [facility] AllenNeutrophils (%) (Auto)2018-03-10 04:39:00 * Test Item Value Reference Range Interpretation Comments Neutrophils (%) (Auto) (test code = 19779-0) 88.0 38.7-80.0 H [facility] AllenLymphocytes (%) (Auto)2018-03-10 04:39:00 * Test Item Value Reference Range Interpretation Comments Lymphocytes (%) (Auto) (test code = 736-9) 7.5 18.0-39.1 L [facility] AllenMonocytes (%) (Auto)2018-03-10 04:39:00* Test Item Value Reference Range Interpretation Comments Monocytes (%) (Auto) (test code = 5905-5) 3.8 4.4-11.3 L [facility] AllenEosinophils (%) (Auto)2018-03-10 04:39:00 * Test Item Value Reference Range Interpretation Comments Eosinophils (%) (Auto) (test code = 713-8) 0.0 0.0-6.0 [facility] AllenBasophils (%) (Auto)2018-03-10 04:39:00* Test Item Value Reference Range Interpretation Comments Basophils (%) (Auto) (test code = 706-2) 0.1 0.0-1.0 [facility] AllenIM GRANULOCYTES %2018-03-10 04:39:00* Test Item Value Reference Range Interpretation Comments IM GRANULOCYTES % (test code = IM GRANULOCYTES %) 0.6 0.0- 1.0 [facility] AllenNeutrophils # (Auto)2018-03-10 04:39:00* Test Item Value Reference Range Interpretation Comments Neutrophils # (Auto) (test code = 751-8) 8.9 2.1-6.9 H [facility] AllenLymphocytes # (Auto)2018-03-10 04:39:00* Test Item Value Reference Range Interpretation Comments Lymphocytes # (Auto) (test code = 83174-4) 0.8 1.0-3.2 L [facility] AllenMonocytes # (Auto)2018-03-10 04:39:00* Test Item Value Reference Range Interpretation Comments Monocytes # (Auto) (test code = 742-7) 0.4 0.2-0.8 [facility] AllenEosinophils # (Auto)2018-03-10 04:39:00* Test Item Value Reference Range Interpretation Comments Eosinophils # (Auto) (test code = 711-2) 0.0 0.0-0.4 [facility] AllenBasophils # (Auto)2018-03-10 04:39:00* Test Item Value Reference Range Interpretation Comments Basophils # (Auto) (test code = 704-7) 0.0 0.0-0.1 [facility] AllenAbsolute Immature Granulocyte (auto 2018-03-10 04:39:00* Test Item Value Reference Range Interpretation Comments Absolute Immature Granulocyte (auto (laura t code = Absolute Immature Granulocyte (auto) 0.06 0-0.1 [facility] Fphhrbxzo1222-08-67 05:58:00* Test Item Value Reference Range Interpretation Comments Free Thyroxine (test code = 3024-7) 0.81 0.9-1.8 L [facility] Wargladqz2523-59-62 05:58:00* Test Item Value Reference Range Interpretation Comments Free Thyroxine (test code = 3024-7) 0.81 0.9-1.8 L [facility] Rgnzllgdw6116-52-60 05:58:00* Test Item Value Reference Range Interpretation Comments Free Thyroxine (test code = 3024-7) 0.81 0.9-1.8 L [facility] Fdjtevtnb5289-18-36 05:58:00* Test Item Value Reference Range Interpretation Comments Free Thyroxine (test code = 3024-7) 0.81 0.9-1.8 L [facility] Lmrstxcli3650-41-27 04:28:00* Test Item Value Reference Range Interpretation Comments Total Bilirubin (test code = 1975-2) 0.3 0.2-1.2 [facility] AllenDirect Crflvjnyg8669-03-30 04:28:00* Test Item Value Reference Range Interpretation Comments Direct Bilirubin (test code = 65402-7) 0.1 0.0-0.5 [facility] AllenAspartate Amino Transf (AST/SGOT) 2018-03-08 04:28:00* Test Item Value Reference Range Interpretation Comments Aspartate Amino Transf (AST/SGOT) (test code = Aspartate Amino Transf (AST/SGOT)) 14 5-34 [facility] AllenAlanine Aminotransferase (ALT/SGPT) 2018-03-08 04:28:00* Test Item Value Reference Range Interpretation Comments Alanine Aminotransferase (ALT/SGPT) (test code = 1742-6) 10 0-[address] [facility] Iuxgiyl3520-41-39 04:28:00* Test Item Value Reference Range Interpretation Comments Total Protein (test code = 2885-2) 7.0 6.5-8.1 [facility] AllenAlbumin2018-07-15 04:28:00* Test Item Value Reference Range Interpretation Comments Albumin (test code = 1751-7) 3.3 3.5-5.0 L [facility] AllenAlkaline Uguwhivqgbj4256-39-74 04:28:00* Test Item Value Reference Range Interpretation Comments Alkaline Phosphatase (test code = 6768-6) 74 40-150 [facility] AllenThyroid Stimulating Hormone (TSH) 2018-03-08 04:28:00* Test Item Value Reference Range Interpretation Comments Thyroid Stimulating Hormone (TSH) (test code = 51605-5) 0.136 0.350-4.940 L [facility] AllenTotal Zrisbvnwq4359-46-89 04:28:00* Test Item Value Reference Range Interpretation Comments Total Bilirubin (test code = 1975-2) 0.3 0.2-1.2 [facility] AllenDirect Eaxqnvhqu9697-60-76 04:28:00* Test Item Value Reference Range Interpretation Comments Direct Bilirubin (test code = 24791-9) 0.1 0.0-0.5 [facility] AllenAspartate Amino Transf (AST/SGOT) 2018-03-08 04:28:00* Test Item Value Reference Range Interpretation Comments Aspartate Amino Transf (AST/SGOT) (test code = Aspartate Amino Transf (AST/SGOT)) 14 34 [facility] AllenAlanine Aminotransferase (ALT/SGPT) 2018-03-08 04:28:00* Test Item Value Reference Range Interpretation Comments Alanine Aminotransferase (ALT/SGPT) (test code = 1742-6) 10 0-55 [facility] AllenTotal Wkonyeu7015-79-41 04:28:00* Test Item Value Reference Range Interpretation Comments Total Protein (test code = 2885-2) 7.0 6.5-8.1 [facility] AllenAlbumin2018-07-15 04:28:00* Test Item Value Reference Range Interpretation Comments Albumin (test code = 1751-7) 3.3 3.5-5.0 L [facility] AllenAlkaline Hrxfyuzfdgh3573-88-84 04:28:00* Test Item Value Reference Range Interpretation Comments Alkaline Phosphatase (test code = 6768-6) 74 40-150 [facility] AllenThyroid Stimulating Hormone (TSH) 2018-03-08 04:28:00* Test Item Value Reference Range Interpretation Comments Thyroid Stimulating Hormone (TSH) (test code = 02579-4) 0.136 0.350-4.[address] [facility] Mhohbxczh7128-52-59 04:28:00* Test Item Value Reference Range Interpretation Comments Total Bilirubin (test code = 1975-2) 0.3 0.2-1.2 [facility] AllenDirect Rymvbwklq1483-76-70 04:28:00* Test Item Value Reference Range Interpretation Comments Direct Bilirubin (test code = 00804-6) 0.1 0.0-0.5 [facility] AllenAspartate Amino Transf (AST/SGOT) 2018-03-08 04:28:00* Test Item Value Reference Range Interpretation Comments Aspartate Amino Transf (AST/SGOT) (test code = Aspartate Amino Transf (AST/SGOT)) 14 -34 [facility] AllenAlanine Aminotransferase (ALT/SGPT) 2018-03-08 04:28:00* Test Item Value Reference Range Interpretation Comments Alanine Aminotransferase (ALT/SGPT) (test code = 1742-6) 10 0-55 [facility] AllenTotal Ihnhigo0896-75-01 04:28:00* Test Item Value Reference Range Interpretation Comments Total Protein (test code = 2885-2) 7.0 6.5-8.1 [facility] AllenAlbumin2018-07-15 04:28:00* Test Item Value Reference Range Interpretation Comments Albumin (test code = 1751-7) 3.3 3.5-5.0 L [facility] AllenAlkaline Qnmlpznyfxf4373-00-24 04:28:00* Test Item Value Reference Range Interpretation Comments Alkaline Phosphatase (test code = 6768-6) 74 40-150 [facility] AllenThyroid Stimulating Hormone (TSH) 2018-03-08 04:28:00* Test Item Value Reference Range Interpretation Comments Thyroid Stimulating Hormone (TSH) (test code = 21913-3) 0.136 0.350-4.[address] [facility] Ocwwfhjqj4670-67-27 04:28:00* Test Item Value Reference Range Interpretation Comments Total Bilirubin (test code = 1975-2) 0.3 0.2-1.2 [facility] AllenDirect Gdrwdsazs0832-10-81 04:28:00* Test Item Value Reference Range Interpretation Comments Direct Bilirubin (test code = 95809-2) 0.1 0.0-0.5 [facility]Aspartate Amino Transf (AST/SGOT) 2018-03-08 04:28:00* Test Item Value Reference Range Interpretation Comments Aspartate Amino Transf (AST/SGOT) (test code = Aspartate Amino Transf (AST/SGOT)) 14 5-34 [facility]Alanine Aminotransferase (ALT/SGPT) 2018-03-08 04:28:00* Test Item Value Reference Range Interpretation Comments Alanine Aminotransferase (ALT/SGPT) (test code = 1742-6) 10 0-55 [facility] AllenTotal Fbzkrea2718-25-13 04:28:00* Test Item Value Reference Range Interpretation Comments Total Protein (test code = 2885-2) 7.0 6.5-8.1 [facility] AllenAlbumin2018-07-15 04:28:00* Test Item Value Reference Range Interpretation Comments Albumin (test code = 1751-7) 3.3 3.5-5.0 L [facility] AllenAlkaline Tudtxftanpp9355-01-42 04:28:00* Test Item Value Reference Range Interpretation Comments Alkaline Phosphatase (test code = 6768-6) 74 40-150 [facility] AllenThyroid Stimulating Hormone (TSH) 2018-03-08 04:28:00* Test Item Value Reference Range Interpretation Comments Thyroid Stimulating Hormone (TSH) (test code = 72418-4) 0.136 0.350-4.940 L [facility] AllenHemoglobin A1c Ltitoya6844-09-16 03:46:00 * Test Item Value Reference Range Interpretation Comments Hemoglobin A1c Percent (test code = Hemoglobin A1c Percent) 5.3 4.0-7.0 [facility] AllenHemoglobin A1c Jwfkgzx7613-07-42 03:46:00 * Test Item Value Reference Range Interpretation Comments Hemoglobin A1c Percent (test code = Hemoglobin A1c Percent) 5.3 4.0-7.0 [facility] AllenHemoglobin A1c Ennfkbf2338-76-56 03:46:00 * Test Item Value Reference Range Interpretation Comments Hemoglobin A1c Percent (test code = Hemoglobin A1c Percent) 5.3 4.0-7.0 [facility] AllenHemoglobin A1c Hfguchg9284-74-75 03:46:00 * Test Item Value Reference Range Interpretation Comments Hemoglobin A1c Percent (test code = Hemoglobin A1c Percent) 5.3 4.0-7.0 [facility]CHE[facility]INGLE [facility])2018-03-07 06:27:00 [place] [address] Patient Name: MAVERICK ANN MR #: [id number] : 1960 Age/Sex: 57/F Req #: [id number] Adm Physician: MAZIN TELLO MD Ordered by: ES R[facility] [employer] Report #: [id number] Location: [facility] Room/Bed: [facility] 182-1 Procedure: [id number] DX/CH EST SINGLE (PORTABLE) Exam Date: Exam [...] on 03/07/1802 20 COPY TO: ES [facility] CHEST 2 XULAI2411-56-40 19:16:00 [place] [address] Patient Name: MAVERICK ANN MR #: [id number] : Age/Sex: 57/F Req #: [id number] Adm Physician: Ordered by: ES RICHTER NP Report #: [id number] Location: ER Room/Bed: Procedure: [id number] DX/CHEST 2 VIEWS Exam Date: 02/22 11/09 Exam Time: 1857 REPORT STATUS: Signed E XAMINATION: CHEST 2 [...] JUAN LEWIS MD Electron ically Signed By: JAUN LEWIS MD on 03/06/181916 Transcribed By: AMANDA on 1916 COPY TO: [facility] Urine LVU7369-02-73 18:57:00* Test Item Value Reference Range Interpretation Comments Urine WBC (test code = 5821-4) 0-5 0-5 [facility] IWS2510-22-25 18:57:00* Test Item Value Reference Range Interpretation Comments Urine RBC (test code = 13887-1) 0-5 0-5 [facility] Ppapjcoy9949-34-03 18:57:00* Test Item Value Reference Range Interpretation Comments Urine Bacteria (test code = 30428-3) NONE NONE [facility] Epithelial Jtvni1456-74-36 18:57:00 * Test Item Value Reference Range Interpretation Comments Urine Epithelial Cells (test code = 40624-5) MODERATE NONE [facility] Ostva6970-28-70 18:57:00* Test Item Value Reference Range Interpretation Comments Urine Mucus (test code = 8247-9) MANY RARE H [facility] AllenU[facility] JEO7789-83-72 18:57:00* Test Item Value Reference Range Interpretation Comments Urine WBC (test code = 5821-4) 0-5 0-5 [facility] SCR0521-73-48 18:57:00* Test Item Value Reference Range Interpretation Comments Urine RBC (test code = 40281-9) 0-5 0-5 [facility] AllenU[facility] Xtjrbpdt7366-37-17 18:57:00* Test Item Value Reference Range Interpretation Comments Urine Bacteria (test code = 01840-3) NONE NONE [facility] Epithelial Oixvs6720-99-15 18:57:00 * Test Item Value Reference Range Interpretation Comments Urine Epithelial Cells (test code = 49013-0) MODERATE NONE [facility] Bfwzg9864-00-49 18:57:00* Test Item Value Reference Range Interpretation Comments Urine Mucus (test code = 8247-9) MANY RARE H [facility] Zxawj4263-73-17 18:57:00* Test Item Value Reference Range Interpretation Comments Urine Mucus (test code = 8247-9) MANY RARE H [facility] Kvsan6256-47-22 18:57:00* Test Item Value Reference Range Interpretation Comments Urine Mucus (test code = 8247-9) MANY RARE H [facility] Roexi7027-23-76 18:55:00* Test Item Value Reference Range Interpretation Comments Urine Color (test code = 5778-6) YELLOW YELLOW [facility] Lpazosk5231-80-02 18:55:00* Test Item Value Reference Range Interpretation Comments Urine Clarity (test code = 14508-3) CLEAR CLEAR [facility] Specific Qsdlhiv3270-77-69 18:55:00 * Test Item Value Reference Range Interpretation Comments Urine Specific [place] (test code = 5811-5) 1.020 1.010-1.02 5 [facility] AllenU[facility] lC4445-98-97 18:55:00* Test Item Value Reference Range Interpretation Comments Urine pH (test code = 32969-3) 7 5-7 [facility] Leukocyte Hcgmjyhm0598-26-74 18:55:00* Test Item Value Reference Range Interpretation Comments Urine Leukocyte Esterase (test code = 5799-2) NEGATIVE NEGATIVE [facility] Bjshpkm0292-48-14 18:55:00* Test Item Value Reference Range Interpretation Comments Urine Nitrite (test code = 90618-3) NEGATIVE NEGATIVE [facility] Evixjid8725-93-86 18:55:00* Test Item Value Reference Range Interpretation Comments Urine Protein (test code = 5804-0) TRACE NEGATIVE H [facility] Glucose (UA)2018-03-06 18:55:00* Test Item Value Reference Range Interpretation Comments Urine Glucose (UA) (test code = 2349-9) NEGATIVE NEGATIVE [facility] Arugavf2671-50-26 18:55:00* Test Item Value Reference Range Interpretation Comments Urine Ketones (test code = 16603-2) NEGATIVE NEGATIVE [facility] Bmlltdfcukem5879-51-59 18:55:00* Test Item Value Reference Range Interpretation Comments Urine Urobilinogen (test code = 34575-6) 1 0.2-1 [facility] Lfeuurokw1968-33-90 18:55:00* Test Item Value Reference Range Interpretation Comments Urine Bilirubin (test code = 1978-6) NEGATIVE NEGATIVE [facility] Efscy6415-59-34 18:55:00* Test Item Value Reference Range Interpretation Comments Urine Blood (test code = 03820-3) NEGATIVE NEGATIVE [facility] Pcywa1433-94-32 18:55:00* Test Item Value Reference Range Interpretation Comments Urine Color (test code = 5778-6) YELLOW YELLOW [facility] Gdystsj3839-56-53 18:55:00* Test Item Value Reference Range Interpretation Comments Urine Clarity (test code = 65681-8) CLEAR CLEAR [facility] Specific Ohxzmak1208-73-18 18:55:00 * Test Item Value Reference Range Interpretation Comments Urine Specific [place] (test code = 5811-5) 1.020 1.010-1.02 5 [facility] AllenU[facility] rB8767-50-45 18:55:00* Test Item Value Reference Range Interpretation Comments Urine pH (test code = 56594-9) 7 5-7 [facility] Leukocyte Jglkscua3459-78-81 18:55:00* Test Item Value Reference Range Interpretation Comments Urine Leukocyte Esterase (test code = 5799-2) NEGATIVE NEGATIVE [facility] Ijurbsd9480-78-42 18:55:00* Test Item Value Reference Range Interpretation Comments Urine Nitrite (test code = 98057-6) NEGATIVE NEGATIVE [facility] Vtqeciv8180-41-87 18:55:00* Test Item Value Reference Range Interpretation Comments Urine Protein (test code = 5804-0) TRACE NEGATIVE H [facility] Glucose (UA)2018-03-06 18:55:00* Test Item Value Reference Range Interpretation Comments Urine Glucose (UA) (test code = 2349-9) NEGATIVE NEGATIVE [facility] Rewctdw7007-76-96 18:55:00* Test Item Value Reference Range Interpretation Comments Urine Ketones (test code = 78177-9) NEGATIVE NEGATIVE [facility] Ifoikbnrjrwf9654-04-59 18:55:00* Test Item Value Reference Range Interpretation Comments Urine Urobilinogen (test code = 99165-4) 1 0.2-1 [facility] Dyjpxefqj2772-14-80 18:55:00* Test Item Value Reference Range Interpretation Comments Urine Bilirubin (test code = 1978-6) NEGATIVE NEGATIVE [facility] Gojfu0266-64-48 18:55:00* Test Item Value Reference Range Interpretation Comments Urine Blood (test code = 63686-5) NEGATIVE [facility]GATIVE [facility] Iquxj9471-30-66 13:00:00* Test Item Value Reference Range Interpretation Comments Sodium Level (test code = 2951-2) 139 136-145 [facility]Potassium Ootgs0309-19-52 13:00:00* Test Item Value Reference Range Interpretation Comments Potassium Level (test code = 2823-3) 3.5 3.5-5.1 [facility] AllenChloride Loqas9315-09-32 13:00:00* Test Item Value Reference Range Interpretation Comments Chloride Level (test code = 2075-0) 105 98-107 [facility] AllenCarbon Dioxide Mwkyy0124-03-31 13:00:00* Test Item Value Reference Range Interpretation Comments Carbon Dioxide Level (test code = 2028-9) 25 22-29 [facility] AllenAnion Mcb8597-10-50 13:00:00* Test Item Value Reference Range Interpretation Comments Anion Gap (test code = 78505-9) 12.5 8-16 [facility] AllenBlood Urea Vcdwxocb5893-03-69 13:00:00* Test Item Value Reference Range Interpretation Comments Blood Urea Nitrogen (test code = 3094-0) 7 7-26 [facility] AllenCreatinine2017-12-17 13:00:00* Test Item Value Reference Range Interpretation Comments Creatinine (test code = 2160-0) 0.70 0.57-1.11 [facility] AllenBUN/Creatinine Dxtfy4846-73-09 13:00:00* Test Item Value Reference Range Interpretation Comments BUN/Creatinine Ratio (test code = 3097-3) 10 6-25 [facility] AllenEstimat Glomerular Filtration Rate 2017-08-10 13:00:00* Test Item Value Reference Range Interpretation Comments Estimat Glomerular Filtration Rate (test code = 72447-8) 60- >60 Ranges were taken from the National Kidney Disease Education Program and the [facility] literature.Reference ranges:60 or greater: Pkponn33-07 ( for 3 consecutive months): Chronic kidney disease 15 or less: Kidney failureTexas Health AllenGlucose Qyfeo6636-85-97 13:00:00* Test Item Value Reference Range Interpretation Comments Glucose Level (test code = LCI0932) 85 74-118 [facility] AllenCalcium Mrwxm5658-74-83 13:00:00* Test Item Value Reference Range Interpretation Comments Calcium Level (test code = 73297-1) 8.2 8.4-10.2 L [facility] AllenTotal Uykuqpxkj7709-91-83 13:00:00* Test Item Value Reference Range Interpretation Comments Total Bilirubin (test code = 1975-2) 0.3 0.2-1.2 [facility] AllenAspartate Amino Transf (AST/SGOT) 2017-08-10 13:00:00* Test Item Value Reference Range Interpretation Comments Aspartate Amino Transf (AST/SGOT) (test code = Aspartate Amino Transf (AST/SGOT)) 26 5-34 [facility] AllenAlanine Aminotransferase (ALT/SGPT) 2017-08-10 13:00:00* Test Item Value Reference Range Interpretation Comments Alanine Aminotransferase (ALT/SGPT) (test code = 1742-6) 21 0-55 [facility] AllenTotal Eacvhzg9241-09-06 13:00:00* Test Item Value Reference Range Interpretation Comments Total Protein (test code = 2885-2) 6.7 6.5-8.1 [facility] AllenAlbumin2017-12-17 13:00:00* Test Item Value Reference Range Interpretation Comments Albumin (test code = 1751-7) 3.3 3.5-5.0 L [facility] AllenGlobulin2017-12-17 13:00:00* Test Item Value Reference Range Interpretation Comments Globulin (test code = 75435-1) 3.4 2.3-3.5 [facility] AllenAlbumin/Globulin Hogkw6194-36-87 13:00:00 * Test Item Value Reference Range Interpretation Comments Albumin/Globulin Ratio (test code = 1759-0) 1.0 0.8-2.0 [facility] AllenAlkaline Cezjztqlygs6459-21-69 13:00:00* Test Item Value Reference Range Interpretation Comments Alkaline Phosphatase (test code = 6768-6) 89 40-150 [facility] AllenGlobulin2017-12-17 13:00:00* Test Item Value Reference Range Interpretation Comments Globulin (test code = 75420-2) 3.4 2.3-3.5 [facility] AllenAlbumin/Globulin Rfrkl9135-48-35 13:00:00 * Test Item Value Reference Range Interpretation Comments Albumin/Globulin Ratio (test code = 1759-0) 1.0 0.8-2.0 [facility] AllenGlobulin2017-12-17 13:00:00* Test Item Value Reference Range Interpretation Comments Globulin (test code = 26955-2) 3.4 2.3-3.5 [facility] AllenAlbumin/Globulin Kyrri4499-12-74 13:00:00 * Test Item Value Reference Range Interpretation Comments Albumin/Globulin Ratio (test code = 1759-0) 1.0 0.8-2.0 [facility] AllenWhite Blood Kgwwq6795-85-45 12:37:00* Test Item Value Reference Range Interpretation Comments White Blood Count (test code = 6690-2) 8.37 4.8-10.8 [facility] AllenRed Blood Dllpq9807-05-95 12:37:00* Test Item Value Reference Range Interpretation Comments Red Blood Count (test code = 789-8) 4.10 3.6-5.1 [facility] AllenHemoglobin2017-12-17 12:37:00* Test Item Value Reference Range Interpretation Comments Hemoglobin (test code = 84306-4) 11.5 12.0-16.0 L [facility] AllenHematocrit2017-12-17 12:37:00* Test Item Value Reference Range Interpretation Comments Hematocrit (test code = 4544-3) 35.4 34.2-44.1 [facility] AllenMean Corpuscular Bsdnrw7970-98-63 12:37:00* Test Item Value Reference Range Interpretation Comments Mean Corpuscular Volume (test code = 787-2) 86.3 81-99 [facility] AllenMean Corpuscular Ryvdulcnue6997-94-52 12:37:00* Test Item Value Reference Range Interpretation Comments Mean Corpuscular Hemoglobin (test code = 785-6) 28.0 28-32 [facility] Hem[facility] Concent 2017-08-10 12:37:00* Test Item Value Reference Range Interpretation Comments Mean Corpuscular Hemoglobin Concent (test code = 786-4) 32.5 31-35 [facility] AllenRed Cell Distribution Lkcwl0130-26-05 12:37:00* Test Item Value Reference Range Interpretation Comments Red Cell Distribution Width (test code = 91075-8) 14.6 11.7 -14.4 H [facility] AllenPlatelet Lkfzv5298-93-97 12:37:00* Test Item Value Reference Range Interpretation Comments Platelet Count (test code = 777-3) 339 140-360 [facility] AllenNeutrophils (%) (Auto)2017-08-10 12:37:00 * Test Item Value Reference Range Interpretation Comments Neutrophils (%) (Auto) (test code = 08009-1) 60.2 38.7-80.0 [facility] AllenLymphocytes (%) (Auto)2017-08-10 12:37:00 * Test Item Value Reference Range Interpretation Comments Lymphocytes (%) (Auto) (test code = 736-9) 19.1 18.0-39.1 [facility] AllenMonocytes (%) (Auto)2017-08-10 12:37:00* Test Item Value Reference Range Interpretation Comments Monocytes (%) (Auto) (test code = 5905-5) 8.4 4.4-11.3 [facility] AllenEosinophils (%) (Auto)2017-08-10 12:37:00 * Test Item Value Reference Range Interpretation Comments Eosinophils (%) (Auto) (test code = 713-8) 10.5 0.0-6.0 H [facility] AllenBasophils (%) (Auto)2017-08-10 12:37:00* Test Item Value Reference Range Interpretation Comments Basophils (%) (Auto) (test code = 706-2) 1.6 0.0-1.0 H [facility] AllenIM GRANULOCYTES %2017-08-10 12:37:00* Test Item Value Reference Range Interpretation Comments IM GRANULOCYTES % (test code = IM GRANULOCYTES %) 0.2 0.0- 1.0 [facility] AllenNeutrophils # (Auto)2017-08-10 12:37:00* Test Item Value Reference Range Interpretation Comments Neutrophils # (Auto) (test code = 751-8) 5.0 2.1-6.9 [facility] AllenLymphocytes # (Auto)2017-08-10 12:37:00* Test Item Value Reference Range Interpretation Comments Lymphocytes # (Auto) (test code = 23686-2) 1.6 1.0-3.2 [facility] AllenMonocytes # (Auto)2017-08-10 12:37:00* Test Item Value Reference Range Interpretation Comments Monocytes # (Auto) (test code = 742-7) 0.7 0.2-0.8 [facility] AllenEosinophils # (Auto)2017-08-10 12:37:00* Test Item Value Reference Range Interpretation Comments Eosinophils # (Auto) (test code = 711-2) 0.9 0.0-0.4 H [facility] AllenBasophils # (Auto)2017-08-10 12:37:00* Test Item Value Reference Range Interpretation Comments Basophils # (Auto) (test code = 704-7) 0.1 0.0-0.1 [facility] AllenAbsolute Immature Granulocyte (auto 2017-08-10 12:37:00* Test Item Value Reference Range Interpretation Comments Absolute Immature Granulocyte (auto (laura t code = Absolute Immature Granulocyte (auto) 0.02 0-0.1 [facility] AllenBlood Incyovp5283-45-85 19:32:00* Test Item Value Reference Range Interpretation Comments Blood Culture (test code = 55685682) NO GROWTH AFTER 5 DAYS, FINAL REPORT [facility] AllenBlood Nwxongh5430-49-79 19:32:00* Test Item Value Reference Range Interpretation Comments Blood Culture (test code = 63200586) NO GROWTH AFTER 5 DAYS, FINAL REPORT [facility] AllenBlood Drbwhex8821-44-86 19:32:00* Test Item Value Reference Range Interpretation Comments Blood Culture (test code = 25446399) NO GROWTH AFTER 5 DAYS, FINAL REPORT [facility] AllenCreatine Kinase ZF8197-57-13 16:39:00* Test Item Value Reference Range Interpretation Comments Creatine Kinase MB (test code = 06747-2) 0.70 0.00-5.00 [place] 51977017-11-10 16:39:00* Test Item Value Reference Range Interpretation Comments Troponin I (test code = BKZ1759) -0.001 0-0.300 [facility] AllenCreatine Kinase KC1453-92-40 16:39:00* Test Item Value Reference Range Interpretation Comments Creatine Kinase MB (test code = 98799-7) 0.70 0.00-5.00 [place] 51977017-11-10 16:39:00* Test Item Value Reference Range Interpretation Comments Troponin I (test code = NHB5803) -0.001 0-0.300 [facility] AllenCreatine Kinase KK1194-37-22 16:39:00* Test Item Value Reference Range Interpretation Comments Creatine Kinase MB (test code = 83856-1) 0.70 0.00-5.00 [place] 51977017-11-10 16:39:00* Test Item Value Reference Range Interpretation Comments Troponin I (test code = GJD8425) -0.001 0-0.300 [facility] AllenCreatine Caltjx5315-10-44 16:29:00* Test Item Value Reference Range Interpretation Comments Creatine Kinase (test code = 2157-6) 107 29-168 [facility] AllenCreatine Rwjisr0753-48-78 16:29:00* Test Item Value Reference Range Interpretation Comments Creatine Kinase (test code = 2157-6) 107 29-168 [facility] AllenCreatine Xkgiix0366-76-77 16:29:00* Test Item Value Reference Range Interpretation Comments Creatine Kinase (test code = 2157-6) 107 29-168 [facility] AllenTriglycerides Thsjm0230-34-46 08:27:00* Test Item Value Reference Range Interpretation Comments Triglycerides Level (test code = 2571-8) 47 0-149 [facility] AllenCholesterol Zbopd2205-24-74 08:27:00* Test Item Value Reference Range Interpretation Comments Cholesterol Level (test code = 2093-3) 175 0-199 Less than 200 mg/dL Low Xayl830 - 239 mg/dL Borderline Uyfj779 m g/dl and greater High Risk [facility] AllenLDL Jcrcwvhwwff1558-94-16 08:27:00* Test Item Value Reference Range Interpretation Comments LDL Cholesterol (test code = 63834-2) 112 60-130 [facility] Xlqweuuruzg7682-96-40 08:27:00* Test Item Value Reference Range Interpretation Comments HDL Cholesterol (test code = 2085-9) 54 40-60 [facility] AllenCholesterol/HDL Gxdzl5807-34-06 08:27:00 * Test Item Value Reference Range Interpretation Comments Cholesterol/HDL Ratio (test code = 9830-1) 3.2 3.0-3.6 [facility] AllenTriglycerides Jrhed7136-02-81 08:27:00* Test Item Value Reference Range Interpretation Comments Triglycerides Level (test code = 2571-8) 47 0-149 [facility] AllenCholesterol Uzcvd7322-55-23 08:27:00* Test Item Value Reference Range Interpretation Comments Cholesterol Level (test code = 2093-3) 175 0-199 Less than 200 mg/dL Low Tzmx810 - 239 mg/dL Borderline Crhj614 m g/dl and greater High Risk [facility] AllenLDL Aqaheblhila5797-01-44 08:27:00* Test Item Value Reference Range Interpretation Comments LDL Cholesterol (test code = 05088-7) 112 60-130 [facility] Ahbkyshzvbo9616-36-59 08:27:00* Test Item Value Reference Range Interpretation Comments HDL Cholesterol (test code = 2085-9) 54 40-60 [facility] AllenCholesterol/HDL Apwnz3400-27-57 08:27:00 * Test Item Value Reference Range Interpretation Comments Cholesterol/HDL Ratio (test code = 9830-1) 3.2 3.0-3.6 [facility] AllenTriglycerides Eonna8273-75-65 08:27:00* Test Item Value Reference Range Interpretation Comments Triglycerides Level (test code = 2571-8) 47 0-149 [facility] AllenCholesterol Drbyy2340-66-20 08:27:00* Test Item Value Reference Range Interpretation Comments Cholesterol Level (test code = 2093-3) 175 0-199 Less than 200 mg/dL Low Luau003 - 239 mg/dL Borderline Byrv612 m g/dl and greater High Risk [facility] AllenLDL Szdnrnculem7547-24-99 08:27:00* Test Item Value Reference Range Interpretation Comments LDL Cholesterol (test code = 83119-8) 112 60-130 [facility] AllenHDL Npcfccnkskq5603-34-26 08:27:00* Test Item Value Reference Range Interpretation Comments HDL Cholesterol (test code = 2085-9) 54 40-60 [facility] AllenCholesterol/HDL Sdpuk2752-00-74 08:27:00 * Test Item Value Reference Range Interpretation Comments Cholesterol/HDL Ratio (test code = 9830-1) 3.2 3.0-3.6 [facility] AllenInfluenza Virus Types A,B Antigen 2017-07-03 17:47:00* Test Item Value Reference Range Interpretation Comments Influenza Virus Types A,B Antigen (test code = 21361-1) NEGATIVE NEGATIVE [facility] AllenInfluenza Virus Types A,B Antigen 2017-07-03 17:47:00* Test Item Value Reference Range Interpretation Comments Influenza Virus Types A,B Antigen (test code = 49500-2) NEGATIVE NEGATIVE [facility] AllenInfluenza Virus Types A,B Antigen 2017-07-03 17:47:00* Test Item Value Reference Range Interpretation Comments Influenza Virus Types A,B Antigen (test code = 46246-4) NEGATIVE NEGATIVE [facility] AllenCHE[facility] [place] [address] Patient Name: MAVERICK ANN MR #: [id number] : 1960 Age/Sex: 57/F Req #: [id number] Adm Physician: Ordered by: ABDIAS LALA DO Report #: [id number] Location: ER Room/Bed: Procedure: [id number] DX/CHEST 2 VIEWS Exam Date: Exam Time: 1355 REPORT STATUS: Signed PROCEDURE: Frontal and lateral views of the chest. COMPARISON: Patients [facility], DX, CHEST SINGLE (PORTABLE), 08/10/2017, 12:09. [...] disease. Jared Rios M.D. Dictated by: Jared elliott M.D. on 01/15/2018 at 14:43 Electronically approved by: Jared frausto M.D. on 01/15/2018 at 14:43 Dictated By: JARED RIOS MD 1443 Transcribed B y: INFCE on 01/15/18 1443 COPY TO: ABDIAS LALA DO CHEST SINGLE (PORTABLE) [place] [address] Patient Name: MAVERICK ANN MR #: [id number] : 1960 Age/Sex: 57/F Req #: [id number] Adm Physician: Ordered by: MILLICENT MORRISON MD Report #: [id number] Location: ER Room/Bed: Procedure: [id number] DX/CHEST SINGLE (PORTABLE) Exam D ate: 08/10/17 [...] TO: MILLICENT MORRISON MD CHEST 2 VIEWS [place] [address] Patient Name: MAVERICK ANN MR #: [id number] : 1960 Age/Sex: 57/F Req #: [id number] Adm Physician: Ordered by: MARE BAILEY MD Report #: [id number] Location: ER Room/Bed: Procedure: [id number] DX/CHEST 2 VIEWS Exam Date: Exam Time: [...]
--- NOTE | 2020-07-18 21:00 | Emergency Department Note ---
History of Present Illnes History of Present Illness Chief Complaint: General Medicine Complaints History of Present Illness This is a 60 year old female with c/o asthma attack, started about 4 hours ago, states took inhaler without relief, pt has multiple visits to this hospital for same.. Historian: Patient Arrival Mode: Car Community Health Worker Required: No Onset (how long ago): hour(s) (4) Location: chest Quality: wheezing, cough, sob Radiation: Reports non-radiation Severity: moderate Onset quality: sudden Duration (how long): hour(s) (4) Timing of current episode: constant Progression: unchanged Chronicity: recurrent Context: Denies recent illness, Denies recent surgery Relieving factors: none Exacerbating factors: other (coughing) Associated symptoms: Reports cough, Reports shortness of breath, Reports other (wheezing) Treatments prior to arrival: other (inhaler) Past Medical/Family History Physician Review I have reviewed the patient's past medical and family history. Any updates have been documented here. Past Medical History Recent Fever: No Clinical Suspicion of Infectio: No New/Unexplained Change in Ment: No Past Medical History: Asthma, GERD, Chronic Back Pain Other Medical History: Sciatic nerve pain Past Surgical History: Cholecysctectomy, Appendectomy, Bariatric Surgery Other Surgery: LEFT HAND FX/SX DECEMBER 2013 LAP BAND Social History Smoking Cessation: Former smoker Counseling Performed: No Alcohol Use: None Any Illegal Drug Use: No Other Last Tetanus: 2013 Review of Systems Review of Systems Constitutional: Reports no symptoms EENTM: Reports no symptoms Cardiovascular: Reports no symptoms Respiratory: Reports as per HPI Gastrointestinal: Reports no symptoms Genitourinary: Reports no symptoms Musculoskeletal: Reports no symptoms Integumentary: Reports no symptoms Neurological: Reports no symptoms Psychological: Reports no symptoms Endocrine: Reports no symptoms Hematological/Lymphatic: Reports no symptoms Physical Exam Related Data Allergies: Coded Allergies: No Known Allergies (Unverified , 03/06/18) Triage Vital Signs Vital Signs Date Time Temp Pulse Resp B/P (MAP) Pulse Ox O2 Delivery O2 Flow Rate FiO2 07/18/20 20:26 98.4 79 26 143/83 100 Nasal Cannula 3.0 Vital signs reviewed: Yes Physical Exam CONSTITUTIONAL Constitutional: Present well-developed, Present well-nourished, Present distressed (mild) HENT HENT: Present normocephalic, Present atraumatic, Present oropharynx clear/moist, Present nose normal HENT L/R: Present left ext ear normal, Present right ext ear normal EYES Eyes: Reports PERRL, Reports conjunctivae normal NECK Neck: Present ROM normal PULMONARY Pulmonary: Present effort normal, Present respiratory distress (mild with tachypnea), Present other (wheezing to all 4 lung rg present) CARDIOVASCULAR Cardiovascular: Present regular rhythm, Present heart sounds normal, Present capillary refill normal, Present normal rate GASTROINTESTINAL Abdominal: Present soft, Present nontender, Present bowel sounds normal GENITOURINARY Genitourinary: Present exam deferred SKIN Skin: Present warm, Present dry MUSCULOSKELETAL Musculoskeletal: Present ROM normal NEUROLOGICAL Neurological: Present alert, Present oriented x 3, Present no gross motor or sensory deficits PSYCHOLOGICAL Psychological: Present mood/affect normal, Present judgement normal Results Imaging Imaging results reviewed: Yes Impressions Procedure: [id number] DX/CHEST SINGLE (PORTABLE) Exam Date: 07/18/20 Exam Time: 2042 REPORT STATUS: Signed EXAMINATION: CHEST SINGLE (PORTABLE) INDICATION: ^Y ^asthma, wheezing ^20200718 ^2042 ^Y COMPARISON: 06/22/2020 FINDINGS: AP view TUBES and LINES: None. LUNGS: Lungs are well inflated. There is no evidence of pneumonia or pulmonary edema. Mild central peribronchial cuffing. PLEURA: No pleural effusion or pneumothorax. HEART AND MEDIASTINUM: The cardiomediastinal silhouette is unremarkable. BONES AND SOFT TISSUES: No acute osseous lesion. Soft tissues are unremarkable. UPPER ABDOMEN: No free air under the diaphragm. Gastric band device is visualized. IMPRESSION: Mild central peribronchial cuffing. No focal consolidations. No significant interval change from prior exam. Signed by: Dr. Darnell Amaral MD on 07/18/2020 9:12 PM Dictated By: DARNELL AMARAL MD 11 Transcribed By: AMANDA on 07/18/202111 COPY TO: ISAAC MILLER MD~ Assessment & Plan Medical Decision Making MDM pt with h/o asthma with sob, wheezing cxr ordered to eval for pneumonia albuterol neb times 2 ordered atrovent neb times 1 ordered solu medrol 125 mg iv ordered Reassessment Reassessment time: 22:23 Reassessment wheezing resolved Assessment & Plan Final Impression: (1) Asthma exacerbation (2) Bronchitis Depart Disposition: HOME, SELF-CARE Last Vital Signs Date Time Temp Pulse Resp B/P (MAP) Pulse Ox O2 Delivery O2 Flow Rate FiO2 07/18/20 20:26 98.4 79 26 143/83 100 Nasal Cannula 3.0 Home Meds Active Scripts Azithromycin (ZITHROMAX) 500 Mg Tablet, 500 MG PO DAILY for 5 Days Prov:KYLE PATTERSON [employer] 11/08/19 [Ceftin] No Conflict Check, 500 MG PO Q12H for 5 Days Prov:KYLE PATTERSON [employer] 11/08/19 Prednisone (PREDNISONE) 10 Mg Tab, 10 MG PO UD for 11 Days, TAB TAKE 40MG PO BID X2 DAYS THEN TAKE 40MG PO DAILY X3 DAYS THEN TAKE 20MG PO DAILY X3 DAYS THEN TAKE 10MG PO DAILY X3 DAYS THEN STOP Prov:KYLE PATTERSON [employer] 11/08/19 Pantoprazole Sod (PROTONIX) 40 Mg/Ml Susp, 40 MG PO ACB for 30 Days Prov:KYLE PATTERSON [employer] 11/08/19 Salmeterol Xinaf/Fluticasone* (ADVAIR 500/50*) 1 Ea Aerp, 1 INH INH Q12H, #1 INH Prov:KYLE PATTERSON [employer] 11/08/19 [Albuterol/Ipratropium Nebulize] 3 ML INHA No Conflict Check, 3 ML NEB RQ4H for 30 Days Prov:KYLE PATTERSON [employer] 03/10/18 Medications in the ED Albuterol Sulfate 6 ml NOW STAT NEB ; Start 07/18/20 at 20:23; Stop 07/18/20 at 20:29; Status DC Ipratropium [place] 2.5 ml ONCE ONCE NEB ; Start 07/18/20 at 20:30; Stop 07/18/20 at 20:31; Status DC Methylprednisolone Sodium Succinate 125 mg ONCE ONCE IV Last administered on 07/18/20at 20:29; Admin Dose 125 MG; Start 07/18/20 at 20:30; Stop 07/18/20 at 20:31; Status DC Methylprednisolone Sodium Succinate 125 mg STK-MED ONCE .ROUTE ; Start 07/18/20 at 20:34; Stop 07/18/20 at 20:29; Status DC ISAAC MILLER MD Jul 18, 2020 20:59
--- NOTE | 2020-07-18 21:15 | Diagnostic Imaging Report ---
EXAMINATION: CHEST SINGLE (PORTABLE) INDICATION: ^Y ^asthma, wheezing ^20200718 ^2042 ^Y COMPARISON: 06/22/2020 FINDINGS: AP view TUBES and LINES: None. LUNGS: Lungs are well inflated. There is no evidence of pneumonia or pulmonary edema. Mild central peribronchial cuffing. PLEURA: No pleural effusion or pneumothorax. HEART AND MEDIASTINUM: The cardiomediastinal silhouette is unremarkable. BONES AND SOFT TISSUES: No acute osseous lesion. Soft tissues are unremarkable. UPPER ABDOMEN: No free air under the diaphragm. Gastric band device is visualized. IMPRESSION: Mild central peribronchial cuffing. No focal consolidations. No significant interval change from prior exam. Signed by: Dr. Darnell Brizuela MD on 07/18/2020 9:12 PM
[2020-07-18] MEDS ORDERED: ALBUTEROL/IPRATROPIUM 3 ML NEB NEB ONE (22:15)
[2020-07-18 22:53] VITALS: BP 129/70
== END 2020-07-18 22:55 | disposition home or self-care (01) ==
LOC: ER 20:42
DX: J45.901 Unspecified asthma with (acute) exacerbation (principal); K21.9 Gastro-esophageal reflux disease without esophagitis; Z98.84 Bariatric surgery status; Z87.891 Personal history of nicotine dependence
CPT/HCPCS: 71045; 94640 ×2; 99283; J2930

== ENCOUNTER 2020-08-24 16:24 | Emergency (ER) | payer SELFPAY ==
[~2020-08-24] VITALS: Ht 157.5 cm; Wt 56.7 kg
[2020-08-24] MEDS ORDERED: SODIUM CHLORIDE 0.9% 1000ML 1,000 ML IV STA (16:34)
[2020-08-24] MEDS ORDERED: METHYLPREDNISOLONE SOD SUCC 125 MG/2ML VIAL IV STA (16:43)
[2020-08-24] MEDS ORDERED: ALBUTEROL/IPRATROPIUM 3 ML NEB ONE (16:43)
[2020-08-24] MEDS ORDERED: METHYLPREDNISOLONE SOD SUCC 125 MG/2ML VIAL ONE (16:51)
[2020-08-24 17:04] LABS: BASOPHILS # (AUTO) 0.1 (0.0-0.1); BASOPHILS % 0.6 % (0.0-1.0); EOSINOPHILS # (AUTO) 0.3 (0.0-0.4); EOSINOPHILS % 1.6 % (0.0-6.0); HEMATOCRIT 33.8 % (34.2-44.1); HEMOGLOBIN 10.8 g/dL (12.0-16.0); LYMPHOCYTES % 5.1 % (18.0-39.1); MEAN CORPUSCULAR HEMOGLOBIN 26.6 pg (28-32); MEAN CORPUSCULAR VOLUME 83.3 fL (81-99); MONOCYTES # (AUTO) 0.9 (0.2-0.8); MONOCYTES % 4.8 % (4.4-11.3); NEUTROPHILS # (AUTO) 16.7 (2.1-6.9); NEUTROPHILS % 87.3 % (38.7-80.0); PLATELET COUNT 467 x10e3/uL (140-360); RED BLOOD COUNT 4.06 x10e6/uL (3.6-5.1); RED CELL DISTRIBUTION WIDTH 15.9 % (11.7-14.4)
[2020-08-24 17:14] LABS: INR 1.02
[2020-08-24 17:15] LABS: PARTIAL THROMBOPLASTIN TIME 28.3 seconds (23.8-35.5)
[2020-08-24 17:28] LABS: ALANINE AMINOTRANSFERASE 16 IU/L (0-55); ALBUMIN 3.3 g/dL (3.5-5.0); ALBUMIN/GLOBULIN RATIO 0.9 (0.8-2.0); ALKALINE PHOSPHATASE 85 IU/L (40-150); ANION GAP 15.9 mmol/L (8-16); BLOOD UREA NITROGEN 8 mg/dL (7-26); BUN/CREATININE RATIO 12 (6-25); CALCIUM 8.3 mg/dL (8.4-10.2); CARBON DIOXIDE 23 mmol/L (22-29); CHLORIDE 107 mmol/L (98-107); CREATINE KINASE 215 IU/L (29-168); CREATININE, SERUM 0.66 mg/dL (0.57-1.11); EST GLOMERULAR FILTRATION RATE > 60 ML/MIN (60-); GLUCOSE 94 mg/dL (74-118); MAGNESIUM 1.6 MG/DL (1.3-2.1); POTASSIUM 3.9 mmol/L (3.5-5.1); SODIUM 142 mmol/L (136-145)
== END 2020-08-24 18:06 | disposition home or self-care (01) ==
LOC: ER 16:48
DX: J45.901 Unspecified asthma with (acute) exacerbation (principal); R06.02 Shortness of breath; K21.9 Gastro-esophageal reflux disease without esophagitis; M54.9 Dorsalgia, unspecified; G89.29 Other chronic pain
CPT/HCPCS: 36415; 71045; 80053; 82550; 82553; 83735; 84484; 85025; 85610; 85730; 94640; 99284; J2930; J7030; U0002

== ENCOUNTER 2020-11-16 17:26 | Emergency (ER) | payer SELFPAY ==
[~2020-11-16] VITALS: Ht 157.5 cm; Wt 56.7 kg
[2020-11-16] MEDS ORDERED: ALBUTEROL/IPRATROPIUM 3 ML NEB ONE (17:53)
[2020-11-16] MEDS ORDERED: ALBUTEROL/IPRATROPIUM 3 ML NEB NEB ONE (18:15)
[2020-11-16] MEDS ORDERED: METHYLPREDNISOLONE SOD SUCC 125 MG/2ML VIAL IV ONE (18:15)
[2020-11-16] MEDS ORDERED: MAGNESIUM SULFATE 2GM/50ML 50 ML IV ONE (18:15)
[2020-11-16 18:18] LABS: BASOPHILS # (AUTO) 0.1 (0.0-0.1); BASOPHILS % 1.7 % (0.0-1.0); EOSINOPHILS # (AUTO) 0.6 (0.0-0.4); EOSINOPHILS % 8.8 % (0.0-6.0); HEMATOCRIT 35.5 % (34.2-44.1); HEMOGLOBIN 11.2 g/dL (12.0-16.0); LYMPHOCYTES # (AUTO) 1.8 (1.0-3.2); LYMPHOCYTES % 27.5 % (18.0-39.1); MEAN CORPUSCULAR HGB CONC 31.5 g/dL (31-35); MEAN CORPUSCULAR VOLUME 82.4 fL (81-99); MONOCYTES # (AUTO) 0.6 (0.2-0.8); MONOCYTES % 9.7 % (4.4-11.3); NEUTROPHILS # (AUTO) 3.3 (2.1-6.9); PLATELET COUNT 520 x10e3/uL (140-360); RED BLOOD COUNT 4.31 x10e6/uL (3.6-5.1); RED CELL DISTRIBUTION WIDTH 14.1 % (11.7-14.4)
[2020-11-16 18:31] LABS: ALANINE AMINOTRANSFERASE 11 IU/L (0-55); ALBUMIN 3.4 g/dL (3.5-5.0); ALBUMIN/GLOBULIN RATIO 0.8 (0.8-2.0); ALKALINE PHOSPHATASE 96 IU/L (40-150); ANION GAP 14.6 mmol/L (8-16); BLOOD UREA NITROGEN 7 mg/dL (7-26); BUN/CREATININE RATIO 10 (6-25); CALCIUM 8.8 mg/dL (8.4-10.2); CARBON DIOXIDE 26 mmol/L (22-29); CHLORIDE 107 mmol/L (98-107); CREATINE KINASE 336 IU/L (29-168); CREATININE, SERUM 0.71 mg/dL (0.57-1.11); EST GLOMERULAR FILTRATION RATE > 60 ML/MIN (60-); GLUCOSE 103 mg/dL (74-118); POTASSIUM 3.6 mmol/L (3.5-5.1); SODIUM 144 mmol/L (136-145)
[2020-11-16] MEDS ORDERED: PREDNISONE20 MG PO (20:53)
[2020-11-16] MEDS ORDERED: ADVAIR 100-501 EACH INH (20:53)
== END 2020-11-16 21:13 | disposition home or self-care (01) ==
LOC: ER 17:49
DX: J45.901 Unspecified asthma with (acute) exacerbation (principal); R05 Cough; K21.9 Gastro-esophageal reflux disease without esophagitis; M54.9 Dorsalgia, unspecified; G89.29 Other chronic pain; Z98.84 Bariatric surgery status
CPT/HCPCS: 36415; 71045; 80053; 82550; 82553; 84484; 85025; 94640; 99284; J2930; J3475

== ENCOUNTER 2021-01-05 17:09 | Emergency (ER) | payer SELFPAY ==
[~2021-01-05] VITALS: Ht 157.5 cm; Wt 56.7 kg
[~2021-01-05 17:09] MED LIST changes: +ADVAIR 100-501 EACH INH
[2021-01-05] MEDS ORDERED: ALBUTEROL/IPRATROPIUM 3 ML NEB NEB ONE (17:30)
[2021-01-05] MEDS ORDERED: PREDNISONE 20 MG TAB PO ONE (17:30)
[2021-01-05] MEDS ORDERED: ONDANSETRON HCL 4 MG ORAL DISINTEGRATING TAB PO ONE (17:30)
[2021-01-05] MEDS ORDERED: ACETAMINOPHEN/CODEINE 300MG - 30MG TAB PO ONE (19:00)
[2021-01-05] MEDS ORDERED: HYDROCODONE/CHLORPHENIRAMINE 5 ML LIQCR PO STA (20:04)
[2021-01-05] MEDS ORDERED: TYLENOL # 31 EA PO (20:54)
[2021-01-05] MEDS ORDERED: PREDNISONE20 MG PO (20:56)
[2021-01-05] MEDS ORDERED: ADVAIR 100-501 EACH INH (20:56)
[2021-01-05 21:11] VITALS: BP 149/79
== END 2021-01-05 21:20 | disposition home or self-care (01) ==
LOC: ER 17:19
DX: R06.02 Shortness of breath (principal); J45.901 Unspecified asthma with (acute) exacerbation; K21.9 Gastro-esophageal reflux disease without esophagitis; M54.9 Dorsalgia, unspecified; G89.29 Other chronic pain
CPT/HCPCS: 99283; J7512

== ENCOUNTER 2021-05-04 17:35 | Emergency (ER) | payer OTHER, SELFPAY ==
[~2021-05-04] VITALS: Ht 157.5 cm; Wt 56.7 kg
[~2021-05-04 17:35] MED LIST changes: +TYLENOL # 31 EA PO
[2021-05-04 18:50] LABS: CLARITY,URINE SL CLOUDY (CLEAR); COLOR,URINE YELLOW (YELLOW); KETONES,URINE NEGATIVE (NEGATIVE); LEUKOCYTE ESTERASE ,URINE SMALL (NEGATIVE); NITRITE,URINE NEGATIVE (NEGATIVE); PROTEIN,URINE DIPSTICK NEGATIVE (NEGATIVE); URINE UROBILINOGEN 0.2 mg/dL (0.2 - 1)
[2021-05-04 19:00] LABS: RBC,URINE 0-5 /HPF (0-5)
[2021-05-04 19:01] LABS: AMORPHOUS SEDIMENT,URINE MODERATE (FEW); BACTERIA,URINE MANY /HPF; EPITHELIAL CELLS,URINE MODERATE /LPF
[2021-05-04 20:58] VITALS: BP 135/82
== END 2021-05-04 21:05 | disposition home or self-care (01) ==
LOC: ER 18:13
DX: R10.30 Lower abdominal pain, unspecified (principal); N39.0 Urinary tract infection, site not specified; K59.00 Constipation, unspecified; J45.909 Unspecified asthma, uncomplicated; K21.9 Gastro-esophageal reflux disease without esophagitis; M54.9 Dorsalgia, unspecified; G89.29 Other chronic pain; Z98.84 Bariatric surgery status; F17.210 Nicotine dependence, cigarettes, uncomplicated
CPT/HCPCS: 74019; 81001; 99283

== ENCOUNTER 2021-05-12 10:27 | Emergency (ER) | payer OTHER ==
[~2021-05-12] VITALS: Ht 157.5 cm; Wt 56.7 kg
[2021-05-12] MEDS ORDERED: KETOROLAC TROMETHAMINE 30 MG/ML VIAL ONE (11:26)
[2021-05-12] MEDS ORDERED: KETOROLAC TROMETHAMINE 60 MG/2 ML VIAL IM ONE (11:30)
[2021-05-12] MEDS ORDERED: ORPHENADRINE CITRATE 30 MG/ML VIAL IM ONE (11:30)
[2021-05-12] MEDS ORDERED: HYDROCODONE/APAP 5MG-325MG TAB PO ONE (11:30)
== END 2021-05-12 11:46 | disposition home or self-care (01) ==
LOC: ER 10:59
DX: M54.5 Low back pain (principal); G89.29 Other chronic pain; J45.909 Unspecified asthma, uncomplicated; K21.9 Gastro-esophageal reflux disease without esophagitis; Z98.84 Bariatric surgery status
CPT/HCPCS: 99283; J1885; J2360

== ENCOUNTER 2021-09-15 15:35 | Emergency (ER) | payer OTHER ==
[~2021-09-15] VITALS: Ht 157.5 cm; Wt 56.7 kg
[2021-09-15] MEDS ORDERED: ALBUTEROL/IPRATROPIUM 3 ML NEB NEB ONE (16:45)
[2021-09-15] MEDS ORDERED: DEXAMETHASONE SOD PHOS 10 MG/1 ML VIAL IM NR (16:45)
[2021-09-15] MEDS ORDERED: AEROECLIPSE II1 EACH (17:53)
[2021-09-15] MEDS ORDERED: PREDNISONE50 MG PO (17:53)
[2021-09-15] MEDS ORDERED: ALBUTEROL1.25 MG/3 NEB (17:53)
[2021-09-15] MEDS ORDERED: VENTOLIN HFA18 GM INH (17:53)
[2021-09-15] MEDS ORDERED: ADVAIR 250-501 EACH INH (17:53)
== END 2021-09-15 18:11 | disposition home or self-care (01) ==
LOC: ER 16:51
DX: J45.901 Unspecified asthma with (acute) exacerbation (principal); R05.9 Cough, unspecified; R06.02 Shortness of breath; K21.9 Gastro-esophageal reflux disease without esophagitis; M54.9 Dorsalgia, unspecified; G89.29 Other chronic pain; Z98.84 Bariatric surgery status
CPT/HCPCS: 71045; 94640; 94799; 99284; J1100